=== PATIENT | female | born 1960 | race Caucasian/White ===

== ENCOUNTER 2016-05-26 07:16 | Inpatient (IN) | payer BC ==
[~2016-05-26] VITALS: Ht 165.1 cm; Wt 76.9 kg
[2016-05-26] VITALS (8 sets, daily range): BP systolic 86–121; BP diastolic 58–85; PULSE 77–111; TEMP 36.6–36.7; O2SAT 94–97; Ht 165.1 cm; Wt 76.9 kg
[~2016-05-26 07:16] MED LIST: ALBU1AER9 INH; AMLO-110 PO; ROSU20TA PO
[2016-05-26] MEDS ORDERED: SODIUM CHLORIDE 0.9% 1000ML 1,000 ML IV ONE (07:45)
[2016-05-26] MEDS ORDERED: METOPROLOL TARTRATE 1 MG/ML VIAL IV STA ×3 (07:53→08:29)
--- NOTE | 2016-05-26 08:01 | DIAGNOSTIC IMAGING REPORT ---
SINGLE VIEW CHEST CLINICAL HISTORY: Dyspnea. FINDINGS: An AP, portable, upright chest radiograph is compared to study dated 07/18/2015. Correlation is made with chest CT dated 01/25/2007. The heart is mildly enlarged. The pulmonary vasculature is noncongested. Emphysema and chronic interstitial thickening is unchanged. No airspace consolidation, large pleural effusion, or pneumothorax is seen. The skeletal structures are osteopenic. There are healed right-sided rib fractures. IMPRESSION: Mild cardiac enlargement and emphysema. There is no acute cardiopulmonary abnormality. Electronically signed by: Donovan Ruiz M.D. 05/26/2016 8:00 AM Dictated Date/Time: 05/26/2016 7:58 AM
[2016-05-26 08:05] LABS: BASO % 0.2 %; BASO ABS # 0.02 K/uL (0-0.2); COMPLETE YES; EOS % 0.8 %; HEMATOCRIT 47.2 % (37-47); IG% 0.2 %; LYMPH % 28.4 %; MEAN CELL VOLUME 91.5 fL (80-100); MEAN CORPUSCULAR HEMOGLOBIN 32.2 pg (25-34); MEAN CORPUSCULAR HGB CONC 35.2 g/dl (32-36); MEAN PLATELET VOLUME 9.6 fL (7.4-10.4); MONO % 6.4 %; PLATELET COUNT 565 K/uL (130-400); RED BLOOD COUNT 5.16 M/uL (4.2-5.4); WHITE BLOOD COUNT 13.05 K/uL (4.8-10.8)
[2016-05-26] MEDS ORDERED: ALBU18002 INH (08:11)
--- NOTE | 2016-05-26 08:11 | EMERGENCY ROOM VISIT NOTE ---
History First contact with patient: 07:28 Chief Complaint: SHORTNESS OF BREATH Stated Complaint: SOB, DIZZINESS, LIGHTHEADED Nursing Triage Summary: pt reports on thursday started with sx of dizziness , sob, lightheaded like she was going to pass out. 2 weeks ago had been dx with bronchitis. head feels funny now History of Present Illness The patient is a 55 year old female who presents to the Emergency Room with complaints of dizziness, shortness of breath. Her symptoms started 3 days ago. She had bronchitis 2 weeks ago and was improving but suddenly 3 days ago, she began feeling short of breath. She shortness of breath is primarily with exertion. She denies any coughing or wheezing. She has not had chest pain or chest tightness. She has felt mild palpitations. She gets no nighttime dyspnea. She has no lower extremity edema. She has no syncopal episodes. She does have asthma for which she takes a PRN albuterol but has not tried using this She has had occasional nausea but no vomiting. Otherwise, does not have any diarrhea or constipation She has not had fevers. Her appetite has been poor but she has been trying to stay hydrated. She denies any history of cardiac problems. She does have hypertension and hyperlipidemia. She denies any thyroid problems or history of thyroid problems. Review of Systems A 10 point review of systems was negative unless stated above. Past Medical/Surgical History Medical Problems: (1) New onset a-fib HTN Hypercholesterolemia Asthma Surgical - Femoral stenting - Hysterectomy - Tonsillectomy Family History Mother: Uterine Ca Father : OR at 46 Social History Smoking Status: Current Every Day Smoker Alcohol Use: occasionally Marital Status: Housing Status: lives with significant other Occupation Status: employed Current/Historical Medications Scheduled Amlodipine (Norvasc), 10 MG PO DAILY Losartan Potassium (Cozaar), 50 MG PO DAILY Rosuvastatin Calcium (Crestor), 20 MG PO DAILY Scheduled PRN Albuterol Sulfate (Proair Respiclick), 1 PUFF INH Q4 PRN for Shortness of Breath Ipratropium-Albuterol (Duoneb), 1 TREATMENT INH Q4H PRN for Shortness of Breath Allergies Coded Allergies: Lisinopril (Unverified Allergy, Severe, SOB, SEVERE COUGHING FITS, 05/26/16 ) Physical Exam Vital Signs Date Time Temp Pulse Resp B/P Pulse Ox O2 Delivery O2 Flow Rate FiO2 05/26/16 10:48 84/68 05/26/16 10:46 109 22 95 05/26/16 10:44 95/72 05/26/16 10:41 105 14 96 05/26/16 10:40 123 18 100/67 96 Room Air 05/26/16 10:39 100/67 05/26/16 10:36 118 19 96 05/26/16 10:33 116/78 05/26/16 10:31 106 19 96 05/26/16 10:28 108/79 05/26/16 10:26 108 24 96 05/26/16 10:23 89/75 05/26/16 10:21 97 21 95 05/26/16 10:18 95/67 05/26/16 10:18 36.7 97 17 103/79 94 Room Air 05/26/16 10:16 116 17 96 05/26/16 10:14 103/79 05/26/16 10:11 113 20 93 05/26/16 10:08 103/67 05/26/16 10:06 94 22 95 05/26/16 10:04 94/66 05/26/16 10:01 104 28 93 05/26/16 09:58 105 18 97/77 96 Room Air 05/26/16 09:58 104/68 05/26/16 09:56 96 24 96 05/26/16 09:53 97/77 05/26/16 09:51 111 23 96 05/26/16 09:48 96/73 05/26/16 09:46 89 20 96 05/26/16 09:43 91/68 05/26/16 09:41 106 17 93 05/26/16 09:40 97 18 85/72 94 Room Air 05/26/16 09:38 85/72 05/26/16 09:36 87 18 96 05/26/16 09:34 89/63 05/26/16 09:31 91 23 97 05/26/16 09:28 91/72 05/26/16 09:26 109 13 95 05/26/16 09:23 101/69 05/26/16 09:22 135 20 91/47 97 Room Air 05/26/16 09:21 127 14 97 05/26/16 09:18 91/74 05/26/16 09:16 131 16 97 05/26/16 09:14 94/67 05/26/16 09:11 125 18 96 05/26/16 09:09 106/69 05/26/16 09:06 125 17 98 05/26/16 09:04 87/59 05/26/16 09:01 121 17 97 05/26/16 08:59 93/70 05/26/16 08:56 126 15 99 05/26/16 08:54 97/54 05/26/16 08:51 103 14 100 05/26/16 08:48 119/94 05/26/16 08:46 130 18 96 05/26/16 08:45 127 106/95 05/26/16 08:43 106/95 05/26/16 08:41 135 23 05/26/16 08:41 135 111/85 05/26/16 08:38 111/85 05/26/16 08:36 132 17 96 05/26/16 08:34 130 18 88/54 98 Room Air 05/26/16 08:32 88/54 05/26/16 08:31 123 25 81 05/26/16 08:29 100/81 05/26/16 08:28 145 100/81 05/26/16 08:26 136 23 95 05/26/16 08:24 100/81 05/26/16 08:21 118 29 99 05/26/16 08:19 105/64 05/26/16 08:16 119 20 88 05/26/16 08:13 116/81 05/26/16 08:11 141 20 96/80 98 Room Air 05/26/16 08:11 129 18 05/26/16 08:10 96/80 05/26/16 08:06 139 14 93 05/26/16 08:05 93/72 05/26/16 08:05 154 20 93/72 98 Room Air 05/26/16 08:03 156 20 102/76 98 05/26/16 08:01 153 19 05/26/16 08:00 150 20 108/90 99 Room Air 05/26/16 07:58 147 110/80 05/26/16 07:56 146 20 99 05/26/16 07:55 153 20 110/80 98 Room Air 05/26/16 07:51 130 24 84 05/26/16 07:46 154 05/26/16 07:46 146 14 98 05/26/16 07:41 139 26 97 05/26/16 07:24 36.6 87 18 116/80 97 Room Air Pain Rating (0-10): 0 Physical Exam Constitutional: Vital signs as above were reviewed. Eyes: Pupils equal, round, and reactive to light. Extraocular muscles are intact. No proptosis. No photophobia. ENT: Mucous membranes are moist. Oropharynx is clear. No sinus tenderness. TMs are clear bilaterally. Cardiovascular: Irregularly irregular and tacchycardic, rate 160. Pulses are palpable and symmetric in all 4 extremities. No pedal edema appreciated. No JVD Respiratory: Lungs clear to auscultation bilaterally. No wheezes, rales, or rhonchi appreciated. No accessory muscle use. No retractions. No increased work of breathing. GI: Abdomen soft, nontender, nondistended. Normal active bowel sounds. No abdominal hernias appreciated. No rebound. No guarding. : No CVA tenderness appreciated. Musculoskeletal: No midline cervical or vertebral tenderness. No gross deformities. No bony tenderness. No calf swelling or tenderness. Integumentary: Warm, dry, no rashes appreciated. Neurological: Patient awake, alert, and oriented x 3. Cranial nerves two through 12 grossly intact. Motor 5 out of 5 strength bilateral upper and lower extremities. Lymph: No cervical lymphadenopathy appreciated. Medical Decision & Procedures ER Provider Diagnostic Interpretation: SINGLE VIEW CHEST CLINICAL HISTORY: Dyspnea. FINDINGS: An AP, portable, upright chest radiograph is compared to study dated 07/18/2015. Correlation is made with chest CT dated 01/25/2007. The heart is mildly enlarged. The pulmonary vasculature is noncongested. Emphysema and chronic interstitial thickening is unchanged. No airspace consolidation, large pleural effusion, or pneumothorax is seen. The skeletal structures are osteopenic. There are healed right-sided rib fractures. IMPRESSION: Mild cardiac enlargement and emphysema. There is no acute cardiopulmonary abnormality. Electronically signed by: Donovan Ruiz M.D. 05/26/2016 8:00 AM Dictated Date/Time: 05/26/2016 7:58 AM Laboratory Results 05/26/16 07:35 Red Blood Count 5.16, Mean Corpuscular Volume 91.5, Mean Corpuscular Hemoglobin 32.2, Mean Corpuscular Hemoglobin Concent 35.2, Mean Platelet Volume 9.6, Neutrophils (%) (Auto) 64.0, Lymphocytes (%) (Auto) 28.4, Monocytes (%) (Auto) 6.4, Eosinophils (%) (Auto) 0.8, Basophils (%) (Auto) 0.2, Neutrophils # (Auto) 8.36, Lymphocytes # (Auto) 3.70, Monocytes # (Auto) 0.84, Eosinophils # (Auto) 0.10, Basophils # (Auto) 0.02 05/26/16 07:35 Test 05/26/16 07:35 White Blood Count 13.05 K/uL (4.8-10.8) Red Blood Count 5.16 M/uL (4.2-5.4) Hemoglobin 16.6 g/dL (12.0-16.0) Hematocrit 47.2 % (37-47) Mean Corpuscular Volume 91.5 fL (80-100) Mean Corpuscular Hemoglobin 32.2 pg (25-34) Mean Corpuscular Hemoglobin Concent 35.2 g/dl (32-36) Platelet Count 565 K/uL (130-400) Mean Platelet Volume 9.6 fL (7.4-10.4) Neutrophils (%) (Auto) 64.0 % Lymphocytes (%) (Auto) 28.4 % Monocytes (%) (Auto) 6.4 % Eosinophils (%) (Auto) 0.8 % Basophils (%) (Auto) 0.2 % Neutrophils # (Auto) 8.36 K/uL (1.4-6.5) Lymphocytes # (Auto) 3.70 K/uL (1.2-3.4) Monocytes # (Auto) 0.84 K/uL (0.11-0.59) Eosinophils # (Auto) 0.10 K/uL (0-0.5) Basophils # (Auto) 0.02 K/uL (0-0.2) RDW Standard Deviation 49.4 fL (36.4-46.3) RDW Coefficient of Variation 14.6 % (11.5-14.5) Immature Granulocyte % (Auto) 0.2 % Immature Granulocyte # (Auto) 0.03 K/uL (0.00-0.02) Prothrombin Time 10.7 SECONDS (9.0-12.0) Prothromb Time International Ratio 1.0 (0.9-1.1) Activated Partial Thromboplast Time 25.3 SECONDS (21.0-31.0) Partial Thromboplastin Ratio 1.0 Anion Gap 10.0 mmol/L (3-11) Est Creatinine Clear Calc Drug Dose 63.4 ml/min Estimated GFR () 72.4 Estimated GFR (Non- 62.5 BUN/Creatinine Ratio 20.0 (10-20) Calcium Level 9.2 mg/dl (8.5-10.1) Phosphorus Level 3.4 mg/dl (2.5-4.9) Magnesium Level 2.4 mg/dl (1.8-2.4) Total Bilirubin 0.7 mg/dl (0.2-1) Direct Bilirubin 0.1 mg/dl (0-0.2) Aspartate Amino Transf (AST/SGOT) 10 U/L (15-37) Alanine Aminotransferase (ALT/SGPT) 24 U/L (12-78) Alkaline Phosphatase 58 U/L (45-117) Total Creatine Kinase 45 U/L (26-192) Creatine Kinase MB 0.7 ng/ml (0.5-3.6) Creatine Kinase MB Ratio 1.6 (0-3.0) Total Protein 7.5 gm/dl (6.4-8.2) Albumin 4.2 gm/dl (3.4-5.0) Thyroid Stimulating Hormone (TSH) 1.930 uIu/ml (0.300-4.500) Medications Administered Medications (Trade) Dose Ordered Sig/Jhon Route Start Time Stop Time Status Last Admin Dose Admin Sodium Chloride (Nss 1000ml) 1,000 ml @ 999 mls/hr Q1H1M ONCE IV 05/26/16 07:45 05/26/16 08:45 DC 05/26/16 07:45 999 MLS/HR Metoprolol Tartrate (Lopressor Iv) 5 mg NOW STAT IV 05/26/16 07:53 05/26/16 07:55 DC 05/26/16 07:58 5 MG Metoprolol Tartrate (Lopressor Iv) 2.5 mg NOW STAT IV 05/26/16 08:24 05/26/16 08:25 DC 05/26/16 08:28 2.5 MG Metoprolol Tartrate 2.5 mg 2.5 mg NOW STAT IV 05/26/16 08:29 05/26/16 08:32 DC 05/26/16 08:45 2.5 MG Sodium Chloride (Nss 1000ml) 1,000 ml @ 150 mls/hr Q6H40M IV 05/26/16 09:15 05/26/16 13:16 DC 05/26/16 09:16 150 MLS/HR Diltiazem HCl (Cardizem Inj) 10 mg NOW STAT IV 05/26/16 09:10 05/26/16 09:12 DC 05/26/16 09:20 10 MG ECG Comparison ECG Date: no prior available Change: Atrial fibrillation, ventricular rate 157 No ectopy or pauses No acute ST or T wave changes ED Course 07:30 - Evaluated 07:45 - Precepted case with Dr. Esqueda Reviewed EKG showing Afib with RVR at 157; 5 mg Metoprolol Tartrate IV ordered with 250 ml NSS bolus 08:00 - Reassessed 15 minutes after first dose of Metoprolol 08:25 - 2.5 mg Metoprolol Tartrate IV with 500 ml NSS 08:50 - Patient tolerated; additional 2.5 mg Metoprolol given Labs reviewed; mild WBC elevation at 13; electrolytes grossly normal; TSH normal; CXR negative 09:10 - 10 mg IV Diltiazem given 09:45 - Reassessed patient; shortness of breath improved BP stable at 91/58; HR between 90-110 Decision to admit patient to medicine 10:00 - Discussed case with Dr. Sai Anderson, who agrees to admit patient for further evaluation and management. Medical Decision A thorough history was obtained, physical examination performed and the EMR was reviewed. The case was reviewed multiple times over with Dr. Tenisha Esqueda during the patient's ED visit. Patient presents with shortness of breath. Differential diagnosis includes Bronchitis, COPD Exacerbation, Pneumonia, CAD, CHF, Arrhythmia. Patient was tachycardic in the 150s-160s on arrival. Fortunately, she remained hemodynamically unstable. We first tried 5 mg of Metoprolol with minimal effect . After a total of 10 mg, her heart rate remained 130-140. We gave bolus of Cardizem 10 mg which had an excellent effect at bringing HR between 90- 110. We had IV fluids in tandem to help maintain blood pressure. Chest x-ray was fortunately normal and cardiac enzymes were normal. She will be admitted to medicine for new onset atrial fibrillation. Her TSH was normal. She remained hemodynamically stable throughout her ED course. She was transferred to the hospitalist service in stable condition. Impression Primary Impression: Atrial fibrillation with rapid ventricular response Additional Impressions: Hypercholesteremia Hypertension Departure Information Dispostion Being Evaluated By Hospitalist Condition GOOD Referrals Narayan Hsu III, CRNP (PCP) Patient Instructions My [facility] Problem Qualifiers
[2016-05-26 08:14] LABS: CALCIUM 9.2 mg/dl (8.5-10.1); POTASSIUM 4.2 mmol/L (3.5-5.1)
[2016-05-26] MEDS ORDERED: IPRASOL4 INH (08:14)
[2016-05-26] MEDS ORDERED: LOSA50TA6 PO (08:16)
[2016-05-26 08:24] LABS: CKMB/CK RATIO 1.6 (0-3.0); THYROID STIMULATING HORMONE 1.93 uIu/ml (0.300-4.500)
[2016-05-26] MEDS ORDERED: DILTIAZEM HCL 5 MG/ML 5 ML VIAL IV STA (09:10)
[2016-05-26] MEDS ORDERED: SODIUM CHLORIDE 0.9% 1000ML 1,000 ML IV SCH (09:15)
[2016-05-26] MEDS ORDERED: ACETAMINOPHEN 325 MG TAB PO PRN (11:00)
[2016-05-26] MEDS ORDERED: ALUMINUM/MAGNESIUM/SIMETH (MAALOX MAX) 30 ML UDC PO PRN (11:00)
[2016-05-26] MEDS ORDERED: MAGNESIUM HYDROXIDE SUSP 30 ML UDC PO PRN (11:00)
[2016-05-26] MEDS ORDERED: ONDANSETRON INJ 2 MG/ML 2 ML VIAL IV PRN (11:00)
[2016-05-26] MEDS ORDERED: NITROGLYCERIN 0.4 MG SL PER TAB CHARGE SL PRN (11:00)
[2016-05-26] MEDS ORDERED: ALBUT/IPRATROP 3MG/0.5MG NEB 3 ML VIAL INH PRN (11:00)
[2016-05-26] MEDS ORDERED: POLYETHYLENE (MIRALAX) 17 GM PACK PO PRN (11:00)
--- NOTE | 2016-05-26 11:07 | History and Physical ---
History & Physical Date & Time of Service: May 26, 2016 at 11:01 Chief Complaint: Sob, Dizziness, Lightheaded Primary Care Physician: Narayan Hsu III, CRNP History of Present Illness Source: patient, family This is a 55 y/o F with a history of CAD s/p 2 stents, COPD, current smoker who presents with dizziness and shortness of breath x 3 days. She reports that she was treated for bronchitis 2 weeks ago with Z pac and Steroids. She had improved to her baseline up till about 3 days ago when she became weak and short of breath. It continued into the weekend until she felt pre-syncopal. She did not pass out. Recently switched to [facility] cardiology. Denies history of OR/ CVA Denies history of Thyroid disease Currently, her shortness of breath has improved. She denies Chest pain, nausea, vomiting, fevers, chills, diarrhea, Extremity weakness/numbness/tingling. Past Medical/Surgical History CAD COPD Family History Cardiac disease Metastatic Ovarian Ca. Social History Smoking Status: Current Every Day Smoker Alcohol Use: occasionally Drug Use: none Marital Status: Housing status: lives with family Occupational Status: employed Immunizations History of Influenza Vaccine: Unknown History of Tetanus Vaccine?: Unknown History of Pneumococcal: Unknown History of Hepatitis B Vaccine: Unknown Multi-Drug Resistant Organisms History of MDRO: No Allergies Coded Allergies: Lisinopril (Unverified Allergy, Severe, SOB, SEVERE COUGHING FITS, 05/26/16 ) Home Medications Scheduled Amlodipine (Norvasc), 10 MG PO DAILY Losartan Potassium (Cozaar), 50 MG PO DAILY Rosuvastatin Calcium (Crestor), 20 MG PO DAILY Scheduled PRN Albuterol Sulfate (Proair Respiclick), 1 PUFF INH Q4 PRN for Shortness of Breath Ipratropium-Albuterol (Duoneb), 1 TREATMENT INH Q4H PRN for Shortness of Breath Review of Systems Constitutional: + fatigue, + weakness, No chills, No fever Eyes: No worsening of vision Respiratory: + dyspnea at rest, + dyspnea on exertion, + shortness of breath, No cough, No sputum, No wheezing Cardiovascular: No chest pain Abdomen: No nausea, No pain, No vomiting Genitourinary - Female: No dysuria, No urinary frequency, No urinary urgency Psychiatric: No depression symptoms Hematologic / Lymphatic: No abnormal bleeding/bruising Physical Exam Vital Signs Date Time Temp Pulse Resp B/P Pulse Ox O2 Delivery O2 Flow Rate FiO2 05/26/16 10:40 123 18 100/67 96 Room Air 05/26/16 10:18 36.7 97 17 103/79 94 Room Air 05/26/16 09:58 105 18 97/77 96 Room Air 05/26/16 09:40 97 18 85/72 94 Room Air 05/26/16 09:22 135 20 91/47 97 Room Air 05/26/16 08:45 127 106/95 05/26/16 08:41 135 111/85 05/26/16 08:34 130 18 88/54 98 Room Air 05/26/16 08:28 145 100/81 05/26/16 08:11 141 20 96/80 98 Room Air 05/26/16 08:05 154 20 93/72 98 Room Air 05/26/16 08:03 156 20 102/76 98 05/26/16 08:00 150 20 108/90 99 Room Air 05/26/16 07:58 147 110/80 05/26/16 07:55 153 20 110/80 98 Room Air 05/26/16 07:46 154 05/26/16 07:24 36.6 87 18 116/80 97 Room Air General Appearance: no apparent distress Eyes: normal inspection, PERRL ENT: hearing grossly normal Neck: supple Respiratory/Chest: lungs clear, normal breath sounds, no respiratory distress, no accessory muscle use Cardiovascular: no edema, no JVD, no murmur, + tachycardia, + irregularly irregular Abdomen/GI: normal bowel sounds, non tender, soft Back: normal inspection, no CVA tenderness, no muscle spasm Extremities/Musculoskelatal: normal inspection, no calf tenderness, normal capillary refill, no pedal edema Neurologic/Psych: no motor/sensory deficits, alert Diagnostics Laboratory Results Results Past 24 Hours Test 05/26/16 07:35 05/26/16 10:45 Range/Units White Blood Count 13.05 4.8-10.8 K/uL Red Blood Count 5.16 4.2-5.4 M/uL Hemoglobin 16.6 12.0-16.0 g/dL Hematocrit 47.2 37-47 % Mean Corpuscular Volume 91.5 80-100 fL Mean Corpuscular Hemoglobin 32.2 25-34 pg Mean Corpuscular Hemoglobin Concent 35.2 32-36 g/dl Platelet Count 565 130-400 K/uL Mean Platelet Volume 9.6 7.4-10.4 fL Neutrophils (%) (Auto) 64.0 % Lymphocytes (%) (Auto) 28.4 % Monocytes (%) (Auto) 6.4 % Eosinophils (%) (Auto) 0.8 % Basophils (%) (Auto) 0.2 % Neutrophils # (Auto) 8.36 1.4-6.5 K/uL Lymphocytes # (Auto) 3.70 1.2-3.4 K/uL Monocytes # (Auto) 0.84 0.11-0.59 K/uL Eosinophils # (Auto) 0.10 0-0.5 K/uL Basophils # (Auto) 0.02 0-0.2 K/uL RDW Standard Deviation 49.4 36.4-46.3 fL RDW Coefficient of Variation 14.6 11.5-14.5 % Immature Granulocyte % (Auto) 0.2 % Immature Granulocyte # (Auto) 0.03 0.00-0.02 K/uL Sodium Level 139 136-145 mmol/L Potassium Level 4.2 3.5-5.1 mmol/L Chloride Level 103 98-107 mmol/L Carbon Dioxide Level 26 21-32 mmol/L Anion Gap 10.0 3-11 mmol/L Blood Urea Nitrogen 20 7-18 mg/dl Creatinine 1.00 0.60-1.20 mg/dl Est Creatinine Clear Calc Drug Dose 63.4 ml/min Estimated GFR () 72.4 Estimated GFR (Non- 62.5 BUN/Creatinine Ratio 20.0 10-20 Random Glucose 114 70-99 mg/dl Calcium Level 9.2 8.5-10.1 mg/dl Total Creatine Kinase 45 26-192 U/L Creatine Kinase MB 0.7 0.5-3.6 ng/ml Creatine Kinase MB Ratio 1.6 0-3.0 Troponin I 0.024 0-0.045 ng/ml Thyroid Stimulating Hormone (TSH) 1.930 0.300-4.500 uIu/ml Impression Assessment and Plan This is a 55 y/o F with a history of CAD s/p stents x 2 who presents with dizziness/shortness of breath and found to be in AFib with rvr. She received a total of 10 mg Metoprolol and 10 mg diltiazem after which she was less symptomatic and her rate had improved. Our plan for her is as follows: New onset Afib: Cardizem Drip and then switch metoprolol PO Echo TSH is normal She does have an elevated White count at 13 which could be a result of her recent steroids Will trend this. No obvious sign of infection at the moment. Cardiology consult- patients requests as she has been following with [facility] Cardio Will need to decide on anticoagulation [id number] - 2, significant vascular disease Trend troponin COPD/Emphysema- at baseline Continue duoneb / Pro air will adjust as necessary Smoking cessation counselling- patient is not interested at this time. Declines need for nicotine patch. CAD s/p stents Continue Rosuvastatin Continue Cozaar HTN: Continue Amlodipine DVT proph: Lovenox Code: Full Advanced Directives Existing Advance Directive: No Existing Living Will: No Existing Power of Research Professional: No VTE Prophylaxis VTE Risk Assessment Done? Y/N: Yes Risk Level: Moderate Given or contraindicated: Enoxaparin (Lovenox)SQ History Resident Physician Supervision Note: I was present with Dr. Fuentes during the history and exam. I discussed the case with the resident and agree with the findings and plan as documented in the note. Any exceptions or clarifications are listed here 55 y/o female h/o CAD, HTN, HLD presents w/ new onset atrial fibrillation which was characterized by fatigue and lightheadedness x 3 days. Accompanied by mild frontal headache (sinus?) and nausea w/ severe sx. These symptoms progressively worsened and resulted in significant impairment of function. First episode of same. No events leading up to a-fib. Significant improvement following rate control w/ labetolol and cardizem IV. Reports no CP/SOB, vomiting, leg swelling. General Appearance: WD/WN, mild distress, obese Respiratory: chest non-tender, lungs clear, normal breath sounds, no respiratory distress Cardiovascular: no edema, no murmur, irregularly irregular Gastrointestinal: normal bowel sounds, non tender, soft, no organomegaly Assessment/Plan 55 y/o female h/o CAD, HTN, HLD presents w/ new onset atrial fibrillation with RVR A-fib w/ RVR - established w/ Dr. Osobrn as outpatient 2/2 CAD w/ stenting - cardizem drip for rate control w/ tight parameters and slow escalation - heparin for AC, to transition later - echocardiogram - repeat EKG in AM - trend troponins COPD - at baseline - Duoneb PRN, smoking cessation encouragement CAD s/p stent - continue cozaar and statin therapy HTN - hold amlodipine, will adjust cardizem and resume if needed DVT PPX - heparin drip Code Status - FULL CODE
[2016-05-26] MEDS ORDERED: DILTIAZEM BOLUS / DRIP IV STA ×2 (11:13→11:41)
[2016-05-26 11:37] LABS: PROTHROMBIN TIME (PATIENT) 10.7 SECONDS (9.0-12.0)
[2016-05-26 11:40] LABS: MAGNESIUM 2.4 mg/dl (1.8-2.4); PHOSPHORUS 3.4 mg/dl (2.5-4.9)
[2016-05-26] MEDS: DILTIAZEM HCL INJ 125 MG in DEXTROSE 5% 100ML IV PRN (11:55)
[2016-05-26] MEDS ORDERED: ALBUTEROL HFA 8 GM INHALER INH PRN (13:30)
[2016-05-26] MEDS ORDERED: INFLUENZA VIRUS QUAD VACCINE 0.5 ML SYR IM. ONE (14:00)
[2016-05-26] MEDS ORDERED: INFLUENZA ADMINISTRATION CHARGE ONE (14:00)
[2016-05-26] MEDS ORDERED: PERFLUTREN LIPID MICROSPHERE (DEFINITY) IV ONE (15:36)
[2016-05-26] MEDS: METOPROLOL TARTRATE 25 MG TAB PO SCH ×2 (15:52→21:07)
[2016-05-26] MEDS: HEPARIN 25,000 UNIT/500ML D5W 500 ML IV PRN (15:52)
[2016-05-26] MEDS ORDERED: ENOXAPARIN 40 MG/0.4 ML SYR SC SCH (16:00)
--- NOTE | 2016-05-26 16:50 | ECHOCARDIOGRAM REPORT ---
*NOTICE TO RECEIVING [employer] This information is strictly Confidential and protected under [place] law. [place] law prohibits you from making any further disclosure of this information unless further disclosure is expressly permitted by the written consent of the person to whom it pertains or is authorized by law. A general authorization for the release of medical or other information is not sufficient for this purpose. Hospital accepts no responsibility if the information is made available to any other person, INCLUDING THE PATIENT. Interpretation Summary * Name: NANI WATSON Study Date: 05/26/2016 02:51 PM BP: 102/73 mmHg * [facility] HR: 117 * : 1960 (M/d/yyyy) Gender: Female Height: 65 in * Age: 55 yrs Ethnicity: [place] Weight: 168 lb * Ordering Physician: Inez Fuentes * Referring Physician: Self, Referred * Performed By: Kirti Burgos RCS * * Reason For Study: A-FIB * BSA: 1.8 m2 * Normal biventricular systolic function. * Normal chamber dimensions. * No significant valvular abnormalities. Procedure Details * A complete two-dimensional transthoracic echocardiogram was performed (2D, M-mode, Doppler and color flow Doppler). * There were technical limitations due to patient'sPoor acoustic windows secondary to severe lung disease. * A contrast injection of Definity was performed to improve assessment of LV function. * Contrast was injected into an intravenous site in the right arm. * One vial of Definity ultrasound contrast was diluted in normal saline to a total volume of 10 ml. A total of '2' ml of solution was administered during imaging. * Lot # [id number] of Definity utilized for procedure. * Expiration date 1DEC17. * The attending nurse who injected the contrast agent was Stephanie Iglesias RN. Left Ventricle * The left ventricle is normal in size. * There is normal left ventricular wall thickness. * Ejection Fraction = 65-70%. * Left ventricular systolic function is normal. * The left ventricular wall motion is normal. Right Ventricle * The right ventricle is normal in size and function. Atria * The left atrial size is normal. * Right atrial size is normal. * No ASD detected; PFO is not assessed. Mitral Valve * The mitral valve is grossly normal. * There is no mitral valve stenosis. * There is no mitral regurgitation noted. Tricuspid Valve * The tricuspid valve is not well visualized, but is grossly normal. * There is no tricuspid stenosis. * There is trace tricuspid regurgitation. * Right ventricular systolic pressure is normal. Aortic Valve * The aortic valve is not well visualized. * The aortic valve is trileaflet. * The aortic valve opens well. * Aortic stenosis is absent. * No aortic regurgitation is present. Pulmonic Valve * The pulmonic valve is not well visualized. * There is no pulmonic valvular stenosis. * There is no significant pulmonary regurgitation. Great Vessels * The aortic root is normal size. Pericardium/Pleural * There is no pericardial effusion. Great Vessels * Normal inferior vena cava diameter and respiratory variation suggests normal central venous pressure. MMode 2D Measurements and Calculations IVSd 0.88 cm IVSs 1.2 cm LVIDd 4.2 cm LVIDs 2.7 cm LVPWd 0.92 cm LVPWs 1.1 cm IVS/LVPW 0.96 FS 35.9 % EDV(Teich) 80.3 ml ESV(Teich) 27.4 ml EF(Teich) 65.8 % EDV(cubed) 76.1 ml ESV(cubed) 20.0 ml EF(cubed) 73.7 % % IVS thick 32.1 % % LVPW thick 24.6 % LV mass(C)d 120.8 grams LV mass(C)dI 65.7 grams/m\S\2 LV mass(C)s 89.9 grams LV mass(C)sI 48.9 grams/m\S\2 CO(Teich) 4.3 l/min CI(Teich) 2.4 l/min/m\S\2 SV(Teich) 52.8 ml SI(Teich) 28.8 ml/m\S\2 CO(cubed) 4.6 l/min CI(cubed) 2.5 l/min/m\S\2 SV(cubed) 56.1 ml SI(cubed) 30.5 ml/m\S\2 Ao root diam 2.7 cm Ao root area 5.7 cm\S\2 ACS 1.9 cm LA dimension 3.7 cm LA/Ao 1.4 LVAd ap4 26.4 cm\S\2 LVLd ap4 7.5 cm EDV(MOD-sp4) 75.0 ml LVAs ap4 11.6 cm\S\2 LVLs ap4 6.4 cm ESV(MOD-sp4) 19.0 ml EF(MOD-sp4) 74.7 % LVAd ap2 20.4 cm\S\2 LVLd ap2 7.0 cm EDV(MOD-sp2) 49.0 ml LVAs ap2 12.6 cm\S\2 LVLs ap2 6.1 cm ESV(MOD-sp2) 22.0 ml EF(MOD-sp2) 55.1 % CO(MOD-sp4) 4.6 l/min CI(MOD-sp4) 2.5 l/min/m\S\2 SV(MOD-sp4) 56.0 ml SI(MOD-sp4) 30.5 ml/m\S\2 CO(MOD-sp2) 2.2 l/min CI(MOD-sp2) 1.2 l/min/m\S\2 SV(MOD-sp2) 27.0 ml SI(MOD-sp2) 14.7 ml/m\S\2 Doppler Measurements and Calculations MV E max jimmy 86.6 cm/sec MV P1/2t max jimmy 97.0 cm/sec MV P1/2t 46.3 msec MVA(P1/2t) 4.8 cm\S\2 MV dec slope 613.3 cm/sec\S\2 MV dec time 0.18 sec Ao V2 max 93.8 cm/sec Ao max PG 3.5 mmHg Ao max PG (full) 2.4 mmHg LV V1 max PG 1.2 mmHg LV V1 max 54.1 cm/sec PA V2 max 66.3 cm/sec PA max PG 1.8 mmHg TR max jimmy 229.6 cm/sec
--- NOTE | 2016-05-26 17:54 | EMERGENCY ROOM VISIT NOTE ---
ED Visit Note First contact with patient: 07:28 Resident Physician Supervision Note: I interviewed and examined the patient. Discussed with Dr. Cardozo and agree with findings and plan as documented in the note. Any exceptions or clarifications are listed here: This patient was evaluated and appeared to be in no distress. She is noted to be markedly tachycardic in a rapid atrial fibrillation. Patient's blood pressure is periodically hypotensive. She has been given fluid boluses and a total of 10 mg of IV metoprolol. This has not controlled the patient's heart rate. She was then given 10 mg of IV Cardizem with significant improvement. Patient's case will be discussed with the hospitalist service for further management. Please refer to Dr. Cardozo's notes for further details. I have personally spent greater than 30 minutes of critical care time in the direct management of this patient. This includes bedside care, interpretation of diagnostic studies, and testing, discussion with consultants, patient, and family members, and other required patient management activities. This 30 minutes is in excess of all separately billable procedures. Diagnosis: Atrial fibrillation with rapid ventricular response Documented By: Tenisha Esqueda
[2016-05-26] MEDS ORDERED: NURSING VERBAL MED ORDER ONE (19:00)
--- NOTE | 2016-05-26 19:29 | CARDIOLOGY CONSULTATION REPORT ---
DATE OF CONSULTATION: 05/26/2016 REASON FOR CONSULTATION: Newly diagnosed AFib with RVR. HISTORY OF PRESENT ILLNESS: Mrs. Polanco is a 55-year-old white female with a history of ongoing tobacco use, PAD status post left common iliac artery stents x 2, asthma/COPD, hypertension, and dyslipidemia who presented acutely to [facility] Emergency Room earlier today complaining of persistent dizziness/lightheadedness as well as exertional dyspnea x3 days. The patient was recently treated for an acute bronchitis which included corticosteroids and a Z-Tigre. After finishing her course of treatment for that, she had almost returned to baseline until Thursday evening when she began to develop recurrent lightheadedness and noted exertional dyspnea. She did not have any syncopal episodes, nor does she get any sensation of palpitations/tachypalpitations. In the Emergency Room, she was noted to be in rapid atrial fibrillation with a ventricular response rate of 150 beats per minute. The patient denies any chest pain, heaviness, tightness or pressure. Denies any neck, jaw, back or arm pain. Has not had any nausea, vomiting, or diaphoresis. No recent orthopnea or PND. No sensation of palpitations and no syncope. In the Emergency Room, the patient was started on IV diltiazem drip in addition to her usual medications. This has resulted in a more well-controlled ventricular response rate but she is borderline hypertensive from time to time. The patient offers no other complaints or concerns. She denies any prior history of stroke or mini stroke. No history of GI bleeding or any bleeding abnormalities historically. PAST MEDICAL HISTORY: 1. Longstanding hypertension. 2. Dyslipidemia, on long-term statin therapy. 3. PAD status post left common iliac artery stents. 4. Minor nonocclusive carotid artery disease. 5. History of asthma/COPD. 6. Nicotine dependence, ongoing tobacco use. 7. She specifically DENIES any history of CAD, NV, CHF, or rheumatic fever. No history of diabetes mellitus or heart failure. SOCIAL HISTORY: The patient is and lives with her . 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 She is a smoker for the past several decades. Drinks alcohol socially. FAMILY HISTORY: Significant for heart disease and ovarian cancer. PHYSICAL EXAMINATION: VITAL SIGNS: Temperature is 36.7 degrees Celsius, pulse is 100-105 and irregularly irregular, respiratory rate is 14 and unlabored, blood pressure is 102/73, SpO2 is 96% on room air. GENERAL: The patient is in no acute distress. HEENT: Head is atraumatic, normocephalic. EOMs intact. Sclerae are anicteric. Face is symmetric. No perioral cyanosis. Mucous membranes moist. NECK: Without thyromegaly, adenopathy or JVD. Carotid upstrokes +2 bilaterally without bruits. CHEST AND LUNGS: Clear to auscultation throughout all lung michel. No wheezes, rales or rhonchi. CARDIOVASCULAR: S1 and S2 are irregularly irregular, tachycardic without obvious murmur, gallop or rub. PMI is nondisplaced. No lifts, heaves, or thrills. No abdominal, aortic or renal bruits. ABDOMEN: Bowel sounds present. No masses, organomegaly, or tenderness. EXTREMITIES: Without clubbing, cyanosis or edema. Intact radial pulses bilaterally. +1 to +2 dorsalis pedis pulses bilaterally. NEUROLOGIC: The patient is awake, alert and oriented. Pleasant and cooperative. Answers questions appropriately. Speech is clear. Normal movement in all 4 extremities. Gait pattern not assessed. LABORATORIES: White blood cell count is 13.05, hemoglobin 16.6 g/dL, hematocrit 47.2%, and platelet count 565,000. Sodium is 139 mmol/L, potassium 4.2 mmol/L, BUN 20 mg/dL, and creatinine 1.00 mg/dL. Random glucose 114 mg/dL. Serum magnesium level is normal at 2.4 mg/dL. Total CK is 45 with a CK-MB of 0.7. Troponin I level is 0.024 ng/mL. TSH is normal at 1.930 uIUs/mL. EKG shows atrial fibrillation with a ventricular response rate of 157 beats per minute with nonspecific ST-T wave abnormality. ASSESSMENT: 1. Newly diagnosed Paroxysmal Atrial Fibrillation with rapid ventricular response. 2. CHADS-VASc score of 4 (based on gender, hypertension, and vascular disease). 3. Peripheral arterial disease, status post left common iliac artery stents. 4. Hypertension. 5. Dyslipidemia. 6. Nicotine dependence with ongoing tobacco use. 7. History of intermittent claudication, resolved. 8. History of nonocclusive carotid artery disease. 9. No history of coronary artery disease or congestive heart failure. 10. No history of stroke or mini stroke. PLAN: 1. I had a long discussion with patient and her family regarding what atrial fibrillation is, the natural history of atrial fibrillation, as well as various management strategies. 2. As she has been in Atrial Fibrillation for the better part of 3 days, we would recommend anticoagulation. She will be converted from subcutaneous Lovenox at DVT prophylaxis doses to heparin drip for the time being. 3. Begin Eliquis 5 mg p.o. b.i.d. upon discharge. 4. Continue Diltiazem drip for the time being. 5. Continue IV Lopressor on an as needed basis. 6. Stop Amlodipine due to borderline hypotension and the fact that she is receiving another calcium channel arpan. 7. Begin oral Lopressor 25 mg t.i.d., and we will most likely convert her to long-acting Toprol-XL upon discharge. 8. She verbalizes understanding of what atrial fibrillation is as well as the risk associated with atrial fibrillation, and how those risks are medicated with the appropriate treatment. 9. Anticipate discharge to home tomorrow barring any major laboratory abnormalities. 10. We will continue to follow while hospitalized and as an outpatient. 11. We will follow up with the patient in approximately 3-1/2 weeks after being fully anticoagulated, and arrange for an elective electrical cardioversion if she is still in atrial fibrillation. CARDIOLOGY ATTENDING ADDENDUM (Dr. Jackson): Patient seen, interviewed, and examined. Agree with above assessment and recommendations by El Acosta PA-C. ALBAN
[2016-05-26] MEDS ORDERED: SODIUM CHLORIDE 0.9% 500ML 500 ML IV ONE (20:00)
[2016-05-27] VITALS (26 sets, daily range): BP systolic 87–119; BP diastolic 54–83; PULSE 70–121; TEMP 36.3–36.9; O2SAT 92–99
[2016-05-27] MEDS ORDERED: NURSING VERBAL MED ORDER ONE (02:00)
[2016-05-27] MEDS: DILTIAZEM HCL INJ 125 MG in DEXTROSE 5% 100ML IV PRN ×2 (02:17→12:44)
--- NOTE | 2016-05-27 05:14 | Progress Note ---
Progress Note Diltiazem was held earlier in the evening because of bp < 90 Patient's HR started to elevate overnight and bp stabilized so diltiazem was restarted at 2 gtt without bolus and bp have been stable
[2016-05-27] MEDS: LOSARTAN POTASSIUM 50 MG TAB PO SCH ×2 (07:30→07:32)
[2016-05-27] MEDS: METOPROLOL TARTRATE 25 MG TAB PO SCH ×2 (07:31→12:45)
[2016-05-27] MEDS: ROSUVASTATIN CALCIUM 20 MG TAB PO SCH (07:31)
[2016-05-27] MEDS: TIOTROPIUM BROMIDE 5 PUFF/90 MCG INH INH SCH (08:52)
[2016-05-27] MEDS ORDERED: AMLODIPINE BESYLATE 5 MG TAB PO SCH (09:00)
[2016-05-27] MEDS ORDERED: METOPROLOL TARTRATE 1 MG/ML VIAL IV PRN ×2 (10:15→16:00)
--- NOTE | 2016-05-27 10:37 | CARDIOLOGY PROGRESS NOTE ---
DATE: 05/27/2016 HISTORY OF PRESENT ILLNESS: Mrs. Polanco is a 55-year-old white female with a history of PAD status post left common iliac artery stents x2, asthma/COPD, hypertension, dyslipidemia, and ongoing tobacco use, who was admitted yesterday with newly diagnosed afib/atrial flutter with RVR. The patient was initially started on diltiazem drip, but developed some hypotension associated with it. We have weaned that down to 2 mg per hour, and she will have this weaned completely off today. This is to make room for increased beta blockade without negatively impacting her blood pressure as much as Diltiazem does. From a symptom standpoint, she is doing quite well. Still has some positional lightheadedness related to hypotension, but is otherwise doing well. She denies any chest pain, heaviness, tightness, or pressure. No neck, jaw, back, or arm pain. No shortness of breath, orthopnea or PND. Really has not had any sensation of palpitations or tachypalpitations either. She denies any syncopal episodes. The patient offers no other complaints. She has not had any signs or symptoms of stroke or mini stroke. She has not had any bleeding complications related to the heparin drip thus far. PHYSICAL EXAMINATION: VITAL SIGNS: Pulse is 94-100 and irregularly irregular, temperature is 36.8 degrees Celsius, respiratory rate is 12 and unlabored, blood pressure is 92/76, SPO2 is 96% on room air. GENERAL: The patient is in no acute distress. HEENT: Head is atraumatic, normocephalic. EOMs intact. Sclerae are anicteric. Facies symmetric. No perioral cyanosis. NECK: Without thyromegaly, adenopathy or JVD. CHEST AND LUNGS: With rare expiratory wheeze, which clears with coughing. No rales or rubs. CARDIOVASCULAR: S1 and S2 are irregularly irregular, with a heart rate in the mid-90s. No murmur, gallop or rub. PMI is nondisplaced. No lifts, heaves, or thrills. No abdominal, aortic or renal bruits. ABDOMEN: Bowel sounds present. EXTREMITIES: Without clubbing, cyanosis or edema. NEUROLOGIC: The patient is awake, alert and oriented. Pleasant and cooperative. Answers questions appropriately. Normal movement in all 4 extremities. Speech is clear. Current telemetry monitoring reveals atrial fibrillation and intermittent brief runs of atrial flutter. Ventricular response rate is much better controlled at current time. LABORATORIES: Troponin I levels are 0.022, 0.024, and 0.029 ng/mL. CK and CK-MB are unremarkable. ASSESSMENT: 1. Newly diagnosed Paroxysmal Atrial Flutter/ Paroxysmal Atrial Fibrillation with rapid ventricular response. 2. Ventricular response rate is improved. 3. Borderline hypotension likely secondary to vasoactive medications and elevated heart rates. 4. No angina pectoris or anginal equivalent symptoms. 5. No signs or symptoms of heart failure. 6. No signs or symptoms of stroke or mini stroke. PLAN: 1. Discontinue Losartan. 2. Amlodipine was discontinued as of yesterday. 3. Wean off of Diltiazem. 4. Continue Lopressor 25 mg p.o. t.i.d. in an effort to control V-rate. 5. Add IV Lopressor 2.5 mg q. 4 hours p.r.n. for heart rate greater than 120. 6. Continue heparin drip until discharge, at which time she will be converted to Eliquis 5 mg b.i.d. 7. Our plan is still control her heart rate and keep her anticoagulated for minimum of the next 3-1/2 weeks, I will see her in the office at that point and arrange for an outpatient elective electrical cardioversion. 8. Will continue to keep a close eye on her blood pressures. 9. She may be able to go home later today or tomorrow depending on her heart rate and blood pressure response to medication changes. 10. We will continue to closely follow. CARDIOLOGY ATTENDING ADDENDUM (Dr. Jackson): Patient seen. Agree with above assessment and recommendations by El Acosta PA-C. ALBAN
[2016-05-27] MEDS: ALBUT/IPRATROP 3MG/0.5MG NEB 3 ML VIAL INH SCH ×3 (11:06→19:51)
[2016-05-27 12:13] LABS: BASO % 0.2 %; BASO ABS # 0.02 K/uL (0-0.2); COMPLETE YES; EOS % 1.3 %; HEMATOCRIT 42.5 % (37-47); IG% 0.2 %; LYMPH % 40.1 %; LYMPH ABS # 4.01 K/uL (1.2-3.4); MEAN CELL VOLUME 92.6 fL (80-100); MEAN CORPUSCULAR HEMOGLOBIN 31.6 pg (25-34); MEAN CORPUSCULAR HGB CONC 34.1 g/dl (32-36); MEAN PLATELET VOLUME 9.6 fL (7.4-10.4); MONO % 5.7 %; NEUT % 52.5 %; PLATELET COUNT 443 K/uL (130-400); RED BLOOD COUNT 4.59 M/uL (4.2-5.4); WHITE BLOOD COUNT 9.99 K/uL (4.8-10.8)
[2016-05-27 12:25] LABS: PARTIAL THROMBOPLASTIN RATIO 1.7
[2016-05-27] MEDS: HEPARIN 25,000 UNIT/500ML D5W 500 ML IV PRN (13:42)
--- NOTE | 2016-05-27 14:28 | CARDIOLOGY PROGRESS NOTE ---
DATE: 05/27/2016 DATE: 05/27/2016. DISCUSSION: Please refer to my progress note earlier today. The patient remains in atrial fibrillation. We attempted to wean her off of diltiazem and her ventricular response rate increased into the 140s. She remains borderline hypotensive as well, although it is not overtly symptomatic. At this point, will recommend the followin. Discontinue IV diltiazem drip. 2. Oral Lopressor 50 mg now and then given on a b.i.d. dosing schedule. 3. Continue Lopressor 5 mg IV q. 4 hours p.r.n. for heart rate greater than 120 beats per minute. 4. If patient continues to have significant tachycardia, or if significant hypotension related to medications or fast heart rate -- would recommend CLINTON tomorrow morning with potential electrical cardioversion following CLINTON. The patient is aware of this plan. I have asked her to remain mostly in bed in case of fluctuating blood pressures with the medication adjustments that are being made. Discussed with Nurse and with rounding Resident Physician. We will continue to follow closely. CARDIOLOGY ATTENDING ADDENDUM (Dr. Jackson): Agree with above assessment and recommendations by KEIRA Tsang
[2016-05-27] MEDS ORDERED: HEPARIN IV BOLUS 3,000 UNIT in SYRINGE 0 ML IV ONE (14:30)
[2016-05-27] MEDS ORDERED: METOPROLOL TARTRATE 50 MG TAB PO ONE (15:00)
--- NOTE | 2016-05-27 17:09 | Family Medicine Progress Note ---
Progress Note Date of Service May 27, 2016. Subjective Pt evaluation today including: conversation w/ patient Pain: none Overnight, she became mildly tachycardic. Cardizem drip was restarted as discussed with the night team. She was symptomatic in the 120's This morning, she is much less symptomatic and relatively rate controlled. Also had issues with low blood pressure, so metorpolol was held. Constitutional: No chills, No fever Eyes: No worsening of vision Respiratory: + shortness of breath, No cough, No dyspnea on exertion, No sputum Cardiovascular: No chest pain Abdomen: No diarrhea, No nausea, No pain, No vomiting Female : No dysuria, No urinary frequency Objective Physical Exam General Appearance: no apparent distress Eyes: PERRL, EOMI ENT: hearing grossly normal Neck: supple, no adenopathy Respiratory/Chest: no respiratory distress, + wheezing Cardiovascular: + tachycardia, + irregularly irregular Abdomen: normal bowel sounds, non tender, soft Extremities: normal range of motion, normal inspection, no pedal edema Neurologic/Psychiatric: no motor/sensory deficits, alert, normal mood/affect Assessment and Plan This is a 55 y/o F with a history of CAD s/p stents x 2 who presented with dizziness/shortness of breath and found to be in AFib with rvr. She was on cardizem drip and metoprolol yesterday, however there was some difficulty in rate control, given low blood pressures and hold parameters. New onset Afib: D/C Cardizem Drip Metoprolol PO and IV PRN If no improvement/stability in rate, will go for CLINTON tomorrow and electrical cardioversion Cannot do amiodarone given >48 hours of symptoms ANY [employer] and resulting chemical cardioversion in the presence of possible thrombus- needs to be anticoagulated for a few weeks prior to starting amiodarone Appreciate Cardio recommendations. Continue Heparin drip and transition to Elaquis on D/C [id number] - 2, significant vascular disease Troponins negative x 3 COPD/Emphysema- Slight worsening today, could be from the metoprolol Continue duoneb / Pro air will adjust as necessary Smoking cessation counselling- patient is not interested at this time. Declines need for nicotine patch. CAD s/p stents Continue Rosuvastatin Continue Cozaar HTN: Continue Amlodipine DVT proph: Heparin Code: Full History Resident Physician Supervision Note: I was present with Dr. Fuentes during the history and exam. I discussed the case with the resident and agree with the findings and plan as documented in the note. Any exceptions or clarifications are listed here. Pt seen and examined at bedside. Intermittent lightheadedness and palpitation overnight coinciding with elevated HR to the 120s+, was placed back on drip overnight, transitioned off this morning. Presently, patient feeling well without lightheadedness, nausea, CP/SOB, TANG, vision/hearing changes. General Appearance: WD/WN, no apparent distress, obese Respiratory: chest non-tender, lungs clear, normal breath sounds, no respiratory distress Cardiovascular: normal peripheral pulses, regular rate, rhythm, no edema, no murmur Gastrointestinal: normal bowel sounds, non tender, soft, no organomegaly Assessment/Plan 55 y/o female h/o CAD, HTN, HLD presents w/ new onset atrial fibrillation with RVR A-fib w/ RVR - established w/ Dr. Osborn as outpatient 2/2 CAD w/ stenting - heparin for AC at present - continue metoprolol for rate control per cards recommendations - for CLINTON and ?cardioversion tomorrow if rate not controlled COPD - at baseline - Duoneb PRN, smoking cessation encouragement CAD s/p stent - continue cozaar and statin therapy HTN - hold amlodipine, will adjust metoprolol and resume if needed DVT PPX - heparin drip Code Status - FULL CODE
[2016-05-27 20:40] LABS: PARTIAL THROMBOPLASTIN RATIO 2.6
[2016-05-27] MEDS: METOPROLOL TARTRATE 50 MG TAB PO SCH (21:28)
[2016-05-28] VITALS (29 sets, daily range): BP systolic 90–140; BP diastolic 55–88; PULSE 57–151; TEMP 36.3–36.8; O2SAT 92–100
[2016-05-28] MEDS: ALBUT/IPRATROP 3MG/0.5MG NEB 3 ML VIAL INH SCH ×7 (00:25→22:42)
[2016-05-28 05:58] LABS: HEMATOCRIT 40.6 % (37-47); MEAN CELL VOLUME 91.4 fL (80-100); MEAN CORPUSCULAR HEMOGLOBIN 31.1 pg (25-34); MEAN PLATELET VOLUME 9.9 fL (7.4-10.4); PLATELET COUNT 408 K/uL (130-400); RED BLOOD COUNT 4.44 M/uL (4.2-5.4); WHITE BLOOD COUNT 9.94 K/uL (4.8-10.8)
[2016-05-28 06:16] LABS: PARTIAL THROMBOPLASTIN RATIO 2.4
[2016-05-28] MEDS: HEPARIN 25,000 UNIT/500ML D5W 500 ML IV PRN (07:02)
[2016-05-28] MEDS: ROSUVASTATIN CALCIUM 20 MG TAB PO SCH (07:39)
[2016-05-28] MEDS: TIOTROPIUM BROMIDE 5 PUFF/90 MCG INH INH SCH (07:39)
[2016-05-28] MEDS: METOPROLOL TARTRATE 50 MG TAB PO SCH ×3 (07:39→23:39)
[2016-05-28 10:02] LABS: CALCIUM 8.8 mg/dl (8.5-10.1); CREATININE 0.69 mg/dl (0.60-1.20); POTASSIUM 4.1 mmol/L (3.5-5.1)
--- NOTE | 2016-05-28 10:17 | CARDIOLOGY PROGRESS NOTE ---
DATE: 05/28/2016 DATE: 05/28/2016. HISTORY OF PRESENT ILLNESS: Mrs. Polanco is a 55-year-old white female who was admitted with newly diagnosed atrial fibrillation/atrial flutter with RVR. Yesterday I stopped her IV diltiazem in an effort to convert her to oral and IV beta blockers. However, we have been limited in what we can do because of her borderline low blood pressure (which is symptomatic). She remains in atrial fibrillation with heart rates in the 120s to 130s, and her blood pressure remains predominantly in the 90s to low 100s systolically. She does note occasional nocturnal palpitations, and still feels some dizziness from time to time (which is likely related to low blood pressure) secondary to her rhythm (and not necessarily rate related). The patient has been on IV heparin since being admitted. At this point, we will proceed with CLINTON/cardioversion later today. The patient offers no complaints. She denies any chest pain, heaviness, tightness, or pressure. No neck, jaw, back, or arm pain. No shortness of breath, orthopnea or PND. She has not had any signs or symptoms of stroke or mini stroke. PHYSICAL EXAMINATION: VITAL SIGNS: Temperature is 36.4 degree Celsius, pulse is 130 and irregularly irregular, respiratory rate is 18 and unlabored, blood pressure is 108/73, SPO2 is 95% on room air. GENERAL: The patient is in no acute distress. HEAD, EYES, EARS, NOSE, AND THROAT: Unremarkable. NECK: Without JVD. CHEST AND LUNGS: Clear to auscultation throughout all lung michel, no wheezes, rales or rhonchi. CARDIOVASCULAR: S1 and S2 are irregularly irregular, tachycardic without obvious murmur, gallop or rub. PMI is nondisplaced. No lifts, heaves, or thrills. No abdominal, aortic or renal bruits. ABDOMINAL EXAMINATION: Bowel sounds present. EXTREMITIES: Without clubbing, cyanosis or edema. NEUROLOGIC EXAMINATION: The patient is awake, alert and oriented. Pleasant and cooperative. Answers questions appropriately. Speech is clear. Normal movement in all 4 extremities. LABORATORY DATA: White blood cell count 9.94, hemoglobin 13.8 g/dL, hematocrit 40.6%, platelet count 408,000. Basic metabolic panel is pending. Her APTT is 62.9 seconds. ASSESSMENT: 1. Afib/atrial flutter with rapid ventricular response. 2. Borderline hypotension, likely secondary to rhythm, not heart rate. 3. CHADS-VASc score of 4. 4. Peripheral arterial disease status post left common iliac artery stents. 5. No angina pectoris or anginal equivalent symptoms. 6. No signs or symptoms of heart failure. 7. No signs or symptoms of stroke or mini stroke. PLAN: 1. Discussed with Dr. Osborn. 2. The patient will be made n.p.o. prior to her upcoming procedure. She did eat breakfast today. 3. Continue oral Lopressor 50 mg b.i.d. 4. Continue IV Lopressor 5 mg p.r.n. for heart rate greater than 120 beats per minute. 5. Continue heparin drip until discharge, at which time she will be converted to Eliquis 5 mg b.i.d. 6. Because of refractory tachycardia and ongoing hypotension, the patient will undergo a CLINTON later today followed by an elective electrical cardioversion if no evidence of atrial thrombus. 7. We will continue to closely follow. 8. She could potentially be discharged to home this evening following her CLINTON cardioversion. 9. The patient agrees with this plan. ALBAN
[2016-05-28] MEDS ORDERED: LIDOCAINE HCL 2% 2 ML VIAL (20MG/ML) ONE (16:39)
[2016-05-28] MEDS ORDERED: PROPOFOL IV EMULSION 10 MG/ML 20 ML VIAL IV ONE (16:39)
--- NOTE | 2016-05-28 17:22 | Anesthesiology Progress Note ---
Anesthesia Post Op Note Date & Time May 28, 2016 at 17:22 Vital Signs Pain Intensity: 0 Vital Signs Past 12 Hours Date Time Temp Pulse Resp B/P Pulse Ox O2 Delivery O2 Flow Rate FiO2 05/28/16 16:55 36.6 67 16 104/71 96 Room Air 05/28/16 16:45 85 16 102/56 95 Room Air 05/28/16 16:40 67 16 98/57 95 Room Air 05/28/16 16:30 86 16 96/55 95 Nasal Cannula 3 05/28/16 16:30 80 16 83/70 98 Room Air 05/28/16 16:24 77 16 95 Nasal Cannula 6 05/28/16 16:20 142 16 110/84 95 Nasal Cannula 6 05/28/16 16:15 116 16 101/65 95 Nasal Cannula 6 05/28/16 16:10 151 16 140/75 100 Nasal Cannula 6 05/28/16 16:05 145 16 133/88 100 Nasal Cannula 6 05/28/16 16:00 145 16 111/77 99 Nasal Cannula 6 05/28/16 15:50 05/28/16 12:43 36.8 130 18 90/63 95 Room Air 05/28/16 12:00 95 Room Air 05/28/16 11:41 36.8 130 18 90/63 96 Room Air 05/28/16 11:24 120 14 96 Room Air 05/28/16 08:00 95 Room Air 05/28/16 07:40 36.4 95 20 108/73 96 Room Air 05/28/16 07:25 90 14 98 Room Air Notes Mental Status: alert / awake / arousable, participated in evaluation Pt Amnestic to Procedure: Yes Nausea / Vomiting: adequately controlled Pain: adequately controlled Airway Patency, RR, SpO2: stable & adequate BP & HR: stable & adequate Hydration State: stable & adequate Anesthetic Complications: no major complications apparent
--- NOTE | 2016-05-28 17:40 | TEE ---
*NOTICE TO RECEIVING [employer] This information is strictly Confidential and protected under [place] law. [place] law prohibits you from making any further disclosure of this information unless further disclosure is expressly permitted by the written consent of the person to whom it pertains or is authorized by law. A general authorization for the release of medical or other information is not sufficient for this purpose. Hospital accepts no responsibility if the information is made available to any other person, INCLUDING THE PATIENT. Interpretation Summary * Name: NANI WATSON Study Date: 05/28/2016 04:39 PM BP: 109/76 mmHg * Patient Location: C.2T\S\S234\S\1 HR: 127 * : 1960 (M/d/yyyy) Gender: Female Height: 65 in * Age: 55 yrs Ethnicity: [place] Weight: 167 lb * Ordering Physician: El Acosta * Referring Physician: Self, Referred * Performed By: Juliette Sousa RDCS * * Reason For Study: AFIB * BSA: 1.8 m2 * History: AFIB * -- Conclusions -- * 1. Normal LV size, wall thickness and function. LVEF 55-60%. * 2. Normal RV size and function. * 3. Trace mitral regurgitation. * 4. Mild tricuspid regurgitation. * 5. No left atrial appendage thrombus. * 6. Borderline atrial septal aneurysm. No evidence of interatrial shunt by color doppler. * 7. Mild atherosclerotic plaque in the aortic arch and descending aorta. * 8. Compared with TTE on 05/26/2016: No significant changes. Procedure Details * The study was performed in Cardiac Catheterization Lab. * Time out was conducted by the physician, nurse, and area intelligence technician with positive identification of patient and procedure. * Informed consent for Transesophageal Echocardiogram was obtained prior to the procedure. * An intravenous line was placed. A topical anesthetic agent was used for oropharangeal anesthesia. A bite block was inserted. * Sedation performed by the anesthesia department. * The patient's vital signs, including blood pressure, heart rate, pulse oximetry and cardiac rhythm were monitored throughout the procedure . * The posterior oropharynx was anesthetized using a topical anesthetic spray. A bite guard was inserted. * A multifrequency, multiplane transesopheageal echocardiographic endoscope was inserted and manipulated in the standard fashion to achieve multiplane views. * The transesophageal probe was passed without difficulty. * The usual views were obtained; basal, mid-esophageal, transgastric and aortic views. * The patient tolerated the procedure well without evidence of orophangeal or esophageal trauma. * A 2D transesophageal echocardiogram with spectral and color flow Doppler was performed. * CLINTON Probe #3 utilized * A 2D transesophageal echocardiogram with Doppler and color flow Doppler was performed. Left Ventricle * The left ventricle is grossly normal size. * There is normal left ventricular wall thickness. * Ejection Fraction = 55-60%. * The left ventricular wall motion is normal. Right Ventricle * The right ventricle is grossly normal size. * The right ventricular systolic function is normal. Atria * No thrombus is detected in the left atrial appendage. * Right atrial size is normal. * Borderline aneursysmal atrial septum. No interatrial shunt by color doppler Mitral Valve * The mitral valve is grossly normal. * There is no mitral valve stenosis. * There is trace mitral regurgitation. Tricuspid Valve * The tricuspid valve anatomy is normal. * There is no tricuspid stenosis. * There is mild tricuspid regurgitation. * Right ventricular systolic pressure is normal. Aortic Valve * The aortic valve opens well. * The aortic valve is trileaflet. * No hemodynamically significant valvular aortic stenosis. * There is no significant aortic regurgitation. Pulmonic Valve * The pulmonic valve is not well seen, but is grossly normal. * There is no pulmonic valvular stenosis. * There is no pulmonic valvular regurgitation. Great Vessels * Mild atherosclerotic plaque(s) in the descending aorta. * Mild atherosclerotic plaque(s) in the aortic arch. Pericardium * There is no pericardial effusion.
--- NOTE | 2016-05-28 17:50 | Family Medicine Progress Note ---
Progress Note Date of Service May 28, 2016. Subjective Pt evaluation today including: conversation w/ patient Voiding: no voiding problems Patient reports having elevated HR intermittently over night and was symptomatic Doign okay now Constitutional: No chills, No fever Eyes: No worsening of vision Respiratory: No cough, No dyspnea on exertion, No shortness of breath, No sputum, No wheezing Cardiovascular: No chest pain Abdomen: No diarrhea, No nausea, No pain, No vomiting Female : No dysuria, No urinary frequency Objective Physical Exam General Appearance: no apparent distress Eyes: PERRL, EOMI Respiratory/Chest: lungs clear, normal breath sounds, no respiratory distress, no accessory muscle use Cardiovascular: + tachycardia, + irregularly irregular Abdomen: normal bowel sounds, non tender, soft Extremities: non-tender, normal inspection, no pedal edema Neurologic/Psychiatric: no motor/sensory deficits, alert, normal mood/affect Assessment and Plan This is a 55 y/o F with a history of CAD s/p stents x 2 who presented with dizziness/shortness of breath and found to be in AFib with rvr. Her rate has been difficult to control despite cardizem drip, PO metoprlol. Plan is for CLINTON and then Cardioversion today. New onset Afib: Metoprolol PO and IV PRN CLINTON today and electrical cardioversion if no thrombus Appreciate Cardio recommendations. Continue Heparin drip and transition to Elaquis on D/C [id number] - 2, significant vascular disease Troponins negative x 3 COPD/Emphysema- at [facility] today Continue duoneb / Pro air will adjust as necessary Smoking cessation counselling- patient is not interested at this time. Declines need for nicotine patch. CAD s/p stents Continue Rosuvastatin Continue Cozaar HTN: Continue Amlodipine DVT proph: Heparin Code: Full History Resident Physician Supervision Note: I was present with Dr. Fuentes during the history and exam. I discussed the case with the resident and agree with the findings and plan as documented in the note. Any exceptions or clarifications are listed here. Pt seen and examined at bedside. Intermittent episodic lightheadedness overnight but presently asymptomatic. Reports no fever, TANG, vision changes, CP/ SOB, diaphoresis. General Appearance: WD/WN, no apparent distress Neck: non-tender, full range of motion, supple Respiratory: chest non-tender, normal breath sounds, no respiratory distress, decreased breath sounds Cardiovascular: normal peripheral pulses, no edema, no murmur, irregularly irregular Assessment/Plan 55 y/o female h/o CAD, HTN, HLD presents w/ new onset atrial fibrillation with RVR A-fib w/ RVR - established w/ Dr. Osborn as outpatient 2/2 CAD w/ stenting - heparin for AC at present, to transition to novel AC - continue metoprolol for rate control per cards recommendations COPD - at baseline - Duoneb PRN, smoking cessation encouragement CAD s/p stent - continue cozaar and statin therapy HTN - hold amlodipine, will adjust metoprolol and resume if needed DVT PPX - heparin drip Code Status - FULL CODE
--- NOTE | 2016-05-29 00:07 | Procedure Note ---
Procedure Note Procedure Date May 28, 2016. Procedure Description Procedure Name: CLINTON with External Cardioversion Procedure time out: side/site verified, patient ID confirmed, correct procedure Consent obtained: written Time of procedure: 16:05 Performed by: attending Indications: therapeutic Contraindications: none Description: Indication: Persistent atrial fibrillation with RVR, difficult to control with AV nato agents. Anesthesia provided by anesthesia service. CLINTON negative for left atrial appendage thrombus. See CLINTON report for full details. Decision made to proceed with external cardioversion. Electrodes placed in Anterior-anterior position. Cardioversion to normal sinus rhythm ahieved with 1 shock at 200 J. Post procedure vital signs stable with no complications. Continue anticoagulation for at least 4 weeks. Complications: none Patient tolerated procedure: well Post-procedure vital signs: reviewed and stable
[2016-05-29 00:15] VITALS: O2SAT 95
[2016-05-29] MEDS: ALBUT/IPRATROP 3MG/0.5MG NEB 3 ML VIAL INH SCH ×2 (01:18→07:14)
[2016-05-29] MEDS: HEPARIN 25,000 UNIT/500ML D5W 500 ML IV PRN (01:23)
[2016-05-29 03:48] VITALS: BP 97/63; PULSE 63; TEMP 36.5; O2SAT 98
[2016-05-29 04:15] VITALS: O2SAT 98
[2016-05-29 06:45] LABS: HEMATOCRIT 36.8 % (37-47); MEAN CELL VOLUME 92.9 fL (80-100); MEAN CORPUSCULAR HEMOGLOBIN 31.1 pg (25-34); MEAN CORPUSCULAR HGB CONC 33.4 g/dl (32-36); MEAN PLATELET VOLUME 9.9 fL (7.4-10.4); PLATELET COUNT 389 K/uL (130-400); RED BLOOD COUNT 3.96 M/uL (4.2-5.4); WHITE BLOOD COUNT 7.83 K/uL (4.8-10.8)
[2016-05-29 07:14] VITALS: PULSE 84; O2SAT 97
[2016-05-29 07:18] LABS: PARTIAL THROMBOPLASTIN RATIO 2.6
[2016-05-29 07:19] LABS: CREATININE 0.71 mg/dl (0.60-1.20)
--- NOTE | 2016-05-29 07:34 | Discharge Instructions ---
Discharge Instructions Admission Reason for Admission: New Onset Of A-Fib Discharge Discharge Diagnosis / Problem: Atrial Fibrillation Discharge Goals Goal(s): Decrease discomfort, Learn about illness, Diagnostic testing, Therapeutic intervention, Screening, Prevent Disease Progression Activity Recommendations Activity Limitations: resume your previous activity Lifting Limitations: gradually increase as tolerated Exercise/Sports Limitations: gradually increase as tolerated May Resume Sexual Activity: when tolerated Shower/Bathe: no limitations Driving or Machine Use: no limitations . Instructions / Follow-Up Instructions / Follow-Up Dear Mrs. Polanco You were admitted to the hospital for an irregular heart rhythm called Atrial Fibrillation. We attempted to manage your heart rate with IV and Oral medications, however we did not achieve a normalized heart rate. Therefore, Cardiology had done an ultrasound of your heart and then electrical shocks ( cardioversion) to restore your rhythm. Please take your Elaquis and Metoprolol as prescribed Please follow up with cardiology in 1-2 weeks and your PCP in 3-5 days. Please also stop taking Amlodipine and Losartan until further follow up with cardiology and your PCP. This is due to your low blood pressure. We encourage you to stop smoking. If you experience any further symptoms, please call your orange peel operator or come to the ER. Thank you for allowing us to participate in your care. Current Hospital Diet Patient's current hospital diet: Regular Diet Discharge Diet Recommended Diet: Regular Diet Fluid Restriction: None Pending Studies Studies pending at discharge: no Work Instructions Return To Work: 1 day Lifting Limitations: none Additional Instructions: Please excuse Mrs. Polanco for missed work from 05/26 to 05/29 for medical reasons. Medical Emergencies . Who to Call and When: Medical Emergencies: If at any time you feel your situation is an emergency, please call 911 immediately. . Non-Emergent Contact Non-Emergency issues call your: Primary Care Provider, [employer] Apprentice . . "Provider Documentation" section prepared by Inez Cameron. VTE Core Measure Inpt VTE Proph given/why not?: Other Anticoagulation
[2016-05-29 07:43] VITALS: BP 96/64; PULSE 54; TEMP 36.7; O2SAT 95
[2016-05-29 08:31] LABS: URINE APPEARANCE CLEAR (CLEAR); URINE BILIRUBIN NEG (NEG); URINE COLOR YELLOW; URINE NITRITE NEG (NEG); UROBILINOGEN NEG (NEG)
[2016-05-29 08:40] LABS: MANUAL MICROSCOPIC REQUIRED? NO; REVIEW REQ? NO
--- NOTE | 2016-05-29 09:06 | CARDIOLOGY PROGRESS NOTE ---
DATE: 05/29/2016 HISTORY OF PRESENT ILLNESS: Mrs. Polanco is a 55-year-old white female who was admitted with new onset atrial fibrillation/atrial flutter with RVR. Because she was not adequately rate controlled on oral medications, and had persistent hypotension (likely secondary to rhythm, not necessarily rate), we arranged for a transesophageal echo followed by electrical cardioversion yesterday. Her CLINTON revealed normal LV size and systolic function, LVEF 55% to 60%, normal RV size and systolic function, trace MR, mild TR, and no evidence of a left atrial appendage thrombus. She was subsequently cardioverted with hands off paddles, after receiving a single shock of 200 joules of synchronized biphasic energy. She had no complications with this. She continues to feel well. Blood pressure remains borderline low at times, but she is tolerating it without symptoms. PHYSICAL EXAMINATION: VITAL SIGNS: Temperature is 36 degrees Fahrenheit, pulse is 72 and regular, respiratory rate is 16 and unlabored, blood pressure is 96/54. SPO2 is 95% on room air. GENERAL: The patient in no acute distress. HEENT: Unremarkable. NECK: Without JVD. Carotid upstrokes +2 bilaterally without bruits. CHEST AND LUNGS: Clear to auscultation throughout all lung michel, no wheezes, rales or rhonchi. CARDIOVASCULAR: S1 and S2 are regular. No murmur, gallop or rub. PMI is nondisplaced. No lifts, heaves, or thrills. ABDOMINAL EXAMINATION: Bowel sounds present. No masses, organomegaly or tenderness. EXTREMITIES: Without clubbing, cyanosis or edema. NEUROLOGIC: The patient is awake, alert and oriented. Pleasant and cooperative. Answers questions appropriately. Speech is clear. Normal movement in all 4 extremities. Gait pattern is not assessed. Current telemetry monitoring reveals normal sinus rhythm. She was in sinus bradycardia to normal sinus rhythm overnight. LABORATORIES: White blood cell count 7.83. Hemoglobin is 12.3 g/dL, hematocrit 36.8%, platelet count 389,000. Sodium is 143 mmol/L, potassium 1.4 mmol/L. BUN is 14, creatinine 0.71 mg/dL. APTT is 66.6 seconds. ASSESSMENT: 1. New onset Atrial Fibrillation/Atrial Flutter with rapid ventricular response. 2. Status post transesophageal echocardiogram and elective electrical cardioversion yesterday. 3. Borderline hypotension, asymptomatic. 4. History of hypertension. 5. Peripheral artery disease. 6. Dyslipidemia. 7. Tobacco use. 8. No angina pectoris or anginal equivalent symptoms. 9. No signs or symptoms of heart failure. 10. No signs or symptoms of stroke or mini stroke. PLAN: 1. The patient has maintained a normal sinus rhythm over the past 12-18 hours following her cardioversion. 2. She will be discharged to home today. 3. Continue Lopressor 25 mg b.i.d. as an outpatient. 4. Begin Eliquis 5 mg b.i.d. for a minimum of 4 weeks. 5. I will plan on following up with this patient in 2 weeks in the office. The office will contact her with an appointment. Thank you for allowing us to participate in this patient's care. CARDIOLOGY ATTENDING ADDENDUM (Dr. Jackson): Agree with above assessment and recommendations by KEIRA Tsang
[2016-05-29] MEDS ORDERED: METO25TA3 PO (09:45)
[2016-05-29] MEDS ORDERED: APIX1TAB3 PO (09:45)
[2016-05-29] MEDS: TIOTROPIUM BROMIDE 5 PUFF/90 MCG INH INH SCH (09:58)
[2016-05-29] MEDS: ROSUVASTATIN CALCIUM 20 MG TAB PO SCH (09:58)
[2016-05-29] MEDS: METOPROLOL TARTRATE 50 MG TAB PO SCH (09:58)
[2016-05-29] MEDS ORDERED: APIXABAN 2.5 MG TAB PO ONE (10:15)
[2016-05-29 11:02] VITALS: BP 96/64; PULSE 54; TEMP 36.7; O2SAT 95
--- NOTE | 2016-05-29 17:13 | Discharge Summary ---
Discharge Summary Admission Date: May 26, 2016 at 10:49 Discharge Date: May 29, 2016 Discharge Disposition: Home Principal Diagnosis: Atrial fibrillation with rvr Immunizations: Have You Had Influenza Vaccine: Unknown History of Tetanus Vaccine?: Unknown History of Pneumococcal: Unknown History of Hepatitis B Vaccine: Unknown Procedures: CLINTON Cardioversion Consultations: Cardiology (Inez Fuentes MD) Medication Reconciliation New Medications: Apixaban (Eliquis) 5 Mg Tab 5 MG PO BID for 30 Days, #60 TAB Metoprolol Succ (Toprol Xl) (Toprol-Xl) 25 Mg Tabcr 25 MG PO BID, #30 TAB Continued Medications: Albuterol Sulfate (Proair Respiclick) 108 Mcg/Act Aer 1 PUFF INH Q4 PRN for Shortness of Breath Ipratropium-Albuterol (Duoneb) 3 Ml Nebu 1 TREATMENT INH Q4H PRN for Shortness of Breath, INHA Rosuvastatin Calcium (Crestor) 20 Mg Tab 20 MG PO DAILY, TAB Discontinued Medications: Amlodipine (Norvasc) 5 Mg Tab 10 MG PO DAILY, TAB Losartan Potassium (Cozaar) 50 Mg Tab 50 MG PO DAILY, TAB Discharge Exam This is a 55 y/o F with a history of CAD s/p stents x 2 who presented with dizziness/shortness of breath and found to be in AFib with rvr. She was started on Heparin drip for anticoagulation. She was attempted to be rate controlled with Cardizem drip and Metoprolol PO, however, she would intermittently become symptomatic and tachycardic. In addition, she was becoming hypotensive as her rate control meds were being titrated. She eventually underwent a CLINTON and cardioversion after which rastafarian of normal sinus rhythm was achieved. She was transitioned to Metoprolol 25 BID and Elaquis. Her home dose of Cozaar and amlodipine were stopped at discharge due to hypotension. This will need to be discussed with PCP and/or cardiology at follow up. During her admission, she did develop mild COPD exacerbation that was treated adequately with Duonebs. She was otherwise stable for discharge. Appropriate Follow ups were arranged. Review of Systems: Constitutional: No chills, No fever Respiratory: No dyspnea on exertion, No shortness of breath, No sputum Cardiovascular: No chest pain, No orthopnea Abdomen: No nausea, No pain, No vomiting Genitourinary - Female: No dysuria, No urinary frequency Neurologic: No numbness/tingling, No paralysis Physical Exam: General Appearance: no apparent distress Eyes: PERRL, EOMI ENT: hearing grossly normal Respiratory/Chest: chest non-tender, lungs clear, normal breath sounds Cardiovascular: regular rate, rhythm, no edema Abdomen / GI: normal bowel sounds, non tender, soft Extremities: no calf tenderness, no pedal edema Neurologic/Psychiatric: alert, normal mood/affect, oriented x 3 (Inez Fuentes MD) Hospital Course Total Time Spent: Less than 30 minutes This includes examination of the patient, discharge planning, medication reconciliation, and communication with other providers. (Inez Fuentes MD) Total Time Spent: Less than 30 minutes (Brain Barkley MD) Discharge Instructions Please refer to the electronic Patient Visit Report (Discharge Instructions) for additional information. (Inez Fuentes MD) Follow-Up PCP Cardiology (Inez Fuentes MD) History Resident Physician Supervision Note: I was present with Dr. Fuentes during the history and exam. I discussed the case with the resident and agree with the findings and plan as documented in the note. Any exceptions or clarifications are listed here. Pt seen and examined at bedside. Lightheadedness and fatigue resolved. Reports no TANG, CP/SOB, palpitations, n/t/w. (Brain Barkley MD) General Appearance: WD/WN, no apparent distress Respiratory: chest non-tender, lungs clear, normal breath sounds, no respiratory distress Cardiovascular: normal peripheral pulses, regular rate, rhythm, no edema, no murmur Gastrointestinal: normal bowel sounds, non tender, soft, no organomegaly (Brain Barkley MD) Assessment/Plan 55 y/o female h/o CAD, HTN, HLD presents w/ new onset atrial fibrillation with RVR A-fib w/ RVR s/p cardioversion - eliquis for AC, metoprolol. Follow up with Dr. Osborn COPD - at baseline - albuterol PRN, smoking cessation encouraged CAD s/p stent - continue cozaar and statin therapy HTN - hold amlodipine, f/u with PCP for re-assessment of HTN in light of medication changes (Brain Barkley MD)
== END 2016-05-29 11:39 | disposition home or self-care (01) | DRG 309 ==
LOC: ENRESERVTM → ENRESERVDT → C.EDB 07:18 → C.MSICU 10:49 → C.2T 18:15
PROVIDERS: ADMIT Family Medicine; ATTEND Family Medicine
PROC: 5A2204Z Restoration of Cardiac Rhythm, Single (ICD-10-PCS; principal; 2016-05-28 15:47)
DX: I48.91 Unspecified atrial fibrillation (principal); J44.0 Chronic obstructive pulmonary disease with (acute) lower respiratory infection; J44.1 Chronic obstructive pulmonary disease with (acute) exacerbation; I48.92 Unspecified atrial flutter; I25.10 Atherosclerotic heart disease of native coronary artery without angina pectoris; I10 Essential (primary) hypertension; E78.5 Hyperlipidemia, unspecified; F17.210 Nicotine dependence, cigarettes, uncomplicated; I73.9 Peripheral vascular disease, unspecified; E78.00 Pure hypercholesterolemia, unspecified; Z23 Encounter for immunization; Z95.820 Peripheral vascular angioplasty status with implants and grafts; Y92.239 Unspecified place in hospital as the place of occurrence of the external cause; Z79.899 Other long term (current) drug therapy

== ENCOUNTER → 2016-12-13 | Outpatient (CLI) | payer BC ==
[~2016-12-13] MED LIST changes: +ALBU18002 INH; -ALBU1AER9 INH; -AMLO-110 PO; +IPRASOL4 INH
[2016-12-13 11:16] LABS: ALT/SGPT 20 U/L (12-78); BLOOD UREA NITROGEN 11 mg/dl (7-18); BUN/CREATININE RATIO 16.9 (10-20); CALCIUM 9.2 mg/dl (8.5-10.1); CARBON DIOXIDE 30 mmol/L (21-32); CHLORIDE 105 mmol/L (98-107); CHOLESTEROL 137 mg/dl (0-200); CREATININE 0.64 mg/dl (0.60-1.20); GLUCOSE 84 mg/dl (70-99); POTASSIUM 4.5 mmol/L (3.5-5.1); SODIUM 139 mmol/L (136-145); TRIGLYCERIDES 39 mg/dl (0-150); VERY LOW DENSITY LIPOPROT CALC 8 mg/dl
[2016-12-13 11:19] LABS: ALB/GLOB RATIO 1.2 (0.9-2); ALKALINE PHOSPHATASE 53 U/L (45-117); AST/SGOT 12 U/L (15-37); HDL CHOLESTEROL 68 mg/dl; LDL CHOLESTEROL CALCULATED 61 mg/dl
== END | disposition home or self-care (01) ==
LOC: C.LAB 09:52
PROVIDERS: ATTEND Nurse Practitioner Family
DX: E78.5 Hyperlipidemia, unspecified (principal); I10 Essential (primary) hypertension; I48.91 Unspecified atrial fibrillation; E55.9 Vitamin D deficiency, unspecified

== ENCOUNTER → 2017-01-15 | Outpatient (CLI) | payer BC ==
--- NOTE | 2017-01-15 15:28 | DIAGNOSTIC IMAGING REPORT ---
RIGHT HIP 2 VIEWS CLINICAL HISTORY: Right hip pain. FINDINGS: AP and frog-leg views of the right hip are correlated with pelvic radiograph dated 10/05/2011. The skeletal structures are osteopenic. No fracture is seen. Mild arthritic change and joint space narrowing seen in the right hip. Spurring is seen along the superior acetabulum and the superior femoral head. Small enthesophytes arise from the greater trochanter of the right femur. Sclerotic change is noted in the right sacroiliac joint and pubic symphysis. The overlying soft tissues are within normal limits. A pelvic phlebolith is observed. IMPRESSION: Osteopenia and arthritic change as above. This is modestly progressed from 2011. Electronically signed by: Donovan Ruiz M.D. 01/15/2017 3:27 PM Dictated Date/Time: 01/15/2017 3:25 PM
== END | disposition home or self-care (01) ==
LOC: C.RAD1850 15:11
PROVIDERS: ATTEND Nurse Practitioner Family
DX: M85.88 Other specified disorders of bone density and structure, other site (principal); M16.11 Unilateral primary osteoarthritis, right hip; M25.551 Pain in right hip

== ENCOUNTER → 2017-04-22 | Outpatient (CLI) | payer BC ==
[~2017-04-22] MED LIST changes: +IPRA-64 INH; -IPRASOL4 INH
--- NOTE | 2017-04-22 10:23 | DIAGNOSTIC IMAGING REPORT ---
CHEST 2 VIEWS ROUTINE HISTORY: J45.901 Asthma [id number] Fever and [id number] COMPARISON: Chest 05/26/2016. FINDINGS: The lungs remain mildly hyperexpanded. Old, healed right-sided rib fractures. Lungs are clear. The heart is normal in size. No pleural effusions. No pneumothorax. IMPRESSION: No significant change compared to the prior study. No acute process. Electronically signed by: Edward Cardona M.D. 04/22/2017 10:22 AM Dictated Date/Time: 04/22/2017 10:21 AM
== END | disposition home or self-care (01) ==
LOC: C.RAD1850 10:09
PROVIDERS: ATTEND Nurse Practitioner Family
DX: J45.901 Unspecified asthma with (acute) exacerbation (principal); R50.9 Fever, unspecified

== ENCOUNTER → 2017-07-21 | Outpatient (CLI) | payer BC ==
[~2017-07-21] MED LIST changes: -IPRA-64 INH; +IPRASOL4 INH
[2017-07-21 12:23] LABS: BASO % 0.2 %; BASO ABS # 0.02 K/uL (0-0.2); EOS % 1.6 %; EOS ABS # 0.14 K/uL (0-0.5); HEMATOCRIT 47.4 % (37-47); IG# 0.03 K/uL (0.00-0.02); LYMPH % 28.4 %; LYMPH ABS # 2.56 K/uL (1.2-3.4); MEAN CELL VOLUME 96.7 fL (80-100); MEAN CORPUSCULAR HEMOGLOBIN 32.7 pg (25-34); MEAN CORPUSCULAR HGB CONC 33.8 g/dl (32-36); MEAN PLATELET VOLUME 9.8 fL (7.4-10.4); MONO % 6.9 %; MONO ABS # 0.62 K/uL (0.11-0.59); NEUT % 62.6 %; NEUT ABS # 5.65 K/uL (1.4-6.5); PLATELET COUNT 422 K/uL (130-400); RED CELL DISTRIBUTION WIDTH SD 52.9 fL (36.4-46.3); WHITE BLOOD COUNT 9.02 K/uL (4.8-10.8)
[2017-07-21 12:36] LABS: ALBUMIN 4.1 gm/dl (3.4-5.0); ALT/SGPT 33 U/L (12-78); BLOOD UREA NITROGEN 16 mg/dl (7-18); CALCIUM 9.3 mg/dl (8.5-10.1); CARBON DIOXIDE 29 mmol/L (21-32); CHOLESTEROL 163 mg/dl (0-200); CREATININE 0.71 mg/dl (0.60-1.20); GLUCOSE 97 mg/dl (70-99); POTASSIUM 4.5 mmol/L (3.5-5.1); SODIUM 136 mmol/L (136-145)
[2017-07-21 12:39] LABS: ALKALINE PHOSPHATASE 50 U/L (45-117); AST/SGOT 16 U/L (15-37); LDL CHOLESTEROL CALCULATED 72 mg/dl; TOTAL PROTEIN 7.6 gm/dl (6.4-8.2)
[2017-07-21 14:41] LABS: CREATININE RANDOM URINE 34.5 mg/dl
== END | disposition home or self-care (01) ==
LOC: C.LAB1850 09:39
PROVIDERS: ATTEND Nurse Practitioner Family
DX: J45.909 Unspecified asthma, uncomplicated (principal); E78.5 Hyperlipidemia, unspecified; I10 Essential (primary) hypertension; E55.9 Vitamin D deficiency, unspecified; I70.8 Atherosclerosis of other arteries; I48.91 Unspecified atrial fibrillation; Z23 Encounter for immunization

== ENCOUNTER → 2017-07-21 | Outpatient (CLI) | payer BC ==
--- NOTE | 2017-07-21 10:34 | DIAGNOSTIC IMAGING REPORT ---
L HIP UNILATERAL 2 VIEWS CLINICAL HISTORY: Left hip pain. COMPARISON: Post radiograph October 05, 2011. FINDINGS: Alignment of the left hip is anatomic. There is no acute fracture or suspicious lesion. There is no evidence for avascular necrosis. Left joint space is preserved. Note is made of several calcifications along the left inferior pubic ramus which measure up to 1.7 cm. These are new since exam of October 05, 2011. IMPRESSION: 1. No acute fracture or dislocation of the left hip. 2. Preserved left hip joint space. 3. A few calcific densities adjacent to the left inferior pubic ramus which are chronic and may be related to previous muscular insertional/origin injury. Electronically signed by: Eliseo Beavers M.D. 07/21/2017 10:33 AM Dictated Date/Time: 07/21/2017 10:31 AM
== END | disposition home or self-care (01) ==
LOC: C.RAD1850 09:55
PROVIDERS: ATTEND Nurse Practitioner Family
DX: M25.552 Pain in left hip (principal); M89.8X8 Other specified disorders of bone, other site

== ENCOUNTER → 2017-08-28 | Outpatient (CLI) | payer BC ==
[2017-08-28 16:29] LABS: BASO % 0.1 %; BASO ABS # 0.01 K/uL (0-0.2); EOS % 1.1 %; EOS ABS # 0.11 K/uL (0-0.5); HEMATOCRIT 43.2 % (37-47); HEMOGLOBIN 14.6 g/dL (12.0-16.0); IG# 0.02 K/uL (0.00-0.02); LYMPH % 26.4 %; LYMPH ABS # 2.57 K/uL (1.2-3.4); MEAN CELL VOLUME 94.3 fL (80-100); MEAN CORPUSCULAR HEMOGLOBIN 31.9 pg (25-34); MEAN CORPUSCULAR HGB CONC 33.8 g/dl (32-36); MEAN PLATELET VOLUME 9.2 fL (7.4-10.4); MONO % 11.9 %; MONO ABS # 1.16 K/uL (0.11-0.59); NEUT % 60.3 %; NEUT ABS # 5.85 K/uL (1.4-6.5); PLATELET COUNT 427 K/uL (130-400); RED CELL DISTRIBUTION WIDTH CV 14.7 % (11.5-14.5); RED CELL DISTRIBUTION WIDTH SD 50.6 fL (36.4-46.3); WHITE BLOOD COUNT 9.72 K/uL (4.8-10.8)
[2017-08-28 16:52] LABS: URIC ACID 3.6 mg/dl (2.6-7.2)
== END | disposition home or self-care (01) ==
LOC: C.LAB1850 15:19
PROVIDERS: ATTEND Nurse Practitioner Family
DX: M70.22 Olecranon bursitis, left elbow (principal)

== ENCOUNTER → 2017-08-31 | Outpatient (CLI) | payer BC | END | disposition home or self-care (01) | LOC: C.PATHSPEC 10:25 | PROVIDERS: ATTEND Urology | DX: R31.29 Other microscopic hematuria (principal); N39.46 Mixed incontinence; R35.0 Frequency of micturition ==

== ENCOUNTER → 2017-09-10 | Outpatient (CLI) | payer BC ==
[~2017-09-10] MED LIST changes: +OPTIRAY 320 IV PRN
--- NOTE | 2017-09-10 16:26 | DIAGNOSTIC IMAGING REPORT ---
ABDOMEN AND PELVIS CT WITH AND WITHOUT IV CONTRAST, UROGRAM PROTOCOL CT DOSE: 1942.87 mGycm HISTORY: HEMATURIA C=0.71 07/21/17 TECHNIQUE: Multiaxial CT images of the abdomen and pelvis were performed both before and after the use of intravenous contrast to evaluate the urinary system. Maximal intensity projection images were performed at the workstation by the radiologist. A dose lowering technique was utilized adhering to the principles of ALARA. COMPARISON STUDY: None. FINDINGS: No renal or ureteral calculi. No hydronephrosis. No suspicious filling defects seen within the opacified bilateral renal collecting systems, ureters, or bladder. Of note, a short segment of the mid right ureter is not opacified but is normal in caliber. Emphysema seen at the lung bases. A 3 mm nodule within the right lower lobe on image 7. No suspicious lytic or blastic osseous lesions. There are 2 hypodense lesions within the liver with the largest measuring 9 mm. These are technically too small to characterize. Mild thickening of the bilateral adrenal glands with an 11 mm left adrenal gland nodule. This is consistent with a benign adenoma. The gallbladder, pancreas, and spleen are unremarkable. There are 2 hypodense lesion within the left kidney consistent with peripelvic cysts. The largest measures 1.3 cm. The left common iliac artery stent is patent. The uterus is surgically absent. Colonic diverticulosis. Moderate stool within the colon. No bowel wall thickening or obstruction. IMPRESSION: 1. No renal or ureteral stones. No hydronephrosis. 2. No suspicious filling defects seen within the opacified bilateral renal collecting systems, ureters, or bladder.. 3. Additional findings as described above. Electronically signed by: Edward Cardona M.D. 09/10/2017 4:25 PM Dictated Date/Time: 09/10/2017 4:07 PM
== END | disposition home or self-care (01) ==
LOC: C.CTS 15:33
PROVIDERS: ATTEND Urology
DX: R31.29 Other microscopic hematuria (principal); N39.46 Mixed incontinence; R35.0 Frequency of micturition

== ENCOUNTER 2022-10-24 14:37 | Inpatient (IN) ==
--- NOTE | 2022-10-24 14:52 | ED Triage Note ---
Date of Service October 24, 2022 History of Present Illness This patient was briefly evaluated while in triage. An abbreviated physical exam was performed. This patient is a 62-year-old Female who presents to the ED for evaluation of shortness of breath. Symptoms started 4 days ago. She started coughing up some mucus and feeling short of breath. Symptoms have progressively worsened since then. She started a prednisone prescription when symptoms started. She has been using nebulizer treatments without relief. Physical Exam VITALS: Vitals are noted on the nurse's note and reviewed by myself. GENERAL: This is a 62-year-old female, appears to be short of breath, speaking in short sentences. SKIN: The skin was without rashes. HEART: Tachycardic. Regular rhythm without murmurs gallops or rubs. LUNGS: Diffuse expiratory wheezes throughout. NEURO: Patient was alert and oriented to person place and time. Initial orders for labs and / or imaging were placed and patient was placed in the waiting area until a bed is available. Please see further documentation for the full ED course.
--- NOTE | 2022-10-24 15:19 | XRay Report ---
XR chest 1V portable CLINICAL HISTORY: Dyspnea TECHNIQUE: Single frontal radiograph of the chest was obtained. Comparison: None available at the time of this dictation. FINDINGS: No lines and tubes are seen. Calcified aortic knob is seen. The lungs are clear. No evidence of pleur al effusion or pneumothorax. HEALED right rib fractures noted. IMPRESSION: No acute abnormalities and in particular no radiographic evidence of pneumonia. ACT 112: Negative or not required by law. Electronically signed by: Terell Amor M.D. 10/24/2022 3:17 PM
[2022-10-24] MEDS ORDERED: XOPENEX/ATROVENT 1.25mg/0.5MG NEB COMBO NEB STA (15:23)
[2022-10-24] MEDS ORDERED: dilTIAZem HCl 5 MG/ML 5 ML VIAL IV STA (15:42)
[2022-10-24] MEDS ORDERED: STAT IV Infusion **Titration per Protocol STA ×2 (15:42→19:22)
[2022-10-24] MEDS ORDERED: LEVALBUTEROL 1.25 MG/3 ML NEB INH STA (15:42)
[2022-10-24] MEDS ORDERED: dilTIAZem HCL 125 MG in DEXTROSE 5% 100 ML IV SCH (15:45)
[2022-10-24 15:46] LABS: Basophils # (auto) 0.01 K/uL (0-0.2); Basophils % (auto) 0.1 %; Eosinophils # (auto) 0.03 K/uL (0-0.50); Eosinophils % (auto) 0.2 %; Hematocrit (blood only) 43.1 % (37.0-47.0); Hemoglobin 14.6 g/dl (12.0-16.0); Immature Granulocytes # (auto) 0.06 K/uL (0.01-0.20); Immature Granulocytes % (auto) 0.4 %; Lymphocytes # (auto) 2.51 K/uL (1.2-3.4); Lymphocytes % (auto) 15.7 %; Mean Corpuscular Hemoglobin 31.3 pg (25.0-34.0); Mean Corpuscular Hgb Conc 33.9 g/dL (32.0-36.0); Mean Corpuscular Volume 92.5 fL (80.0-100.0); Mean Platelet Volume 10.1 fL (9.4-12.4); Monocytes # (auto) 1.81 K/uL (0.11-0.59); Monocytes % (auto) 11.3 %; Neutrophils # (auto) 11.61 K/uL (1.40-6.50); Neutrophils % (auto) 72.3 %; Nucleated RBC # (auto) 0.02 K/uL (0-0.12); Nucleated RBC % (auto) 0.1 %; Platelet Count 443 K/uL (130-400); RDW Standard Deviation 54.4 fL (36.4-46.3); Red Blood Count 4.66 M/uL (4.20-5.40); White Blood Count 16.03 K/ul (4.8-10.8)
[2022-10-24 15:58] LABS: Alanine Aminotransferase 53 U/L (7-52); Albumin Globulin Ratio 1.4 (0.9-2); Alkaline Phosphatase 55 U/L (34-104); Anion Gap 8 (3-11); Aspartate Aminotransferase 24 U/L (13-39); BUN Creatinine Ratio 20.8 (10-20); Bilirubin,Total 0.4 mg/dl (0.2-1.0); Blood Urea Nitrogen 15 mg/dl (6-23); Carbon Dioxide 25 mmol/L (21-32); Chloride 101 mmol/L (98-107); Est GFR (African American) 102.6 ml/min; Est GFR (Non-African American) 88.5 ml/min; Globulin 2.8 gm/dl (2.5-4.0); Glucose 110 mg/dl (70-99(Fasting)); Potassium 4.5 mmol/L (3.5-5.1); Sodium 134 mmol/L (136-145); Total Protein 6.8 gm/dl (6.0-8.3)
[2022-10-24 16:03] LABS: Troponin I High Sensitivity 4.9 pg/ml (0-14)
[2022-10-24] MEDS: SODIUM CHLORIDE 0.9% 1000ML 1,000 ML IV SCH (16:26)
[2022-10-24] MEDS: IPRATROPIUM BROMIDE NEB SOLN 0.02% 2.5 ML VIAL INH STA ×2 (16:26→22:38)
[2022-10-24] MEDS ORDERED: ONDANSETRON INJ 2 MG/ML 2 ML VIAL IV STA (17:19)
[2022-10-24] MEDS ORDERED: LEVALBUTEROL 1.25 MG/3 ML NEB NEB STA (17:20)
--- NOTE | 2022-10-24 17:27 | Emergency Department Note ---
Impression & Plan Dyspnea, Acute exacerbation of chronic obstructive pulmonary disease (COPD), Atrial fibrillation with rapid ventricular response ED Provider Note ED Provider Note NAME: NANI WATSON AGE:62 SEX: Female : 1960 ARRIVES VIA: Private vehicle INFORMANT: Patient ED PROVIDER(s): Vy Melton DO CHIEF COMPLAINT: Shortness of breath HPI: THis is a 62 yo female who presents with increased shortness of breath. 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 She denies fever/chills. States increased cough, no hemoptysis. No chest pain, palpitations, nausea, dizziness, or leg swelling. She denies missing any doses of her ant icoagulation. No other recent illness. She doesn't use home oxygen. She states she has had a.fib in the past but has had no symptoms similar to prior episodes. PAST MEDICAL HISTORY:See Below PAST SURGICAL HISTORY:See Below FAMILY HISTORY:See Below SOCIAL HISTORY:See Below HOME MEDICATIONS:See Below ALLERGIES:See Below VITALS:See Below PHYSICAL EXAMINATION: GENERAL: alert, unwell appearing, well nourished, no distress, non-toxic EYE EXAM: normal conjunctiva, PERRL and EOM's grossly intact OROPHARYNX: no exudate, no erythema, lips, buccal mucosa, and tongue normal and mucous membranes are moist NECK: supple, no nuchal rigidity, no adenopathy, non-tender LUNGS: Clear to auscultation. Normal chest wall mechanics, no w/r/r HEART: no murmurs, S1 normal and S2 normal, A-fib on telemetry ABDOMEN: abdomen soft, non-tender, normo-active bowel sounds, no masses, no rebound or guarding. BACK: Back is symmetrical on inspection and there is no deformity, no midline tenderness, no CVA tenderness. SKIN: no rashes, petechiae, orbruising UPPER EXTREMITIES: upper extremities are grossly normal. FROM, nml pulses b/l. LOWER EXTREMITIES: No pitting edema. FROM, nml pulses b/l. NEURO EXAM: Normal sensorium, cranial nerves II-XII grossly intact, normal speech, no facial droop,nogross weakness of arms, no gross weakness of legs. Gross sensation intact. No ataxia. Vital Signs: reviewed and remarkable Differential Diagnosis: Differential diagnoses includes but is not limited to pneumonia, bronchitis, COPD/Asthma exacerbation, pneumothorax, pulmonary embolism, congestive heart failure, acute coronary syndrome MEDICAL DECISION MAKING: This is a 62 yo female who presents with increased trouble breathing. VS stable and pt noted to be in rapid a.fib. Patient with hx of PAF and already anticoagulated. Patient has been on doxy and prednisone this week per pulmonary recs for COPD exacerbation without improvement. Labs drawn and sent, IV established, EKG and CXR performed and interpreted at bedside, and patient placed on telemetry. Patient given xopenex neb tx here with some improvement of breathing and wheezing. She was given cardizem bolus and drip to begin rate control. She was started on IVF additionally. We discussed all results at bedside and case discussed with hospitalist for additional evaluation and tx. It is unclear if breathing didn't improve this week due to a.fib with RVR which patient had no other symptoms of vs her COPD exacerbation triggered the a.fib. Patient not overtly hypoxic. HR slightly improved on cardizem drip. Consultation(s): 1814: Discussed with Dr. Morales. ER Treatment Provided: See below Diagnostics Interpreted By Me: -ECG: a.fib at 158, nml axis, prolonged QT, nonspecific ST/T wave changes -Cardiac Monitoring: An order was placed for continuous cardiac monitoring. The monitor shows a rate of 152 with a.fib rhythm. -Laboratory studies: As stated above and show below. -Imaging studies: X-ray Chest: A single view study of the chest was reviewed and was negative for cardiomegaly, focal infiltrate, effusion, pulmonary edema, or wide mediastinum. Triage Nursing Note Reviewed Prior/Outside Records Reviewed - prior cardiology visit reviewed Procedures: [] Critical Care: Critical care of 49 min performed to assess and manage high likelihood of life-threatening dysrhythmia, involving labs and imaging performed with assessment to evaluate dysrhythmia diagnosis with frequent reassessment. This time includes bedside time, treatment discussions with patient/fa nani/consultants, documentation time and excludes procedure time. Past Med/Surg History Medical History Asthma STABLE Benign essential hypertension Chronic obstructive pulmonary disease STABLE Healthcare maintenance Hyperlipidemia Nicotine dependence PAD (peripheral artery disease) S/P LEFT COMMON ILIAC ARTERY STENTS X 2 Paroxysmal atrial fibrillation Pneumothorax on right Rib fractures Surgical History History of bladder surgery History of hysterectomy SHY History of knee surgery History of surgery S/P LEFT COMMON ILIAC ARTERY STENTS X 2 History of surgery anterior vesicourethropexy History of surgery on arm LEFT ARM ULNAR SURGERY History of tonsillectomy and adenoidectomy History of wisdom tooth extraction Status post unilateral salpingo-oophorectomy Family History Mother Diabetes Ovarian cancer Uterine cancer Father Myocardial infarction Heart disease Denies family history of Colon cancer Prostate cancer Breast cancer Social History Smoking Status: Current every day smoker Tobacco Type: Cigarettes packs per day: 0.5; Cigarettes Per Day: 1/2 PPD X 40 YEARS; Second Hand Exposure: No; Do You Dip or Chew Tobacco: No; Hx Alcohol Use: No Hx Substance Use: No Preferred Language: Croatian Communication Ability: Effective Visual Impairment: No Limitations Hearing Ability: Normal Tube Fitter Required: No Beliefs That Will Affect Care: None marital status: Current Living Situation: Spouse current occupational status: employed and retired Feels Safe at Home: Yes Safety Concerns: Feels Safe At This Time Childhood Exposure to Second-Hand Smoke: Yes Diet: regular Diet Comment: no special diet Dental Care, Regularly: Yes Physical Activity Frequency: 3-4 Times per Week Physical Activity Frequency Comment: walking Seatbelt Use: always Sunscreen Use: Yes Do you think of yourself as: straight/heterosexual Assistive Devices: Glasses Allergies Allergies Allergy/AdvReac Type Severity Reaction Status Date / Time lisinopril Allergy Severe SOB, Verified 10/24/22 18:16 SEVERE COUGHING FITS Home Meds Home Medications Medication Instructions Recorded Confirmed cholecalciferol (vitamin D3) 125 5,000 unit PO DAILY 10/11/20 10/24/22 mcg (5,000 unit) capsule amlodipine 5 mg tablet 5 mg PO QAM 10/24/22 10/24/22 apixaban 5 mg tablet (Eliquis) 5 mg PO BID 10/24/22 10/24/22 calcium carbonate 600 mg calcium 600 mg PO BID 06/30/23 06/30/23 (1,500 mg) tablet (Calcium) montelukast 10 mg tablet 10 mg PO QAM 10/24/22 10/24/22 Previous Rx's Medication Instructions Recorded zoledronic acid 5 mg/100 mL in 1 ea IV YEARLY #100 mL 09/10/22 mannitol 5 %-water intravenous piggybck (Reclast) albuterol sulfate 90 mcg/actuation 1 - 2 puff inhalation .COMPLEX PRN 09/15/22 aerosol inhaler (Ventolin HFA) shortness of breath or wheezing #8.5 grams budesonide-formoterol HFA 160 2 puff inhalation BID #10.2 grams 09/15/22 mcg-4.5 mcg/actuation aerosol inhaler (Symbicort) tiotropium bromide 18 mcg capsule 1 cap inhalation DAILY #90 09/15/22 with inhalation device (Spiriva inhalations with HandiHaler) atorvastatin 40 mg tablet 40 mg PO DAILY #90 tabs 09/16/22 metoprolol succinate 100 mg 100 mg PO DAILY #90 tabs 09/16/22 tablet,extended release 24 hr Results & Data (ED) Vital Signs Vital Signs - 24 hr 10/24/22 14:49 10/24/22 15:18 10/24/22 15:25 Temperature 36.8 C Temperature Source Temporal Artery Scan Pulse Rate 155 H 161 H Pulse Rate from SpO2 Sensor Respiratory Rate 23 Respiratory Effort / Characteristics Non-Labored Respiratory Depth Normal Respiratory Pattern Blood Pressure 125/78 Blood Pressure Mean 93 Pulse Oximetry 91 Oxygen Delivery Method Room Air Nasal Cannula Oxygen Flow Rate 3 Sepsis Recent Fever Within 48 Hours No Sepsis New/Unexplained Change in Mental Status No Sepsis Action Taken by Nursing No Action Required 10/24/22 15:27 10/24/22 15:17 10/24/22 15:20 Temperature Temperature Source Pulse Rate 154 H 167 H Pulse Rate from SpO2 Sensor 158 H 170 H Respiratory Rate 38 H 24 Respiratory Effort / Characteristics Non-Labored Respiratory Depth Normal Respiratory Pattern Regular Blood Pressure 107/86 Blood Pressure Mean 93 Pulse Oximetry 96 81 L Oxygen Delivery Method Nasal Cannula Oxygen Flow Rate Sepsis Recent Fever Within 48 Hours Sepsis New/Unexplained Change in Mental Status Sepsis Action Taken by Nursing 10/24/22 15:31 10/24/22 15:40 10/24/22 15:40 Temperature Temperature Source Pulse Rate 145 H 147 H Pulse Rate from SpO2 Sensor 152 H 150 H Respiratory Rate 26 H 20 Respiratory Effort / Characteristics Respiratory Depth Respiratory Pattern Blood Pressure 123/88 105/76 Blood Pressure Mean 99 84 Pulse Oximetry 93 97 Oxygen Delivery Method Oxygen Flow Rate Sepsis Recent Fever Within 48 Hours Sepsis New/Unexplained Change in Mental Status Sepsis Action Taken by Nursing 10/24/22 15:50 10/24/22 16:00 10/24/22 16:11 Temperature Temperature Source Pulse Rate 159 H 147 H 146 H Pulse Rate from SpO2 Sensor 144 H 143 H 146 H Respiratory Rate 17 20 27 H Respiratory Effort / Characteristics Respiratory Depth Respiratory Pattern Blood Pressure 121/94 133/101 H 146/91 H Blood Pressure Mean 103 111 109 Pulse Oximetry 96 96 94 Oxygen Delivery Method Oxygen Flow Rate Sepsis Recent Fever Within 48 Hours Sepsis New/Unexplained Change in Mental Status Sepsis Action Taken by Nursing 10/24/22 16:30 10/24/22 16:32 10/24/22 16:32 Temperature Temperature Source Pulse Rate 152 H 151 H Pulse Rate from SpO2 Sensor 148 H 150 H Respiratory Rate 22 20 Respiratory Effort / Characteristics Respiratory Depth Respiratory Pattern Blood Pressure 133/102 H 124/97 Blood Pressure Mean 112 102 Pulse Oximetry 98 99 Oxygen Delivery Method Oxygen Flow Rate Sepsis Recent Fever Within 48 Hours Sepsis New/Unexplained Change in Mental Status Sepsis Action Taken by Nursing 10/24/22 16:40 10/24/22 16:50 10/24/22 16:52 Temperature Temperature Source Pulse Rate 162 H 152 H Pulse Rate from SpO2 Sensor 144 H 153 H Respiratory Rate 18 20 Respiratory Effort / Characteristics Respiratory Depth Respiratory Pattern Blood Pressure 124/98 Blood Pressure Mean 102 Pulse Oximetry 100 95 Oxygen Delivery Method Oxygen Flow Rate Sepsis Recent Fever Within 48 Hours Sepsis New/Unexplained Change in Mental Status Sepsis Action Taken by Nursing 10/24/22 16:52 10/24/22 17:00 10/24/22 17:01 Temperature Temperature Source Pulse Rate 145 H 153 H Pulse Rate from SpO2 Sensor 145 H 156 H Respiratory Rate 21 20 Respiratory Effort / Characteristics Respiratory Depth Respiratory Pattern Blood Pressure 99/76 L Blood Pressure Mean 79 Pulse Oximetry 98 92 Oxygen Delivery Method Oxygen Flow Rate Sepsis Recent Fever Within 48 Hours Sepsis New/Unexplained Change in Mental Status Sepsis Action Taken by Nursing 10/24/22 17:01 10/24/22 17:10 10/24/22 17:10 Temperature Temperature Source Pulse Rate 150 H 153 H Pulse Rate from SpO2 Sensor 154 H 156 H Respiratory Rate 19 16 Respiratory Effort / Characteristics Respiratory Depth Respiratory Pattern Blood Pressure 128/91 Blood Pressure Mean 104 Pulse Oximetry 89 L 95 Oxygen Delivery Method Oxygen Flow Rate Sepsis Recent Fever Within 48 Hours Sepsis New/Unexplained Change in Mental Status Sepsis Action Taken by Nursing 10/24/22 17:20 10/24/22 17:20 10/24/22 17:30 Temperature Temperature Source Pulse Rate 154 H Pulse Rate from SpO2 Sensor 157 H Respiratory Rate 26 H Respiratory Effort / Characteristics Respiratory Depth Respiratory Pattern Blood Pressure 118/91 138/115 H Blood Pressure Mean 93 122 Pulse Oximetry 94 Oxygen Delivery Method Oxygen Flow Rate Sepsis Recent Fever Within 48 Hours Sepsis New/Unexplained Change in Mental Status Sepsis Action Taken by Nursing 10/24/22 17:30 10/24/22 17:40 10/24/22 17:41 Temperature Temperature Source Pulse Rate 155 H 156 H Pulse Rate from SpO2 Sensor 152 H 129 H Respiratory Rate 29 H 32 H Respiratory Effort / Characteristics Respiratory Depth Respiratory Pattern Blood Pressure 105/70 Blood Pressure Mean 75 Pulse Oximetry 94 92 Oxygen Delivery Method Oxygen Flow Rate Sepsis Recent Fever Within 48 Hours Sepsis New/Unexplained Change in Mental Status Sepsis Action Taken by Nursing 10/24/22 17:41 10/24/22 17:50 10/24/22 17:50 Temperature Temperature Source Pulse Rate 146 H 145 H Pulse Rate from SpO2 Sensor 145 H 165 H Respiratory Rate 21 34 H Respiratory Effort / Characteristics Respiratory Depth Respiratory Pattern Blood Pressure 116/84 Blood Pressure Mean 87 Pulse Oximetry 91 88 L Oxygen Delivery Method Oxygen Flow Rate Sepsis Recent Fever Within 48 Hours Sepsis New/Unexplained Change in Mental Status Sepsis Action Taken by Nursing 10/24/22 18:00 10/24/22 18:00 10/24/22 18:10 Temperature Temperature Source Pulse Rate 147 H Pulse Rate from SpO2 Sensor 152 H Respiratory Rate 23 Respiratory Effort / Characteristics Respiratory Depth Respiratory Pattern Blood Pressure 113/95 99/82 L Blood Pressure Mean 102 87 Pulse Oximetry 92 Oxygen Delivery Method Oxygen Flow Rate Sepsis Recent Fever Within 48 Hours Sepsis New/Unexplained Change in Mental Status Sepsis Action Taken by Nursing 10/24/22 18:10 10/24/22 18:20 10/24/22 18:23 Temperature Temperature Source Pulse Rate 153 H 158 H 149 H Pulse Rate from SpO2 Sensor 164 H 153 H 151 H Respiratory Rate 29 H 27 H 17 Respiratory Effort / Characteristics Respiratory Depth Respiratory Pattern Blood Pressure 76/52 L Blood Pressure Mean 60 Pulse Oximetry 94 89 L 95 Oxygen Delivery Method Oxygen Flow Rate Sepsis Recent Fever Within 48 Hours Sepsis New/Unexplained Change in Mental Status Sepsis Action Taken by Nursing 10/24/22 18:37 10/24/22 18:42 10/24/22 18:44 Temperature Temperature Source Pulse Rate 155 H 145 H Pulse Rate from SpO2 Sensor 145 H 154 H Respiratory Rate 26 H 30 H Respiratory Effort / Characteristics Respiratory Depth Respiratory Pattern Blood Pressure 105/85 63/25 L 113/88 Blood Pressure Mean 88 37 96 Pulse Oximetry 93 83 L Oxygen Delivery Method Oxygen Flow Rate Sepsis Recent Fever Within 48 Hours Sepsis New/Unexplained Change in Mental Status Sepsis Action Taken by Nursing 10/24/22 19:18 10/24/22 18:44 10/24/22 18:50 Temperature Temperature Source Pulse Rate 163 H 149 H Pulse Rate from SpO2 Sensor 149 H Respiratory Rate 32 H Respiratory Effort / Characteristics Respiratory Depth Respiratory Pattern Blood Pressure 113/88 119/83 Blood Pressure Mean 95 95 Pulse Oximetry 96 Oxygen Delivery Method Nasal Cannula Oxygen Flow Rate 2 Sepsis Recent Fever Within 48 Hours Sepsis New/Unexplained Change in Mental Status Sepsis Action Taken by Nursing 10/24/22 19:01 10/24/22 19:10 10/24/22 19:20 Temperature Temperature Source Pulse Rate 154 H 156 H 152 H Pulse Rate from SpO2 Sensor 157 H 149 H Respiratory Rate 21 18 27 H Respiratory Effort / Characteristics Respiratory Depth Respiratory Pattern Blood Pressure 108/78 105/79 118/95 Blood Pressure Mean 85 87 102 Pulse Oximetry 95 94 91 Oxygen Delivery Method Nasal Cannula Nasal Cannula Nasal Cannula Oxygen Flow Rate 2 2 2 Sepsis Recent Fever Within 48 Hours Sepsis New/Unexplained Change in Mental Status Sepsis Action Taken by Nursing Laboratory Data 10/24/22 15:18 10/24/22 15:18 Lab Results 10/24/22 10/24/22 10/24/22 Range/Units 15:18 15:18 17:10 WBC 16.03 H (4.8-10.8) K/ul RBC 4.66 (4.20-5.40) M/uL Hgb 14.6 (12.0-16.0) g/dl Hct 43.1 (37.0-47.0) % MCV 92.5 (80.0-100.0) fL MCH 31.3 (25.0-34.0) pg MCHC 33.9 (32.0-36.0) g/dL RDW Std Deviation 54.4 H (36.4-46.3) fL RDW Coeff of Timbo 16.0 H (11.5-14.5) % Plt Count 443 H (130-400) K/uL MPV 10.1 (9.4-12.4) fL Immature Gran % (Auto) 0.4 % Neut % (Auto) 72.3 % Lymph % (Auto) 15.7 % Gregg % (Auto) 11.3 % Eos % (Auto) 0.2 % Baso % (Auto) 0.1 % Neut # (Auto) 11.61 H (1.40-6.50) K/uL Lymph # (Auto) 2.51 (1.2-3.4) K/uL Gregg # (Auto) 1.81 H (0.11-0.59) K/uL Eos # (Auto) 0.03 (0-0.50) K/uL Baso # (Auto) 0.01 (0-0.2) K/uL Immature Gran # (Auto) 0.06 (0.01-0.20) K/uL Absolute Nucleated RBC 0.02 (0-0.12) K/uL Nucleated RBC % (auto) 0.1 % Sodium 134 L (136-145) mmol/L Potassium 4.5 (3.5-5.1) mmol/L Chloride 101 (98-107) mmol/L Carbon Dioxide 25 (21-32) mmol/L Anion Gap 8 (3-11) BUN 15 (6-23) mg/dl Creatinine 0.72 (0.6-1.2) mg/dl Est Cr Clr Drug Dosing Not Reportable Est GFR ( Amer) 102.6 ml/min Est GFR (Non-Af Amer) 88.5 ml/min BUN/Creatinine Ratio 20.8 H (10-20) Glucose 110 H (70-99(Fasting)) mg/dl Calcium 9.0 (8.6-10.3) mg/dl Magnesium 2.0 (1.7-2.4) mg/dl Total Bilirubin 0.4 (0.2-1.0) mg/dl AST 24 (13-39) U/L ALT 53 H (7-52) U/L Alkaline Phosphatase 55 (34-104) U/L Troponin I High Sens 4.9 (0-14) pg/ml Total Protein 6.8 (6.0-8.3) gm/dl Albumin 4.0 (3.4-5.0) gm/dl Globulin 2.8 (2.5-4.0) gm/dl Albumin/Globulin Ratio 1.4 (0.9-2) TSH (0.300-4.500) uIu/ml Free T4 (0.61-1.60) ng/dl Adenovirus (PCR) Not Detected (NotDetected) B. pertussis DNA (PCR) Not Detected (NotDetected) B.parapertussis DNA PCR Not Detected (NotDetected) C. pneumoniae DNA (PCR) Not Detected (NotDetected) Coronavirus OC43 (PCR) Not Detected (NotDetected) Coronavirus HKU1 (PCR) Not Detected (NotDetected) Coronavirus 229E (PCR) Not Detected (NotDetected) SARS-CoV-2 (PCR) Not Detected (NotDetected) Coronavirus NL63 (PCR) Not Detected (NotDetected) Human Metapneumovir PCR Not Detected (NotDetected) Influenza Type A (PCR) Not Detected (NotDetected) Influenza Type B (PCR) Not Detected (NotDetected) M. pneumoniae (PCR) Not Detected (NotDetected) Parainfluenza 1 (PCR) Not Detected (NotDetected) Parainfluenza 2 (PCR) Not Detected (NotDetected) Parainfluenza 3 (PCR) Not Detected (NotDetected) Parainfluenza 4 (PCR) Not Detected (NotDetected) RSV (PCR) Not Detected (NotDetected) Entero/Rhino (PCR) Not Detected (NotDetected) 10/24/22 Range/Units 18:25 WBC (4.8-10.8) K/ul RBC (4.20-5.40) M/uL Hgb (12.0-16.0) g/dl Hct (37.0-47.0) % MCV (80.0-100.0) fL MCH (25.0-34.0) pg MCHC (32.0-36.0) g/dL RDW Std Deviation (36.4-46.3) fL RDW Coeff of Timbo (11.5-14.5) % Plt Count (130-400) K/uL MPV (9.4-12.4) fL Immature Gran % (Auto) % Neut % (Auto) % Lymph % (Auto) % Gregg % (Auto) % Eos % (Auto) % Baso % (Auto) % Neut # (Auto) (1.40-6.50) K/uL Lymph # (Auto) (1.2-3.4) K/uL Gregg # (Auto) (0.11-0.59) K/uL Eos # (Auto) (0-0.50) K/uL Baso # (Auto) (0-0.2) K/uL Immature Gran # (Auto) (0.01-0.20) K/uL Absolute Nucleated RBC (0-0.12) K/uL Nucleated RBC % (auto) % Sodium (136-145) mmol/L Potassium (3.5-5.1) mmol/L Chloride (98-107) mmol/L Carbon Dioxide (21-32) mmol/L Anion Gap (3-11) BUN (6-23) mg/dl Creatinine (0.6-1.2) mg/dl Est Cr Clr Drug Dosing Est GFR ( Amer) ml/min Est GFR (Non-Af Amer) ml/min BUN/Creatinine Ratio (10-20) Glucose (70-99(Fasting)) mg/dl Calcium (8.6-10.3) mg/dl Magnesium (1.7-2.4) mg/dl Total Bilirubin (0.2-1.0) mg/dl AST (13-39) U/L ALT (7-52) U/L Alkaline Phosphatase (34-104) U/L Troponin I High Sens (0-14) pg/ml Total Protein (6.0-8.3) gm/dl Albumin (3.4-5.0) gm/dl Globulin (2.5-4.0) gm/dl Albumin/Globulin Ratio (0.9-2) TSH 5.015 H (0.300-4.500) uIu/ml Free T4 1.13 (0.61-1.60) ng/dl Adenovirus (PCR) (NotDetected) B. pertussis DNA (PCR) (NotDetected) B.parapertussis DNA PCR (NotDetected) C. pneumoniae DNA (PCR) (NotDetected) Coronavirus OC43 (PCR) (NotDetected) Coronavirus HKU1 (PCR) (NotDetected) Coronavirus 229E (PCR) (NotDetected) SARS-CoV-2 (PCR) (NotDetected) Coronavirus NL63 (PCR) (NotDetected) Human Metapneumovir PCR (NotDetected) Influenza Type A (PCR) (NotDetected) Influenza Type B (PCR) (NotDetected) M. pneumoniae (PCR) (NotDetected) Parainfluenza 1 (PCR) (NotDetected) Parainfluenza 2 (PCR) (NotDetected) Parainfluenza 3 (PCR) (NotDetected) Parainfluenza 4 (PCR) (NotDetected) RSV (PCR) (NotDetected) Entero/Rhino (PCR) (NotDetected) Administered Medications Apixaban (Apixaban 5 Mg Tablet) 5 mg PO BID KANE Stop: 11/23/22 21:12 Last Admin: 10/24/22 22:13 Dose: 5 mg Documented By: CHOLO Budesonide (Budesonide 0.5 Mg/2 Ml Vial (Pulmicort)) 0.5 mg NEB BIDR KANE Stop: 11/23/22 21:12 Last Admin: 10/24/22 22:37 Dose: Not Given Documented By: HMR Sodium Chloride (Nss 1000ml) 1,000 mls @ 125 mls/hr IV .Q8H KANE Stop: 11/23/22 15:44 Last Admin: 10/24/22 16:26 Dose: 125 mls/hr Documented By: ANN MARIE Amiodarone HCl/Dextrose (Nexterone / D5w) 360 mg in 200 mls @ 33.333 mls/hr IV ONE ONE Stop: 10/25/22 01:31 Last Admin: 10/24/22 19:57 Dose: 1 mg/min, 33.3 mls/hr Documented By: ANN MARIE Co-signed By: JCARLOS Ipratropium [place] (Ipratropium [place] Neb Soln 0.02% 2.5 Ml Vial) 0.5 mg INH QID KANE Stop: 11/23/22 21:59 Last Admin: 10/24/22 22:37 Dose: Not Given Documented By: HMR Levalbuterol HCl (Levalbuterol Hcl 0.63 Mg/3 Ml Neb) 0.63 mg NEB QID KANE Stop: 11/23/22 21:59 Last Admin: 10/24/22 22:37 Dose: Not Given Documented By: HMR Discontinued Medications Diltiazem HCl (Diltiazem Hcl 5 Mg/Ml 5 Ml Vial) 10 mg IV NOW STA Stop: 10/24/22 15:43 Last Admin: 10/24/22 15:52 Dose: 10 mg Documented By: ANN MARIE Co-signed By: TUNDE Formoterol Fumarate (Formoterol 20 Mcg/2 Ml Vial) 20 mcg NEB BID [facility] Stop: 11/23/22 21:12 Last Admin: 10/24/22 22:39 Dose: Not Given Documented By: HMR Diltiazem HCl 125 mg/ Dextrose 125 mls @ 5 mls/hr IV .Q24H [facility]; Protocol Stop: 11/23/22 15:44 Last Titration: 10/24/22 17:20 Dose: 10 mg/hr, 10 mls/hr Documented By: ANN MARIE Co-signed By: TUNDE Admin: 10/24/22 15:59 Dose: 5 mg/hr, 5 mls/hr Documented By: ANN MARIE Co-signed By: EMILE Amiodarone HCl/Dextrose (Nexterone / D5w) 150 mg in 100 mls @ 600 mls/hr IV NOW STA Stop: 10/24/22 19:31 Last Admin: 10/24/22 19:43 Dose: 600 mls/hr Documented By: ANN MARIE Co-signed By: STEVE Doxycycline Hyclate 100 mg/ (Dextrose) 110 mls @ 50 mls/hr IV NOW STA Stop: 10/24/22 21:35 Last Infusion: 10/24/22 22:14 Dose: 0 mls/hr Documented By: [facility] Admin: 10/24/22 20:02 Dose: 50 mls/hr Documented By: ANN MARIE Ipratropium [place] (Ipratropium [place] Neb Soln 0.02% 2.5 Ml Vial) 0.5 mg INH NOW STA Stop: 10/24/22 15:43 Last Admin: 10/24/22 22:38 Dose: Not Given Documented By: Admin: 10/24/22 16:26 Dose: 0.5 mg Documented By: ANN MARIE Levalbuterol HCl (Levalbuterol 1.25 Mg/3 Ml Neb) 1.25 mg INH NOW STA Stop: 10/24/22 15:43 Last Admin: 10/24/22 16:26 Dose: 1.25 mg Documented By: ANN MARIE Levalbuterol HCl (Levalbuterol 1.25 Mg/3 Ml Neb) 1.25 mg NEB NOW STA; Protocol Stop: 10/24/22 17:21 Last Admin: 10/24/22 18:15 Dose: 1.25 mg Documented By: ANN MARIE Methylprednisolone (Methylprednisolone 125 Mg/2 Ml Vial) 125 mg IV NOW STA Stop: 10/24/22 19:26 Last Admin: 10/24/22 19:42 Dose: 125 mg Documented By: ANN MARIE Miscellaneous (Xopenex/Atrovent 1.25mg/0.5mg Neb Combo) 1 each NEB NOW STA; Protocol Stop: 10/24/22 15:24 Last Admin: 10/24/22 16:53 Dose: Not Given Documented By: TUNDE Caraballo (Stat Iv Infusion Titration Per Protocol) 1 each N/A NOW STA Stop: 10/24/22 15:43 Last Admin: 10/24/22 18:10 Dose: 1 each Documented By: ANN MARIE Ondansetron HCl (Ondansetron Inj 2 Mg/Ml 2 Ml Vial) 4 mg IV NOW STA Stop: 10/24/22 17:20 Last Admin: 10/24/22 17:22 Dose: 4 mg Documented By: ANN MARIE Imaging Data Radiologist's Impression: Chest X-Ray 10/24/22 14:53 XR chest 1V portable CLINICAL HISTORY: Dyspnea TECHNIQUE: Single frontal radiograph of the chest was obtained. Comparison: None available at the time of this dictation. FINDINGS: No lines and tubes are seen. Calcified aortic knob is seen. The lungs are clear. No evidence of pleural effusion or pneumothorax. HEALED right rib fractures noted. IMPRESSION: No acute abnormalities and in particular no radiographic evidence of pneumonia. ACT 112: Negative or not required by law. Electronically signed by: Terell Amor M.D. 10/24/2022 3:17 PM Discharge Plan Visit Data Chief Complaint: Shortness of Breath/Dyspnea Stated Complaint: TROUBLE BREATHING ED Provider: Vy Melton Discharge Problem: Dyspnea, Acute exacerbation of chronic obstructive pulmonary disease (COPD), Atrial fibrillation with rapid ventricular response Patient Disposition: Admitted As Inpatient Discharge Instructions Interventions: ED Discharge Assessment Last Done: 10/24/22 20:19
[2022-10-24 18:15] LABS: Adenovirus PCR Not Detected (NotDetected); Bordetella parapertussis PCR Not Detected (NotDetected); Bordetella pertussis PCR Not Detected (NotDetected); Chlamydia pneumoniae PCR Not Detected (NotDetected); Coronavirus 229E PCR Not Detected (NotDetected); Coronavirus CoV-2 (COVID19)PCR Not Detected (NotDetected); Coronavirus HKU1 PCR Not Detected (NotDetected); Coronavirus NL63 PCR Not Detected (NotDetected); Coronavirus OC43PCR Not Detected (NotDetected); Human Metapneumovirus PCR Not Detected (NotDetected); Influenza A PCR Not Detected (NotDetected); Influenza B PCR Not Detected (NotDetected); Mycoplasma pneumoniae PCR Not Detected (NotDetected); Parainfluenza Virus 1 PCR Not Detected (NotDetected); Parainfluenza Virus 2 PCR Not Detected (NotDetected); Parainfluenza Virus 3 PCR Not Detected (NotDetected); Parainfluenza Virus 4 PCR Not Detected (NotDetected); Respiratory Syncytial VirusPCR Not Detected (NotDetected); Rhinovirus/Enterovirus PCR Not Detected (NotDetected)
--- NOTE | 2022-10-24 19:16 | History & Physical Report ---
Date of Service October 24, 2022 Assessment & Plan (1) Acute respiratory failure with hypoxia: Plan: -Admit to the PCU on tele on pulse oximetry -Currently stable on 2L NC -At this time the patient's AHRF appears to be due to COPD exacerbation -No focal consolidation on CXR, but she has been having increased cough, sputum production,change in sputum color and O2 demand -Respiratory status improved after initial treatment in the ED -S/P multiple rounds of xoponex/ipratropium in the ED -Will give a dose of IV doxy now for atypical coverage with her QTc of 499, then continue with q12h dosing -Will give 125 mg IV solu-medrol now then continue with 60 mg IV daily until she is stable -Will obtain sputum culture and gram stain -Continue scheduled Xoponex/atrovent, will switch formoterol and budesonide to nebulized form -PRN O2 to keep SpO2 between 88-92%, incentive spirometry, flutter therapy -Home Eiquis for DVT PPX -AM CBC, CMP, Mag, PT/INR (2) Atrial fibrillation with rapid ventricular response: Plan: -Found to in afib RVR with HR in the 160's on arrival -Patient has a hx of Paroxysmal afib but is not consistently in an abnormal rhythm -Did take her am dose of PO metoprolol this am -Unsure if her COPD exacerbation and hypoxia caused her to go back into afib or not at this point -Already anticoagulated on Eliquis, confirmed no recently missed doses -Continue home metoprolol for now -Patient was started on a diltiazem drip in the ED approximately 2 hours prior to admission, still with HR in the 140-150's and intermittent moments of hypotension -Will stop the diltiazem drip and start an amiodarone drip with bolus -Will obtain AM TTE and consult cardiology for further assistance -If needed, may have to try Dig, but would speak with Cardiology first (3) Acute exacerbation of chronic obstructive pulmonary disease (COPD): Plan: -See acute hypoxic respiratory failure (4) Hypertension, essential: Plan: -Stable -Will hold amlodipine for now to avoid hypotension while trying to control/convert her Afib RVR (5) Dyslipidemia: Plan: -continue statin Plan The patient was discussed with Dr. Morales at the time of the admission History of Present Illness Chief Complaint: SOB Primary Care Provider: Narayan Hsu, COLTON, KIRA Kelsey is a 62 year old female with a PMH significant for COPD, paroxysmal afib on eliquis, CAD, PAD, and HTN who presented to the [facility] ED on 10/24 with increased cough, sputum production, and SOB. In the ED the patient was found to have a HR of 160 and was hypoxic in the mid 80's on RA. Labs were significant for a leukocytosis of 16 with left shift of 11, platelet count of 443, sodium of 134, ALT of 53, and negative full respiratory biofire. Chest xray was read as 'No acute abnormalities and in particular no radiographic evidence of pneumonia.". ECG shows Afib-RVR with HR in 150's. Prior to admission the patient was given 10 mg IV diltiazem, multiple levalbuterol and ipratropium. The patient's HR was still in the 130-140's, she was started on a diltiazem drip. Prior to admission the patient was started on NSS at 125 mL/hr for a total of 1L. At the time of the exam the patient was sitting in bed in no acute distress, currently stable on 2L NC with HR in the 130's while on 10 mg/hr on the diltiazem drip. She states that she started to develop an increased cough with increased sputum production and change in sputum color from clear to yellow and increased SOB. She denies having fever, chills, chest pain, heart palpitations, abd pain, nausea vomiting, diarrhea, dysuria, hematuria, LE swelling, and recent trauma. She currently feels improved compared to arrival but still not back to baseline. She denies missing recent doses of Eliquis. She is a full code and would want her to make medical decisions for her if she could not make them herself. Please refer to Dr. Morales's attestation for any changes to the treatment plan Allergies Allergy/AdvReac Type Severity Reaction Status Date / Time lisinopril Allergy Severe SOB, Verified 10/24/22 18:16 SEVERE COUGHING FITS Home Medications Medication Instructions Recorded Confirmed Type cholecalciferol (vitamin D3) 125 5,000 unit PO DAILY 10/11/20 10/24/22 History mcg (5,000 unit) capsule zoledronic acid 5 mg/100 mL in 1 ea IV YEARLY #100 mL 09/10/22 10/24/22 Rx mannitol 5 %-water intravenous piggybck (Reclast) albuterol sulfate 90 mcg/actuation 1 - 2 puff inhalation .COMPLEX PRN 09/15/22 10/24/22 Rx aerosol inhaler (Ventolin HFA) shortness of breath or wheezing #8.5 grams budesonide-formoterol HFA 160 2 puff inhalation BID #10.2 grams 09/15/22 Rx mcg-4.5 mcg/actuation aerosol inhaler (Symbicort) tiotropium bromide 18 mcg capsule 1 cap inhalation DAILY #90 09/15/22 10/24/22 Rx with inhalation device (Spiriva inhalations with HandiHaler) atorvastatin 40 mg tablet 40 mg PO DAILY #90 tabs 09/16/22 10/24/22 Rx metoprolol succinate 100 mg 100 mg PO DAILY #90 tabs 09/16/22 10/24/22 Rx tablet,extended release 24 hr amlodipine 5 mg tablet 5 mg PO QAM 10/24/22 10/24/22 History apixaban 5 mg tablet (Eliquis) 5 mg PO BID 10/24/22 10/24/22 History calcium carbonate 600 mg calcium 600 mg PO BID 10/24/22 10/24/22 History (1,500 mg) tablet (Calcium) montelukast 10 mg tablet 10 mg PO QAM 10/24/22 10/24/22 History Past Med/Surg History Medical History Asthma STABLE Benign essential hypertension Chronic obstructive pulmonary disease STABLE Healthcare maintenance Hyperlipidemia Nicotine dependence PAD (peripheral artery disease) S/P LEFT COMMON ILIAC ARTERY STENTS X 2 Paroxysmal atrial fibrillation Pneumothorax on right Rib fractures Surgical History History of bladder surgery History of hysterectomy SHY History of knee surgery History of surgery S/P LEFT COMMON ILIAC ARTERY STENTS X 2 History of surgery anterior vesicourethropexy History of surgery on arm LEFT ARM ULNAR SURGERY History of tonsillectomy and adenoidectomy History of wisdom tooth extraction Status post unilateral salpingo-oophorectomy Family History Mother Diabetes Ovarian cancer Uterine cancer Father Myocardial infarction Heart disease Denies family history of Colon cancer Prostate cancer Breast cancer Social History Smoking Status: Current every day smoker Tobacco Type: Cigarettes packs per day: 0.5; Cigarettes Per Day: 1/2 PPD X 40 YEARS; Second Hand Exposure: No; Do You Dip or Chew Tobacco: No; Hx Alcohol Use: No Hx Substance Use: No Preferred Language: Armenian Communication Ability: Effective Visual Impairment: No Limitations Hearing Ability: Normal Jigsaw Operator Required: No Beliefs That Will Affect Care: None marital status: Current Living Situation: Spouse current occupational status: employed and retired Feels Safe at Home: Yes Safety Concerns: Feels Safe At This Time Childhood Exposure to Second-Hand Smoke: Yes Diet: regular Diet Comment: no special diet Dental Care, Regularly: Yes Physical Activity Frequency: 3-4 Times per Week Physical Activity Frequency Comment: walking Seatbelt Use: always Sunscreen Use: Yes Do you think of yourself as: straight/heterosexual Assistive Devices: Glasses Physical Exam Physical Exam: Physical Exam: General: In no acute distress, stated age, chronically ill appearing but non- toxic HEENT: Normocephalic, atraumatic, no scleral icterus, NC in place, pupils around round, symmetrical, and reactive to light, moist mucus membranes, trachea midline, no thyromegaly Chest/Pulm: No respiratory distress, symmetrical chest expansion, expiratory wheezing noted throughout Cardiac: Tachycardic rate, irregular rhythm, no murmurs noted Abdomen: Negative for ascites and bruising, normoactive bowel sounds, soft, non-tender to palpation throughout Musculoskeletal: Symmetrical and without signs of acute trauma, upper and lower extremities with full ROM, no atrophy, spasticity, or flaccidity Extremities: Radial, dorsalis pedis, and posterior tibial pulses are intact and symmetrical, no edema noted in the BL LE's Skin: Warm, dry, no rashes , lesions, or scars noted Neuro: Alert and oriented to person, place, month, year, and president, no focal defects, CN II-XII tested and intact,no tremors noted Psych: No acute distress, calm and cooperative during the exam Results & Data Results & Data Vital Signs (Past 12 Hours) Vital Signs Temp Pulse Resp BP Pulse Ox O2 Del Method O2 Flow Rate 10/24/22 18:44 145 H 30 H 113/88 83 L 10/24/22 18:42 155 H 26 H 63/25 L 93 10/24/22 18:37 105/85 10/24/22 18:23 149 H 17 76/52 L 95 10/24/22 18:20 158 H 27 H 89 L 10/24/22 18:10 153 H 29 H 94 10/24/22 18:10 99/82 L 10/24/22 18:00 147 H 23 92 10/24/22 18:00 113/95 10/24/22 17:50 145 H 34 H 88 L 10/24/22 17:50 116/84 10/24/22 17:41 146 H 21 91 10/24/22 17:41 105/70 10/24/22 17:40 156 H 32 H 92 10/24/22 17:30 155 H 29 H 94 10/24/22 17:30 138/115 H 10/24/22 17:20 154 H 26 H 94 10/24/22 17:20 118/91 10/24/22 17:10 153 H 16 95 10/24/22 17:10 128/91 10/24/22 17:01 150 H 19 89 L 10/24/22 17:01 99/76 L 10/24/22 17:00 153 H 20 92 10/24/22 16:52 145 H 21 98 10/24/22 16:52 124/98 10/24/22 16:50 152 H 20 95 10/24/22 16:40 162 H 18 100 10/24/22 16:32 151 H 20 99 10/24/22 16:32 124/97 10/24/22 16:30 152 H 22 133/102 H 98 10/24/22 16:11 146 H 27 H 146/91 H 94 10/24/22 16:00 147 H 20 133/101 H 96 10/24/22 15:50 159 H 17 121/94 96 10/24/22 15:40 105/76 10/24/22 15:40 147 H 20 97 10/24/22 15:31 145 H 26 H 123/88 93 10/24/22 15:20 167 H 24 81 L 10/24/22 15:17 154 H 38 H 107/86 96 10/24/22 15:27 Nasal Cannula 10/24/22 15:25 Nasal Cannula 3 10/24/22 15:18 161 H 10/24/22 14:49 36.8 C 155 H 23 125/78 91 Room Air Laboratory Results Abnormal lab results 10/24/22 10/24/22 Range/Units 15:18 15:18 WBC 16.03 H (4.8-10.8) K/ul RDW Std Deviation 54.4 H (36.4-46.3) fL RDW Coeff of Timbo 16.0 H (11.5-14.5) % Plt Count 443 H (130-400) K/uL Neut # (Auto) 11.61 H (1.40-6.50) K/uL Dolores # (Auto) 1.81 H (0.11-0.59) K/uL Sodium 134 L (136-145) mmol/L BUN/Creatinine Ratio 20.8 H (10-20) Glucose 110 H (70-99(Fasting)) mg/dl ALT 53 H (7-52) U/L Diagnostic Findings Chest X-Ray 10/24/22 14:53 XR chest 1V portable CLINICAL HISTORY: Dyspnea TECHNIQUE: Single frontal radiograph of the chest was obtained. Comparison: None available at the time of this dictation. FINDINGS: No lines and tubes are seen. Calcified aortic knob is seen. The lungs are clear. No evidence of pleural effusion or pneumothorax. HEALED right rib fractures noted. IMPRESSION: No acute abnormalities and in particular no radiographic evidence of pneumonia. ACT 112: Negative or not required by law. Electronically signed by: Terell Amor M.D. 10/24/2022 3:17 PM ECG Additional Comments: Atrial fibrillation with rapid ventricular response Low voltage QRS Nonspecific ST and T wave abnormality Abnormal ECG When compared with ECG of 21-JUN-2018 14:47, Atrial fibrillation has replaced Sinus rhythm Vent. rate has increased BY 101 BPM Nonspecific T wave abnormality now evident in Inferior leads Nonspecific T wave abnormality now evident in Anterolateral leads Code Status & VTE Plan Code Status Full code VTE Prophylaxis Plan VTE Prophylaxis will be ordered: Yes Supervising Physician Co-Signing Physician Notes I personally saw and examined the patient. I verified all galicia points and agree with Serafin Peno, PA-C with the following exceptions and/or additions: 62 year old female presents to the ER with shortness of breath and elevated heart rate. Found to be in a. fib with RVR in the ER O/E A&Ox3, no respiratory distress, expiatory wheezing throughout, irregular rhythm, increased rate, no murmur, Abdo SNT, no pedal edema A/P Atrial fibrillation with RVR - no significant change in rate and hypotension with diltiazem IV drip. Previously required cardioversion with atrial fibrillation and she appears to spend most of her time in NSR. Will therefore switch to amiodarone IV and if she does not convert overnight will consult cardiology as may need cardioversion. She is asymptomatic and not in heart failure with rates in 120s therefore would not introduce digoxin unless rates more sustained above 140 overnight. COPD exacerbation - Solu-medrol, levalbuterol/ipratropium, budesonide NEB. PG Care Time/CCT Total # of Minutes Spent Total Time Spent with Patient: Total time spent is greater than 50% in coordination of care (as documented) at patient's floor/unit and/or counseling patient: Coding [place] [address] INT INP/OBS CARE 3/75MIN Patient Type Established Medical Decision Making High Complexity Diagnoses Acute respiratory failure with hypoxia J96.01 Atrial fibrillation with rapid ventricular response I48.91 Acute exacerbation of chronic obstructive pulmonary disease (COPD) J44.1 Hypertension, essential I10 Dyslipidemia E78.5
[2022-10-24] MEDS ORDERED: AMIODARONE IV BOLUS & DRIP IV STA (19:22)
[2022-10-24] MEDS ORDERED: AMIODARONE / D5W 150 MG/100 ML BAG IV STA (19:22)
[2022-10-24] MEDS ORDERED: 0.2 MICRON FILTER SET 1 EACH IV STA (19:22)
[2022-10-24] MEDS ORDERED: DOXYCYCLINE HYCLATE 100 MG in DEXTROSE 5% 100 ML IV STA (19:24)
[2022-10-24] MEDS ORDERED: methylPREDNISolone 125 MG/2 ML VIAL IV STA (19:25)
[2022-10-24] MEDS ORDERED: AMIODARONE / D5W 360 MG/200 ML BAG IV ONE (19:32)
[2022-10-24 19:46] LABS: Thyroid Stimulating Hormone 5.015 uIu/ml (0.300-4.500)
[2022-10-24 20:19] LABS: T4 Free Thyroxine 1.13 ng/dl (0.61-1.60)
[2022-10-24] MEDS ORDERED: FORMOTEROL 20 MCG/2 ML VIAL NEB SCH (21:13)
[2022-10-24] MEDS ORDERED: LEVALBUTEROL HCL 0.63 MG/3 ML NEB NEB SCH (21:13)
[2022-10-24] MEDS ORDERED: IPRATROPIUM BROMIDE NEB SOLN 0.02% 2.5 ML VIAL INH SCH (21:13)
[2022-10-24] MEDS ORDERED: ACETAMINOPHEN 325 MG TAB PO PRN (21:13)
[2022-10-24] MEDS: APIXABAN 5 MG TABLET PO SCH (22:13)
[2022-10-24] MEDS: LEVALBUTEROL HCL 0.63 MG/3 ML NEB NEB SCH (22:37)
[2022-10-24] MEDS: BUDESONIDE 0.5 MG/2 ML VIAL (PULMICORT) NEB SCH (22:37)
[2022-10-24] MEDS: IPRATROPIUM BROMIDE NEB SOLN 0.02% 2.5 ML VIAL INH SCH (22:37)
[2022-10-25] MEDS: IPRATROPIUM BROMIDE NEB SOLN 0.02% 2.5 ML VIAL INH SCH ×5 (00:40→19:52)
[2022-10-25] MEDS: LEVALBUTEROL HCL 0.63 MG/3 ML NEB NEB SCH ×5 (00:41→19:52)
[2022-10-25] MEDS ORDERED: ALBUTEROL 0.083% NEBU SOLN 3 ML VIAL NEB PRN (00:56)
[2022-10-25] MEDS ORDERED: XOPENEX/ATROVENT 0.63mg/0.5MG NEB COMBO NEB SCH (01:00)
[2022-10-25] MEDS: AMIODARONE / D5W 360 MG/200 ML BAG IV SCH ×3 (01:51→21:45)
[2022-10-25] MEDS: BUDESONIDE 0.5 MG/2 ML VIAL (PULMICORT) NEB SCH ×3 (02:55→19:52)
[2022-10-25] MEDS: SODIUM CHLORIDE 0.9% 1000ML 1,000 ML IV SCH ×3 (03:17→19:40)
[2022-10-25 06:17] LABS: Hematocrit (blood only) 40.4 % (37.0-47.0); Hemoglobin 13.4 g/dl (12.0-16.0); Mean Corpuscular Hemoglobin 31.5 pg (25.0-34.0); Mean Corpuscular Hgb Conc 33.2 g/dL (32.0-36.0); Mean Corpuscular Volume 95.1 fL (80.0-100.0); Mean Platelet Volume 9.8 fL (9.4-12.4); Platelet Count 421 K/uL (130-400); RDW Coefficient of Variation 15.7 % (11.5-14.5); RDW Standard Deviation 54.4 fL (36.4-46.3); Red Blood Count 4.25 M/uL (4.20-5.40); White Blood Count 13.24 K/ul (4.8-10.8)
[2022-10-25 06:35] LABS: Albumin Globulin Ratio 1.5 (0.9-2); Albumin Level 3.8 gm/dl (3.4-5.0); Bilirubin,Total 0.2 mg/dl (0.2-1.0); Calcium 8.1 mg/dl (8.6-10.3); Est GFR (African American) 99.2 ml/min; Est GFR (Non-African American) 85.6 ml/min; Globulin 2.6 gm/dl (2.5-4.0); Magnesium 1.9 mg/dl (1.7-2.4); Potassium 4.6 mmol/L (3.5-5.1); Total Protein 6.4 gm/dl (6.0-8.3)
[2022-10-25 06:37] LABS: Basophils # (auto) 0.02 K/uL (0-0.2); Basophils % (auto) 0.2 %; Immature Granulocytes # (auto) 0.07 K/uL (0.01-0.20); Immature Granulocytes % (auto) 0.5 %; Lymphocytes % (auto) 5.3 %; Monocytes # (auto) 0.34 K/uL (0.11-0.59); Monocytes % (auto) 2.6 %; Neutrophils # (auto) 12.11 K/uL (1.40-6.50); Neutrophils % (auto) 91.4 %; Toxic Vacuolation 1+
[2022-10-25 06:57] LABS: INR 1.1 (0.9-1.1)
--- NOTE | 2022-10-25 07:30 | Hospitalist Progress Note ---
"Date of Service October 25, 2022 Assessment & Plan (1) Acute respiratory failure with hypoxia: (2) Acute exacerbation of chronic obstructive pulmonary disease (COPD): (3) Dyspnea: (4) Atrial fibrillation with rapid ventricular response: Plan Ena Polanco is a 62 year-old female with past medical history of COPD, paroxysmal a. fib on Eliquis, CAD, PAD, and HTN who presented to the ED after experiencing worsening shortness of breath over several days. Acute Respiratory Failure with Hypoxia | COPD Exacerbation Ena has COPD which is typically well managed, but symptoms/SON have been worsening since Thursday. Gradually increasing dyspnea on exertion at home. Patient received breathing treatments and IV steroid while in ED, some improvement of respiratory status but does not require supplemental oxygen at home. -AHRF appears to be due to COPD exacerbation -No focal consolidation on CXR, but she has been having increased cough, sputum production,change in sputum color and O2 demand -Continue Solu-Medrol 60 mg IV daily until improvement in respiratory status -Sputum culture/gram stain collected, +gram negative coccobacilli -Start Ceftriaxone, continue Doxycycline -Continue nebulized formoterol, budesonide -PRN O2 to keep SpO2 between 88-92%, incentive spirometry, flutter therapy. Currently on 3L NC. Atrial fibrillation with rapid ventricular response Patient has history of paroxysmal a. fib, did require cardioversion several years prior. Takes Eliquis, metoprolol at home without any missed doses. Found to in a. fib RVR with HR in the 160's on arrival. Was started on diltiazem drip in ED, later discontinued and started on Amiodarone. -Continue Amiodarone drip for now. HR remains at 120s. -Cardiology consulted, appreciate recommendations. -TTE (10/25): EF 45%, global hypokinesis, mild MR and mild/mod. TR, mild concentric LVH -Normal K. Outpatient follow up on TSH of 5. Less likely a contributor. Hypoxia from copd exac likely. -consider outpatient sleep study Hypertension -Stable -Will hold amlodipine for now to avoid hypotension while trying to control/convert her Afib RVR Dyslipidemia -Continue statin Diet: Heart Healthy VTE Prophylaxis: Eliquis Code Status: Full Code Dispo: PCU/Telemetry Admission and Anticipated Discharge Date Admission Date: October 24, 2022 Supervising Physician Co-Signing Physician Notes Resident Physician Supervision Note: I independently interviewed and examined the patient and verified the galicia history and physical, reviewed labs and image studies and agree with resident findings and care plan. Subjective Patient seen and examined at bedside this morning. No acute events overnight. Patient continues to have some shortness of breath and ongoing productive cough, but feels her symptoms are slightly improved today compared to yesterday. Notes that the symptoms began on Thursday with shortness of breath and progressively worsened throughout the week. Denies fever, body aches/chills, chest pain, abdominal pain. She recalls that about 6 years ago she also had an episode of worsening shortness of breath and was found to be in A. Fib RVR and required cardioversion. Review of Systems Review of Systems: As per above Physical Exam Constitutional: + obese, cooperative and comfortable Eyes: no conjunctival abnormality ENMT: External ears and nose normal. Moist mucous membranes. Respiratory: + cough; does not use accessory muscles Auscultation: + wheezes No increased work of breathing. Nasal cannula in place. Cardiovascular: Irregular rhythm, tachycardic. Skin: no rashes, warm and dry Psychiatric: A+Ox3, euthymic affect Results & Data Results & Data Vital Signs (Past 12 Hours) Vital Signs Temp Pulse Pulse Pulse Resp BP BP 10/25/22 02:55 116 H 22 10/25/22 02:32 36.6 C 128 H 22 10/24/22 23:26 36.8 C 115 H 20 10/24/22 23:00 130 H 10/24/22 20:30 131 H 10/24/22 20:30 10/24/22 20:30 36.5 C 126 H 18 117/81 10/24/22 20:30 36.5 C 133 H 129 H 18 117/81 10/24/22 20:11 116/87 10/24/22 20:00 128 H 23 131/91 10/24/22 19:50 134 H 21 121/92 10/24/22 19:40 157 H 31 H 140/120 H 10/24/22 19:30 133 H 32 H 93/72 L BP Pulse Ox O2 Del Method O2 Flow Rate 10/25/22 02:55 92 Nasal Cannula 3 10/25/22 02:32 115/80 93 Nasal Cannula 3.5 10/24/22 23:26 92/62 L 91 Nasal Cannula 3 10/24/22 23:00 10/24/22 20:30 10/24/22 20:30 Nasal Cannula 3 10/24/22 20:30 93 Nasal Cannula 3 10/24/22 20:30 93 Room Air 10/24/22 20:11 10/24/22 20:00 92 Nasal Cannula 2 10/24/22 19:50 92 Nasal Cannula 2 10/24/22 19:40 95 Nasal Cannula 2 10/24/22 19:30 94 Nasal Cannula 2 Diagnostic Findings Chest X-Ray 10/24/22 14:53 XR chest 1V portable CLINICAL HISTORY: Dyspnea TECHNIQUE: Single frontal radiograph of the chest was obtained. Comparison: None available at the time of this dictation. FINDINGS: No lines and tubes are seen. Calcified aortic knob is seen. The lungs are clear. No evidence of pleural effusion or pneumothorax. HEALED right rib fractures noted. IMPRESSION: No acute abnormalities and in particular no radiographic evidence of pneumonia. ACT 112: Negative or not required by law. Electronically signed by: Terell Amor M.D. 10/24/2022 3:17 PM Resident Activity Tracking Resident Involvement: Resident Care Provided Care Provided: Adult [facility]"
[2022-10-25] MEDS: DOXYCYCLINE HYCLATE 100 MG CAP PO SCH ×2 (08:54→19:36)
[2022-10-25] MEDS: APIXABAN 5 MG TABLET PO SCH ×2 (08:54→19:36)
[2022-10-25] MEDS: ATORVASTATIN 40 MG TAB PO SCH (08:54)
[2022-10-25] MEDS: methylPREDNISolone 60 MG in SYRINGE 0 ML IV SCH (08:55)
[2022-10-25] MEDS: METOPROLOL SUCC 50MG EXT REL TAB PO SCH (08:55)
[2022-10-25] MEDS: MONTELUKAST SODIUM 10 MG TABLET PO SCH (08:55)
[2022-10-25] MEDS: UMECLIDINIUM BROMIDE 62.5MCG/BLISTER 7 PUFFS/INHALER INH SCH (08:59)
[2022-10-25] MEDS ORDERED: methylPREDNISolone 125 MG/2 ML VIAL IV SCH (09:00)
--- NOTE | 2022-10-25 12:10 | XCELERA ---
[id number] \\[id number]
[2022-10-25] MEDS: NICOTINE 14 MG/24 HR PATCH TD SCH (12:28)
[2022-10-25] MEDS: cefTRIAXone SODIUM 2,000 MG in DEXTROSE 5% 50 ML IV SCH (14:06)
--- NOTE | 2022-10-25 16:14 | Cardiology Consultation ---
Date of Consultation October 25, 2022 Assessment & Plan (1) Atrial fibrillation with rapid ventricular response: (2) Cardiomyopathy: (3) Acute respiratory failure with hypoxia: (4) Coronary artery calcification seen on CAT scan: (5) Nicotine dependence: (6) Hypertension, essential: (7) Dyslipidemia: (8) PAD (peripheral artery disease): Plan ASSESSMENT/PLAN: 1. Paroxysmal atrial fibrillation: Currently persistent A-fib with RVR. Recommend DC cardioversion if she remains in A-fib. Risks and benefits were discussed with her in detail. N.p.o. after midnight on 10/26/22 anticipating cardioversion on 10/27/2022. On amiodarone as initiated by hospitalist service. Was hypotensive on diltiazem drip. Heart rate improved but still tachycardic. Risks and benefit of amiodarone discussed with her. Would consider electrophysiology outpatient follow-up to help determine best long-term antiarrhythmic in the setting of probable CAD given significant atherosclerosis and coronary artery calcifications noted on CT. Continue anticoagulation for stroke risk reduction. She states that she has not missed any doses of Eliquis for at least 4 weeks. While on amiodarone, monitor transaminase levels, TSH, and pulmonary status. 2. Cardiomyopathy: Mildly reduced LV systolic function based on today's echo, however A-fib with RVR likely contributing. Recommend repeating echo once heart rate improved, which can be done as an outpatient. Continue metoprolol succinate. No MADISON inhibitor given reported allergy with shortness of breath. Without more details, would likely avoid ARB as well. 3. Acute respiratory failure with hypoxia: She is being treated for COPD exacerbation as per hospital service. She feels much improved already. 4. Tobacco abuse: Recommended cessation. 5. Hypertension: Blood pressure normal. Continue current plan. 6. Dyslipidemia: Excellent lipids. Goal LDL <70 given peripheral arterial disease and concern for CAD. Continue high intensity statin therapy. 7. Coronary artery calcifications: Treat as a presumed CAD given known peripheral arterial disease. Continue beta-arpan and high intensity statin therapy. Avoid smoking. Risk factor modification. 8. Peripheral arterial disease: Reports bilateral lower extremity stents. Tiny lows with vascular (Dr. Styles). 9. Disposition: Cardiology will continue to follow. Plan of care communicated with primary hospitalist, Dr. Concepcion. Highly complex medical issues. Thank you for allowing me to participate in the care of your patient. Please call for any other questions or concerns. Sincerely, Chau Brown M.D. History of Present Illness Reason for Consultation: Af RVR Requesting Physician: Serafin Parker Attending Physician: Jeanine Concepcion MD History of Present Illness Mrs. Polanco is a very pleasant 62-year-old female with a history significant for paroxysmal atrial fibrillation s/p DC CV asthma/COPD, peripheral arterial disease s/p bilateral lower extremity stents, hypertension, and dyslipidemia. She follows with Mr. El Acosta in the outpatient cardiology setting. She recalls being diagnosed with atrial fibrillation in the past and was quite symptomatic. She underwent cardioversion many years ago. She does not recall any significant recurrence until this hospitalization. Over the past several weeks, she has had palpitations described as a fluttering sensation. She was seen in the cardiology office and metoprolol was increased from 50 mg, to 75 mg, and then finally to 100 mg daily. She noted some improvement with this, but no resolution. On 10/20/2022, she noted tightness in her chest, even at rest. She also produced yellow mucus. She thought she was having an exacerbation of her lung disease. Unfortunately, shortness of breath progressively worsened throughout the course of the week. She also noted orthopnea. She had transient swelling of her left leg but it had since resolved. There was no pain in the leg and she states that she has not missed any doses of her anticoagulation therapy. When she presented to [facility] on 10/24/2022, ECG demonstrated A-fib with RVR and a heart rate of 158 bpm. She was given diltiazem intravenously but developed hypotension. Hospitalist service then placed her on amiodarone drip. She was felt to have COPD exacerbation by the hospitalist service and was started on steroids and antibiotics. Overall, she feels much improved but not yet back to baseline. She does not use supplemental oxygen at home. She denies chest pain, palpitations, syncope, near syncope, melena, hematochezia, or hematuria. She has chronic claudication symptoms and follows with Dr. Styles for vascular care. She has an upcoming appointment and recently had imaging done. Review of systems: As above. Review of systems otherwise negative/unremarkable. Social history: She has smoked up to a pack per day for many years. Currently she smokes 0.5 pack/day. She is trying to quit. Occasional beer. Lives at home with her . 3 adult children. Social history: No known premature CAD. Allergies Allergy/AdvReac Type Severity Reaction Status Date / Time lisinopril Allergy Severe SOB, Verified 10/24/22 18:16 SEVERE COUGHING FITS Home Medications Medication Instructions Recorded Confirmed Type cholecalciferol (vitamin D3) 125 5,000 unit PO DAILY 10/11/20 10/24/22 History mcg (5,000 unit) capsule zoledronic acid 5 mg/100 mL in 1 ea IV YEARLY #100 mL 09/10/22 10/24/22 Rx mannitol 5 %-water intravenous piggybck (Reclast) albuterol sulfate 90 mcg/actuation 1 - 2 puff inhalation .COMPLEX PRN 09/15/22 10/24/22 Rx aerosol inhaler (Ventolin HFA) shortness of breath or wheezing #8.5 grams budesonide-formoterol HFA 160 2 puff inhalation BID #10.2 grams 09/15/22 10/24/22 Rx mcg-4.5 mcg/actuation aerosol inhaler (Symbicort) tiotropium bromide 18 mcg capsule 1 cap inhalation DAILY #90 09/15/22 10/24/22 Rx with inhalation device (Spiriva inhalations with HandiHaler) atorvastatin 40 mg tablet 40 mg PO DAILY #90 tabs 09/16/22 10/24/22 Rx metoprolol succinate 100 mg 100 mg PO DAILY #90 tabs 09/16/22 10/24/22 Rx tablet,extended release 24 hr amlodipine 5 mg tablet 5 mg PO QAM 10/24/22 10/24/22 History apixaban 5 mg tablet (Eliquis) 5 mg PO BID 10/24/22 10/24/22 History calcium carbonate 600 mg calcium 600 mg PO BID 10/24/22 10/24/22 History (1,500 mg) tablet (Calcium) montelukast 10 mg tablet 10 mg PO QAM 10/24/22 10/24/22 History Patient History Medical History (Updated 10/25/22 @ 16:21 by Nimesh Brown MD) Asthma STABLE Benign essential hypertension Chronic obstructive pulmonary disease STABLE Healthcare maintenance Hyperlipidemia Nicotine dependence PAD (peripheral artery disease) S/P LEFT COMMON ILIAC ARTERY STENTS X 2 Paroxysmal atrial fibrillation Pneumothorax on right Rib fractures Surgical History History of bladder surgery History of hysterectomy SHY History of knee surgery History of surgery S/P LEFT COMMON ILIAC ARTERY STENTS X 2 History of surgery anterior vesicourethropexy History of surgery on arm LEFT ARM ULNAR SURGERY History of tonsillectomy and adenoidectomy History of wisdom tooth extraction Status post unilateral salpingo-oophorectomy Family History Mother Diabetes Ovarian cancer Uterine cancer Father Myocardial infarction Heart disease Denies family history of Colon cancer Prostate cancer Breast cancer Social History Smoking Status: Current every day smoker Tobacco Type: Cigarettes packs per day: 0.5; Cigarettes Per Day: 1/2 PPD X 40 YEARS; Second Hand Exposure: No; Do You Dip or Chew Tobacco: No; Hx Alcohol Use: No Hx Substance Use: No Preferred Language: Syrian Communication Ability: Effective Visual Impairment: No Limitations Hearing Ability: Normal Counseling Case Manager Required: No Beliefs That Will Affect Care: None marital status: Current Living Situation: Spouse current occupational status: employed and retired Feels Safe at Home: Yes Safety Concerns: Feels Safe At This Time Childhood Exposure to Second-Hand Smoke: Yes Diet: regular Diet Comment: no special diet Dental Care, Regularly: Yes Physical Activity Frequency: 3-4 Times per Week Physical Activity Frequency Comment: walking Seatbelt Use: always Sunscreen Use: Yes Do you think of yourself as: straight/heterosexual Assistive Devices: Glasses Physical Exam Physical Exam: Gen.: No acute distress. Alert and oriented. HEENT: Anicteric sclera. Neck: No JVD. No bruits. Normal carotid upstrokes bilaterally. Cardiac: No ventricular heave. Irregularly irregular. Tachycardic. Normal S1- S2. No murmurs, rubs, or gallops. Pulmonary: Decreased breath sounds bilaterally, but otherwise clear to auscultation bilaterally without wheezes, rales, or rhonchi. Abdomen: Soft, nontender, nondistended, with normoactive bowel sounds. No bruits noted. Extremities: 2+ radial pulses bilaterally. Trace bilateral lower extremity edema. No cyanosis. Psychiatric: Affect appears appropriate. Results & Data Vital Signs (Past 12 Hours) Vital Signs Temp Pulse Pulse Resp BP Pulse Ox O2 Del Method 10/25/22 15:27 124 H 10/25/22 15:03 130 H 20 94 Nasal Cannula 10/25/22 11:34 36.4 C L 134 H 24 102/73 95 Nasal Cannula 10/25/22 11:14 125 H 20 95 Nasal Cannula 10/25/22 08:15 Nasal Cannula 10/25/22 08:00 135 H 10/25/22 08:31 36.4 C L 138 H 24 106/74 91 Nasal Cannula 10/25/22 07:24 120 H 24 92 Nasal Cannula O2 Flow Rate 10/25/22 15:27 10/25/22 15:03 3 10/25/22 11:34 10/25/22 11:14 3 10/25/22 08:15 3 10/25/22 08:00 10/25/22 08:31 3 10/25/22 07:24 3.5 Intake & Output 10/23/22 10/24/22 10/25/22 10/26/22 06:59 06:59 06:59 06:59 Intake Total 1316.75 / 1316.75 1735.768 / 1735.768 Balance 1316.75 / 1316.75 1735.768 / 1735.768 Weight 206 lb 12.697 oz Laboratory Results Laboratory Results - last 24 hr 10/24/22 10/24/22 10/24/22 15:18 17:10 18:25 WBC RBC Hgb Hct MCV MCH MCHC RDW Std Deviation RDW Coeff of Timbo Plt Count MPV Immature Gran % (Auto) Neut % (Auto) Lymph % (Auto) [place] % (Auto) Eos % (Auto) Baso % (Auto) Neut # (Auto) Lymph # (Auto) [place] # (Auto) Eos # (Auto) Baso # (Auto) Immature Gran # (Auto) Toxic Vacuolation PT INR Sodium Potassium Chloride Carbon Dioxide Anion Gap BUN Creatinine Est Cr Clr Drug Dosing Est GFR ( Amer) Est GFR (Non-Af Amer) BUN/Creatinine Ratio Glucose Calcium Magnesium 2.0 Total Bilirubin AST ALT Alkaline Phosphatase Total Protein Albumin Globulin Albumin/Globulin Ratio TSH 5.015 H Free T4 1.13 Adenovirus (PCR) Not Detected B. pertussis DNA (PCR) Not Detected B.parapertussis DNA PCR Not Detected C. pneumoniae DNA (PCR) Not Detected Coronavirus OC43 (PCR) Not Detected Coronavirus HKU1 (PCR) Not Detected Coronavirus 229E (PCR) Not Detected SARS-CoV-2 (PCR) Not Detected Coronavirus NL63 (PCR) Not Detected Human Metapneumovir PCR Not Detected Influenza Type A (PCR) Not Detected Influenza Type B (PCR) Not Detected M. pneumoniae (PCR) Not Detected Parainfluenza 1 (PCR) Not Detected Parainfluenza 2 (PCR) Not Detected Parainfluenza 3 (PCR) Not Detected Parainfluenza 4 (PCR) Not Detected RSV (PCR) Not Detected Entero/Rhino (PCR) Not Detected 10/25/22 10/25/22 10/25/22 05:53 05:53 05:53 WBC 13.24 H RBC 4.25 Hgb 13.4 Hct 40.4 MCV 95.1 MCH 31.5 MCHC 33.2 RDW Std Deviation 54.4 H RDW Coeff of Timbo 15.7 H Plt Count 421 H MPV 9.8 Immature Gran % (Auto) 0.5 Neut % (Auto) 91.4 Lymph % (Auto) 5.3 [place] % (Auto) 2.6 Eos % (Auto) 0.0 Baso % (Auto) 0.2 Neut # (Auto) 12.11 H Lymph # (Auto) 0.70 L [place] # (Auto) 0.34 Eos # (Auto) 0.00 Baso # (Auto) 0.02 Immature Gran # (Auto) 0.07 Toxic Vacuolation 1+ PT 12.0 INR 1.1 Sodium 135 L Potassium 4.6 Chloride 105 Carbon Dioxide 23 Anion Gap 7 BUN 17 Creatinine 0.74 Est Cr Clr Drug Dosing 87.0 Est GFR ( Amer) 99.2 Est GFR (Non-Af Amer) 85.6 BUN/Creatinine Ratio 23.0 H Glucose 163 H Calcium 8.1 L Magnesium 1.9 Total Bilirubin 0.2 AST 18 ALT 47 Alkaline Phosphatase 51 Total Protein 6.4 Albumin 3.8 Globulin 2.6 Albumin/Globulin Ratio 1.5 TSH Free T4 Adenovirus (PCR) B. pertussis DNA (PCR) B.parapertussis DNA PCR C. pneumoniae DNA (PCR) Coronavirus OC43 (PCR) Coronavirus HKU1 (PCR) Coronavirus 229E (PCR) SARS-CoV-2 (PCR) Coronavirus NL63 (PCR) Human Metapneumovir PCR Influenza Type A (PCR) Influenza Type B (PCR) M. pneumoniae (PCR) Parainfluenza 1 (PCR) Parainfluenza 2 (PCR) Parainfluenza 3 (PCR) Parainfluenza 4 (PCR) RSV (PCR) Entero/Rhino (PCR) Diagnostic Findings CT lung report from 09/18/2022 reviewed: Moderate atherosclerotic calcifications in the aorta and coronary arteries per radiology. Numerous pulmonary nodules stable. Stable emphysema and bronchiectasis. Chest x-ray 10/24/2022: No acute abnormalities per radiology. Echo 10/25/2022: A-fib with RVR. Estimated EF 45%. Mild MR. Mild to moderate TR. Top normal RVSP. Labs reviewed from 10/25/2022 and notable for stable renal function, normal potassium, slight hyponatremia, leukocytosis (new), normal hemoglobin. Labs from 09/15/2022 demonstrated excellent LDL and HDL. Telemetry personally reviewed: A-fib with RVR. ECG personally reviewed as noted above in HPI. History and physical report reviewed. Medications Administered Current Inpatient Medications Acetaminophen (Acetaminophen 325 Mg Tab) 650 mg PO Q4H PRN PRN Reason: Pain(1-4) Or Fever Stop: 11/23/22 21:12 Albuterol (Albuterol 0.083% Nebu Soln 3 Ml Vial) 2.5 mg NEB Q2H PRN; Protocol PRN Reason: wheeze Stop: 11/24/22 00:55 Last Admin: 10/25/22 02:54 Dose: 2.5 mg Apixaban (Apixaban 5 Mg Tablet) 5 mg PO BID KANE Stop: 11/23/22 21:12 Last Admin: 10/25/22 08:54 Dose: 5 mg Atorvastatin Calcium (Atorvastatin 40 Mg Tab) 40 mg PO DAILY KANE Stop: 11/24/22 08:59 Last Admin: 10/25/22 08:54 Dose: 40 mg Budesonide (Budesonide 0.5 Mg/2 Ml Vial (Pulmicort)) 0.5 mg NEB BIDR KANE Stop: 11/23/22 21:12 Last Admin: 10/25/22 07:23 Dose: 0.5 mg Doxycycline Hyclate (Doxycycline Hyclate 100 Mg Cap) 100 mg PO Q12H [facility] Stop: 11/01/22 06:59 Last Admin: 10/25/22 08:54 Dose: 100 mg Guaifenesin (Guaifenesin 600 Mg Tabcr) 600 mg PO Q12 [facility] Stop: 11/24/22 20:59 Sodium Chloride (Nss 1000ml) 1,000 mls @ 125 mls/hr IV .Q8H [facility] Stop: 11/23/22 15:44 Last Admin: 10/25/22 11:12 Dose: 125 mls/hr Amiodarone HCl/Dextrose (Nexterone / D5w) 360 mg in 200 mls @ 16.667 mls/hr IV .Q12H [facility] Stop: 11/24/22 01:29 Last Admin: 10/25/22 12:24 Dose: 0.5 mg/min, 16.7 mls/hr Methylprednisolone 60 mg/ (Syringe) 0.96 mls @ 1.5 mls/min IV Q24H [facility] Stop: 11/24/22 08:59 Last Admin: 10/25/22 08:55 Dose: 1.5 mls/min Ceftriaxone Sodium 2,000 mg/ (Dextrose) 70 mls @ 100 mls/hr IV Q24H [facility]; Protocol Stop: 11/01/22 12:59 Last Infusion: 10/25/22 14:54 Dose: Infused Ipratropium [place] (Ipratropium [place] Neb Soln 0.02% 2.5 Ml Vial) 0.5 mg INH QIDR [facility] Stop: 11/24/22 06:59 Last Admin: 10/25/22 15:02 Dose: 0.5 mg Levalbuterol HCl (Levalbuterol Hcl 0.63 Mg/3 Ml Neb) 0.63 mg NEB QIDR [facility] Stop: 11/24/22 06:59 Last Admin: 10/25/22 15:02 Dose: 0.63 mg Metoprolol Succinate (Metoprolol Succ 50mg Ext Rel Tab) 100 mg PO DAILY [facility] Stop: 11/24/22 08:59 Last Admin: 10/25/22 08:55 Dose: 100 mg Miscellaneous (Remove Nicoderm Patch) 1 each N/A DAILY@59 KANE Stop: 11/25/22 08:58 Montelukast Sodium (Montelukast Sodium 10 Mg Tablet) 10 mg PO QAM KANE Stop: 11/24/22 08:59 Last Admin: 10/25/22 08:55 Dose: 10 mg Nicotine (Nicotine 14 Mg/24 Hr Patch) 14 mg TD QAM KANE Stop: 11/24/22 11:59 Last Admin: 10/25/22 12:28 Dose: 14 mg Umeclidinium [place] (Umeclidinium [place] 62.5mcg/Blister 7 Puffs/Inhaler) 1 puffs INH DAILY KANE Stop: 11/24/22 08:59 Last Admin: 10/25/22 08:59 Dose: 1 puffs PG Care Time/CCT Total # of Minutes Spent Total Time Spent with Patient: Total time spent is greater than 50% in coordination of care (as documented) at patient's floor/unit and/or counseling patient: Coding Level of Care Code 35178 INT INP/OBS CARE 3/75MIN Diagnoses Atrial fibrillation with rapid ventricular response I48.91 Cardiomyopathy I42.9 Acute respiratory failure with hypoxia J96.01 Coronary artery calcification seen on CAT scan I25.10 Nicotine dependence F17.200 Hypertension, essential I10 Dyslipidemia E78.5 PAD (peripheral artery disease) I73.9
[2022-10-25] MEDS: guaiFENesin 600 MG TABCR PO SCH (19:36)
--- NOTE | 2022-10-25 21:32 | Electrocardiogram Report ---
Test Reason : Blood Pressure : / mmHG Vent. Rate : 158 BPM Atrial Rate : 000 BPM P-R Int : 000 ms QRS Dur : 072 ms QT Int : 308 ms P-R-T Axes : 000 066 004 degrees QTc Int : 499 ms Atrial fibrillation with rapid ventricular response Low voltage QRS Nonspecific ST and T wave abnormality Abnormal ECG When compared with ECG of 21-JUN-2018 14:47, Atrial fibrillation has replaced Sinus rhythm Vent. rate has increased BY 101 BPM Nonspecific T wave abnormality now evident in Inferior leads Nonspecific T wave abnormality now evident in Anterolateral leads Confirmed by Nimesh Brown ([id number]) on 10/25/2022 9:31:51 PM Referred By: Confirmed By:Nimesh Brown
[2022-10-26] MEDS: BENZONATATE 100 MG CAPSULE PO PRN ×2 (03:26→22:09)
[2022-10-26] MEDS: SODIUM CHLORIDE 0.9% 1000ML 1,000 ML IV SCH (03:27)
[2022-10-26 06:14] LABS: Basophils # (auto) 0.01 K/uL (0-0.2); Basophils % (auto) 0.1 %; Hematocrit (blood only) 40.2 % (37.0-47.0); Immature Granulocytes # (auto) 0.08 K/uL (0.01-0.20); Immature Granulocytes % (auto) 0.6 %; Mean Corpuscular Hemoglobin 31.4 pg (25.0-34.0); Mean Corpuscular Hgb Conc 32.3 g/dL (32.0-36.0); Mean Corpuscular Volume 97.1 fL (80.0-100.0); Mean Platelet Volume 9.8 fL (9.4-12.4); Monocytes # (auto) 1.56 K/uL (0.11-0.59); Neutrophils # (auto) 9.68 K/uL (1.40-6.50); Neutrophils % (auto) 74.3 %; Platelet Count 377 K/uL (130-400); RDW Coefficient of Variation 15.9 % (11.5-14.5); RDW Standard Deviation 57.3 fL (36.4-46.3); Red Blood Count 4.14 M/uL (4.20-5.40); White Blood Count 13.03 K/ul (4.8-10.8)
[2022-10-26 06:31] LABS: Albumin Globulin Ratio 1.5 (0.9-2); Albumin Level 3.6 gm/dl (3.4-5.0); BUN Creatinine Ratio 29.6 (10-20); Bilirubin,Total 0.2 mg/dl (0.2-1.0); Calcium 7.8 mg/dl (8.6-10.3); Creatinine Clr Calc Pharmacy 92.9 ml/min; Est GFR (African American) 104.3 ml/min; Globulin 2.4 gm/dl (2.5-4.0); Magnesium 2.1 mg/dl (1.7-2.4); Potassium 4.8 mmol/L (3.5-5.1)
[2022-10-26 06:37] LABS: INR 1.1 (0.9-1.1); Prothrombin Time 12.1 Seconds (9.0-12.0)
[2022-10-26] MEDS: BUDESONIDE 0.5 MG/2 ML VIAL (PULMICORT) NEB SCH ×2 (06:52→19:42)
[2022-10-26] MEDS: IPRATROPIUM BROMIDE NEB SOLN 0.02% 2.5 ML VIAL INH SCH ×4 (06:53→19:43)
[2022-10-26] MEDS: LEVALBUTEROL HCL 0.63 MG/3 ML NEB NEB SCH ×4 (06:53→19:42)
--- NOTE | 2022-10-26 08:28 | Hospitalist Progress Note ---
"Date of Service October 26, 2022 Assessment & Plan (1) Acute respiratory failure with hypoxia: (2) Acute exacerbation of chronic obstructive pulmonary disease (COPD): (3) Dyspnea: (4) Atrial fibrillation with rapid ventricular response: Plan Ena Polanco is a 62 year-old female with past medical history of COPD, paroxysmal a. fib on Eliquis, CAD, PAD, and HTN who presented to the ED after experiencing worsening shortness of breath over several days. Acute Respiratory Failure with Hypoxia | COPD Exacerbation Ena has COPD which is typically well managed, but symptoms/SON have been worsening since Thursday. Gradually increasing dyspnea on exertion at home. Patient received breathing treatments and IV steroid while in ED, some improvement of respiratory status but still needing supplemental oxygen. None at home. -AHRF appears to be due to COPD exacerbation and ?RVR -Continue Solu-Medrol 60 mg IV daily - anticipate switch to oral in am -Sputum culture/gram stain collected, +gram negative coccobacilli -Continue Ceftriaxone, Doxycycline -Continue nebulized formoterol, budesonide -PRN O2 to keep SpO2 between 88-92%, incentive spirometry, flutter therapy. Currently on 1.5L NC. Atrial fibrillation with rapid ventricular response Patient has history of paroxysmal a. fib, did require cardioversion several years prior. Takes Eliquis, metoprolol at home without any missed doses. Found to in a. fib RVR with HR in the 160's on arrival. Was started on diltiazem drip in ED, later discontinued and started on Amiodarone. Echo EF 45%, global hypokinesis, mild concentric LVH -Converted to sinus rhythm overnight, HR 60s-80s -Cardiology recommendations. -Switch Amiodarone to PO today, plan for Amiodarone 400mg PO BID x7 days then 200mg PO BID -Edematous today, IV fluids d/c today. Ordered 1x IV Lasix 20mg -Consider outpatient sleep study Hypertension -Stable, normotensive since admission -Holding home Amlodipine Dyslipidemia -Continue statin Tobacco Use -Currently smokes 1/2 ppd -Nicotine replacement patch ordered -Encouraged smoking cessation Diet: Heart Healthy VTE Prophylaxis: Eliquis Code Status: Full Code Dispo: PCU/Telemetry Admission and Anticipated Discharge Date Admission Date: October 24, 2022 Supervising Physician Co-Signing Physician Notes Resident Physician Supervision Note: I independently interviewed and examined the patient and verified the galicia history and physical, reviewed labs and image studies and agree with resident findings and care plan. Subjective Patient seen and examined at bedside. She states she is feeling a bit better this morning, some improvement with her breathing. Converted to sinus rhythm overnight while on Amiodarone drip. Eating and drinking without issue. Denies chest pain or abdominal pain. Continues to have productive cough, oxygen requirement is decreased to 1.5 L NC today. Review of Systems Review of Systems: As per above Physical Exam Constitutional: + obese, cooperative and comfortable Eyes: no conjunctival abnormality ENMT: External ears and nose normal. Moist mucous membranes. Respiratory: + cough; does not use accessory muscles Auscultation: + crackles and + wheezes Cardiovascular: Rate/Rhythm: regular rate and regular rhythm Heart Sounds: no murmur +1 bilateral lower extremity nonpitting edema, bilaterally Skin: no rashes, warm and dry Psychiatric: A+Ox3, euthymic affect Results & Data Results & Data Vital Signs (Past 12 Hours) Vital Signs Temp Pulse Pulse Resp BP BP Pulse Ox 10/26/22 07:26 36.4 C L 59 L 18 103/69 94 10/26/22 07:00 80 10/26/22 06:53 83 20 93 10/26/22 04:00 36.9 C 65 18 105/68 95 10/25/22 23:00 135 H 10/26/22 00:00 36.7 C 135 H 20 111/79 94 O2 Del Method O2 Flow Rate 10/26/22 07:26 Nasal Cannula 10/26/22 07:00 10/26/22 06:53 Nasal Cannula 3 10/26/22 04:00 Nasal Cannula 3 10/25/22 23:00 10/26/22 00:00 Nasal Cannula 3 Resident Activity Tracking Resident Involvement: Resident Care Provided Care Provided: Adult Hospital Medicine"
[2022-10-26] MEDS: methylPREDNISolone 60 MG in SYRINGE 0 ML IV SCH (08:34)
[2022-10-26] MEDS: ATORVASTATIN 40 MG TAB PO SCH (08:34)
[2022-10-26] MEDS: DOXYCYCLINE HYCLATE 100 MG CAP PO SCH ×2 (08:34→19:57)
[2022-10-26] MEDS: APIXABAN 5 MG TABLET PO SCH ×2 (08:34→19:58)
[2022-10-26] MEDS: METOPROLOL SUCC 50MG EXT REL TAB PO SCH (08:34)
[2022-10-26] MEDS: guaiFENesin 600 MG TABCR PO SCH ×2 (08:34→19:58)
[2022-10-26] MEDS: UMECLIDINIUM BROMIDE 62.5MCG/BLISTER 7 PUFFS/INHALER INH SCH (08:35)
[2022-10-26] MEDS: MONTELUKAST SODIUM 10 MG TABLET PO SCH (08:35)
[2022-10-26] MEDS: NICOTINE 14 MG/24 HR PATCH TD SCH (08:35)
--- NOTE | 2022-10-26 10:48 | Cardiology Progress Note ---
Date of Service October 26, 2022 Assessment & Plan (1) Atrial fibrillation with rapid ventricular response: (2) Cardiomyopathy: (3) Acute respiratory failure with hypoxia: (4) Coronary artery calcification seen on CAT scan: (5) Nicotine dependence: (6) Hypertension, essential: (7) Dyslipidemia: (8) PAD (peripheral artery disease): Plan ASSESSMENT/PLAN: 1. Paroxysmal atrial fibrillation: Converted to sinus rhythm on 10/26/2022 on amiodarone drip. Discontinue amiodarone drip and start oral amiodarone. Plan for amiodarone for the next month or so. Recommend evaluation in the outpatient setting with Mr. Acosta and EP to help determine length of amiodarone and possible other options, given her young age. Continue anticoagulation for stroke risk reduction. COPD exacerbation may have helped trigger her A-fib episode. While on amiodarone, monitor transaminase levels, TSH, and pulmonary status. 2. Cardiomyopathy: Mildly reduced LV systolic function based on today's echo, however A-fib with RVR likely contributing. Recommend repeating echo once heart rate improved, which can be done as an outpatient. Continue metoprolol succinate. No MADISON inhibitor given reported allergy with shortness of breath. Without more details, would likely avoid ARB as well. 3. Acute respiratory failure with hypoxia: She is being treated for COPD exacerbation as per hospital service. She feels much improved already. She appears more edematous today and fluid balance is notable for almost 4 L of input yesterday. Output is incomplete. Give Lasix 20 mg IV x1. 4. Tobacco abuse: Smoke cessation. 5. Hypertension: Blood pressure normal. Continue current plan. 6. Dyslipidemia: Excellent lipids. Goal LDL <70 given peripheral arterial disease and concern for CAD. Continue high intensity statin therapy. 7. Coronary artery calcifications: Treat as a presumed CAD given known peripheral arterial disease. Continue beta-arpan and high intensity statin therapy. Avoid smoking. Risk factor modification. 8. Peripheral arterial disease: Reports bilateral lower extremity stents. Follows with vascular (Dr. Styles). 9. Disposition: Please call with any other questions or concerns. When stable from discharge from the hospital standpoint, recommend close follow-up in the outpatient cardiology office with Mr. Acosta, and electrophysiology. Plan of care communicated with hospitalist service, Dr. Ansari. Admission and Anticipated Discharge Date Admission Date: October 24, 2022 Subjective She converted to sinus rhythm at 2:01 AM on 10/26/22 while on amiodarone drip. She did not notice any significant change in how she felt as she was awake shortly thereafter. In general however she continues to feel better from a breathing standpoint. Her oxygen supplementation is being weaned. Her breathing is near back to baseline, although she is still requiring supplemental oxygen. She has noted worsening lower extremity edema. She denies chest pain, syncope. She is hoping to go home in the next day or so. She was alone in her hospital room. Physical Exam Physical Exam: Gen.: No acute distress. Alert and oriented. HEENT: Anicteric sclera. Neck: No JVD. Cardiac: No ventricular heave. Regular. Normal S1-S2. No murmurs, rubs, or gallops. Pulmonary: Decreased breath sounds bilaterally. Bilateral expiratory wheezing. Abdomen: Soft, nontender, nondistended, with normoactive bowel sounds. No bruits noted. Extremities: 2+ radial pulses bilaterally. Trace to 1+ bilateral lower extremity edema. No cyanosis. Psychiatric: Affect appears appropriate. Results & Data Vital Signs (Past 12 Hours) Vital Signs Temp Pulse Pulse Resp BP BP Pulse Ox 10/26/22 10:30 10/26/22 08:41 77 93 10/26/22 07:26 36.4 C L 59 L 18 103/69 94 10/26/22 07:00 80 10/26/22 06:53 83 20 93 10/26/22 04:00 36.9 C 65 18 105/68 95 10/25/22 23:00 135 H 10/26/22 00:00 36.7 C 135 H 20 111/79 94 O2 Del Method O2 Flow Rate 10/26/22 10:30 Nasal Cannula 1.5 10/26/22 08:41 Nasal Cannula 1.5 10/26/22 07:26 Nasal Cannula 10/26/22 07:00 10/26/22 06:53 Nasal Cannula 3 10/26/22 04:00 Nasal Cannula 3 10/25/22 23:00 10/26/22 00:00 Nasal Cannula 3 Intake & Output 10/24/22 10/25/22 10/26/22 10/27/22 06:59 06:59 06:59 06:59 Intake Total 1316.75 / 1316.75 3864.830 / 3864.830 Output Total 550 / 550 Balance 1316.75 / 1316.75 3864.830 / 3864.830 -550 / -550 Weight 206 lb 12.697 oz 216 lb 7.903 oz Laboratory Results Laboratory Results - last 24 hr 10/26/22 10/26/22 10/26/22 05:43 05:43 05:43 WBC 13.03 H RBC 4.14 L Hgb 13.0 Hct 40.2 MCV 97.1 MCH 31.4 MCHC 32.3 RDW Std Deviation 57.3 H RDW Coeff of Timbo 15.9 H Plt Count 377 MPV 9.8 Immature Gran % (Auto) 0.6 Neut % (Auto) 74.3 Lymph % (Auto) 13.0 Cooke % (Auto) 12.0 Eos % (Auto) 0.0 Baso % (Auto) 0.1 Neut # (Auto) 9.68 H Lymph # (Auto) 1.70 Cooke # (Auto) 1.56 H Eos # (Auto) 0.00 Baso # (Auto) 0.01 Immature Gran # (Auto) 0.08 PT 12.1 H INR 1.1 Sodium 136 Potassium 4.8 Chloride 106 Carbon Dioxide 27 Anion Gap 3 BUN 21 Creatinine 0.71 Est Cr Clr Drug Dosing 92.9 Est GFR ( Amer) 104.3 Est GFR (Non-Af Amer) 90.0 BUN/Creatinine Ratio 29.6 H Glucose 112 H Calcium 7.8 L Magnesium 2.1 Total Bilirubin 0.2 Direct Bilirubin 0.0 AST 14 ALT 39 Alkaline Phosphatase 44 Total Protein 6.0 Albumin 3.6 Globulin 2.4 L Albumin/Globulin Ratio 1.5 Diagnostic Findings Telemetry personally reviewed: Sinus rhythm. A-fib converted to sinus at 2:01 AM on 10/26/2022. ECG personally reviewed from 10/26/2022: Sinus rhythm 64 bpm. Labs reviewed from 10/26/2022: Normal hemoglobin, stable renal function, normal potassium. Medications Administered Current Inpatient Medications Acetaminophen (Acetaminophen 325 Mg Tab) 650 mg PO Q4H PRN PRN Reason: Pain(1-4) Or Fever Stop: 11/23/22 21:12 Albuterol (Albuterol 0.083% Nebu Soln 3 Ml Vial) 2.5 mg NEB Q2H PRN; Protocol PRN Reason: wheeze Stop: 11/24/22 00:55 Last Admin: 10/25/22 02:54 Dose: 2.5 mg Apixaban (Apixaban 5 Mg Tablet) 5 mg PO BID KANE Stop: 11/23/22 21:12 Last Admin: 10/26/22 08:34 Dose: 5 mg Atorvastatin Calcium (Atorvastatin 40 Mg Tab) 40 mg PO DAILY KANE Stop: 11/24/22 08:59 Last Admin: 10/26/22 08:34 Dose: 40 mg Benzonatate (Benzonatate 100 Mg Capsule) 100 mg PO TID PRN PRN Reason: Cough Stop: 11/25/22 03:03 Last Admin: 10/26/22 03:26 Dose: 100 mg Budesonide (Budesonide 0.5 Mg/2 Ml Vial (Pulmicort)) 0.5 mg NEB BIDR [facility] Stop: 11/23/22 21:12 Last Admin: 10/26/22 06:52 Dose: 0.5 mg Doxycycline Hyclate (Doxycycline Hyclate 100 Mg Cap) 100 mg PO Q12H [facility] Stop: 11/01/22 06:59 Last Admin: 10/26/22 08:34 Dose: 100 mg Guaifenesin (Guaifenesin 600 Mg Tabcr) 600 mg PO Q12 [facility] Stop: 11/24/22 20:59 Last Admin: 10/26/22 08:34 Dose: 600 mg Amiodarone HCl/Dextrose (Nexterone / D5w) 360 mg in 200 mls @ 16.667 mls/hr IV .Q12H [facility] Stop: 11/24/22 01:29 Last Admin: 10/25/22 21:45 Dose: 0.5 mg/min, 16.7 mls/hr Methylprednisolone 60 mg/ (Syringe) 0.96 mls @ 1.5 mls/min IV Q24H [facility] Stop: 11/24/22 08:59 Last Admin: 10/26/22 08:34 Dose: 1.5 mls/min Ceftriaxone Sodium 2,000 mg/ (Dextrose) 70 mls @ 100 mls/hr IV Q24H [facility]; Protocol Stop: 11/01/22 12:59 Last Infusion: 10/25/22 14:54 Dose: Infused Ipratropium Bath (Ipratropium Bath Neb Soln 0.02% 2.5 Ml Vial) 0.5 mg INH QIDR [facility] Stop: 11/24/22 06:59 Last Admin: 10/26/22 10:55 Dose: 0.5 mg Levalbuterol HCl (Levalbuterol Hcl 0.63 Mg/3 Ml Neb) 0.63 mg NEB QIDR [facility] Stop: 11/24/22 06:59 Last Admin: 10/26/22 10:55 Dose: 0.63 mg Metoprolol Succinate (Metoprolol Succ 50mg Ext Rel Tab) 100 mg PO DAILY [facility] Stop: 11/24/22 08:59 Last Admin: 10/26/22 08:34 Dose: 100 mg Miscellaneous (Remove Nicoderm Patch) 1 each N/A DAILY@0859 [facility] Stop: 11/25/22 08:58 Last Admin: 10/26/22 08:35 Dose: 1 each Montelukast Sodium (Montelukast Sodium 10 Mg Tablet) 10 mg PO QAM [facility] Stop: 11/24/22 08:59 Last Admin: 10/26/22 08:35 Dose: 10 mg Nicotine (Nicotine 14 Mg/24 Hr Patch) 14 mg TD QAM [facility] Stop: 11/24/22 11:59 Last Admin: 10/26/22 08:35 Dose: 14 mg Umeclidinium Bath (Umeclidinium Bath 62.5mcg/Blister 7 Puffs/Inhaler) 1 puffs INH DAILY [facility] Stop: 11/24/22 08:59 Last Admin: 10/26/22 08:35 Dose: 1 puffs PG Care Time/CCT Total # of Minutes Spent Total Time Spent with Patient: Total time spent is greater than 50% in coordination of care (as documented) at patient's floor/unit and/or counseling patient: Coding Level of Care Code 42892 SUB INP/OBS CARE 3/50MIN Diagnoses Atrial fibrillation with rapid ventricular response I48.91 Cardiomyopathy I42.9 Acute respiratory failure with hypoxia J96.01 Coronary artery calcification seen on CAT scan I25.10 Nicotine dependence F17.200 Hypertension, essential I10 Dyslipidemia E78.5 PAD (peripheral artery disease) I73.9
[2022-10-26] MEDS ORDERED: FUROSEMIDE INJ 20 MG/2 ML VIAL IV ONE (11:03)
[2022-10-26] MEDS: AMIODARONE 200 MG TAB PO SCH ×2 (11:28→17:21)
[2022-10-26] MEDS: cefTRIAXone SODIUM 2,000 MG in DEXTROSE 5% 50 ML IV SCH (14:37)
[2022-10-26] MEDS ORDERED: DEXTROMETHORPHAN POLYMR COMPLX 60 MG/10 ML UDP PO PRN (22:41)
[2022-10-26] MEDS ORDERED: LEVALBUTEROL HCL 0.63 MG/3 ML NEB NEB PRN (22:53)
[2022-10-27 05:25] LABS: Basophils # (auto) 0.01 K/uL (0-0.2); Basophils % (auto) 0.1 %; Eosinophils # (auto) 0.01 K/uL (0-0.50); Eosinophils % (auto) 0.1 %; Hematocrit (blood only) 37.5 % (37.0-47.0); Hemoglobin 12.3 g/dl (12.0-16.0); Immature Granulocytes # (auto) 0.07 K/uL (0.01-0.20); Immature Granulocytes % (auto) 0.6 %; Lymphocytes # (auto) 1.76 K/uL (1.2-3.4); Mean Corpuscular Hemoglobin 31.2 pg (25.0-34.0); Mean Corpuscular Hgb Conc 32.8 g/dL (32.0-36.0); Mean Corpuscular Volume 95.2 fL (80.0-100.0); Mean Platelet Volume 9.9 fL (9.4-12.4); Monocytes # (auto) 1.27 K/uL (0.11-0.59); Monocytes % (auto) 10.9 %; Neutrophils # (auto) 8.58 K/uL (1.40-6.50); Neutrophils % (auto) 73.3 %; Platelet Count 386 K/uL (130-400); RDW Coefficient of Variation 15.9 % (11.5-14.5); RDW Standard Deviation 55.8 fL (36.4-46.3); Red Blood Count 3.94 M/uL (4.20-5.40)
[2022-10-27 05:36] LABS: Albumin Globulin Ratio 1.4 (0.9-2); Albumin Level 3.5 gm/dl (3.4-5.0); BUN Creatinine Ratio 31.8 (10-20); Bilirubin Direct 0.1 mg/dl (0-0.2); Bilirubin,Total 0.3 mg/dl (0.2-1.0); Calcium 8.2 mg/dl (8.6-10.3); Creatinine Clr Calc Pharmacy 99.5 ml/min; Est GFR (African American) 108.2 ml/min; Est GFR (Non-African American) 93.4 ml/min; Globulin 2.5 gm/dl (2.5-4.0); Magnesium 2.2 mg/dl (1.7-2.4); Potassium 4.1 mmol/L (3.5-5.1)
[2022-10-27 05:46] LABS: INR 1.1 (0.9-1.1); Prothrombin Time 12.3 Seconds (9.0-12.0)
[2022-10-27] MEDS: IPRATROPIUM BROMIDE NEB SOLN 0.02% 2.5 ML VIAL INH SCH ×3 (07:10→15:05)
[2022-10-27] MEDS: BUDESONIDE 0.5 MG/2 ML VIAL (PULMICORT) NEB SCH (07:10)
[2022-10-27] MEDS: LEVALBUTEROL HCL 0.63 MG/3 ML NEB NEB SCH ×3 (07:10→15:06)
[2022-10-27] MEDS: SODIUM CHLORIDE 0.9% 1000ML 1,000 ML IV SCH (07:41)
[2022-10-27] MEDS: APIXABAN 5 MG TABLET PO SCH (08:41)
[2022-10-27] MEDS: ATORVASTATIN 40 MG TAB PO SCH (08:41)
[2022-10-27] MEDS: AMIODARONE 200 MG TAB PO SCH (08:41)
[2022-10-27] MEDS: MONTELUKAST SODIUM 10 MG TABLET PO SCH (08:41)
[2022-10-27] MEDS: guaiFENesin 600 MG TABCR PO SCH (08:41)
[2022-10-27] MEDS: METOPROLOL SUCC 50MG EXT REL TAB PO SCH (08:41)
[2022-10-27] MEDS: UMECLIDINIUM BROMIDE 62.5MCG/BLISTER 7 PUFFS/INHALER INH SCH (08:41)
[2022-10-27] MEDS: DOXYCYCLINE HYCLATE 100 MG CAP PO SCH (08:41)
[2022-10-27] MEDS: methylPREDNISolone 60 MG in SYRINGE 0 ML IV SCH (08:42)
[2022-10-27] MEDS: NICOTINE 14 MG/24 HR PATCH TD SCH (08:42)
[2022-10-27] MEDS: cefTRIAXone SODIUM 2,000 MG in DEXTROSE 5% 50 ML IV SCH (13:51)
[2022-10-27] MEDS: BENZONATATE 100 MG CAPSULE PO PRN (14:26)
--- NOTE | 2022-10-27 15:39 | Discharge Summary ---
Date of Service October 27, 2022 Admission HPI Per Admitting Provider Kelsey is a 62 year old female with a PMH significant for COPD, paroxysmal afib on eliquis, CAD, PAD, and HTN who presented to the [facility] ED on 10/24 with increased cough, sputum production, and SOB. In the ED the patient was found to have a HR of 160 and was hypoxic in the mid 80's on RA. Labs were significant for a leukocytosis of 16 with left shift of 11, platelet count of 443, sodium of 134, ALT of 53, and negative full respiratory biofire. Chest xray was read as 'No acute abnormalities and in particular no radiographic evidence of pneumonia.". ECG shows Afib-RVR with HR in 150's. Prior to admission the patient was given 10 mg IV diltiazem, multiple levalbuterol and ipratropium. The patient's HR was still in the 130-140's, she was started on a diltiazem drip. Prior to admission the patient was started on NSS at 125 mL/hr for a total of 1L. At the time of the exam the patient was sitting in bed in no acute distress, currently stable on 2L NC with HR in the 130's while on 10 mg/hr on the diltiazem drip. She states that she started to develop an increased cough with increased sputum production and change in sputum color from clear to yellow and increased SOB. She denies having fever, chills, chest pain, heart palpitations, abd pain, nausea vomiting, diarrhea, dysuria, hematuria, LE swelling, and recent trauma. She currently feels improved compared to arrival but still not back to baseline. She denies missing recent doses of Eliquis. She is a full code and would want her to make medical decisions for her if she could not make them herself. Please refer to Dr. Morales's attestation for any changes to the treatment plan Admission Exam Per Admitting Provider General:In no acute distress, stated age, chronically ill appearing but non- toxic HEENT:Normocephalic, atraumatic, no scleral icterus, NC in place, pupils around round, symmetrical, and reactive to light, moist mucus membranes, trachea midline, no thyromegaly Chest/Pulm:No respiratory distress, symmetrical chest expansion, expiratory wheezing noted throughout Cardiac:Tachycardic rate, irregular rhythm, no murmurs noted Abdomen:Negative for ascites and bruising, normoactive bowel sounds, soft, non-tender to palpation throughout Musculoskeletal:Symmetrical and without signs of acute trauma, upper and lower extremities with full ROM, no atrophy, spasticity, or flaccidity Extremities:Radial, dorsalis pedis, and posterior tibial pulses are intact and symmetrical, no edema noted in the BL LE's Skin:Warm, dry, no rashes , lesions, or scars noted Neuro:Alert and oriented to person, place, month, year, and president, no focal defects, CN II-XII tested and intact,no tremors noted Psych:No acute distress, calm and cooperative during the exam Principal Diagnosis COPD exacerbation, afib w/ RVR Discharge Exam Constitutional: well appearing, no acute distress HEENT: normocephalic, no conjunctival injection CV: regular rhythm, regular rate, no murmur, no LE edema Respiratory: Clear to auscultation bilaterally. No rhonchi, wheezes, or crackles. No increased work of breathing. Decreased bibasilar breath sounds. MSK: no gross deformities noted Skin: warm, dry, no rashes Neuro: alert, oriented, no FND noted Discharge Data Allergies Allergy/AdvReac Type Severity Reaction Status Date / Time lisinopril Allergy Severe SOB, Verified 10/24/22 18:16 SEVERE COUGHING FITS Consultations 10/24/22 18:15 ED Decision to Admit Stat 10/24/22 19:51 Consult Cardiology Routine Hospital Course (1) Acute respiratory failure with hypoxia: (2) Acute exacerbation of chronic obstructive pulmonary disease (COPD): (3) Dyspnea: (4) Atrial fibrillation with rapid ventricular response: Plan Pt is a 62 year-old female with past medical history of COPD, paroxysmal a. fib on Eliquis, CAD, PAD, and HTN who presented to the ED after experiencing worsening shortness of breath over several days. Acute Respiratory Failure with Hypoxia, COPD Exacerbation -No focal consolidation on CXR, but she had increased cough, sputum production and change in sputum color and O2 demand- sputum cx grew H.flu - s/p 3 doses of IV solumedrol 60 mg; discharge home with two more days of prednisone 60 mg daily- no taper necessary due to pt's rapid clinical improvement - due to positive sputum culture, continue cefdinir upon discharge x7 days - continue doxy x7 days upon discharge for anti-inflammatory effect - continue home inhalers (spiriva, symbicort, and albuterol PRN) - pt discharged with oxygen (2L) to be used with ambulation; recommend outpatient f/u to determine when to d/c oxygen Atrial fibrillation with rapid ventricular response - hx of prior cardioversion - TTE (10/25): EF 45%, global hypokinesis, mild MR and mild/mod. TR, mild concentric LVH - cardiology consulted; started on diltiazem which was subsequently switched to amiodarone 400 mg BID x14 days then switch to 200 mg BID - continue eliquis 5 mg BID, metoprolol 100 mg daily - recommend outpatient follow up on TSH of 5 Hypertension - stable, normotensive since admission - continue home amlodipine upon discharge Dyslipidemia - continue statin Tobacco Use - currently smokes 1/2 ppd - nicotine replacement patch ordered - encouraged smoking cessation Diet: Heart Healthy VTE Prophylaxis: Eliquis Code Status: Full Code Dispo: home Total Time Total Time Spent Total Time Spent (In Minutes): per attending attestation Discharge Plan Discharge Items Patient Disposition: Home - Self-Care Reason For Visit: SOB, COPD EXACERBATION, AIB RVR Discharge Diagnosis: Afib w/ RVR, COPD exacerbation Activity: Resume your previous activity Non-emergency contact: Primary Care Provider Call non-emergency contact if: you have any medication questions and your symptoms worsen Follow-up/Referrals: Narayan Hsu III, CRNP [Primary Care Provider] - Diet: Heart Healthy Addtl Attending Provider Instructions: You were admitted to the hospital for atrial fibrillation with an increased heart rate in addition to a COPD exacerbation. Your atrial fibrillation was treated with new medications to control the rhythm of your heart. Your COPD was treated with steroids, antibiotics, and inhalers. Upon discharge, you did not need oxygen while resting; however, you required 2L while ambulating. You should continue to use this oxygen and keep track of your oxygen levels with a pulse ox (to wear on your finger). Your oxygen levels should remain above 88. A discharge summary will be sent to your primary care physician to ensure continuity of care. Please bring this discharge summary with you to your next office appointment so that your provider can review it at that time. Medications: Your medication list has been reviewed and reconciled upon discharge to ensure accuracy and continuity of care. An updated list of all your medications is included with your hospital discharge paperwork. Please review this list closely and make note of any changes to your medications. - You should continue your home inhalers (spiriva once per day, symbicort twice per day, and albuterol as needed). More albuterol nebulizer medication has been prescribed for you if you need it. - You were treated with steroids while hospitalized. You should continue with the 60 mg (3 tabs) prednisone daily for the next 2 days. This will be a total of 5 days. - Doxycycline should be taken twice per day for the next 7 days. This helps to decrease the inflammation in your lungs. - Cefdinir should be taken twice per day for 7 days. This is to treat the bacteria in your sputum causing your pneumonia. - A new medication was started for your heart. This is called amiodarone. You should take 400 mg twice per day for the next 13 days and then switch to 200 mg twice per day. Follow up appointments: - Make a follow up appointment with your PCP within the next week. It is very important that you follow up with them shortly after discharge from the hospital. - Keep all of your follow up appointments as already scheduled. If you cannot make an appointment, notify your provider. CONTACT YOUR PRIMARY CARE PROVIDER if you experience any of the following: - Difficulty following your treatment plan - Difficulty taking any of your medications CALL 911 OR GO TO THE EMERGENCY DEPARTMENT if you experience any of the following: - Sudden, severe abdominal pain or nausea/vomiting - Severe chest pain or chest pain that radiates to your jaw or arm - Sudden, severe shortness of breath or difficulty breathing Pending Studies at Discharge: No Stand-Alone Forms: My [facility], Work/School Release, Smoking Cessation Medications and DC Order Prescriptions: New doxycycline hyclate 100 mg Capsule 100 mg PO Q12H 7 Days Qty: 14 0RF albuterol sulfate 1.25 mg/3 mL solution for nebulization 1.25 mg inhalation Q8H PRN (Reason: bronchospasm) Qty: 90 0RF prednisone 20 mg tablet 60 mg PO DAILY 5 Days Qty: 15 0RF cefdinir 300 mg capsule 300 mg PO BID 7 Days Qty: 14 0RF amiodarone 200 mg tablet 200 mg PO BID Qty: 60 0RF amiodarone 400 mg tablet 400 mg PO BID 13 Days Qty: 26 0RF Rx Instructions: Use this dose for 13 days and then switch to the 200 mg dose Continued zoledronic [id number] [Reclast] 5 mg/100 mL piggyback 1 ea IV YEARLY Qty: 100 0RF Rx Instructions: HAD FEBRUARY 2022. cholecalciferol (vitamin D3) 125 mcg (5,000 unit) capsule 5,000 unit PO DAILY metoprolol succinate 100 mg tablet extended release 24 hr 100 mg PO DAILY Qty: 90 3RF atorvastatin 40 mg tablet 40 mg PO DAILY Qty: 90 3RF albuterol sulfate [Ventolin HFA] 90 mcg/actuation HFA aerosol inhaler 1 - 2 puff INH .COMPLEX PRN (Reason: shortness of breath or wheezing) Qty: 8.5 11RF Rx Instructions: 1 - 2 puffs inhalation Q4-6H PRN; Symbicort 160-4.5 mcg/actuation HFA aerosol inhaler 2 puff INH BID Qty: 10.2 11RF Spiriva with HandiHaler 18 mcg capsule, w/inhalation device 1 cap inhalation DAILY Qty: 90 3RF Rx Instructions: puncture 1 cap using device; one dose = 2 inhalations calcium carbonate [Calcium 600] 600 mg calcium (1,500 mg) Tablet 600 mg PO BID amlodipine 5 mg tablet 5 mg PO QAM montelukast 10 mg tablet 10 mg PO QAM Rx Instructions: take 1 tablet by mouth once daily Eliquis 5 mg tablet 5 mg PO BID Rx Instructions: take 1 tablet by mouth twice a day Discharge Orders: Discharge Order (Routine); Ordered 10/27/22 Ordered By: Alee Rayo Admission Data Admit Date/Time: 10/24/22 19:22 Attending Provider: Martin Ramos Admit Provider: Enrico Morales Primary Care Provider: Narayan Hsu III Other Providers: Nimesh Brown ; Enirco Morales Other Interventions: Discharge Summary Assessment (RN) Last Done: 10/27/22 15:48 Supervising Physician Co-Signing Physician Notes I personally examined the patient and verified all galicia points of history and exam, discussed case, and agree with decision making with Dr Rayo feeling better wants to go home. discussed smoke cessation - she will consider. vitals noted nad heent nc at mmm breathing unlabored no accessory muscles good effort skin no rashes no pallor or icterus neuro no focal deficits COPD exacerbation, clinically pneumonia (H Flu on Cx, suspect she had viral bronchitis then H Flu overgrowth, CXR likely false negative) - safe/stable for home. Finish course of antibiotics to cover H. influenzae, finish doxycycline for pulmonary anti-inflammatory effect, course of steroids. safe/stable for home - otherwise as above Resident Activity Tracking Resident Involvement: Resident Care Provided Care Provided: Adult Hospital Medicine
--- NOTE | 2022-10-27 18:28 | Billing Data ---
Date of Service October 27, 2022 Coding Level of Care Code 66603 IN/OBS DISCH 30 MIN/LESS
--- NOTE | 2022-10-28 07:01 | Electrocardiogram Report ---
Test Reason : Blood Pressure : / mmHG Vent. Rate : 064 BPM Atrial Rate : 064 BPM P-R Int : 134 ms QRS Dur : 084 ms QT Int : 442 ms P-R-T Axes : 070 071 062 degrees QTc Int : 455 ms Normal sinus rhythm Low voltage QRS Borderline ECG When compared with ECG of 24-OCT-2022 15:10, Sinus rhythm has replaced Atrial fibrillation Vent. rate has decreased BY 94 BPM Nonspecific T wave abnormality no longer evident in Inferior leads Nonspecific T wave abnormality no longer evident in Anterolateral leads Confirmed by Nimesh Brown ([id number]) on 10/28/2022 7:00:52 AM Referred By: REFERRED SELF Confirmed By:Nimesh rBown
[2022-11-02] MEDS ORDERED: AMIODARONE 200 MG TAB PO SCH (08:00)
== END 2022-10-27 16:46 | disposition home or self-care (01) | DRG 190 ==
LOC: ED 14:37 → SUATTDRO 19:22 → 4W 19:22

== ENCOUNTER 2022-10-28 21:08 | Inpatient (IN) ==
[2022-10-28] MEDS ORDERED: SODIUM CHLORIDE 0.9% 500 ML IV STA (21:23)
[2022-10-28] MEDS ORDERED: ACETAMINOPHEN 1,000 MG/100 ML VIAL IV STA (21:29)
[2022-10-28] MEDS ORDERED: ONDANSETRON INJ 2 MG/ML 2 ML VIAL IV STA (21:29)
[2022-10-28] MEDS ORDERED: MoRPHine SULFATE 4 MG/ML 1 ML CARP\\VIAL IV STA (21:29)
--- NOTE | 2022-10-28 21:33 | Emergency Department Note ---
Impression & Plan Diffuse abdominal pain, Colitis, Leukocytosis, SOB (shortness of breath), Elevated troponin ED Provider Note NAME: NANI WATSON AGE: 62 SEX: F : 1960 ARRIVES VIA: Walk-In INFORMANT: [Patient] ED PROVIDER(S): [Donovan Ragland MD] CHIEF COMPLAINT: Abdominal pain HISTORY OF PRESENT ILLNESS: The patient is a 62-year-old female with A-fib and COPD. She just left the hospital yesterday after a bout of A-fib with RVR as well as COPD. She is now on a blood thinning agent and a rate controlling agent. The patient states that her last bowel movement was 5 days ago. Last evening, she began to have some abdominal cramping bilaterally in the lower abdomen. It worsened today. No nausea. The patient states that she tried an enema at home without relief, she tried mag citrate without relief. She states that she has no history of previous pain like this. There has been no fever. She does not have any urinary complaints. She does feel her abdomen is distended. Of note, the patient was discharged on 2 L of oxygen at all times. PMHx/PSHx: See Below SOCIAL HISTORY: See Below. PHYSICAL EXAM: GENERAL: Patient is in mild distress from pain. Hyperventilating. HEENT: No acute trauma, normocephalic atraumatic, mucous membranes moist, no nasal congestion. NECK: No stridor, no adenopathy, no meningismus, trachea is midline. LUNGS: Clear to auscultation bilaterally, no wheeze, no rhonchi, breath sounds equal. Increased respiratory rate, appears to be hyperventilating. HEART: No murmurs, regular rate, normal rhythm ABDOMEN: Soft, diffusely moderately tender, there is some abdominal distention noted. No true peritonitis. EXTREMITIES: No cyanosis, mild bilateral pedal edema, full range of motion of all the joints without pain or difficulty, no signs for acute trauma. NEUROLOGIC: Oriented x 3, no acute motor or sensory deficits, no focal weakness. SKIN: No rash, no jaundice, no diaphoresis. DIFFERENTIAL DIAGNOSIS: Bowel obstruction, constipation, diverticulitis, appendicitis, rupture, intra- abdominal bleeding, UTI, among others. EMERGENCY DEPARTMENT COURSE/PROCEDURES: Prior/Outside records reviewed: Recent discharge summary. ECG per my interpretation: Indication was abdominal pain. The ECG shows a normal sinus rhythm with a rate of 65. There is no ST elevation, no PVCs. The QTc is 459. Continuous Cardiac Monitoring per my interpretation: An order was placed for continuous cardiac monitoring. The monitor shows a rate of 67 with normal sinus rhythm. Critical Care Note: I have personally spent 43 minutes of critical care time in the direct management of this patient. This includes bedside care, interpretation of diagnostic studies, and testing, discussion with consultants, patient, and family members, and other required patient management activities. This 43 minutes is in excess of all separately billable procedures. MEDICAL DECISION MAKING: There is a significant leukocytosis at 19,000, this could be consistent with infection and/or her pain. There was a normal hemoglobin. Platelet count slightly elevated. Renal panel testing showed a mildly low sodium. No renal failure. No concerning liver enzyme elevation. Lipase was slightly elevated although, not quite high enough to diagnose pancreatitis. ECG showed a normal sinus rhythm, no acute ischemia. Cardiac enzyme testing x1 was slightly elevated. This cardiac elevation could be secondary to cardiac injury or po tentially just mismatch from her shortness of breath and hypoxia. COVID test returned negative. Chest film per my review showed some chronic change, I did not see CHF, pneumonia or pneumothorax. Abdominal and pelvis CT shows colitis. There were air-fluid levels in the colon. There wa no acute s urgical process reported by CT imaging. No bowel perforation. Patient was given IV Tylenol, IV Toradol, IV morphine, IV Zofran and IV saline. She received a DuoNeb. Patient presents with abdominal pain. She has been more short of breath because of the pain. She has required increased oxygen supplementation to keep her saturation adequate. The patient requires a hospital stay. The cause for the colitis is unclear. If she is able to provide a stool sample, the stool can be sent for analys is/testing. I spoke with the patient and case management, the on-call hospitalist was consulted. The patient does feel improved since being medicated here in the ED. DISPOSITION: Patient's presentation and findings warrant a hospital stay. Past Med/Surg History Medical History Asthma STABLE Benign essential hypertension Chronic obstructive pulmonary disease STABLE Healthcare maintenance Hyperlipidemia Nicotine dependence PAD (peripheral artery disease) S/P LEFT COMMON ILIAC ARTERY STENTS X 2 Paroxysmal atrial fibrillation Pneumothorax on right Rib fractures Surgical History History of bladder surgery History of hysterectomy SHY History of knee surgery History of surgery S/P LEFT COMMON ILIAC ARTERY STENTS X 2 History of surgery anterior vesicourethropexy History of surgery on arm LEFT ARM ULNAR SURGERY History of tonsillectomy and adenoidectomy History of wisdom tooth extraction Status post unilateral salpingo-oophorectomy Family History Mother Diabetes Ovarian cancer Uterine cancer Father Myocardial infarction Heart disease Denies family history of Colon cancer Prostate cancer Breast cancer Social History Smoking Status: Current every day smoker Tobacco Type: Cigarettes packs per day: 0.5; Cigarettes Per Day: 1/2 PPD X 40 YEARS; Second Hand Exposure: No; Do You Dip or Chew Tobacco: No; Hx Alcohol Use: No Hx Substance Use: No Preferred Language: Hungarian Communication Ability: Effective Visual Impairment: No Limitations Hearing Ability: Normal Rn Teacher Required: No Beliefs That Will Affect Care: None marital status: Current Living Situation: Spouse current occupational status: employed and retired Feels Safe at Home: Yes Childhood Exposure to Second-Hand Smoke: Yes Diet: regular Diet Comment: no special diet Dental Care, Regularly: Yes Physical Activity Frequency: 3-4 Times per Week Physical Activity Frequency Comment: walking Seatbelt Use: always Sunscreen Use: Yes Do you think of yourself as: straight/heterosexual Assistive Devices: None Allergies Allergies Allergy/AdvReac Type Severity Reaction Status Date / Time lisinopril Allergy Severe SOB, Verified 10/28/22 21:36 SEVERE COUGHING FITS Home Meds Home Medications Medication Instructions Recorded Confirmed cholecalciferol (vitamin D3) 125 5,000 unit PO DAILY 10/11/20 10/28/22 mcg (5,000 unit) capsule amlodipine 5 mg tablet 5 mg PO QAM 10/24/22 10/28/22 apixaban 5 mg tablet (Eliquis) 5 mg PO BID 10/24/22 10/28/22 calcium carbonate 600 mg calcium 600 mg PO BID 10/24/22 10/28/22 (1,500 mg) tablet (Calcium) montelukast 10 mg tablet 10 mg PO QAM 10/24/22 10/28/22 Previous Rx's Medication Instructions Recorded zoledronic acid 5 mg/100 mL in 1 ea IV YEARLY #100 mL 09/10/22 mannitol 5 %-water intravenous piggybck (Reclast) albuterol sulfate 90 mcg/actuation 1 - 2 puff inhalation .COMPLEX PRN 09/15/22 aerosol inhaler (Ventolin HFA) shortness of breath or wheezing #8.5 grams budesonide-formoterol HFA 160 2 puff inhalation BID #10.2 grams 09/15/22 mcg-4.5 mcg/actuation aerosol inhaler (Symbicort) tiotropium bromide 18 mcg capsule 1 cap inhalation DAILY #90 09/15/22 with inhalation device (Spiriva inhalations with HandiHaler) atorvastatin 40 mg tablet 40 mg PO DAILY #90 tabs 09/16/22 metoprolol succinate 100 mg 100 mg PO DAILY #90 tabs 09/16/22 tablet,extended release 24 hr albuterol sulfate 1.25 mg/3 mL 1.25 mg (3 mL) inhalation Q8H PRN 10/27/22 solution for nebulization bronchospasm #90 mL amiodarone 200 mg tablet 200 mg PO BID #60 tabs 10/27/22 amiodarone 400 mg tablet 400 mg PO BID 13 days #26 tabs 10/27/22 cefdinir 300 mg capsule 300 mg PO BID 7 days #14 caps 10/27/22 doxycycline hyclate 100 mg capsule 100 mg PO Q12H 7 days #14 caps 10/27/22 prednisone 20 mg tablet 60 mg PO DAILY 5 days #15 tabs 10/27/22 Results & Data (ED) Vital Signs Vital Signs - 24 hr 10/28/22 21:08 10/28/22 21:23 10/28/22 21:30 Temperature 36.5 C Temperature Source Temporal Artery Scan Pulse Rate 67 59 L Pulse Rate from SpO2 Sensor Pulse Rhythm Regular Respiratory Rate 18 Respiratory Effort / Characteristics Non-Labored Spontaneous Respiratory Depth Normal Blood Pressure 168/89 H Blood Pressure Mean 115 Blood Pressure Position Sitting Pulse Oximetry 92 84 L 87 L Oxygen Delivery Method Room Air Room Air Nasal Cannula Oxygen Flow Rate 2 Sepsis Recent Fever Within 48 Hours No Sepsis New/Unexplained Change in Mental Status No Sepsis Action Taken by Nursing No Action Required 10/28/22 21:47 10/28/22 22:00 10/28/22 21:56 Temperature Temperature Source Pulse Rate 62 63 Pulse Rate from SpO2 Sensor Pulse Rhythm Respiratory Rate 24 Respiratory Effort / Characteristics Respiratory Depth Blood Pressure 162/89 H Blood Pressure Mean 113 Blood Pressure Position Pulse Oximetry 93 92 Oxygen Delivery Method Nasal Cannula Nasal Cannula Oxygen Flow Rate 3 3 Sepsis Recent Fever Within 48 Hours Sepsis New/Unexplained Change in Mental Status Sepsis Action Taken by Nursing 10/28/22 22:20 10/28/22 23:30 10/29/22 00:00 Temperature Temperature Source Pulse Rate 57 L 56 L 60 Pulse Rate from SpO2 Sensor 58 L Pulse Rhythm Respiratory Rate 26 H 19 20 Respiratory Effort / Characteristics Respiratory Depth Blood Pressure 138/83 153/91 H Blood Pressure Mean 101 111 Blood Pressure Position Pulse Oximetry 92 91 89 L Oxygen Delivery Method Nasal Cannula Nasal Cannula Oxygen Flow Rate 3 3 Sepsis Recent Fever Within 48 Hours Sepsis New/Unexplained Change in Mental Status Sepsis Action Taken by Nursing 10/29/22 00:20 Temperature Temperature Source Pulse Rate 62 Pulse Rate from SpO2 Sensor 62 Pulse Rhythm Respiratory Rate 27 H Respiratory Effort / Characteristics Respiratory Depth Blood Pressure Blood Pressure Mean Blood Pressure Position Pulse Oximetry 89 L Oxygen Delivery Method Oxygen Flow Rate Sepsis Recent Fever Within 48 Hours Sepsis New/Unexplained Change in Mental Status Sepsis Action Taken by [facility] Medications Current Medication List: was personally reviewed by me Laboratory Data Attestation: I reviewed the patient's lab results. 10/28/22 21:45 10/28/22 23:44 Lab Results 10/28/22 10/28/22 10/28/22 Range/Units 21:45 21:45 22:05 WBC 19.61 H (4.8-10.8) K/ul RBC 5.07 (4.20-5.40) M/uL Hgb 15.8 D (12.0-16.0) g/dl Hct 46.7 (37.0-47.0) % MCV 92.1 (80.0-100.0) fL MCH 31.2 (25.0-34.0) pg MCHC 33.8 (32.0-36.0) g/dL RDW Std Deviation 51.4 H (36.4-46.3) fL RDW Coeff of Timbo 15.3 H (11.5-14.5) % Plt Count 516 H (130-400) K/uL MPV 9.7 (9.4-12.4) fL Immature Gran % (Auto) 0.7 % Neut % (Auto) 72.4 % Lymph % (Auto) 14.0 % Creek % (Auto) 12.4 % Eos % (Auto) 0.3 % Baso % (Auto) 0.2 % Neut # (Auto) 14.21 H (1.40-6.50) K/uL Lymph # (Auto) 2.75 (1.2-3.4) K/uL Creek # (Auto) 2.43 H (0.11-0.59) K/uL Eos # (Auto) 0.06 (0-0.50) K/uL Baso # (Auto) 0.03 (0-0.2) K/uL Immature Gran # (Auto) 0.13 (0.01-0.20) K/uL Sodium 133 L (136-145) mmol/L Potassium TNP Chloride 94 L (98-107) mmol/L Carbon Dioxide 33 H (21-32) mmol/L Anion Gap 6 (3-11) BUN 16 (6-23) mg/dl Creatinine 0.70 (0.6-1.2) mg/dl Est Cr Clr Drug Dosing Not Reportable Est GFR ( Amer) 106.1 ml/min Est GFR (Non-Af Amer) 91.6 ml/min BUN/Creatinine Ratio 22.9 H (10-20) Glucose 87 (70-99(Fasting)) mg/dl Calcium 9.3 (8.6-10.3) mg/dl Total Bilirubin 0.7 (0.2-1.0) mg/dl AST TNP ALT 44 (7-52) U/L Alkaline Phosphatase 47 (34-104) U/L Troponin I High Sens 18.3 H (0-14) pg/ml Total Protein 6.9 (6.0-8.3) gm/dl Albumin 4.0 (3.4-5.0) gm/dl Globulin 2.9 (2.5-4.0) gm/dl Albumin/Globulin Ratio 1.4 (0.9-2) Lipase 133 H (11-82) U/L SARS-CoV-2, RNA, NAAT NEGATIVE (NEGATIVE) 10/28/22 Range/Units 23:44 WBC (4.8-10.8) K/ul RBC (4.20-5.40) M/uL Hgb (12.0-16.0) g/dl Hct (37.0-47.0) % MCV (80.0-100.0) fL MCH (25.0-34.0) pg MCHC (32.0-36.0) g/dL RDW Std Deviation (36.4-46.3) fL RDW Coeff of Timbo (11.5-14.5) % Plt Count (130-400) K/uL MPV (9.4-12.4) fL Immature Gran % (Auto) % Neut % (Auto) % Lymph % (Auto) % Creek % (Auto) % Eos % (Auto) % Baso % (Auto) % Neut # (Auto) (1.40-6.50) K/uL Lymph # (Auto) (1.2-3.4) K/uL Creek # (Auto) (0.11-0.59) K/uL Eos # (Auto) (0-0.50) K/uL Baso # (Auto) (0-0.2) K/uL Immature Gran # (Auto) (0.01-0.20) K/uL Sodium (136-145) mmol/L Potassium 4.0 Chloride (98-107) mmol/L Carbon Dioxide (21-32) mmol/L Anion Gap (3-11) BUN (6-23) mg/dl Creatinine (0.6-1.2) mg/dl Est Cr Clr Drug Dosing Est GFR ( Amer) ml/min Est GFR (Non-Af Amer) ml/min BUN/Creatinine Ratio (10-20) Glucose (70-99(Fasting)) mg/dl Calcium (8.6-10.3) mg/dl Total Bilirubin (0.2-1.0) mg/dl AST 20 ALT (7-52) U/L Alkaline Phosphatase (34-104) U/L Troponin I High Sens (0-14) pg/ml Total Protein (6.0-8.3) gm/dl Albumin (3.4-5.0) gm/dl Globulin (2.5-4.0) gm/dl Albumin/Globulin Ratio (0.9-2) Lipase (11-82) U/L SARS-CoV-2, RNA, NAAT (NEGATIVE) Administered Medications Discontinued Medications Albuterol (Albut/Ipratrop 3mg/0.5mg Neb 3 Ml Vial) 3 ml NEB NOW STA; Protocol Stop: 10/29/22 00:19 Last Admin: 10/29/22 00:27 Dose: 3 ml Documented By: JAVIER Sodium Chloride (Nss) 500 mls @ 999 mls/hr IV .Q31M STA Stop: 10/28/22 21:53 Last Infusion: 10/28/22 23:30 Dose: 0 mls/hr Documented By: Admin: 10/28/22 22:02 Dose: 999 mls/hr Documented By: JAVIER Acetaminophen (Ofirmev) 1,000 mg in 100 mls @ 400 mls/hr IV NOW STA Stop: 10/28/22 21:43 Last Infusion: 10/28/22 22:23 Dose: 0 mls/hr Documented By: Admin: 10/28/22 21:55 Dose: 400 mls/hr Documented By: JAVIER Ioversol (Optiray 320 100ml) 100 ml IV ONCE ONE Stop: 10/28/22 23:22 Last Admin: 10/28/22 23:21 Dose: 93 ml Documented By: ROMMEL Ketorolac Tromethamine (Ketorolac Tromethamine 15 Mg/Ml Vial) 10 mg IV NOW ONE Stop: 10/29/22 00:20 Last Admin: 10/29/22 00:27 Dose: 10 mg Documented By: JAVIER Morphine Sulfate (Morphine Sulfate 4 Mg/Ml 1 Ml Carp\Vial) 4 mg IV NOW STA Stop: 10/28/22 21:30 Last Admin: 10/28/22 21:54 Dose: 4 mg Documented By: JAVIER Ondansetron HCl (Ondansetron Inj 2 Mg/Ml 2 Ml Vial) 4 mg IV NOW STA Stop: 10/28/22 21:30 Last Admin: 10/28/22 21:54 Dose: 4 mg Documented By: JAVIER Imaging Data My Impression: Chest x-ray: Per my review there is some chronic change. The film looks similar to previous. I see no CHF, pneumothorax or pneumonia. Radiologist's Impression: Abdomen/Pelvis CT 10/28/22 21:23 Exam(s): CT ABDOMEN + PELVIS With Contrast IV Amt: 93 ML OPTIRAY 320 EXAM: CT Abdomen and Pelvis With Intravenous Contrast CLINICAL HISTORY: Reason for exam: diffuse abd pain. TECHNIQUE: Axial computed tomography images of the abdomen and pelvis with intravenous contrast. CTDI is 27.9 mGy and DLP is 1263.75 mGy-cm. Automated exposure control was utilized for the study. A dose lowering technique was utilized adhering to the principles of ALARA. CONTRAST: Patient received 93 ML OPTIRAY 320 of IV contrast COMPARISON: 09/10/2017 FINDINGS: Lung bases: Unremarkable. No mass. No consolidation. ABDOMEN: Liver: There are at least 2 simple cysts in the liver measuring up to 0.9 cm. Gallbladder and bile ducts: Unremarkable. No calcified stones. No ductal dilation. Pancreas: Unremarkable. No mass. No ductal dilation. Spleen: Unremarkable. No splenomegaly. Adrenals: 1.7 cm left adrenal nodule stable from prior exam consistent with a benign finding. Kidneys and ureters: Unremarkable. No solid mass. No hydronephrosis. Stomach and bowel: Moderately distended colon with air-fluid levels. Additionally, there is inflammation surrounding the splenic flexure and descending colon most concerning for a colitis. PELVIS: Appendix: Appendix is not identified but there are no secondary signs of acute appendicitis. Bladder: Unremarkable. No mass. Reproductive: Unremarkable as visualized. ABDOMEN and PELVIS: Intraperitoneal space: Unremarkable. No free air. No significant fluid collection. Bones/joints: No acute fracture. No dislocation. Soft tissues: Unremarkable. Vasculature: 6.0 cm slightly hyperdense/hyper vascular mass within the inferior right lobe of the liver. The mass may have been present on prior CT of 2018 where it measured 2.5 cm. Further evaluation is warranted. No abdominal aortic aneurysm. Lymph nodes: Unremarkable. No enlarged lymph nodes. IMPRESSION: 1. Moderately distended colon with air-fluid levels. Additionally, there is inflammation surrounding the splenic flexure and descending colon most concerning for a colitis. 2. 6.0 cm slightly hyperdense/hyper vascular mass within the inferior right lobe of the liver. The mass may have been present on prior CT of 2018 where it measured 2.5 cm. Further evaluation is warranted. Electronically signed by: Donato Lockett M.D. 10/29/22 00:08 AM Discharge Plan Visit Data Chief Complaint: Abdominal Pain Stated Complaint: ABDOMINAL PAIN ED Provider: Feese,Donovan J Discharge Problem: Diffuse abdominal pain, Colitis, Leukocytosis, SOB (shortness of breath), Elevated troponin Patient Disposition: Admitted As Inpatient Condition: Fair Forms Stand Alone Forms: My [facility] Prescriptions Prescriptions: No Action zoledronic lmid-bahhilyr-kbeyv [Reclast] 5 mg/100 mL piggyback 1 ea IV YEARLY Qty: 100 0RF Rx Instructions: HAD FEBRUARY 2022. cholecalciferol (vitamin D3) 125 mcg (5,000 unit) capsule 5,000 unit PO DAILY metoprolol succinate 100 mg tablet extended release 24 hr 100 mg PO DAILY Qty: 90 3RF atorvastatin 40 mg tablet 40 mg PO DAILY Qty: 90 3RF albuterol sulfate [Ventolin HFA] 90 mcg/actuation HFA aerosol inhaler 1 - 2 puff INH .COMPLEX PRN (Reason: shortness of breath or wheezing) Qty: 8.5 11RF Rx Instructions: 1 - 2 puffs inhalation Q4-6H PRN; Symbicort 160-4.5 mcg/actuation HFA aerosol inhaler 2 puff INH BID Qty: 10.2 11RF Spiriva with HandiHaler 18 mcg capsule, w/inhalation device 1 cap inhalation DAILY Qty: 90 3RF Rx Instructions: puncture 1 cap using device; one dose = 2 inhalations calcium carbonate [Calcium 600] 600 mg calcium (1,500 mg) Tablet 600 mg PO BID amlodipine 5 mg tablet 5 mg PO QAM montelukast 10 mg tablet 10 mg PO QAM Rx Instructions: take 1 tablet by mouth once daily Eliquis 5 mg tablet 5 mg PO BID Rx Instructions: take 1 tablet by mouth twice a day doxycycline hyclate 100 mg Capsule 100 mg PO Q12H 7 Days Qty: 14 0RF Rx Instructions: STARTED 10/27/22 FOR 7 DAYS. albuterol sulfate 1.25 mg/3 mL solution for nebulization 1.25 mg inhalation Q8H PRN (Reason: bronchospasm) Qty: 90 0RF prednisone 20 mg tablet 60 mg PO DAILY 5 Days Qty: 15 0RF Rx Instructions: STARTED 10/27/22 FOR 5 DAYS. cefdinir 300 mg capsule 300 mg PO BID 7 Days Qty: 14 0RF Rx Instructions: STARTED 10/27/22 FOR 7 DAYS. amiodarone 200 mg tablet 200 mg PO BID Qty: 60 0RF Rx Instructions: WILL START AFTER 13 DAYS OF 400 MG BID, 10/27/22. amiodarone 400 mg tablet 400 mg PO BID 13 Days Qty: 26 0RF Rx Instructions: STARTED 10/27/22---Use this dose for 13 days and then switch to the 200 mg dose Referrals Referrals: Narayan Hsu III, CRNP [Primary Care Provider] -
[2022-10-28 22:24] LABS: Basophils # (auto) 0.03 K/uL (0-0.2); Basophils % (auto) 0.2 %; Eosinophils # (auto) 0.06 K/uL (0-0.50); Eosinophils % (auto) 0.3 %; Hematocrit (blood only) 46.7 % (37.0-47.0); Hemoglobin 15.8 g/dl (12.0-16.0); Immature Granulocytes # (auto) 0.13 K/uL (0.01-0.20); Immature Granulocytes % (auto) 0.7 %; Lymphocytes # (auto) 2.75 K/uL (1.2-3.4); Mean Corpuscular Hemoglobin 31.2 pg (25.0-34.0); Mean Corpuscular Hgb Conc 33.8 g/dL (32.0-36.0); Mean Corpuscular Volume 92.1 fL (80.0-100.0); Mean Platelet Volume 9.7 fL (9.4-12.4); Monocytes # (auto) 2.43 K/uL (0.11-0.59); Monocytes % (auto) 12.4 %; Neutrophils # (auto) 14.21 K/uL (1.40-6.50); Neutrophils % (auto) 72.4 %; Platelet Count 516 K/uL (130-400); RDW Coefficient of Variation 15.3 % (11.5-14.5); RDW Standard Deviation 51.4 fL (36.4-46.3); Red Blood Count 5.07 M/uL (4.20-5.40); White Blood Count 19.61 K/ul (4.8-10.8)
[2022-10-28 22:32] LABS: Alanine Aminotransferase 44 U/L (7-52); Albumin Globulin Ratio 1.4 (0.9-2); Alkaline Phosphatase 47 U/L (34-104); Anion Gap 6 (3-11); BUN Creatinine Ratio 22.9 (10-20); Bilirubin,Total 0.7 mg/dl (0.2-1.0); Blood Urea Nitrogen 16 mg/dl (6-23); Calcium 9.3 mg/dl (8.6-10.3); Carbon Dioxide 33 mmol/L (21-32); Chloride 94 mmol/L (98-107); Est GFR (African American) 106.1 ml/min; Est GFR (Non-African American) 91.6 ml/min; Globulin 2.9 gm/dl (2.5-4.0); Glucose 87 mg/dl (70-99(Fasting)); Lipase 133 U/L (11-82); Sodium 133 mmol/L (136-145); Total Protein 6.9 gm/dl (6.0-8.3)
[2022-10-28 22:36] LABS: Troponin I High Sensitivity 18.3 pg/ml (0-14)
[2022-10-28] MEDS ORDERED: OPTIRAY 320 100ml IV ONE (23:21)
--- NOTE | 2022-10-29 00:09 | CT Scan Report ---
Exam(s): CT ABDOMEN + PELVIS With Contrast IV Amt: 93 ML OPTIRAY 320 EXAM: CT Abdomen and Pelvis With Intravenous Contrast CLINICAL HISTORY: Reason for exam: diffuse abd pain. TECHNIQUE: Axial computed tomography images of the abdomen and pelvis with intravenous contrast. CTDI is 27.9 mGy and DLP is 1263.75 mGy-cm. Automated exposure control was utilized for the study. A dose lowering technique was utilized adhering to the principles of ALARA. CONTRAST: Patient received 93 ML OPTIRAY 320 of IV contrast COMPARISON: 09/10/2017 FINDINGS: Lung bases: Unremarkable. No mass. No consolidation. ABDOMEN: Liver: There are at least 2 simple cysts in the liver measuring up to 0.9 cm. Gallbladder and bile ducts: Unremarkable. No calcified stones. No ductal dilation. Pancreas: Unremarkable. No mass. No ductal dilation. Spleen: Unremarkable. No splenomegaly. Adrenals: 1.7 cm left adrenal nodule stable from prior exam consistent with a benign finding. Kidneys and ureters: Unremarkable. No solid mass. No hydronephrosis. Stomach and bowel: Moderately distended colon with air-fluid levels. Additionally, there is inflammation surrounding the splenic flexure and descending colon most concerning for a colitis. PELVIS: Appendix: Appendix is not identified but there are no secondary signs of acute appendicitis. Bladder: Unremarkable. No mass. Reproductive: Unremarkable as visualized. ABDOMEN and PELVIS: Intraperitoneal space: Unremarkable. No free air. No significant fluid collection. Bones/joints: No acute fracture. No dislocation. Soft tissues: Unremarkable. Vasculature: 6.0 cm slightly hyperdense/hyper vascular mass within the inferior right lobe of the liver. The mass may have been present on prior CT of 2018 where it measured 2.5 cm. Further evaluation is warranted. No abdominal aortic aneurysm. Lymph nodes: Unremarkable. No enlarged lymph nodes. IMPRESSION: 1. Moderately distended colon with air-fluid levels. Additionally, there is inflammation surrounding the splenic flexure and descending colon most concerning for a colitis. 2. 6.0 cm slightly hyperdense/hyper vascular mass within the inferior right lobe of the liver. The mass may have been present on prior CT of 2018 where it measured 2.5 cm. Further evaluation is warranted. Electronically signed by: Donato Lockett M.D. 10/29/22 00:08 AM
[2022-10-29] MEDS ORDERED: ALBUT/IPRATROP 3MG/0.5MG NEB 3 ML VIAL NEB STA (00:18)
[2022-10-29] MEDS ORDERED: KETOROLAC TROMETHAMINE 15 MG/ML VIAL IV ONE (00:19)
[2022-10-29] MEDS ORDERED: ACETAMINOPHEN 325 MG TAB PO PRN (00:59)
--- NOTE | 2022-10-29 01:08 | History & Physical Report ---
Date of Service October 29, 2022 Assessment & Plan (1) Colitis: Plan: Kelsey is a 62 year old female with a PMH significant for COPD, paroxysmal afib on eliquis, CAD, PAD, and HTNrecently hospitalized from 10/24-10/27 here for new onset abdominal pain. Colitis -WBC 19.61, lipase 133 -In ED received NSS 500cc bolus -CT A/P: Moderately distended colon with air-fluid levels. Additionally, there is inflammation surrounding the splenic flexure and descending colon most concerning for a colitis. -continuing patient's doxycycline 100mg BID IV -started zosyn -NPO -am CBC, CMP Liver Mass -CT A/P: 6.0 cm slightly hyperdense/hyper vascular mass within the inferior right lobe of the liver. The mass may have been present on prior CT of 2017 where it measured 2.5 cm. Further evaluation is warranted. -LFTs wnl Thrombocythemia -platelet count 516 Elevated Troponin -18.3 -recheck pending COPD Exacerbation -recent cause of admission 10/24-10/27 -hold cefdinir, started zosyn to cover possible abdominal infection - continued doxycycline 100mg BID IV - continue home inhalers (spiriva, symbicort, and albuterol PRN) - pt recently discharged with oxygen (2L) to be used with ambulation Atrial fibrillation with rapid ventricular response - hx of prior cardioversion - TTE (10/25): EF 45%, global hypokinesis, mild MR and mild/mod. TR, mild concentric LVH - recently started on amiodarone 400 mg BID plan for x14 days then switch to 200 mg BID - continue eliquis 5 mg BID, metoprolol 100 mg daily Hypertension - continue home amlodipine Dyslipidemia - continue statin Tobacco Use - currently smokes 1/2 ppd - nicotine replacement patch ordered (2) Chronic obstructive pulmonary disease: (3) Hypertension, essential: (4) Atrial fibrillation with rapid ventricular response: (5) PAD (peripheral artery disease): History of Present Illness Chief Complaint: Abd Pain Primary Care Provider: Narayan Hsu, III, KIRA Kelsey is a 62 year old female with a PMH significant for COPD, paroxysmal afib on eliquis, CAD, PAD, and HTNrecently hospitalized from 10/24-10/27 here for new onset abdominal pain. Patient was recently hospitalized for COPD exacerbation and afib with RVR. She was sent home on cefdinir and doxycycline, 2L oxygen for chronic usage, started on amiodarone 400mg BID to be decreased to 200mg BID in 13 days. Patient states since she went home she developed abd pain in the evening, thought she was constipated took stool softeners didn't work. The next day her abdominal pain persisted got worse, she states she couldn't eat any food but did take her medications. Patient states her abd pain is across her entire abd, denies any fever nausea vomiting worsening SOB chest pain. She has chronic swelling in her feet worse today. Allergies Allergy/AdvReac Type Severity Reaction Status Date / Time lisinopril Allergy Severe SOB, Verified 10/28/22 21:36 SEVERE COUGHING FITS Home Medications Medication Instructions Recorded Confirmed Type cholecalciferol (vitamin D3) 125 5,000 unit PO DAILY 10/11/20 10/28/22 History mcg (5,000 unit) capsule zoledronic acid 5 mg/100 mL in 1 ea IV YEARLY #100 mL 09/10/22 10/28/22 Rx mannitol 5 %-water intravenous piggybck (Reclast) albuterol sulfate 90 mcg/actuation 1 - 2 puff inhalation .COMPLEX PRN 09/15/22 10/28/22 Rx aerosol inhaler (Ventolin HFA) shortness of breath or wheezing #8.5 grams budesonide-formoterol HFA 160 2 puff inhalation BID #10.2 grams 09/15/22 10/28/22 Rx mcg-4.5 mcg/actuation aerosol inhaler (Symbicort) tiotropium bromide 18 mcg capsule 1 cap inhalation DAILY #90 09/15/22 10/28/22 Rx with inhalation device (Spiriva inhalations with HandiHaler) atorvastatin 40 mg tablet 40 mg PO DAILY #90 tabs 09/16/22 10/28/22 Rx metoprolol succinate 100 mg 100 mg PO DAILY #90 tabs 09/16/22 10/28/22 Rx tablet,extended release 24 hr amlodipine 5 mg tablet 5 mg PO QAM 10/24/22 10/28/22 History apixaban 5 mg tablet (Eliquis) 5 mg PO BID 10/24/22 10/28/22 History calcium carbonate 600 mg calcium 600 mg PO BID 10/24/22 10/28/22 History (1,500 mg) tablet (Calcium) montelukast 10 mg tablet 10 mg PO QAM 10/24/22 10/28/22 History albuterol sulfate 1.25 mg/3 mL 1.25 mg (3 mL) inhalation Q8H PRN 10/27/22 Rx solution for nebulization bronchospasm #90 mL amiodarone 200 mg tablet 200 mg PO BID #60 tabs 10/27/22 10/28/22 Rx amiodarone 400 mg tablet 400 mg PO BID 13 days #26 tabs 10/27/22 10/28/22 Rx cefdinir 300 mg capsule 300 mg PO BID 7 days #14 caps 10/27/22 10/28/22 Rx doxycycline hyclate 100 mg capsule 100 mg PO Q12H 7 days #14 caps 10/27/22 10/28/22 Rx prednisone 20 mg tablet 60 mg PO DAILY 5 days #15 tabs 10/27/22 10/28/22 Rx Past Med/Surg History Medical History Asthma STABLE Benign essential hypertension Chronic obstructive pulmonary disease STABLE Healthcare maintenance Hyperlipidemia Nicotine dependence PAD (peripheral artery disease) S/P LEFT COMMON ILIAC ARTERY STENTS X 2 Paroxysmal atrial fibrillation Pneumothorax on right Rib fractures Surgical History History of bladder surgery History of hysterectomy SHY History of knee surgery History of surgery S/P LEFT COMMON ILIAC ARTERY STENTS X 2 History of surgery anterior vesicourethropexy History of surgery on arm LEFT ARM ULNAR SURGERY History of tonsillectomy and adenoidectomy History of wisdom tooth extraction Status post unilateral salpingo-oophorectomy Family History Mother Diabetes Ovarian cancer Uterine cancer Father Myocardial infarction Heart disease Denies family history of Colon cancer Prostate cancer Breast cancer Social History Smoking Status: Current every day smoker Tobacco Type: Cigarettes packs per day: 0.5; Cigarettes Per Day: 1/2 PPD X 40 YEARS; Second Hand Exposure: No; Do You Dip or Chew Tobacco: No; Tobacco Cessation Education Requested by Patient: No Hx Alcohol Use: No Hx Substance Use: No Preferred Language: Armenian Communication Ability: Effective Visual Impairment: No Limitations Hearing Ability: Normal Camera Repairman Required: No Beliefs That Will Affect Care: None marital status: Current Living Situation: Spouse current occupational status: employed and retired Feels Safe at Home: Yes Childhood Exposure to Second-Hand Smoke: Yes Diet: regular Diet Comment: no special diet Dental Care, Regularly: Yes Physical Activity Frequency: 3-4 Times per Week Physical Activity Frequency Comment: walking Seatbelt Use: always Sunscreen Use: Yes Do you think of yourself as: straight/heterosexual Assistive Devices: Glasses and Oxygen - Continuous Physical Exam Constitutional: well developed, well nourished and cooperative Eyes: PERRL, conjunctivae normal, anicteric sclerae ENMT: external ear and nose normal, oropharynx normal Neck: trachea midline, no thyromegaly Respiratory: Auscultation: + wheezes Cardiovascular: Rate/Rhythm: regular rate and regular rhythm Extremities: + edema (+2) Gastrointestinal (Abdomen): Inspection/Auscultation: abdomen normal to inspection Percussion/Palpation: + abdomen tender and abdomen soft Skin: no rashes, warm and dry Results & Data Results & Data Vital Signs (Past 12 Hours) Vital Signs Temp Pulse Resp BP Pulse Ox O2 Del Method O2 Flow Rate 10/29/22 00:20 62 27 H 89 L 10/29/22 00:00 60 20 153/91 H 89 L Nasal Cannula 3 10/28/22 23:30 56 L 19 138/83 91 Nasal Cannula 3 10/28/22 22:20 57 L 26 H 92 10/28/22 21:56 63 10/28/22 22:00 62 24 162/89 H 92 Nasal Cannula 3 10/28/22 21:47 93 Nasal Cannula 3 10/28/22 21:30 87 L Nasal Cannula 2 10/28/22 21:23 59 L 84 L Room Air 10/28/22 21:08 36.5 C 67 18 168/89 H 92 Room Air Supervising Physician Co-Signing Physician Notes attending addendum: I have physically seen this patient, have supervised the medical residents activities, and agree with the H&P unless as otherwise noted. Assessment and Plan: Colitis/SBO- NPO Status post 500 cc normal saline in ED Continue NSS plus KCl 20 mEq at 80 mils per hour Zosyn 4.5 g IV every 8 hours follow serial CBC with differential, chemistry profile and magnesium levels liver lesion right lobe 6 cm- CT reports as hyperdense and hypervascular, with increase in size from 2.5 cm in 2018 will need MRI/MRCP for further assessment COPD exacerbation- Continue doxycycline 100 mg IV twice daily to completion Continue Spiriva, Symbicort and albuterol as needed holding cefdinir and lieu of Zosyn IV as above Atrial fibrillation with RVR/hypertension Continue Eliquis 5 mg p.o. twice daily, metoprolol succinate 100 mg daily and amiodarone scheduled dosing as noted hold amlodipine first if blood pressure becomes low or borderline tobacco use disorder- Cessation counseling Resident Activity Tracking Resident Involvement: Resident Care Provided Care Provided: Adult Hospital Medicine (2) Chronic obstructive pulmonary disease COPD type: emphysema Emphysema type: unspecified Qualified Code(s): J43.9 - Emphysema, unspecified
[2022-10-29] MEDS ORDERED: ACETAMINOPHEN 1,000 MG/100 ML VIAL IV PRN (01:19)
[2022-10-29] MEDS ORDERED: ALBUTEROL 0.083% NEBU SOLN 3 ML VIAL NEB PRN (03:20)
[2022-10-29] MEDS ORDERED: POLYETHYLENE (MIRALAX) 17 GM PACK PO PRN (03:20)
[2022-10-29 03:27] LABS: Troponin I High Sensitivity 17.5 pg/ml (0-14)
[2022-10-29] MEDS ORDERED: MoRPHine SULFATE 2 MG/ML CARP IV STA (03:34)
[2022-10-29 04:04] LABS: Appearance Urine Clear (Clear); Bacteria Urine Automated Negative (Negative); Bilirubin Urine Negative (Negative); Blood Urine Negative (Negative); Color Urine Dark Yellow; Glucose Urine UA Negative (Negative); Ketones Urine Trace (Negative); Leukocyte Esterase Urine Trace (Negative); Nitrite Urine Negative (Negative); Protein Urine Negative (Negative); RBC Urine Automated 0-4 /hpf (0-4); Specific Gravity Urine > 1.045 (1.000-1.030); Urobilinogen Urine Negative (Negative)
[2022-10-29] MEDS ORDERED: PIPERACILLIN/TAZOBACTAM 4.5 GM (over 30 mins) IV ONE (04:30)
[2022-10-29] MEDS: ONDANSETRON INJ 2 MG/ML 2 ML VIAL IV PRN ×2 (05:27→10:06)
[2022-10-29] MEDS ORDERED: DOXYCYCLINE HYCLATE 100 MG in DEXTROSE 5% 100 ML IV SCH (06:00)
[2022-10-29] MEDS: FLUTICASONE/VILANTEROL 200/25MCG 14 PUFFS/INHALER INH SCH (07:25)
[2022-10-29] MEDS: UMECLIDINIUM BROMIDE 62.5MCG/BLISTER 7 PUFFS/INHALER INH SCH (07:25)
[2022-10-29] MEDS: METOPROLOL SUCC 50MG EXT REL TAB PO SCH (07:26)
[2022-10-29] MEDS: ATORVASTATIN 40 MG TAB PO SCH (07:26)
[2022-10-29] MEDS: APIXABAN 5 MG TABLET PO SCH ×2 (07:26→20:17)
[2022-10-29] MEDS: NICOTINE 7 MG/24 HR TDSY TD SCH (07:26)
[2022-10-29] MEDS: MONTELUKAST SODIUM 10 MG TABLET PO SCH (07:26)
[2022-10-29] MEDS: amLODIPine BESYLATE 5 MG TAB PO SCH (07:26)
[2022-10-29] MEDS: AMIODARONE 200 MG TAB PO SCH ×2 (07:32→16:55)
--- NOTE | 2022-10-29 07:52 | XRay Report ---
XR chest 1V portable CLINICAL HISTORY: sob TECHNIQUE: Single frontal radiograph of the chest was obtained. Comparison: None available at the time of this dictation. FINDINGS: No lines and tubes are seen. Cardiomegaly is noted. The lungs are clear. No evidence of pleural effus ion or pneumothorax. IMPRESSION: No acute chest disease. ACT 112: Negative or not required by law. Electronically signed by: Terell Amor M.D. 10/29/2022 7:50 AM
[2022-10-29 08:04] LABS: Basophils # (auto) 0.02 K/uL (0-0.2); Basophils % (auto) 0.1 %; Eosinophils # (auto) 0.09 K/uL (0-0.50); Eosinophils % (auto) 0.5 %; Hemoglobin 14.9 g/dl (12.0-16.0); Immature Granulocytes % (auto) 0.6 %; Lymphocytes # (auto) 1.63 K/uL (1.2-3.4); Lymphocytes % (auto) 9.6 %; Mean Corpuscular Hemoglobin 31.2 pg (25.0-34.0); Mean Corpuscular Hgb Conc 33.9 g/dL (32.0-36.0); Mean Corpuscular Volume 92.1 fL (80.0-100.0); Mean Platelet Volume 9.5 fL (9.4-12.4); Monocytes # (auto) 2.44 K/uL (0.11-0.59); Monocytes % (auto) 14.3 %; Neutrophils # (auto) 12.76 K/uL (1.40-6.50); Neutrophils % (auto) 74.9 %; Platelet Count 471 K/uL (130-400); RDW Coefficient of Variation 15.2 % (11.5-14.5); RDW Standard Deviation 52.1 fL (36.4-46.3); Red Blood Count 4.78 M/uL (4.20-5.40); White Blood Count 17.04 K/ul (4.8-10.8)
[2022-10-29 08:22] LABS: Albumin Globulin Ratio 1.5 (0.9-2); Albumin Level 3.7 gm/dl (3.4-5.0); BUN Creatinine Ratio 24.2 (10-20); Bilirubin,Total 0.7 mg/dl (0.2-1.0); Calcium 8.3 mg/dl (8.6-10.3); Creatinine Clr Calc Pharmacy 98.5 ml/min; Est GFR (African American) 108.2 ml/min; Est GFR (Non-African American) 93.4 ml/min; Globulin 2.4 gm/dl (2.5-4.0); Magnesium 3.2 mg/dl (1.7-2.4); Potassium 4.3 mmol/L (3.5-5.1); Total Protein 6.1 gm/dl (6.0-8.3)
[2022-10-29] MEDS ORDERED: AMIODARONE 200 MG TAB PO SCH (09:00)
[2022-10-29] MEDS ORDERED: predniSONE 20 MG TAB PO SCH (09:00)
[2022-10-29] MEDS ORDERED: PIPERACILLIN/TAZOBACTAM 4.5 GM in DEXTROSE 5% 100 ML IV SCH (10:00)
[2022-10-29] MEDS: POLYETHYLENE (MIRALAX) 17 GM PACK PO SCH ×2 (10:06→20:16)
--- NOTE | 2022-10-29 12:06 | Hospitalist Progress Note ---
Date of Service October 29, 2022 Assessment & Plan (1) Colitis: Plan: Pt is a 62 year old female with a PMH significant for COPD, paroxysmal afib on eliquis, CAD, PAD, and HTNrecently hospitalized from 10/24-10/27 d/t afib w/ RVR and COPD exacerbation now presenting for new onset abdominal pain. Abdominal pain - CTAP showed moderately distended colon with inflammation of the splenic flexure and descending colon - leukocytosis present with left shift upon admission - pt originally started on zosyn; subsequently d/c - suspect related to constipation; given miralax 34 g BID Incidental liver mass - CTAP showed 6.0 cm slightly hyperdense/hyper vascular mass within the inferior right lobe of the liver. The mass may have been present on prior CT of 2018 where it measured 2.5 cm - will plan for outpatient liver MRI - LFTs wnl COPD with recent exacerbation - recent cause of admission 10/24-10/27 - started zosyn to cover possible abdominal infection - continued doxycycline 100mg BID for anti-inflammatory effect, cefdinir 300 mg BID - continue home inhalers (spiriva, symbicort, and albuterol PRN) - pt recently discharged with oxygen (2L) to be used with ambulation Atrial fibrillation with rapid ventricular response - hx of prior cardioversion - TTE (10/25): EF 45%, global hypokinesis, mild MR and mild/mod. TR, mild concentric LVH - recently started on amiodarone 400 mg BID plan for x14 days (10/27 start) then switch to 200 mg BID - continue eliquis 5 mg BID, metoprolol 100 mg daily Thrombocythemia - platelet count 516 upon admission - downtrending on repeat Elevated troponin - peaked at 18 with subsequent downtrend Hypertension - continue home amlodipine Dyslipidemia - continue statin Tobacco Use - currently smokes 1/2 ppd - nicotine replacement patch ordered Code: full Diet: NPO DVT ppx: eliquis 5 mg BID Dispo: med/surg with tele (2) Chronic obstructive pulmonary disease: (3) Hypertension, essential: (4) Atrial fibrillation with rapid ventricular response: (5) PAD (peripheral artery disease): Admission and Anticipated Discharge Date Admission Date: October 29, 2022 Supervising Physician Co-Signing Physician Notes I personally examined the patient and verified all galicia points of history and exam, discussed case, and agree with decision making with Dr Rayo abdominal pain. No bowel movements. Vitals noted, in general she sitting on the edge of the bed leaning forward mild distress, breathing unlabored no accessory muscle use good effort. Skin shows no rashes no pallor or icterus. Neuro without focal deficits. Abdominal painalmost certainly constipationclinical picture fits far more with that than with any kind of a colitisespecially because she was already on antibiotics that would do a reasonable job covering enteric yang. I really suspect her white count is steroid mediated not infectionresume cefdinir instead of Zosyn given that this was for her haemophilus pneumonia from last admission. Tried an enema at home, on review of CT scan, it does appear that the largest amount of solid feces is probably a bit too far out for an enema to effectively get at unless it was large volumehopefully can move things with [id number] g twice daily with an additional dose now recent COPD exacerbation/clinical suspicion of pneumoniashe notes that her breathing still feels okay, this seems to be resolving, she notes really the only reason she came back was because of the abdominal pain. Subjective Pt states she had excruciating generalized abdominal pain that started yesterday. She has had no changes in her bowel movements (no diarrhea); however, she does note that she hasn't had a bowel movement for at least a week. She has felt nauseous but hasn't thrown up. No fevers, but she did feel chilly this AM. Review of Systems Review of Systems: As per HPI Physical Exam Physical Exam: Constitutional: well appearing, no acute distress HEENT: normocephalic, no conjunctival injection CV: RRR, no murmur, 1+ bilateral pitting LE edema Respiratory: Expiratory wheezing noted throughout. No rhonchi or crackles. No increased work of breathing GI: soft, nondistended, minimally tender mostly on the left side of her abdomen, hypoactive bowel sounds MSK: no gross deformities noted Skin: warm, dry, no rashes Neuro: alert, oriented, no FND noted Psych: mood and affect congruent Results & Data Results & Data Vital Signs (Past 12 Hours) Vital Signs Temp Pulse Pulse Resp BP BP Pulse Ox 10/29/22 11:36 36.4 C L 59 L 20 143/77 H 89 L 07/05/23 08:00 10/29/22 07:11 36.4 C L 57 L 20 145/73 H 87 L 10/29/22 03:26 56 L 10/29/22 03:15 10/29/22 03:15 36.3 C L 62 20 151/84 H 91 10/29/22 02:30 10/29/22 01:30 55 L 18 153/92 H 92 10/29/22 01:00 60 18 134/82 93 10/29/22 00:30 70 20 155/82 H 90 10/29/22 00:20 62 27 H 89 L O2 Del Method O2 Flow Rate 10/29/22 11:36 Nasal Cannula 4 10/29/22 08:00 Nasal Cannula 3 10/29/22 07:11 Nasal Cannula 2 10/29/22 03:26 10/29/22 03:15 Nasal Cannula 3 10/29/22 03:15 Nasal Cannula 3 10/29/22 02:30 Nasal Cannula 3 10/29/22 01:30 Nasal Cannula 3 10/29/22 01:00 Nasal Cannula 3 10/29/22 00:30 Nasal Cannula 3 10/29/22 00:20 Resident Activity Tracking Resident Involvement: Resident Care Provided Care Provided: Adult Hospital Medicine (2) Chronic obstructive pulmonary disease COPD type: emphysema Emphysema type: unspecified Qualified Code(s): J43.9 - Emphysema, unspecified
[2022-10-29] MEDS ORDERED: POLYETHYLENE (MIRALAX) 17 GM PACK PO ONE (18:12)
--- NOTE | 2022-10-29 18:21 | Billing Data ---
Date of Service October 29, 2022 Coding Level of Care Code 08112 SUB INP/OBS CARE
[2022-10-29] MEDS ORDERED: KETOROLAC TROMETHAMINE 15 MG/ML VIAL IV PRN (19:32)
[2022-10-29] MEDS: CEFDINIR 300 MG CAP PO SCH (20:16)
[2022-10-29] MEDS: DOXYCYCLINE HYCLATE 100 MG CAP PO SCH (21:26)
--- NOTE | 2022-10-30 03:21 | Billing Data ---
Date of Service October 30, 2022 Coding Level of Care Code 81000 INT INP/OBS CARE
[2022-10-30 09:03] LABS: Hematocrit (blood only) 42.4 % (37.0-47.0); Hemoglobin 14.6 g/dl (12.0-16.0); Mean Corpuscular Hemoglobin 31.5 pg (25.0-34.0); Mean Corpuscular Hgb Conc 34.4 g/dL (32.0-36.0); Mean Corpuscular Volume 91.6 fL (80.0-100.0); Mean Platelet Volume 9.4 fL (9.4-12.4); Platelet Count 399 K/uL (130-400); RDW Coefficient of Variation 14.7 % (11.5-14.5); RDW Standard Deviation 49.5 fL (36.4-46.3); Red Blood Count 4.63 M/uL (4.20-5.40); White Blood Count 19.35 K/ul (4.8-10.8)
[2022-10-30 09:18] LABS: BUN Creatinine Ratio 32.1 (10-20); Calcium 7.6 mg/dl (8.6-10.3); Creatinine Clr Calc Pharmacy 122.7 ml/min; Est GFR (African American) 116.3 ml/min; Est GFR (Non-African American) 100.3 ml/min; Magnesium 2.7 mg/dl (1.7-2.4); Potassium 4.7 mmol/L (3.5-5.1)
[2022-10-30] MEDS: amLODIPine BESYLATE 5 MG TAB PO SCH (09:19)
[2022-10-30] MEDS: AMIODARONE 200 MG TAB PO SCH ×2 (09:20→17:20)
[2022-10-30] MEDS: METOPROLOL SUCC 50MG EXT REL TAB PO SCH (09:20)
[2022-10-30] MEDS: NICOTINE 7 MG/24 HR TDSY TD SCH (09:20)
[2022-10-30] MEDS: ATORVASTATIN 40 MG TAB PO SCH (09:20)
[2022-10-30] MEDS: MONTELUKAST SODIUM 10 MG TABLET PO SCH (09:21)
[2022-10-30] MEDS: CEFDINIR 300 MG CAP PO SCH ×2 (09:21→20:13)
[2022-10-30] MEDS: DOXYCYCLINE HYCLATE 100 MG CAP PO SCH ×2 (09:22→20:13)
[2022-10-30] MEDS: UMECLIDINIUM BROMIDE 62.5MCG/BLISTER 7 PUFFS/INHALER INH SCH (09:22)
[2022-10-30] MEDS: POLYETHYLENE (MIRALAX) 17 GM PACK PO SCH ×2 (09:23→20:13)
[2022-10-30] MEDS: FLUTICASONE/VILANTEROL 200/25MCG 14 PUFFS/INHALER INH SCH (09:31)
--- NOTE | 2022-10-30 09:43 | Hospitalist Progress Note ---
Date of Service October 30, 2022 Assessment & Plan (1) Colitis: Plan: Pt is a 62 year old female with a PMH significant for COPD, paroxysmal afib on eliquis, CAD, PAD, and HTNrecently hospitalized from 10/24-10/27 d/t afib w/ RVR and COPD exacerbation now presenting for new onset abdominal pain. Abdominal pain - CTAP showed moderately distended colon with inflammation of the splenic flexure and descending colon - leukocytosis present with left shift upon admission - pt originally started on zosyn; subsequently d/c - suspect related to constipation; given miralax 34 g BID which caused her bowels to move - recommend continuation of miralax regimen daily to prevent constipation Incidental liver mass - CTAP showed 6.0 cm slightly hyperdense/hyper vascular mass within the inferior right lobe of the liver. The mass may have been present on prior CT of 2017 where it measured 2.5 cm - recommend outpatient liver MRI - LFTs wnl COPD with recent exacerbation - recent cause of admission 10/24-10/27; s/p systemic steroid course - continued doxycycline 100mg BID for anti-inflammatory effect, cefdinir 300 mg BID (last day 11/03) - continue home inhalers (spiriva, symbicort, and albuterol PRN) - pt recently discharged with oxygen (2L) to be used with ambulation Atrial fibrillation with rapid ventricular response - hx of prior cardioversion - TTE (10/25): EF 45%, global hypokinesis, mild MR and mild/mod. TR, mild concentric LVH - recently started on amiodarone 400 mg BID plan for x14 days (10/27 start) then switch to 200 mg BID - continue eliquis 5 mg BID, metoprolol 100 mg daily Thrombocythemia - platelet count 516 upon admission - downtrending on repeat Elevated troponin - peaked at 18 with subsequent downtrend Hypertension - continue home amlodipine Dyslipidemia - continue statin Tobacco Use - currently smokes 1/2 ppd - nicotine replacement patch ordered Code: full Diet: regular as tolerated DVT ppx: eliquis 5 mg BID Dispo: med/surg with tele (2) Chronic obstructive pulmonary disease: (3) Hypertension, essential: (4) Atrial fibrillation with rapid ventricular response: (5) PAD (peripheral artery disease): Admission and Anticipated Discharge Date Admission Date: October 29, 2022 Supervising Physician Co-Signing Physician Notes I personally examined the patient and verified all galicia points of history and exam, discussed case, and agree with decision making with Dr Rayo (+) BM belly still not totally better, breathing feels fine O2 weaning Vitals noted, in general No distress, breathing unlabored no accessory muscle use, lungs are overall clear but diminished, abdomen soft mildly distended nontender. Abdominal painalmost certainly constipationclinical picture fits far more with that than with any kind of a colitis Bowel movementbelly feeling somewhat better, continue supportive care until she is able to eat and drink well enough to go home. Chronic MiraLAX regimen. recent COPD exacerbation/clinical suspicion of pneumoniashe notes that her breathing still feels okay, this seems to be resolving, she notes really the only reason she came back was because of the abdominal pain. Suspect the new oxygen requirement was really more from atelectasis/immobility from her abdominal pain Subjective Pt doing better this morning. She has multiple bowel movements this AM, mostly liquid with some solid chunks. She did notice blood when she wiped, but no blood in the toilet. Her stomach is still painful but not as bad as yesterday. Her appetite is also not back completely. Review of Systems Review of Systems: As per HPI Physical Exam Physical Exam: Constitutional: well appearing, no acute distress HEENT: normocephalic, no conjunctival injection CV: RRR, no murmur, no LE edema Respiratory: Decreased breath sounds throughout. No rhonchi, wheezes, or crackles. No increased work of breathing GI: soft, nondistended, minimally tender upon palpation, + bowel sounds MSK: no gross deformities noted Skin: warm, dry, no rashes Neuro: alert, oriented, no FND noted Psych: mood and affect congruent Results & Data Results & Data Vital Signs (Past 12 Hours) Vital Signs Temp Pulse Pulse Resp BP BP Pulse Ox 10/30/22 08:00 10/30/22 08:00 53 L 10/30/22 07:49 36.6 C 62 16 125/87 97 10/30/22 02:35 36.8 C 58 L 16 151/84 H 93 10/29/22 22:03 55 L 10/29/22 22:33 36.5 C 52 L 16 133/76 94 O2 Del Method O2 Flow Rate 10/30/22 08:00 Nasal Cannula 3 10/30/22 08:00 10/30/22 07:49 Nasal Cannula 10/30/22 02:35 Nasal Cannula 3 10/29/22 22:03 10/29/22 22:33 Nasal Cannula 4 Resident Activity Tracking Resident Involvement: Resident Care Provided Care Provided: Adult Hospital Medicine (2) Chronic obstructive pulmonary disease COPD type: emphysema Emphysema type: unspecified Qualified Code(s): J43.9 - Emphysema, unspecified
--- NOTE | 2022-10-30 17:58 | Billing Data ---
Date of Service October 30, 2022 Coding Level of Care Code 67547 SUB INP/OBS CARE MIN
[2022-10-30] MEDS ORDERED: SODIUM CHLORIDE 0.65% NA SOLN 45 ML (OCEAN) PRN (19:48)
[2022-10-30] MEDS: APIXABAN 5 MG TABLET PO SCH (20:13)
--- NOTE | 2022-10-31 05:46 | Electrocardiogram Report ---
Test Reason : Blood Pressure : / mmHG Vent. Rate : 065 BPM Atrial Rate : 065 BPM P-R Int : 140 ms QRS Dur : 078 ms QT Int : 442 ms P-R-T Axes : 053 084 072 degrees QTc Int : 459 ms Normal sinus rhythm Normal ECG When compared with ECG of 26-OCT-2022 03:08, No significant change was found Confirmed by Nimesh Brown ([id number]) on 10/31/2022 5:45:34 AM Referred By: REFERRED SELF Confirmed By:Nimesh Brown
[2022-10-31] MEDS: NICOTINE 7 MG/24 HR TDSY TD SCH (07:51)
[2022-10-31] MEDS: ATORVASTATIN 40 MG TAB PO SCH (07:51)
[2022-10-31] MEDS: DOXYCYCLINE HYCLATE 100 MG CAP PO SCH (07:51)
[2022-10-31] MEDS: MONTELUKAST SODIUM 10 MG TABLET PO SCH (07:51)
[2022-10-31] MEDS: APIXABAN 5 MG TABLET PO SCH (07:51)
[2022-10-31] MEDS: AMIODARONE 200 MG TAB PO SCH (07:52)
[2022-10-31] MEDS: CEFDINIR 300 MG CAP PO SCH (07:53)
[2022-10-31] MEDS: UMECLIDINIUM BROMIDE 62.5MCG/BLISTER 7 PUFFS/INHALER INH SCH (07:53)
[2022-10-31] MEDS: FLUTICASONE/VILANTEROL 200/25MCG 14 PUFFS/INHALER INH SCH (07:54)
[2022-10-31] MEDS: METOPROLOL SUCC 50MG EXT REL TAB PO SCH (07:55)
[2022-10-31] MEDS: amLODIPine BESYLATE 5 MG TAB PO SCH (07:55)
[2022-10-31] MEDS: POLYETHYLENE (MIRALAX) 17 GM PACK PO SCH (07:55)
--- NOTE | 2022-10-31 13:39 | Discharge Summary ---
Date of Service October 31, 2022 Admission HPI Per Admitting Provider Kelsey is a 62 year old female with a PMH significant for COPD, paroxysmal afib on eliquis, CAD, PAD, and HTNrecently hospitalized from 10/24-10/27 here for new onset abdominal pain. Patient was recently hospitalized for COPD exacerbation and afib with RVR. She was sent home on cefdinir and doxycycline, 2L oxygen for chronic usage, started on amiodarone 400mg BID to be decreased to 200mg BID in 13 days. Patient states since she went home she developed abd pain in the evening, thought she was constipated took stool softeners didn't work. The next day her abdominal pain persisted got worse, she states she couldn't eat any food but did take her medications. Patient states her abd pain is across her entire abd, denies any fever nausea vomiting worsening SOB chest pain. She has chronic swelling in her feet worse today. Admission Exam Per Admitting Provider Constitutional: well developed, well nourished and cooperative Eyes: PERRL, conjunctivae normal, anicteric sclerae ENMT: external ear and nose normal, oropharynx normal Neck: trachea midline, no thyromegaly Respiratory: Auscultation: + wheezes Cardiovascular: Rate/Rhythm: regular rate and regular rhythm Extremities: + edema (+2) Gastrointestinal (Abdomen): Inspection/Auscultation: abdomen normal to inspection Percussion/Palpation: + abdomen tender and abdomen soft Skin: no rashes, warm and dry Principal Diagnosis constipation Discharge Exam Constitutional: well appearing, no acute distress HEENT: normocephalic, no conjunctival injection CV: regular rhythm, regular rate, no murmur, no LE edema Respiratory: Decreased breath sounds throughout. No rhonchi, wheezes, or crackles. No increased work of breathing GI: soft, nondistended, nontender, positive bowel sounds MSK: no gross deformities noted Skin: warm, dry, no rashes Neuro: alert, oriented, no FND noted Discharge Data Allergies Allergy/AdvReac Type Severity Reaction Status Date / Time lisinopril Allergy Severe SOB, Verified 10/28/22 21:36 SEVERE COUGHING FITS Consultations 10/29/22 00:25 ED Decision to Admit Stat Ordered Studies 10/28/22 21:23 CT abd pelvis IV con only Stat IMPRESSION: 1. Moderately distended colon with air-fluid levels. Additionally, there is inflammation surrounding the splenic flexure and descending colon most concerning for a colitis. 2. 6.0 cm slightly hyperdense/hyper vascular mass within the inferior right lobe of the liver. The mass may have been present on prior CT of 2018 where it measured 2.5 cm. Further evaluation is warranted. Hospital Course (1) Colitis: Pt is a 62 year old female with a PMH significant for COPD, paroxysmal afib on eliquis, CAD, PAD, and HTNrecently hospitalized from 10/24-10/27 d/t afib w/ RVR and COPD exacerbation now presenting for new onset abdominal pain. Abdominal pain - CTAP showed moderately distended colon with inflammation of the splenic flexure and descending colon - leukocytosis present with left shift upon admission - pt originally started on zosyn; subsequently d/c - suspect related to constipation; given miralax 34 g BID which caused her bowels to move - recommend continuation of miralax regimen daily to prevent constipation Incidental liver mass - CTAP showed 6.0 cm slightly hyperdense/hyper vascular mass within the inferior right lobe of the liver. The mass may have been present on prior CT of 2018 where it measured 2.5 cm - LFTs wnl - recommend outpatient liver MRI for further assessment COPD with recent exacerbation - recent cause of admission 10/24-10/27; s/p systemic steroid course - continued doxycycline 100mg BID for anti-inflammatory effect, cefdinir 300 mg BID (last day 11/03) - continue home inhalers (spiriva, symbicort, and albuterol PRN) - pt recently discharged with oxygen (2L) to be used with ambulation; upon repeat 2 step, pt requiring 3 L with ambulation- suspect increased oxygen re quirement is mainly due to atelectasis Atrial fibrillation with rapid ventricular response - hx of prior cardioversion - TTE (10/25): EF 45%, global hypokinesis, mild MR and mild/mod. TR, mild concentric LVH - recently started on amiodarone 400 mg BID plan for x14 days (10/27 start) then switch to 200 mg BID - continue eliquis 5 mg BID, metoprolol 100 mg daily Thrombocythemia - platelet count 516 upon admission - downtrending on repeat Elevated troponin - peaked at 18 with subsequent downtrend Hypertension - continue home amlodipine Dyslipidemia - continue statin Tobacco Use - currently smokes 1/2 ppd - nicotine replacement patch ordered - encouraged cessation Code: full Diet: regular as tolerated DVT ppx: eliquis 5 mg BID Dispo: home (2) Chronic obstructive pulmonary disease: (3) Hypertension, essential: (4) Atrial fibrillation with rapid ventricular response: (5) PAD (peripheral artery disease): Total Time Total Time Spent Total Time Spent (In Minutes): <30 Discharge Plan Discharge Items Patient Disposition: Home - Self-Care Reason For Visit: ABD PAIN Discharge Diagnosis: constipation Condition on Discharge: Fair Activity: Per Instructions section Non-emergency contact: Primary Care Provider Call non-emergency contact if: you have any medication questions, your symptoms worsen and your pain is not controlled Follow-up/Referrals: Narayan Hsu III, CRNP [Primary Care Provider] - 11/10/22 4:00 pm Diet: Regular Addtl Attending Provider Instructions: You were admitted to the hospital for acute abdominal pain. The CT scan of your abdomen showed constipation with some inflammation. You were treated with miralax to help move your bowels. Your pain improved after having some bowel movements. Once your bowels moved, there was blood noted to be in your stool. Due to this, it is recommended that you have a colonoscopy performed to ensure there isn't anything concerning. You should discuss this further with your primary care physician. Incidentally noted on your CT abdomen, there was a vascular lesion noted in your liver. This was noted on a previously noted scan from 2018 but has since grown i n size. It is recommended that you follow up on this lesion with an MRI to differentiate what it is and if it is of concern. A discharge summary will be sent to your primary care physician to ensure continuity of care. Please bring this discharge summary with you to your next office appointment so that your provider can review it at that time. Medications: Your medication list has been reviewed and reconciled upon discharge to ensure accuracy and continuity of care. An updated list of all your medications is included with your hospital discharge paperwork. Please review this list closely and make note of any changes to your medications. - You should use miralax daily (or twice per day) to keep your bowels regular. You can tailor your regimen based off of the prior day's bowel movements. Also, make sure you are drinking an adequate amount of water (~2L per day). - Continue the cefdinir and doxycycline for your previously diagnosed pneumonia and COPD exacerbation. These are twice per day for the next three days (last day 11/03). - Continue the 400 mg amiodarone daily until November 10 for a total course of 14 days. You should start the 200 mg dose November 11. - Your steroid course was completed while hospitalized. - You should continue to keep track of your oxygen levels especially when walking. You should wear 2-3 L while active if you oxygen levels are low. You should wear your oxygen anytime your oxygen level is below 88%. Follow up appointments: - Make a follow up appointment with your PCP within the next week. It is very important that you follow up with them shortly after discharge from the hospital. - Keep all of your follow up appointments as already scheduled. If you cannot make an appointment, notify your provider. CONTACT YOUR PRIMARY CARE PROVIDER if you experience any of the following: - Difficulty following your treatment plan - Difficulty taking any of your medications CALL 911 OR GO TO THE EMERGENCY DEPARTMENT if you experience any of the following: - Sudden, severe abdominal pain or nausea/vomiting - Severe chest pain or chest pain that radiates to your jaw or arm - Sudden, severe shortness of breath or difficulty breathing Pending Studies at Discharge: No Stand-Alone Forms: [facility], Smoking Cessation Medications and DC Order Prescriptions: Continued zoledronic [id number] [Reclast] 5 mg/100 mL piggyback 1 ea IV YEARLY Qty: 100 0RF Rx Instructions: HAD FEBRUARY 2022. cholecalciferol (vitamin D3) 125 mcg (5,000 unit) capsule 5,000 unit PO DAILY metoprolol succinate 100 mg tablet extended release 24 hr 100 mg PO DAILY Qty: 90 3RF atorvastatin 40 mg tablet 40 mg PO DAILY Qty: 90 3RF albuterol sulfate [Ventolin HFA] 90 mcg/actuation HFA aerosol inhaler 1 - 2 puff INH .COMPLEX PRN (Reason: shortness of breath or wheezing) Qty: 8.5 11RF Rx Instructions: 1 - 2 puffs inhalation Q4-6H PRN; Symbicort 160-4.5 mcg/actuation HFA aerosol inhaler 2 puff INH BID Qty: 10.2 11RF Spiriva with HandiHaler 18 mcg capsule, w/inhalation device 1 cap inhalation DAILY Qty: 90 3RF Rx Instructions: puncture 1 cap using device; one dose = 2 inhalations calcium carbonate [Calcium 600] 600 mg calcium (1,500 mg) Tablet 600 mg PO BID amlodipine 5 mg tablet 5 mg PO QAM montelukast 10 mg tablet 10 mg PO QAM Rx Instructions: take 1 tablet by mouth once daily Eliquis 5 mg tablet 5 mg PO BID Rx Instructions: take 1 tablet by mouth twice a day doxycycline hyclate 100 mg Capsule 100 mg PO Q12H 7 Days Qty: 14 0RF Rx Instructions: STARTED 10/27/22 FOR 7 DAYS. albuterol sulfate 1.25 mg/3 mL solution for nebulization 1.25 mg inhalation Q8H PRN (Reason: bronchospasm) Qty: 90 0RF prednisone 20 mg tablet 60 mg PO DAILY 5 Days Qty: 15 0RF Rx Instructions: STARTED 10/27/22 FOR 5 DAYS. cefdinir 300 mg capsule 300 mg PO BID 7 Days Qty: 14 0RF Rx Instructions: STARTED 10/27/22 FOR 7 DAYS. amiodarone 200 mg tablet 200 mg PO BID Qty: 60 0RF Rx Instructions: WILL START AFTER 13 DAYS OF 400 MG BID, 10/27/22. amiodarone 400 mg tablet 400 mg PO BID 13 Days Qty: 26 0RF Rx Instructions: STARTED 10/27/22---Use this dose for 13 days and then switch to the 200 mg dose Discharge Orders: Discharge Order (Routine); Ordered 10/31/22 Ordered By: Alee Rayo Admission Data Admit Date/Time: 10/29/22 00:58 Attending Provider: Martin Ramos Admit Provider: Zhane Plata Primary Care Provider: Narayan Hsu III Other Providers: Jamari Ibanez Other Interventions: Discharge Summary Assessment (RN) Last Done: 10/31/22 13:58 Supervising Physician Co-Signing Physician Notes I personally examined the patient and verified all galicia points of history and exam, discussed case, and agree with decision making with Dr Rayo feeling better wants to go home eating well breathing hasn't felt this good in a year. Vitals noted, in general No distress, breathing unlabored no accessory muscle use, lungs are overall clear but diminished Abdominal painalmost certainly constipationclinical picture fits far more with that than with any kind of a colitis Bowel movementbelly feeling better, safe to go home, instructed on MiraLAX 1-2 capfuls daily given how constipated she was to continue to keep her bowels moving. recent COPD exacerbation/clinical suspicion of pneumoniashe notes that her breathing still feels okay, this seems to be resolving, she notes really the only reason she came back was because of the abdominal pain. Adjusted oxygen requirement up slightly, but I really do not believe there is any new pathology at play other than may be atelectasis from her abdominal painmore that she is probably in a current range of oxygen requirement as she is recovering from her pneumonia/COPD exacerbation in the context of undefined COPD (outpatient follow- up will be necessary) Resident Activity Tracking Resident Involvement: Resident Care Provided Care Provided: Adult Hospital Medicine
--- NOTE | 2022-10-31 18:27 | Billing Data ---
Date of Service October 31, 2022 Coding Level of Care Code 84959 IN/OBS DISCH 30 MIN/LESS
== END 2022-10-31 15:26 | disposition home or self-care (01) | DRG 392 ==
LOC: ED 21:08 → SUATTDRO 10-29 00:58 → 2N 10-29 00:58

== ENCOUNTER 2025-02-07 15:19 | Observation (INO) ==
[2025-02-07] MEDS: ALBUT/IPRATROP 3MG/0.5MG NEB 3 ML VIAL NEB STA ×2 (15:43→17:07)
--- NOTE | 2025-02-07 15:54 | Emergency Department Note ---
Impression & Plan Acute respiratory distress, Acute exacerbation of chronic obstructive pulmonary disease ED Provider Note NAME: NANI WATSON AGE: 64 SEX: F : 1960 ARRIVES VIA: Walk-In INFORMANT: Patient, ED PROVIDER(S): Jonnie Ramos DO CHIEF COMPLAINT: Shortness of breath HPI: The patient is a 64-year-old female who presented to the emergency department for an evaluation of shortness of breath. The patient has a history of COPD. The patient was seen in our facility and admitted recently for similar complaints. She normally wears oxygen at home. She has a history of COPD. The patient states that she also has a history of pulmonary hypertension and atrial fibrillation. She stopped smoking in October of this year. She denies having any hemoptysis. She denies having any fevers. ROS: See above HPI for pertinent positives & negatives. A total of 10 systems reviewed and were otherwise negative. PAST MEDICAL HISTORY: See Below PAST SURGICAL HISTORY: See Below FAMILY HISTORY: See Below SOCIAL HISTORY: See Below HOME MEDICATIONS: See Below ALLERGIES: See Below VITALS: See Below PHYSICAL EXAMINATION: GENERAL: The patient is awake and alert. She is very anxious. EYES: The conjunctivae are clear. The pupils are round and reactive. EARS, NOSE, MOUTH AND THROAT: The nose is without any evidence of any deformity. Mucous membranes are moist. Tongue is midline. NECK: The neck is nontender and supple. RESPIRATORY: Diminished breath sounds are noted throughout. Poor air movement was noted with tachypnea. The patient has conversational dyspnea. CARDIOVASCULAR: Regular rate and rhythm noted there no murmurs rubs or gallops normal S1 normal S2. GASTROINTESTINAL: The abdomen is soft. Abdomen is nontender. MUSCULOSKELETAL/EXTREMITIES: There is no evidence of gross deformity full range of motion is noted in the hips and shoulders. SKIN: There is no obvious evidence of any rash. There are no petechiae, pallor or cyanosis noted. NEUROLOGIC: Patient is awake alert and oriented x3 MEDICAL DECISION MAKING: The patient is a 64-year-old female who presented to the emergency department for difficulty breathing. The patient was in respiratory distress. She was very tachypneic. She had conversational dyspnea. She was treated with bronchodilator therapy and increasing her dose of nasal oxygen. The patient improved with the symptoms. I discussed patient's laboratory and radiographic studies with her. She was also treated with IV steroids. She stopped smoking over the summer. She been doing well with this. She also has other medical issues including atrial fibrillation. The patient has pulmonary hypertension as well. At this time I do not feel the patient would be a good candidate for outpatient management. She continues to become very short of breath with any exertion. Her also brought up the fact that he notices that she has very significant tachycardia with any exertion. For this reason I discussed her condition with the on-call [facility]. They have agreed to evaluate the patient in the emergency department. Triage Nursing notes reviewed. Prior medical records reviewed Vital Signs: reviewed and remarkable for relative hypoxia. Differential diagnosis: Reactive airway disease, pneumonia, pneumothorax, COPD, CHF, infections, cardiac ischemia, pulmonary embolism, musculoskeletal, gastrointestinal, as well as other pathologies. ER treatment provided: See below Diagnostics interpreted by me: ECG: EKG was obtained in the emergency department. My interpretation is sinus rhythm at 85 bpm. There is no PVCs noted. Nonspecific interventricular conduction delay was noted. This was compared to a tracing from January 23, 2025. No changes were noted. Cardiac Monitoring: An order was placed for continuous cardiac monitoring. The monitor shows a rate of 85 bpm with sinus rhythm. Laboratory studies: As stated above and show below. Imaging studies: See below. Radiographic imaging was reviewed by myself Consultation(s): Dr. Barr who is on-call for the [facility] group was notified about the patient. ED COURSE: Procedures: none Critical Care: I have personally spent greater than 45 minutes of critical care time in the direct management of this patient. This includes bedside care, interpretation of diagnostic studies, and testing, discussion with consultants, patient, and family members, and other required patient management activities. This 45 minutes is in excess of all separately billable procedures. Past Med/Surg History Problem List (Updated 02/07/25 @ 17:16 by Jonnie Ramos DO) Acute exacerbation of chronic obstructive pulmonary disease (Acute) Acute respiratory distress (Acute) Acute and chronic respiratory failure ([id number]) Failure of outpatient treatment (Acute) Dyspnea (Acute) Chronic respiratory failure Closed fracture of proximal end of fibula (Acute 12/10/24) from a fall down a step Closed bimalleolar fracture of right ankle (12/10/24) from a fall down a step Closed fracture of proximal end of fibula (Acute 12/10/24) from a fall down a step Abrasion (Acute) Fall (Acute) Fracture dislocation of ankle (Acute) Elevated lipase Closed right trimalleolar fracture Fall Pulmonary hypertension Paroxysmal atrial fibrillation Multiple fractures of ribs associated with chest compression and cardiopulmonary resuscitation Contrast media allergy Cardiac arrest with successful resuscitation Elevated TSH Liver mass Colitis Coronary artery calcification seen on CAT scan Abnormal CT lung screening Nicotine dependence Osteoporosis (Chronic) Hypertension, essential (Chronic) Arterial atherosclerosis (Chronic) Chronic obstructive pulmonary disease (Chronic) Dyslipidemia (Chronic) 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) Hematuria, microscopic (Chronic) Urge and stress incontinence (Chronic) Vitamin D deficiency (Chronic) Medical History On amiodarone therapy Cardiomyopathy PAD (peripheral artery disease) S/P LEFT COMMON ILIAC ARTERY STENTS X 2 Acute respiratory failure with hypoxia Acute exacerbation of chronic obstructive pulmonary disease (COPD) Rib fractures Pneumothorax on right Healthcare maintenance Benign essential hypertension Asthma STABLE Chronic obstructive pulmonary disease STABLE Hyperlipidemia Surgical History History of surgery anterior vesicourethropexy History of knee surgery History of wisdom tooth extraction Status post unilateral salpingo-oophorectomy History of tonsillectomy and adenoidectomy History of bladder surgery History of hysterectomy SHY History of surgery on arm LEFT ARM ULNAR SURGERY History of surgery S/P LEFT COMMON ILIAC ARTERY STENTS X 2 Family History Mother Diabetes Ovarian cancer Uterine cancer Father Myocardial infarction Heart disease Denies family history of Colon cancer Prostate cancer Breast cancer Social History Smoking Status: Former smoker Tobacco Type: E-cigarettes / Vaping Age Started Using Tobacco: 16; packs per day: 0.5; Cigarettes Per Day: 1/2 PPD X 40 YEARS; Second Hand Exposure: No; Do You Dip or Chew Tobacco: No; Hx Alcohol Use: No Hx Substance Use: No Preferred Language: Panamanian Communication Ability: Effective Visual Impairment: No Limitations Hearing Ability: Normal Gauge Inspector Required: No Beliefs That Will Affect Care: None marital status: Current Living Situation: Family Current Living Situation Comment: house with spouse current occupational status: employed and retired Feels Safe at Home: Yes Childhood Exposure to Second-Hand Smoke: Yes Diet: regular Diet Comment: no special diet Dental Care, Regularly: Yes Physical Activity Frequency: 3-4 Times per Week Physical Activity Frequency Comment: walking Seatbelt Use: always Sunscreen Use: Yes Do you think of yourself as: straight/heterosexual Assistive Devices: Walker and Wheelchair Allergies Allergies Allergy/AdvReac Type Severity Reaction Status Date / Time Iodinated Contrast Media Allergy Severe Cardiac Verified 02/02/25 13:15 arrest lisinopril Allergy Severe SOB, Verified 02/02/25 13:15 SEVERE COUGHING FITS Home Meds Home Medications Medication Instructions Recorded Confirmed cholecalciferol (vitamin D3) 125 5,000 unit PO DAILY 10/11/20 02/02/25 mcg (5,000 unit) capsule digoxin 125 mcg (0.125 mg) tablet 125 mcg PO DAILY 12/10/24 02/02/25 flecainide 100 mg tablet 100 mg PO Q12 12/10/24 02/02/25 Previous Rx's Medication Instructions Recorded zoledronic acid 5 mg/100 mL in 1 ea IV YEARLY #100 mL 09/10/22 mannitol 5 %-water intravenous piggybck (Reclast) montelukast 10 mg tablet 10 mg PO QAM #90 tabs 06/13/24 tiotropium bromide 18 mcg capsule 1 cap inhalation DAILY #90 08/03/24 with inhalation device (Spiriva inhalations with HandiHaler) famotidine 20 mg tablet 20 mg PO BID #180 tabs 09/13/24 levothyroxine 50 mcg tablet 50 mcg PO DAILY #90 tabs 09/13/24 apixaban 5 mg tablet (Eliquis) 5 mg PO BID #180 tabs 10/05/24 atorvastatin 40 mg tablet 40 mg PO DAILY #90 tabs 10/05/24 budesonide-formoterol HFA 160 2 puff inhalation BID #30.6 grams 11/30/24 mcg-4.5 mcg/actuation aerosol inhaler (Symbicort) acetaminophen 500 mg tablet 1,000 mg (2 x 500 mg) PO Q8H #14 12/12/24 (Tylenol Extra Strength) tabs furosemide 20 mg tablet 20 mg PO QAM 30 days #30 tabs 01/26/25 guaifenesin 600 mg tablet, 1,200 mg (2 x 600 mg) PO Q12 #120 01/26/25 extended release 12 hr (Mucinex) tabs pregabalin 25 mg capsule 25 mg PO BID #60 caps 01/26/25 oxycodone 5 mg tablet 5 mg PO Q8H PRN pain #18 tabs 01/30/25 albuterol sulfate 90 mcg/actuation 1 - 2 inh inhalation .Q4-6H PRN 02/02/25 aerosol inhaler sob #25.5 grams diltiazem HCl 60 mg tablet 120 mg (2 x 60 mg) PO QID #240 tabs 02/02/25 ipratropium 0.5 mg-albuterol 3 mg 3 ml inhalation QID PRN wheezing 02/02/25 (2.5 mg base)/3 mL nebulization #90 mL soln prednisone 20 mg tablet See Rx Instructions .Route 02/02/25 .COMPLEX 10 days #15 tabs Results & Data (ED) Vital Signs Vital Signs - 24 hr 02/07/25 15:25 02/07/25 15:39 02/07/25 16:03 Temperature 36.9 C Temperature Source Temporal Artery Scan Pulse Rate 89 85 Respiratory Rate 26 H Respiratory Effort / Characteristics Short of Breath Respiratory Depth Shallow Respiratory Pattern Regular Blood Pressure 153/72 H Blood Pressure Mean 99 Pulse Oximetry 96 Oxygen Delivery Method Nasal Cannula Nasal Cannula Oxygen Flow Rate 4 4 Sepsis Recent Fever Within 48 Hours No Sepsis New/Unexplained Change in Mental Status N/A Sepsis Action Taken by Nursing No Action Required Home Medications Current Medication List: was personally reviewed by me Laboratory Data Attestation: I reviewed the patient's lab results. 02/07/25 15:50 02/07/25 15:50 Lab Results 02/07/25 02/07/25 Range/Units 15:46 15:50 WBC 12.40 H (4.8-10.8) K/ul RBC 4.65 (4.20-5.40) M/uL Hgb 13.8 (12.0-16.0) g/dl Hct 41.0 (37.0-47.0) % MCV 88.2 (80.0-100.0) fL MCH 29.7 (25.0-34.0) pg MCHC 33.7 (32.0-36.0) g/dL RDW Std Deviation 51.3 H (36.4-46.3) fL RDW Coeff of Timbo 15.8 H (11.5-14.5) % Plt Count 594 H (130-400) K/uL MPV 9.0 L (9.4-12.4) fL Immature Gran % (Auto) 0.7 % Neut % (Auto) 88.5 % Lymph % (Auto) 4.1 % [place] % (Auto) 6.2 % Eos % (Auto) 0.2 % Baso % (Auto) 0.3 % Neut # (Auto) 10.96 H (1.40-6.50) K/uL Lymph # (Auto) 0.51 L (1.20-3.40) K/uL [place] # (Auto) 0.77 H (0.11-0.59) K/uL Eos # (Auto) 0.03 (0.00-0.50) K/uL Baso # (Auto) 0.04 (0.00-0.20) K/uL Immature Gran # (Auto) 0.09 (0.01-0.20) K/uL PT 10.6 (9.0-12.0) Seconds INR 1.0 (0.9-1.1) APTT 25 (21-31) Seconds PTT Ratio 0.9 VBG pH 7.42 H (7.36-7.41) VBG pCO2 58 H (38-50) mmHg VBG pO2 55 mmHg VBG HCO3 38 mmol/L VBG O2 Saturation 87.2 % VBG Base Excess 10.8 mEq/L Sodium 135 L (136-145) mmol/L Potassium 4.4 (3.5-5.1) mmol/L Chloride 92 L (98-107) mmol/L Carbon Dioxide 36 H (21-32) mmol/L Anion Gap 7 (3-11) BUN 17 (6-23) mg/dl Creatinine 0.70 (0.6-1.2) mg/dl Est Cr Clr Drug Dosing 80.8 ml/min eGFR 95.32 BUN/Creatinine Ratio 24.3 H (10-20) Glucose 119 H (70-99(Fasting)) mg/dl Calcium 10.3 (8.6-10.3) mg/dl Magnesium 2.0 (1.7-2.4) mg/dl Total Bilirubin 0.4 (0.2-1.0) mg/dl AST 13 (13-39) U/L ALT 16 (7-52) U/L Alkaline Phosphatase 82 (34-104) U/L Troponin I High Sens 8.3 (0-14) pg/ml B-Natriuretic Peptide 28 (0-100) pg/ml Total Protein 7.4 (6.0-8.3) gm/dl Albumin 4.0 (3.4-5.0) gm/dl Globulin 3.4 (2.5-4.0) gm/dl Albumin/Globulin Ratio 1.2 (0.9-2) SARS-CoV-2 (PCR) NEGATIVE (Negative) Influenza Type A (PCR) Negative (Neg) Influenza Type B (PCR) Negative (Neg) RSV (RT-PCR) Negative (Neg) Administered Medications Discontinued Medications Albuterol (Albut/Ipratrop 3mg/0.5mg Neb 3 Ml Vial) 3 ml NEB NOW STA; Protocol Stop: 02/07/25 15:39 Last Admin: 02/07/25 15:43 Dose: 3 ml Documented By: BRAD Albuterol (Albut/Ipratrop 3mg/0.5mg Neb 3 Ml Vial) 3 ml NEB NOW STA; Protocol Stop: 02/07/25 16:59 Last Admin: 02/07/25 17:07 Dose: 3 ml Documented By: BRAD Methylprednisolone (Methylprednisolone 125 Mg/2 Ml Vial) 125 mg IV NOW STA Stop: 02/07/25 15:39 Last Admin: 02/07/25 15:57 Dose: 125 mg Documented By: BRAD Imaging Data Attestation: I personally reviewed and interpreted this imaging study as follows: My Impression: 1 view chest x-ray was obtained in the emergency department. My interpretation is no free air or definite infiltrate, final report below. Radiologist's Impression: Chest X-Ray 02/07/25 15:38 XR chest 1V portable CLINICAL HISTORY: Dyspnea COMPARISON STUDY: 01/23/2025 FINDINGS: Heart size and pulmonary vasculature are normal. Stable hyperexpanded lungs. No consolidation or pleural effusion seen. No pneumothorax. Stable old healed right mid rib fracture. IMPRESSION: No acute findings. ACT 112: Negative or not required by law. Electronically signed by: Geo Bailey M.D. 02/07/2025 4:00 PM Discharge Plan Visit Data Chief Complaint: Respiratory Problems Stated Complaint: CAN'T BREATH ED Provider: Jonnie Ramos Discharge Problem: Acute respiratory distress, Acute exacerbation of chronic obstructive pulmonary disease Patient Disposition: Being Evaluated by Hospitalist Condition: Fair Forms Stand Alone Forms: My [facility] Prescriptions Prescriptions: No Action zoledronic [id number] [Reclast] 5 mg/100 mL piggyback 1 ea IV YEARLY Qty: 100 0RF Patient Comments: 11/12- per pt she goes in February to find out if she gets a dose this year montelukast 10 mg tablet 10 mg PO QAM Qty: 90 3RF Spiriva with HandiHaler 18 mcg capsule, w/inhalation device 1 cap inhalation DAILY Qty: 90 3RF Rx Instructions: puncture 1 cap using device; one dose = 2 inhalations levothyroxine 50 mcg tablet 50 mcg PO DAILY Qty: 90 1RF Symbicort 160-4.5 mcg/actuation HFA aerosol inhaler 2 puff INH BID Qty: 30.6 3RF cholecalciferol (vitamin D3) 125 mcg (5,000 unit) capsule 5,000 unit PO DAILY Eliquis 5 mg tablet 5 mg PO BID Qty: 180 3RF atorvastatin 40 mg tablet 40 mg PO DAILY Qty: 90 3RF famotidine 20 mg tablet 20 mg PO BID Qty: 180 3RF diltiazem HCl 60 mg tablet 120 mg PO QID Qty: 240 0RF albuterol sulfate 90 mcg/actuation HFA aerosol inhaler 1 - 2 inh inhalation .Q4-6H PRN (Reason: sob) Qty: 25.5 2RF Rx Instructions: INHALE 1 TO 2 PUFFS EVERY 4 TO 6 HOURS NEEDED FOR SHORTNESS OF BREATH OR WHEEZING ipratropium-albuterol 0.5 mg-3 mg(2.5 mg base)/3 mL solution for nebulization 3 ml inhalation QID PRN (Reason: wheezing) Qty: 90 0RF prednisone 20 mg tablet See Rx Instructions .ROUTE .COMPLEX 10 Days Qty: 15 0RF Rx Instructions: 40mg (2 tablets) orally for 5 days; then 20mg (1 tablet) orally for 5 days oxycodone 5 mg tablet 5 mg PO Q8H PRN (Reason: pain) Qty: 18 0RF Rx Instructions: ongoing therapy furosemide 20 mg Tablet 20 mg PO QAM 30 Days Qty: 30 0RF pregabalin 25 mg Capsule 25 mg PO BID Qty: 60 0RF guaifenesin [Mucinex] 600 mg Tablet Extended Release 12hr 1,200 mg PO Q12 Qty: 120 0RF flecainide 100 mg tablet 100 mg PO Q12 digoxin 125 mcg (0.125 mg) tablet 125 mcg PO DAILY acetaminophen [Tylenol Extra Strength] 500 mg Tablet 1,000 mg PO Q8H Qty: 14 0RF Referrals Referrals: Narayan Hsu III, CRNP [Primary Care Provider] -
--- NOTE | 2025-02-07 16:01 | XRay Report ---
XR chest 1V portable CLINICAL HISTORY: Dyspnea COMPARISON STUDY: 01/23/2025 FINDINGS: Heart size and pulmonary vasculature are normal. Stable hyperexpanded lungs. No consolidati on or pleural effusion seen. No pneumothorax. Stable old healed right mid rib fracture. IMPRESSION: No acute findings. ACT 112: Negative or not required by law. Electronically signed by: Geo Bailey M.D. 02/07/2025 4:00 PM
[2025-02-07 16:03] LABS: Base Excess VBG 10.8 mEq/L; HCO3 VBG 38 mmol/L; Oxygen Saturation VBG 87.2 %; PCO2 VBG 58 mmHg (38-50); PO2 VBG 55 mmHg; pH VBG 7.42 (7.36-7.41)
[2025-02-07 16:07] LABS: Hematocrit (blood only) 41.0 % (37.0-47.0); Hemoglobin 13.8 g/dl (12.0-16.0); Immature Granulocytes # (auto) 0.09 K/uL (0.01-0.20); Immature Granulocytes % (auto) 0.7 %; Mean Corpuscular Hemoglobin 29.7 pg (25.0-34.0); Mean Corpuscular Volume 88.2 fL (80.0-100.0); Platelet Count 594 K/uL (130-400); RDW Standard Deviation 51.3 fL (36.4-46.3); Red Blood Count 4.65 M/uL (4.20-5.40); White Blood Count 12.40 K/ul (4.8-10.8)
[2025-02-07 16:27] LABS: Alanine Aminotransferase 16.0 U/L (7-52); Albumin Globulin Ratio 1.2 (0.9-2); Albumin Level 4.0 gm/dl (3.4-5.0); Alkaline Phosphatase 82.0 U/L (34-104); Anion Gap 7.0 (3-11); Bilirubin,Total 0.4 mg/dl (0.2-1.0); Blood Urea Nitrogen 17.0 mg/dl (6-23); Calcium 10.3 mg/dl (8.6-10.3); Carbon Dioxide 36.0 mmol/L (21-32); Chloride 92.0 mmol/L (98-107); Creatinine Clr Calc Pharmacy 80.8 ml/min; Globulin 3.4 gm/dl (2.5-4.0); Glucose 119.0 mg/dl (70-99(Fasting)); Magnesium 2.0 mg/dl (1.7-2.4); Potassium 4.4 mmol/L (3.5-5.1); Sodium 135.0 mmol/L (136-145); Total Protein 7.4 gm/dl (6.0-8.3)
[2025-02-07 16:36] LABS: INR 1.0 (0.9-1.1); Partial Thromboplastin Time 25 Seconds (21-31); Prothrombin Time 10.6 Seconds (9.0-12.0)
[2025-02-07 16:41] LABS: Influenza A virus by PCR Negative (Neg); Influenza B virus by PCR Negative (Neg); SARS CoV2 RNA(COVID-19) Ceph NEGATIVE (Negative)
[2025-02-07] MEDS: MAGNESIUM SULFATE / D5W 1 GM/100 ML BAG IV STA (17:22)
--- NOTE | 2025-02-07 17:48 | History & Physical Report ---
Date of Service February 07, 2025 Assessment & Plan (1) Acute exacerbation of chronic obstructive pulmonary disease: (2) Chest tightness: (3) Acute on chronic respiratory failure with hypoxia and hypercapnia: (4) Benign essential hypertension: (5) Hyperlipidemia: (6) Liver mass: (7) Paroxysmal atrial fibrillation: (8) Pulmonary hypertension: (9) Coronary artery calcification seen on CAT scan: Plan Pleasant 64yo female with chronic hypoxic/hypercapnic respiratory failure on home O2, 1-2 L at rest, 3-5 L with activity; COPD; right ankle fracture s/p ORIF 12/11/24, PAF on Eliquis, pulmonary HTN, liver mass, HTN, hyperlipidemia, and cardiac arrest 08/2024 at [facility] in [place] after receiving IV CT contrast. She was hospitalized for 7 days. Required intubation/[facility] hospital ventilation/ICU stay. Had multiple rib fractures from CPR. Patient reports that ever since her cardiac arrest her breathing has never been the same. She has had increasing amounts of dyspnea on exertion & chest tightness for several months. Now she is at a point where walking only 5-10 feet causes dyspnea on exertion and severe chest tightness. At home, she has checked her O2 sats when she has the symptoms and sometimes she is hypoxic to the upper 70s even with supplemental O2 in place. Her chest tightness is in the upper chest and to the left as well. The tightness will last 15-20 minutes then finally resolve. She never has symptoms at rest. Does not have nocturnal symptoms. She does feel sweaty when she is short of breath and having chest tightness. #acute on chronic hypoxic/hypercapnic respiratory failure, ongoing COPD exacerbation, abnormal chest CT - -patient has felt poorly from a pulmonary standpoint dating back to her cardiac arrest in August 2024 -she has had progressive dyspnea on exertion with minimal exertion, frequent chest tightness with activity, and was just hospitalized in early January for similar symptoms -she completed an amoxicillin & prednisone course ~01/31/25 -she has considerable wheezing on examination along with faint, fine, dry rales in the bases -despite the above she has NO cough or infectious symptoms -CXR without infiltrates; COVID/flu/RSV negative -was given a large dose of IV solumedrol in the ER - 125mg x 1 - along with bronchodilators and did feel better following albuterol & IV magnesium -patient was willing to complete a non-contrast chest CT and this has several findings including multiple pulmonary nodules, bronchiolitis, ground-glass opacities, T8 vertebral body lesion, etc -plan - -will ask pulmonary to see in consult tomorrow in light of ongoing, refractory pulmonary symptoms and the findings on CT chest -does patient have an atypical infection given the groundglass opacities? -atypical bacterial infection? -PCP? -viral process? -inflammatory lung disease? -other? -check sed rate/crp in am -patient has leukocytosis, but this could be due to recent steroid use; however, given ground glass opacities, would be reasonable to treat with abx - consider levaquin, but would need to follow QTc due to flecainide use -cont IV steroids - solumedrol 30mg BID -duonebs qid scheduled -flutter valve, etc. -cont home inhalers -cont NC O2 - keep sats 90-92% #chest tightness - -this is one of her largest complaints -occurs with activity, and has been progressive -she mentioned that the pain she had during a stress test in the past is similar to the tightness/pain she experiences now -tightness could easily be from bronchoconstriction from severe COPD; cannot rule out pulmonary HTN contributing; cannot rule out undiagnosed CAD -multiple CAD risk factors - known PAD, long-standing tobacco use, hyperlipidemia, etc. -recent echo with normal EF and normal LV wall motion -will ask Dr Osborn from [facility] to see in consult #severe dyspnea on exertion - -COPD exacerbation, ?infectious process of lungs, pulmonary HTN all could be contributing -cannot rule out ischemic heart disease -although she has PAF, since arrival today she has had no a.fib and has had dyspnea in the ER; thus, don't suspect PAF is contributing to her symptoms -I also believe she has severe deconditioning in setting of multiple hospitalizations this year including one on the ventilator in 08/2024 -would benefit from outpatient pulmonary rehab and/or inpatient rehab -doubt PE as she has been on Eliquis chronically for long time and is compliant #pulmonary HTN - -severe on echo at [facility] 08/2024 -recent echo here - PA pressures 45-50 -would benefit from right heart cath -may be contributing to dyspnea #pulmonary nodules - -history of such, and these are getting larger on current chest CT -pulmonary consult #abnormal lucency T8 vertebral body on CT scan - -consider dedicated MRI of the thoracic spine but uncertain she could tolerate going into the MRI machine #h/o cardiac arrest in the setting of IV CT contrast 08/2024 - -spent 1 week in [facility] in [place] -multiple rib & sternal fractures from CPR -she and her state she did not have heart catheterization, etc during that hospitalization #paroxysmal a.fib - -follows with [facility] and was referred to [facility]/EP for consideration of ablation procedure -cont flecainide BID -cont digoxin; dig level wnl -cont diltiazem QID -cont Eliquis BID #hypothyroidism - -TSH 09/2024 wnl -cont synthroid #recent right ankle fracture s/p ORIF - -has made full recovery -surgery was in November -weight-bearing as tolerated -has been on Eliquis chronically and I don't believe she has VTE/PEs in the setting of that fracture / surgery #liver mass - -this has been followed with careful surveillance by [facility] #HTN - -cont home meds #hyperlipidemia - -cont statin #DVT proph - -Eliquis 5mg BID #recent nose bleeding - -humidify the O2 -saline spray frequently -bactroban ointment BID to both nostrils pt's updated throughout the admission process History of Present Illness Chief Complaint: chest tightness, dyspnea on exertion Primary Care Provider: Narayan Hsu, III, GEOGRAPHIC INFORMATION SYSTEMS ENGINEER Pleasant 64yo female with chronic hypoxic/hypercapnic respiratory failure on home O2, 1-2 L at rest, 3-5 L with activity; COPD; right ankle fracture s/p ORIF 12/11/24, PAF on Eliquis, pulmonary HTN, liver mass, HTN, hyperlipidemia, and cardiac arrest 08/2024 at [facility] in [place] after receiving IV CT contrast. She was hospitalized for 7 days. Required i ntubation/white hospital ventilation/ICU stay. Had multiple rib fractures from CPR. Patient reports that ever since her cardiac arrest her breathing has never been the same. She has had increasing amounts of dyspnea on exertion & chest tightness for several months. Now she is at a point where walking only 5-10 feet causes dyspnea on exertion and severe chest tightness. At home, she has checked her O2 sats when she has the symptoms and sometimes she is hypoxic to the upper 70s even with supplemental O2 in place. Her chest tightness is in the upper chest and to the left as well. The tightness will last 15-20 minutes then finally resolve. She never has symptoms at rest. Does not have nocturnal symptoms. She does feel sweaty when she is short of breath and having chest tightness. Denies ANY cough or URI symptoms. She was hospitalized at [facility] from 01/23 to 01/26 for COPD exacerbation. Received IV steroids then transitioned to po prednisone and d/c to home. She completed 5 days each of low-dose prednisone & amoxicillin on 01/31/25. She states she felt ok for about 2-3 days, then her dyspnea on exertion started to worsen once again. Since her hospitalization she has been taking daily lasix and lost weight with such, now down to 156 pounds on her home scale. She stopped the lasix this past Thursday. She quit smoking this summer after smoking for 50 years. Reports she is compliant with all medicines including her Eliquis. Following her right ankle surgery in November she was non-weightbearing for about 2 months. She is finally back to weight-bearing. At no point in the last several months has she had inpatient rehab, but she has been going to [facility] for outpatient PT. Allergies Allergy/AdvReac Type Severity Reaction Status Date / Time Iodinated Contrast Media Allergy Severe Cardiac Verified 02/07/25 17:44 arrest lisinopril Allergy Severe SOB, Verified 02/07/25 17:44 SEVERE COUGHING FITS Home Medications Medication Instructions Recorded Confirmed Type cholecalciferol (vitamin D3) 125 5,000 unit PO DAILY 10/11/20 02/07/25 History mcg (5,000 unit) capsule zoledronic acid 5 mg/100 mL in 1 ea IV YEARLY #100 mL 09/10/22 02/07/25 Rx mannitol 5 %-water intravenous piggybck (Reclast) montelukast 10 mg tablet 10 mg PO QAM #90 tabs 06/13/24 02/07/25 Rx tiotropium bromide 18 mcg capsule 1 cap inhalation DAILY #90 08/03/24 02/07/25 Rx with inhalation device (Spiriva inhalations with HandiHaler) famotidine 20 mg tablet 20 mg PO BID #180 tabs 09/13/24 02/07/25 Rx levothyroxine 50 mcg tablet 50 mcg PO DAILY #90 tabs 09/13/24 02/07/25 Rx apixaban 5 mg tablet (Eliquis) 5 mg PO BID #180 tabs 10/05/24 02/07/25 Rx atorvastatin 40 mg tablet 40 mg PO DAILY #90 tabs 10/05/24 02/07/25 Rx budesonide-formoterol HFA 160 2 puff inhalation BID #30.6 grams 11/30/24 02/07/25 Rx mcg-4.5 mcg/actuation aerosol inhaler (Symbicort) digoxin 125 mcg (0.125 mg) tablet 125 mcg PO DAILY 12/10/24 02/07/25 History flecainide 100 mg tablet 100 mg PO Q12 12/10/24 02/07/25 History furosemide 20 mg tablet 20 mg PO QAM 30 days #30 tabs 01/26/25 02/07/25 Rx guaifenesin 600 mg tablet, 1,200 mg (2 x 600 mg) PO Q12 #120 01/26/25 02/07/25 Rx extended release 12 hr (Mucinex) tabs pregabalin 25 mg capsule 25 mg PO BID #60 caps 01/26/25 02/07/25 Rx oxycodone 5 mg tablet 5 mg PO Q8H PRN pain #18 tabs 01/30/25 02/07/25 Rx albuterol sulfate 90 mcg/actuation 1 - 2 inh inhalation .Q4-6H PRN 02/02/25 02/07/25 Rx aerosol inhaler sob #25.5 grams diltiazem HCl 60 mg tablet 120 mg (2 x 60 mg) PO QID #240 tabs 02/02/25 02/07/25 Rx ipratropium 0.5 mg-albuterol 3 mg 3 ml inhalation QID PRN wheezing 02/02/25 02/07/25 Rx (2.5 mg base)/3 mL nebulization #90 mL soln prednisone 20 mg tablet See Rx Instructions .Route 02/02/25 02/07/25 Rx .COMPLEX 10 days #15 tabs acetaminophen 500 mg tablet 1,000 mg PO Q8H PRN Pain 02/07/25 02/07/25 History (Tylenol Extra Strength) Past Med/Surg History Problem List (Updated 02/07/25 @ 20:29 by Enrico Root MD) Acute on chronic respiratory failure with hypoxia and hypercapnia Chest tightness Acute exacerbation of chronic obstructive pulmonary disease (Acute) Acute respiratory distress (Acute) Acute and chronic respiratory failure ([id number]) Failure of outpatient treatment (Acute) Dyspnea (Acute) Closed fracture of proximal end of fibula (Acute 12/10/24) from a fall down a step Closed bimalleolar fracture of right ankle (12/10/24) from a fall down a step Closed fracture of proximal end of fibula (Acute 12/10/24) from a fall down a step Abrasion (Acute) Fall (Acute) Fracture dislocation of ankle (Acute) Elevated lipase Closed right trimalleolar fracture Fall Contrast media allergy Elevated TSH Colitis Abnormal CT lung screening Osteoporosis (Chronic) Hypertension, essential (Chronic) Arterial atherosclerosis (Chronic) Chronic obstructive pulmonary disease (Chronic) Dyslipidemia (Chronic) 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) Hematuria, microscopic (Chronic) Urge and stress incontinence (Chronic) Vitamin D deficiency (Chronic) Medical History (Updated 02/07/25 @ 20:29 by Enrico Root MD) Nicotine dependence quit summer 2024 Coronary artery calcification seen on CAT scan Paroxysmal atrial fibrillation Pulmonary hypertension Chronic respiratory failure on home oxygen Cardiac arrest with successful resuscitation 08/2024 Liver mass Multiple fractures of ribs associated with chest compression and cardiopulmonary resuscitation 08/2024 Cardiomyopathy PAD (peripheral artery disease) S/P LEFT COMMON ILIAC ARTERY STENTS X 2 Rib fractures Pneumothorax on right Benign essential hypertension Asthma Chronic obstructive pulmonary disease Hyperlipidemia Surgical History (Updated 02/07/25 @ 20:21 by Enrico Root MD) Status post ORIF of fracture of ankle 11/2024 - right History of surgery anterior vesicourethropexy History of knee surgery History of wisdom tooth extraction Status post unilateral salpingo-oophorectomy History of tonsillectomy and adenoidectomy History of bladder surgery History of hysterectomy SHY History of surgery on arm LEFT ARM ULNAR SURGERY History of surgery S/P LEFT COMMON ILIAC ARTERY STENTS X 2 Family History (Updated 02/07/25 @ 20:22 by Enrico Root MD) Mother Diabetes Ovarian cancer Uterine cancer Father Myocardial infarction Heart disease Brother Heart disease 2 brothers Pacemaker Denies family history of Colon cancer Prostate cancer Breast cancer Social History (Updated 02/07/25 @ 20:23 by Enrico Root MD) Smoking Status: Never smoker Tobacco Type: E-cigarettes / Vaping Age Started Using Tobacco: 16; packs per day: 0.5; Cigarettes Per Day: 1/2 PPD X 40 YEARS; Second Hand Exposure: No; Do You Dip or Chew Tobacco: No; Tobacco Cessation Education Requested by Patient: No Hx Alcohol Use: No Hx Substance Use: No Preferred Language: Grenadian Communication Ability: Effective Visual Impairment: No Limitations Hearing Ability: Normal Visual Display Associate Required: No Beliefs That Will Affect Care: None marital status: Current Living Situation: Family Current Living Situation Comment: house with spouse current occupational status: employed and retired 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 [employer] How many Children do You have: 3 Other Information That Helps Us Care for You: No Feels Safe at Home: Yes Safety Concerns: Feels Safe At This Time Childhood Exposure to Second-Hand Smoke: Yes Diet: regular Diet Comment: no special diet Dental Care, Regularly: Yes Physical Activity Frequency: 3-4 Times per Week Physical Activity Frequency Comment: walking Seatbelt Use: always Sunscreen Use: Yes Do you think of yourself as: straight/heterosexual Assistive Devices: None Review of Systems Review of Systems: gen - had been eating well up until this past Thursday; no weight change; no fevers eyes - no ocular changes HENT - no dysphagia, no sore throat, R ear discomfort, no L ear discomfort CV - chest tightness, recurrent - with activity on daily basis; no edema - just stopped lasix this past Thursday pulm - no cough, no congestion; wheezing/dyspnea/RODAS GI - no abd pain or N/V/diarrhea - no dysuria musculo - mild right ankle pain since her surgery endo - no diabetes skin - no rashes psych - anxious Physical Exam Physical Exam: gen - pleasant, NAD, anxious & tearful at times eyes - PERRL HENT - TMs clear b/l, nose with dried blood, mouth with MMM, no lesions or thrush neck - no JVD, no lymph nodes, no obvious goiter heart - RRR, s1 s2, no murmur lungs - mild fine rales bases, mild-moderate wheezes b/l, no increased work of breathing at rest; airation fair abd - soft NT ND BS+, no HSM ext - no edema, pulses b/l feet 1-2+ skin - no rash neuro - strength 5/5 x 4 exts; DTRs 2+ b/l upper & lower exts psych - a/o x 3, but anxious and at one point tearful musculo - right ankle brace in place Results & Data Results & Data Vital Signs (Past 12 Hours) Vital Signs Temp Pulse Resp BP Pulse Ox O2 Del Method O2 Flow Rate 02/07/25 16:03 85 02/07/25 15:39 Nasal Cannula 4 02/07/25 15:25 36.9 C 89 26 H 153/72 H 96 Nasal Cannula 4 Laboratory Results Laboratory Results - last 24 hr 02/07/25 02/07/25 15:46 15:50 WBC 12.40 H RBC 4.65 Hgb 13.8 Hct 41.0 MCV 88.2 MCH 29.7 MCHC 33.7 RDW Std Deviation 51.3 H RDW Coeff of Timbo 15.8 H Plt Count 594 H MPV 9.0 L Immature Gran % (Auto) 0.7 Neut % (Auto) 88.5 Lymph % (Auto) 4.1 [place] % (Auto) 6.2 Eos % (Auto) 0.2 Baso % (Auto) 0.3 Neut # (Auto) 10.96 H Lymph # (Auto) 0.51 L [place] # (Auto) 0.77 H Eos # (Auto) 0.03 Baso # (Auto) 0.04 Immature Gran # (Auto) 0.09 PT 10.6 INR 1.0 APTT 25 PTT Ratio 0.9 VBG pH 7.42 H VBG pCO2 58 H VBG pO2 55 VBG HCO3 38 VBG O2 Saturation 87.2 VBG Base Excess 10.8 Sodium 135 L Potassium 4.4 Chloride 92 L Carbon Dioxide 36 H Anion Gap 7 BUN 17 Creatinine 0.70 Est Cr Clr Drug Dosing 80.8 eGFR 95.32 BUN/Creatinine Ratio 24.3 H Glucose 119 H Calcium 10.3 Magnesium 2.0 Total Bilirubin 0.4 AST 13 ALT 16 Alkaline Phosphatase 82 Troponin I High Sens 8.3 B-Natriuretic Peptide 28 Total Protein 7.4 Albumin 4.0 Globulin 3.4 Albumin/Globulin Ratio 1.2 Digoxin 0.8 SARS-CoV-2 (PCR) NEGATIVE Influenza Type A (PCR) Negative Influenza Type B (PCR) Negative RSV (RT-PCR) Negative Diagnostic Findings Chest X-Ray 02/07/25 15:38 XR chest 1V portable CLINICAL HISTORY: Dyspnea COMPARISON STUDY: 01/23/2025 FINDINGS: Heart size and pulmonary vasculature are normal. Stable hyperexpanded lungs. No consolidation or pleural effusion seen. No pneumothorax. Stable old healed right mid rib fracture. IMPRESSION: No acute findings. ACT 112: Negative or not required by law. Electronically signed by: Geo Bailey M.D. 02/07/2025 4:[address] 02/07/25 18:44 CT CHEST WITHOUT CONTRAST: HISTORY: Shortness of breath TECHNIQUE: CT of the chest was obtained without intravenous contrast. Coronal and sagittal reformats were created. COMPARISON: CT thorax September 18, 2022 FINDINGS: LOWER NECK: Normal thyroid. LYMPH NODES: A few small nonenlarged lymph nodes in the mediastinum. No lymphadenopathy by size criteria. CARDIOVASCULAR: Cardiac size is normal. Coronary artery and valvular calcifications are noted. No aortic aneurysm. LUNGS: The trachea and central bronchi are widely patent. There are scattered ground glass pulmonary densities, for example in the right middle lobe (series 2, image 42). Interval enlargement of multiple pulmonary nodular densities. For example, the left upper lobe pulmonary nodule now measures 1.3 cm in size, previously 7 mm (series 2, image 16). Left lower lobe nodule measuring 8 mm was previously 4 mm (series 2, image 35) Emphysema. Peribronchial cuffing. PLEURA: There are no pleural effusions. There is no pneumothorax. UPPER ABDOMEN: No acute findings. There is a 3 cm soft tissue lesion just deep to the skin over the right anterior abdominal wall (series 2, image 63). Nodular thickening of the adrenal glands. OSSEOUS STRUCTURES: There is a lucent lesion of the T8 vertebral body which appears to be new from previous examination. Also there is sclerosis with deformity in the lower sternal body, possibly posttraumatic. Multiple rib deformities with callus. IMPRESSION: Scattered ground glass densities of the lungs as above may represent mild pneumonia superimposed on background of emphysema. Bronchiolitis As discussed, there are multiple pulmonary nodules which have demonstrated interval growth in size since August 2022 CT examination. Malignancy is a consideration. Recommend further evaluation with PET/CT and oncological workup There is a poorly catheterized 3 cm soft tissue density lesion in the right anterior abdominal wall just deep to the skin. Recommend correlation with direct inspection Lucent lesion at T8 vertebral body appears to be new ACT 112: Positive. There are findings on this exam that require communication between the performing entity and the patient following Patient Test Result Information Act ([place] ACT 112) guidelines Electronically signed by Frantz Phan 02-07-2025 7:56 PM ECG Additional Comments: EKG - my reading - NSR, no ST changes, tracing with considerable artifact, large P wave suggestive of atrial enlargement Code Status & VTE Plan Code Status full code PG Care Time/CCT Total # of Minutes Spent Total Time Spent with Patient: Total time spent is greater than 50% in coordination of care (as documented) at patient's floor/unit and/or counseling patient: Coding Level of Care Code 06766 INT INP/OBS CARE 3/75MIN Diagnoses Acute exacerbation of chronic obstructive pulmonary disease J44.1 Chest tightness R07.89 Acute on chronic respiratory failure with hypoxia and hypercapnia J96.21; J96.22 Benign essential hypertension I10 Hyperlipidemia E78.5 Liver mass R16.0 Paroxysmal atrial fibrillation I48.0 Pulmonary hypertension I27.20 Coronary artery calcification seen on CAT scan I25.10
[2025-02-07] MEDS: APIXABAN 5 MG TABLET PO ONE (19:20)
--- NOTE | 2025-02-07 19:57 | CT Scan Report ---
CT CHEST WITHOUT CONTRAST: HISTORY: Shortness of breath TECHNIQUE: CT of the chest was obtained without intravenous contrast. Coronal and sagittal reformats were created. COMPARISON: CT thorax September 18, 2022 FINDINGS: LOWER NECK: Normal thyroid. LYMPH NODES: A few small nonenlarged lymph nodes in the mediastinum. No lymphadenopathy by size criteria. CARDIOVASCULAR: Cardiac size is normal. Coronary artery and valvular calcifications are noted. No aortic aneurysm. LUNGS: The trachea and central bronchi are widely patent. There are scattered ground glass pulmonary densities, for example in the right middle lobe (series 2, image 42). Interval enlargement of multiple pulmonary nodular densities. For example, the left upper lobe pulmonary nodule now measures 1.3 cm in size, previously 7 mm (series 2, image 16). Left lower lobe nodule measuring 8 mm was previously 4 mm (series 2, image 35) Emphysema. Peribronchial cuffing. PLEURA: There are no pleural effusions. There is no pneumothorax. UPPER ABDOMEN: No acute findings. There is a 3 cm soft tissue lesion just deep to the skin over the right anterior abdominal wall (series 2, image 63). Nodular thickening of the adrenal glands. OSSEOUS STRUCTURES: There is a lucent lesion of the T8 vertebral body which appears to be new from previous examination. Also there is sclerosis with deformity in the lower sternal body, possibly posttraumatic. Multiple rib deformities with callus. IMPRESSION: Scattered ground glass densities of the lungs as above may represent mild pneumonia superimposed on background of emphysema. Bronchiolitis As discussed, there are multiple pulmonary nodules which have demonstrated interval growth in size since August 2022 CT examination. Malignancy is a consideration. Recommend further evaluation with PET/CT and oncological workup There is a poorly catheterized 3 cm soft tissue density lesion in the right anterior abdominal wall just deep to the skin. Recommend correlation with direct inspection Lucent lesion at T8 vertebral body appears to be new ACT 112: Positive. There are findings on this exam that require communication between the performing entity and the patient following Patient Test Result Information Act ([place] ACT 112) guidelines Electronically signed by Frantz Phan 02-07-2025 7:56 PM
[2025-02-07] MEDS ORDERED: ACETAMINOPHEN 325 MG TAB PO PRN (21:32)
[2025-02-07] MEDS ORDERED: ONDANSETRON INJ 2 MG/ML 2 ML VIAL IV PRN (21:32)
[2025-02-07] MEDS: guaiFENesin 600 MG TABCR PO SCH (21:57)
[2025-02-07] MEDS: FLECAINIDE ACETATE 100 MG TABLET PO SCH (21:58)
[2025-02-07] MEDS: PREGABALIN 25 MG CAP PO SCH (22:04)
[2025-02-07] MEDS: MELATONIN 3 MG TAB PO PRN (22:04)
[2025-02-07] MEDS: FAMOTIDINE 20 MG TAB PO SCH (22:04)
[2025-02-08] MEDS: LEVOTHYROXINE SODIUM 50 MCG TABLET PO SCH (05:43)
[2025-02-08 06:25] LABS: Hematocrit (blood only) 36.1 % (37.0-47.0); Hemoglobin 11.9 g/dl (12.0-16.0); Mean Corpuscular Hemoglobin 29.4 pg (25.0-34.0); Mean Corpuscular Volume 89.1 fL (80.0-100.0); Platelet Count 510 K/uL (130-400); RDW Standard Deviation 50.9 fL (36.4-46.3); Red Blood Count 4.05 M/uL (4.20-5.40); White Blood Count 8.04 K/ul (4.8-10.8)
[2025-02-08 06:42] LABS: Anion Gap 4.0 (3-11); Blood Urea Nitrogen 15.0 mg/dl (6-23); Calcium 9.1 mg/dl (8.6-10.3); Carbon Dioxide 37.0 mmol/L (21-32); Chloride 97.0 mmol/L (98-107); Creatinine Clr Calc Pharmacy 129.6 ml/min; Glucose 135.0 mg/dl (70-99(Fasting)); Potassium 4.6 mmol/L (3.5-5.1); Sodium 138.0 mmol/L (136-145)
[2025-02-08] MEDS: ALBUT/IPRATROP 3MG/0.5MG NEB 3 ML VIAL INH SCH (07:21)
--- NOTE | 2025-02-08 08:09 | Cardiology Consultation ---
Date of Consultation February 08, 2025 Assessment & Plan (1) Acute respiratory distress: 2. Paroxysmal AF 3. Pulmonary hypertension 4. Severe COPD - on chronic 02 5. Peripheral arterial diseaseprior iliac stents, followed by Stephani 6. Coronary artery calcifications on CT 7. Chest wall mass Patient has had severe, life limiting, progressive dyspnea and hypoxia for months now with essentially NYHA class III-IV equivalent symptoms despite supplemental O2. Underwent cardiac catheterization which showed no significant CAD, no signs of heart failure and only mild pulmonary hypertension, likely who group 3. Breathing difficulties have persisted despite her remaining in sinus rhythm with no recurrence of her prior paroxysmal A-fib during hospitalization. At this point relatively low suspicion for cardiac cause being a primary putaway driver in her dyspnea/hypoxia. Do not feel she needs additional cardiac testing, medications at this time. Can resume Eliquis 5 mg twice daily Continue current flecainide, digoxin, diltiazem Continue maintenance Lasix 20 mg daily Continue current statin Scheduled to see [facility] again next week. Feel that net clinical benefit from ablation is relatively limited at this time. From a cardiac standpoint will follow from afar. Please contact as new issues arise. History of Present Illness Attending Physician: Enrico Morales MD History of Present Illness Ms. Polanco is a very pleasant 63-year-old woman with a history of PAD post prior iliac artery stents (previously followed by David, now Stephani), severe COPD on 2L, long-term smoker and paroxysmal atrial fibrillation seen today for continued dyspnea. Contacted by Dr. Root due to concern for angina. Patient known to me from outpatient setting, last seen by me 08/2023. Sent for Lexiscan SPECT 09/2023 which was negative for ischemia. During study had significant chest discomfort/tightness which is reminiscent of symptoms she has had recently. She has also been dealing with continued episodes of paroxysmal atrial fibrillation. Has been on multiple antiarrhythmics and was referred to [facility] EP, Dr. Mayo. AF ablation has been considered. Outside hospitalization 08/2024 after had reported anaphylaxis and cardiac arrest after CT scan with contrast. More recently has been dealing with progressive dyspnea, now with significant shortness of breath just walking across her room despite being on increased O2. Dyspnea accompanied by chest tightness. Denies heart failure symptoms. Most recent echocardiogram 12/2024 showed preserved LV function, diastolic dysfunction and pulmonary hypertension with estimated PASP of 50. No significant valvular pathology. Discharged 01/26/2025. States breathing better for few days but has declined again and now worse than before. Was seen by pulmonary during last hospitalization in breathing symptoms thought to be multifactorial in the setting of COPD/diastolic dysfunction/AF. Patient underwent CT scan yesterday showing pulmonary nodules and new right chest wall mass. Also noted to have significant coronary artery calcifications involving left main and into LAD. Underwent cardiac catheterization today which showed essentially normal coronary arteries angiographically. Had normal left and right sided filling pressures. Mild pulmonary hypertension, mean 28 with normal cardiac output. Allergies Allergy/AdvReac Type Severity Reaction Status Date / Time Iodinated Contrast Media Allergy Severe Cardiac Verified 02/08/25 12:35 arrest lisinopril Allergy Severe SOB, Verified 02/08/25 12:35 SEVERE COUGHING FITS Home Medications Medication Instructions Recorded Confirmed Type cholecalciferol (vitamin D3) 125 5,000 unit PO DAILY 10/11/20 02/07/25 History mcg (5,000 unit) capsule zoledronic acid 5 mg/100 mL in 1 ea IV YEARLY #100 mL 09/10/22 02/07/25 Rx mannitol 5 %-water intravenous piggybck (Reclast) montelukast 10 mg tablet 10 mg PO QAM #90 tabs 06/13/24 02/07/25 Rx tiotropium bromide 18 mcg capsule 1 cap inhalation DAILY #90 08/03/24 02/07/25 Rx with inhalation device (Spiriva inhalations with HandiHaler) famotidine 20 mg tablet 20 mg PO BID #180 tabs 09/13/24 02/07/25 Rx levothyroxine 50 mcg tablet 50 mcg PO DAILY #90 tabs 09/13/24 02/07/25 Rx apixaban 5 mg tablet (Eliquis) 5 mg PO BID #180 tabs 10/05/24 02/07/25 Rx atorvastatin 40 mg tablet 40 mg PO DAILY #90 tabs 10/05/24 02/07/25 Rx budesonide-formoterol HFA 160 2 puff inhalation BID #30.6 grams 11/30/24 02/07/25 Rx mcg-4.5 mcg/actuation aerosol inhaler (Symbicort) digoxin 125 mcg (0.125 mg) tablet 125 mcg PO DAILY 12/10/24 02/07/25 History flecainide 100 mg tablet 100 mg PO Q12 12/10/24 02/07/25 History furosemide 20 mg tablet 20 mg PO QAM 30 days #30 tabs 01/26/25 02/07/25 Rx guaifenesin 600 mg tablet, 1,200 mg (2 x 600 mg) PO Q12 #120 01/26/25 02/07/25 Rx extended release 12 hr (Mucinex) tabs pregabalin 25 mg capsule 25 mg PO BID #60 caps 01/26/25 02/07/25 Rx oxycodone 5 mg tablet 5 mg PO Q8H PRN pain #18 tabs 01/30/25 02/07/25 Rx albuterol sulfate 90 mcg/actuation 1 - 2 inh inhalation .Q4-6H PRN 02/02/25 02/07/25 Rx aerosol inhaler sob #25.5 grams diltiazem HCl 60 mg tablet 120 mg (2 x 60 mg) PO QID #240 tabs 02/02/25 02/07/25 Rx ipratropium 0.5 mg-albuterol 3 mg 3 ml inhalation QID PRN wheezing 02/02/25 02/07/25 Rx (2.5 mg base)/3 mL nebulization #90 mL soln prednisone 20 mg tablet See Rx Instructions .Route 02/02/25 02/07/25 Rx .COMPLEX 10 days #15 tabs acetaminophen 500 mg tablet 1,000 mg PO Q8H PRN Pain 02/07/25 02/07/25 History (Tylenol Extra Strength) Patient History Medical History (Updated 02/08/25 @ 08:25 by Allegra Lee MD) Nicotine dependence quit summer 2024 Coronary artery calcification seen on CAT scan Paroxysmal atrial fibrillation Pulmonary hypertension Chronic respiratory failure on home oxygen Cardiac arrest with successful resuscitation 08/2024 Liver mass Multiple fractures of ribs associated with chest compression and cardiopulmonary resuscitation 08/2024 Cardiomyopathy PAD (peripheral artery disease) S/P LEFT COMMON ILIAC ARTERY STENTS X 2 Rib fractures Pneumothorax on right Benign essential hypertension Asthma Chronic obstructive pulmonary disease Hyperlipidemia Surgical History (Updated 02/07/25 @ 20:21 by Enrico Root MD) Status post ORIF of fracture of ankle 11/2024 - right History of surgery anterior vesicourethropexy History of knee surgery History of wisdom tooth extraction Status post unilateral salpingo-oophorectomy History of tonsillectomy and adenoidectomy History of bladder surgery History of hysterectomy SHY History of surgery on arm LEFT ARM ULNAR SURGERY History of surgery S/P LEFT COMMON ILIAC ARTERY STENTS X 2 Family History (Updated 02/07/25 @ 20:22 by Enrico Root MD) Mother Diabetes Ovarian cancer Uterine cancer Father Myocardial infarction Heart disease Brother Heart disease 2 brothers Pacemaker Denies family history of Colon cancer Prostate cancer Breast cancer Social History (Updated 02/07/25 @ 20:23 by Enrico Root MD) Smoking Status: Never smoker Tobacco Type: E-cigarettes / Vaping Age Started Using Tobacco: 16; packs per day: 0.5; Cigarettes Per Day: 1/2 PPD X 40 YEARS; Second Hand Exposure: No; Do You Dip or Chew Tobacco: No; Tobacco Cessation Education Requested by Patient: No Hx Alcohol Use: No Hx Substance Use: No Preferred Language: Maltese Communication Ability: Effective Visual Impairment: No Limitations Hearing Ability: Normal Librarian Special Library Required: No Beliefs That Will Affect Care: None marital status: Current Living Situation: Family Current Living Situation Comment: house with spouse current occupational status: employed and retired 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 [employer] How many Children do You have: 3 Other Information That Helps Us Care for You: No Feels Safe at Home: Yes Safety Concerns: Feels Safe At This Time Childhood Exposure to Second-Hand Smoke: Yes Diet: regular Diet Comment: no special diet Dental Care, Regularly: Yes Physical Activity Frequency: 3-4 Times per Week Physical Activity Frequency Comment: walking Seatbelt Use: always Sunscreen Use: Yes Do you think of yourself as: straight/heterosexual Assistive Devices: Oxygen - Continuous, Walker and Wheelchair Review of Systems Review of Systems: All systems reviewed & are unremarkable except as noted in HPI & below Physical Exam Physical Exam: General: Uncomfortable, mildly dyspneic on O2 at rest HEENT: Sclerae anicteric Lungs: Mostly clear, few scant wheezes Cardiac: Regular, no murmurs Vascular: 2+ radial, no JVD Abdomen: Soft, nontender Extremities: Well perfused, no peripheral edema Neuro: Nonfocal Psych: Alert orient x3, normal affect and mood Results & Data Vital Signs (Past 12 Hours) Vital Signs Temp Pulse Pulse Resp BP BP Pulse Ox 02/08/25 07:43 65 02/08/25 07:40 97.3 F L 70 18 126/69 92 02/08/25 07:22 72 20 92 02/08/25 05:30 92 02/08/25 02:16 97.3 F L 102 H 20 134/79 94 02/07/25 21:32 02/07/25 21:32 97.5 F L 85 18 152/69 H 93 02/07/25 21:30 103 H 02/07/25 21:02 71 22 135/75 96 O2 Del Method O2 Flow Rate 02/08/25 07:43 02/08/25 07:40 Room Air 02/08/25 07:22 Nasal Cannula 3 02/08/25 05:30 Nasal Cannula 2 02/08/25 02:16 Nasal Cannula 3 02/07/25 21:32 Nasal Cannula 3 02/07/25 21:32 Nasal Cannula 3 02/07/25 21:30 02/07/25 21:02 Nasal Cannula 4 PG Care Time/CCT Total # of Minutes Spent Total Time Spent with Patient: Total time spent is greater than 50% in coordination of care (as documented) at patient's floor/unit and/or counseling patient: Coding Level of Care Code 18638 INT INP/OBS CARE 3/75MIN Diagnoses Acute respiratory distress R06.03
[2025-02-08] MEDS: ATORVASTATIN 40 MG TAB PO SCH (08:20)
[2025-02-08] MEDS: MONTELUKAST SODIUM 10 MG TABLET PO SCH (08:21)
[2025-02-08] MEDS: CHOLECALCIFEROL 125 MCG (5,000 UNITS) TAB PO SCH (08:21)
[2025-02-08] MEDS: DIGOXIN 0.125 MG TAB PO SCH (08:21)
[2025-02-08] MEDS: FLUTICASONE/VILANTEROL 200/25MCG 14 PUFFS/INHALER INH SCH (08:22)
[2025-02-08] MEDS: UMECLIDINIUM BROMIDE 62.5MCG/BLISTER 7 PUFFS/INHALER INH SCH (08:22)
[2025-02-08] MEDS: MUPIROCIN 2% OINT 22 GM TUBE EXT SCH (08:23)
--- NOTE | 2025-02-08 08:25 | Pulmonary Consultation ---
Date of Consultation February 08, 2025 Assessment & Plan (1) Acute on chronic respiratory failure with hypoxia and hypercapnia: (2) Multiple pulmonary nodules: (3) Mass of right chest wall: Plan Continue nebulizers. Continue fluticasone inhaler. Continue Solu-Medrol. Continue montelukast. Continue oxygen supplementation. Obtain sputum sample if possible. I will order IgE and allergy testing. Given patient's recent smoking cessation history as well as chronic bronchitis she would likely benefit from azithromycin outpatient. I discussed the patient CT findings including her chest wall mass which she has been aware of for approximately 1 year however she says it has been getting bigger recently. I will asked to have a surgeon evaluate this and consider biopsy or excision. I discussed her increasing size of her pulmonary nodules and that they are suspicious for malignancy. She is agreeable for bronchoscopy. Given the location of the largest nodule that is 1.3 cm I believe that navigational robotic assisted bronchoscopy would be the best option along with EBUS. We will plan to do bronchoscopy on Thursday afternoon. Please continue to hold her Eliquis. Please make her n.p.o. after midnight night. Thank for this consult. I will follow along with you. History of Present Illness Reason for Consultation: Refractory pulmonary symptoms and abnormal CT chest Requesting Physician: Enrico Morales MD Attending Physician: Enrico Morales MD History of Present Illness Patient is a 64 patient is a 64-year-old female with a past medical history significant for chronic hypoxic respiratory failure (1 to 2 L home oxygen at rest, 3 to 5 L with activity), COPD, paroxysmal atrial fibrillation on Eliquis, pulmonary hypertension, liver mass, hyperlipidemia, history of cardiac arrest in 2024 after IV contrast (was hospitalized for 7 days, required ICU admission and mechanical ventilation). The patient presented back to the hospital after recently being admitted to our facility at the end of last month with worsening dyspnea on exertion and chest tightness. She also endorsed home hypoxia with oxygen supplementation in place. The patient was recently evaluated by our pulmonary department, it was thought that her dyspnea was likely multifactorial related to obstructive lung disease, atrial fibrillation with RVR and diastolic dysfunction, deconditioning and pulmonary hypertension. It was recommended the patient follow-up outpatient for possible home NIV and update her PFTs. The patient has been admitted to the hospitalist service and pulmonary has been consulted again for abnormal CT chest and continued pulmonary symptoms. ABG shows a pH of 7.42 with a pCO2 of 58. CT imaging was reviewed by myself, there is a right chest wall lesion measuring 3 cm. Emphysema is present. Some patchy GGO's and pulmonary nodules are appreciated, there is a spiculated lesion appreciated in the left upper lobe as well (measuring 1.3 cm, was previously 7 mm), left lower lobe nodule measuring 8 mm which was previously 4 mm. There was also noted to be a T8 vertebral body lesion which was lucent. The patient was seen and examined this afternoon after she returned from cardiac cath. She is sleepy but awakes to voice. She is still requiring nasal cannula. She says that her breathing has continued to worsen. Is not having any wheezing but has noticed it at home. She denies any childhood history of asthma but she did have asthma that was diagnosed almost 40 years ago. She says that she usually does respond well to steroids. Denies seasonal allergies or nasal congestion. She is compliant with her inhalers which include Symbicort, Spiriva and as needed albuterol. She stopped smoking in October. She has not had any hemoptysis. She denies fevers, chills, night sweats but does have some weight loss of about 10 pounds over the past week but she endorses that she was taking a new diuretic which may have contributed to this. She does endorse a known history of pulmonary nodules and she follows with pulmonary for these. She is has had mammograms in the past, more recently her mammogram got delayed and she has not had one for about a year and a half now. Allergies Allergy/AdvReac Type Severity Reaction Status Date / Time Iodinated Contrast Media Allergy Severe Cardiac Verified 02/08/25 12:35 arrest lisinopril Allergy Severe SOB, Verified 02/08/25 12:35 SEVERE COUGHING FITS Home Medications Medication Instructions Recorded Confirmed Type cholecalciferol (vitamin D3) 125 5,000 unit PO DAILY 10/11/20 02/07/25 History mcg (5,000 unit) capsule zoledronic acid 5 mg/100 mL in 1 ea IV YEARLY #100 mL 09/10/22 02/07/25 Rx mannitol 5 %-water intravenous piggybck (Reclast) montelukast 10 mg tablet 10 mg PO QAM #90 tabs 06/13/24 02/07/25 Rx tiotropium bromide 18 mcg capsule 1 cap inhalation DAILY #90 08/03/24 02/07/25 Rx with inhalation device (Spiriva inhalations with HandiHaler) famotidine 20 mg tablet 20 mg PO BID #180 tabs 09/13/24 02/07/25 Rx levothyroxine 50 mcg tablet 50 mcg PO DAILY #90 tabs 09/13/24 02/07/25 Rx apixaban 5 mg tablet (Eliquis) 5 mg PO BID #180 tabs 10/05/24 02/07/25 Rx atorvastatin 40 mg tablet 40 mg PO DAILY #90 tabs 10/05/24 02/07/25 Rx budesonide-formoterol HFA 160 2 puff inhalation BID #30.6 grams 11/30/24 02/07/25 Rx mcg-4.5 mcg/actuation aerosol inhaler (Symbicort) digoxin 125 mcg (0.125 mg) tablet 125 mcg PO DAILY 12/10/24 02/07/25 History flecainide 100 mg tablet 100 mg PO Q12 12/10/24 02/07/25 History furosemide 20 mg tablet 20 mg PO QAM 30 days #30 tabs 01/26/25 02/07/25 Rx guaifenesin 600 mg tablet, 1,200 mg (2 x 600 mg) PO Q12 #120 01/26/25 02/07/25 Rx extended release 12 hr (Mucinex) tabs pregabalin 25 mg capsule 25 mg PO BID #60 caps 01/26/25 02/07/25 Rx oxycodone 5 mg tablet 5 mg PO Q8H PRN pain #18 tabs 01/30/25 02/07/25 Rx albuterol sulfate 90 mcg/actuation 1 - 2 inh inhalation .Q4-6H PRN 02/02/25 02/07/25 Rx aerosol inhaler sob #25.5 grams diltiazem HCl 60 mg tablet 120 mg (2 x 60 mg) PO QID #240 tabs 02/02/25 02/07/25 Rx ipratropium 0.5 mg-albuterol 3 mg 3 ml inhalation QID PRN wheezing 02/02/25 02/07/25 Rx (2.5 mg base)/3 mL nebulization #90 mL soln prednisone 20 mg tablet See Rx Instructions .Route 02/02/25 02/07/25 Rx .COMPLEX 10 days #15 tabs acetaminophen 500 mg tablet 1,000 mg PO Q8H PRN Pain 02/07/25 02/07/25 History (Tylenol Extra Strength) Patient History Medical History Nicotine dependence quit summer 2024 Coronary artery calcification seen on CAT scan Paroxysmal atrial fibrillation Pulmonary hypertension Chronic respiratory failure on home oxygen Cardiac arrest with successful resuscitation 08/2024 Liver mass Multiple fractures of ribs associated with chest compression and cardiopulmonary resuscitation 08/2024 Cardiomyopathy PAD (peripheral artery disease) S/P LEFT COMMON ILIAC ARTERY STENTS X 2 Rib fractures Pneumothorax on right Benign essential hypertension Asthma Chronic obstructive pulmonary disease Hyperlipidemia Surgical History Status post ORIF of fracture of ankle 11/2024 - right History of surgery anterior vesicourethropexy History of knee surgery History of wisdom tooth extraction Status post unilateral salpingo-oophorectomy History of tonsillectomy and adenoidectomy History of bladder surgery History of hysterectomy SHY History of surgery on arm LEFT ARM ULNAR SURGERY History of surgery S/P LEFT COMMON ILIAC ARTERY STENTS X 2 Family History Mother Diabetes Ovarian cancer Uterine cancer Father Myocardial infarction Heart disease Brother Heart disease 2 brothers Pacemaker Denies family history of Colon cancer Prostate cancer Breast cancer Social History Smoking Status: Never smoker Tobacco Type: E-cigarettes / Vaping Age Started Using Tobacco: 16; packs per day: 0.5; Cigarettes Per Day: 1/2 PPD X 40 YEARS; Second Hand Exposure: No; Do You Dip or Chew Tobacco: No; Tobacco Cessation Education Requested by Patient: No Hx Alcohol Use: No Hx Substance Use: No Preferred Language: Turkish Communication Ability: Effective Visual Impairment: No Limitations Hearing Ability: Normal Cooker Helper Required: No Beliefs That Will Affect Care: None marital status: Current Living Situation: Family Current Living Situation Comment: house with spouse current occupational status: employed and retired 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 [employer] How many Children do You have: 3 Other Information That Helps Us Care for You: No Feels Safe at Home: Yes Safety Concerns: Feels Safe At This Time Childhood Exposure to Second-Hand Smoke: Yes Diet: regular Diet Comment: no special diet Dental Care, Regularly: Yes Physical Activity Frequency: 3-4 Times per Week Physical Activity Frequency Comment: walking Seatbelt Use: always Sunscreen Use: Yes Do you think of yourself as: straight/heterosexual Assistive Devices: Oxygen - Continuous, Walker and Wheelchair Review of Systems Review of Systems: A 12 point review of systems was obtained in detail. Negative except as noted in HPI. Physical Exam Physical Exam: Physical examination: General: Well-appearing, well-nourished and not in acute distress. HEENT: Normocephalic, atraumatic. Extraocular movements intact. Sclera are nonicteric. No JVD appreciated. Skin: Warm and dry. No rashes appreciated. No jaundice appreciated. Cardiovascular: Heart is a regular rate and rhythm, no murmurs appreciated on my exam. No significant lower extremity edema. Lungs: Clear bilaterally, no wheezing appreciated. No crackles. Nontachypneic. Resting comfortably on nasal cannula. -There is a palpable mobile subcutaneous mass appreciated on her right chest wall that is discrete from her breast. Abdomen: Nondistended, nontender to palpation. Musculoskeletal: Normal muscle mass and tone. No gross joint deformity abnormalities. No effusions appreciated. Neurologic: Awake and alert, oriented. CN II through XII are grossly intact. S peech is fluent. Nonfocal exam. Psychiatric: Appropriate cooperative during my exam. Results & Data Results & Data Vital Signs (Past 12 Hours) Vital Signs Temp Pulse Pulse Resp BP BP Pulse Ox 02/08/25 07:43 65 02/08/25 07:40 36.3 C L 70 18 126/69 92 02/08/25 07:22 72 20 92 02/08/25 05:30 92 02/08/25 02:16 36.3 C L 102 H 20 134/79 94 02/07/25 21:32 02/07/25 21:32 36.4 C L 85 18 152/69 H 93 02/07/25 21:30 103 H 02/07/25 21:02 71 22 135/75 96 O2 Del Method O2 Flow Rate 02/08/25 07:43 02/08/25 07:40 Room Air 02/08/25 07:22 Nasal Cannula 3 02/08/25 05:30 Nasal Cannula 2 02/08/25 02:16 Nasal Cannula 3 02/07/25 21:32 Nasal Cannula 3 02/07/25 21:32 Nasal Cannula 3 02/07/25 21:30 02/07/25 21:02 Nasal Cannula 4 Laboratory Results Has had some mild peripheral eosinophilia in the past. Has been on steroids a lot however so this could be masking it. No previous IgE or allergy testing. ESR is mildly elevated at 48. CRP is 2.6. ABG shows some mild hypercapnia with compensated pH. COVID, influenza A/B and RSV are negative. Diagnostic Findings CT imaging was reviewed by myself, there is a right chest wall lesion measuring 3 cm. Emphysema is present. Some patchy GGO's and pulmonary nodules are appreciated, there is a spiculated lesion appreciated in the left upper lobe as well (measuring 1.3 cm, was previously 7 mm), left lower lobe nodule measuring 8 mm which was previously 4 mm. There was also noted to be a T8 vertebral body lesion which was lucent. PG Care Time/CCT Total # of Minutes Spent Total Time Spent with Patient: Total time spent is greater than 50% in coordination of care (as documented) at patient's floor/unit and/or counseling patient: [place] [address] IN/OBS CONSULT LVL 3,45M Patient Type New History Comprehensive Exam Comprehensive Diagnoses Acute on chronic respiratory failure with hypoxia and hypercapnia J96.21; J96.22 Multiple pulmonary nodules R91.8 Mass of right chest wall R22.2
[2025-02-08] MEDS ORDERED: APIXABAN 5 MG TABLET PO SCH (09:00)
--- NOTE | 2025-02-08 12:18 | Pre Anesthesia Assessment ---
Date of Service February 08, 2025 Pre Sedation Assessment Vital Signs Temp Pulse Pulse Resp BP BP Pulse Ox 02/08/25 11:47 83 18 93 02/08/25 11:30 97.3 F L 65 18 120/66 90 02/08/25 08:27 02/08/25 08:21 76 02/08/25 07:43 65 02/08/25 07:40 97.3 F L 70 18 126/69 92 02/08/25 07:22 72 20 92 02/08/25 05:30 92 02/08/25 02:16 97.3 F L 102 H 20 134/79 94 02/07/25 21:32 02/07/25 21:32 97.5 F L 85 18 152/69 H 93 02/07/25 21:30 103 H 02/07/25 21:02 71 22 135/75 96 02/07/25 19:33 78 02/07/25 18:19 94 H 16 146/87 H 95 02/07/25 16:03 85 02/07/25 15:39 02/07/25 15:25 98.4 F 89 26 H 153/72 H 96 O2 Del Method O2 Flow Rate 02/08/25 11:47 Nasal Cannula 3 02/08/25 11:30 Nasal Cannula 2 02/08/25 08:27 Nasal Cannula 2 02/08/25 08:21 02/08/25 07:43 02/08/25 07:40 Nasal Cannula 2 02/08/25 07:22 Nasal Cannula 3 02/08/25 05:30 Nasal Cannula 2 02/08/25 02:16 Nasal Cannula 3 02/07/25 21:32 Nasal Cannula 3 02/07/25 21:32 Nasal Cannula 3 02/07/25 21:30 02/07/25 21:02 Nasal Cannula 4 02/07/25 19:33 02/07/25 18:19 02/07/25 16:03 02/07/25 15:39 Nasal Cannula 4 02/07/25 15:25 Nasal Cannula 4 Cardiovascular + regular rate Respiratory + labored breathing Pre-Sedation Airway Assessment Smoking Status: Never smoker Hx Sleep Apnea: No Hx Difficult Intubation: No Short, Thick Neck: No Thyromental Distance: > or= 3.5 Finger Breadths Oral Cavity: + Dental Abnormalities Mallampati Class: II ASA: ASA3 Procedure Planning Contraindications for Sedation: none Current Medications Reviewed: Yes Notes The planned sedation has been discussed with the patient. Informed Consent was obtained. I have identified the patient, determined the appropriateness of sedation and have assessed the patient immediately prior to the procedure. All medicine(s) and interventions are by my order.
[2025-02-08] MEDS: HEPARIN (PORCINE) 1000 UNIT/ML 10 ML (CATH LAB USE ONLY) ONE (13:28)
[2025-02-08] MEDS: MIDAZOLAM HCL 1 MG/ML 2ML VIAL ONE (13:29)
[2025-02-08] MEDS: IODIXANOL (VISIPAQUE) 320 MG/ML 100ML IV ONE (13:30)
[2025-02-08] MEDS: niCARdipine 2,000 MCG/20 ML SYR ONE (13:30)
[2025-02-08] MEDS: diphenhydrAMINE 50 MG/ML VIAL ONE ×2 (13:31→13:32)
[2025-02-08] MEDS: FAMOTIDINE 20MG/5ML IV PUSH IV ONE (13:31)
[2025-02-08] MEDS: NITROGLYCERIN/D5W 100MCG/ML 20ML SYR ONE (13:31)
[2025-02-08 13:38] LABS: iSTAT Art Bld Gas Base Excess 11.0 mmol/L (-9-1.8)
--- NOTE | 2025-02-08 13:44 | Post Anesthesia Assessment ---
Date of Service February 08, 2025 Post Sedation Assessment Vital Signs Temp Pulse Pulse Resp BP BP Pulse Ox 02/08/25 12:30 76 18 92 02/08/25 11:47 83 18 93 02/08/25 11:30 97.3 F L 65 18 120/66 90 02/08/25 08:27 02/08/25 08:21 76 02/08/25 07:43 65 02/08/25 07:40 97.3 F L 70 18 126/69 92 02/08/25 07:22 72 20 92 02/08/25 05:30 92 02/08/25 02:16 97.3 F L 102 H 20 134/79 94 02/07/25 21:32 02/07/25 21:32 97.5 F L 85 18 152/69 H 93 02/07/25 21:30 103 H 02/07/25 21:02 71 22 135/75 96 02/07/25 19:33 78 02/07/25 18:19 94 H 16 146/87 H 95 02/07/25 16:03 85 02/07/25 15:39 02/07/25 15:25 98.4 F 89 26 H 153/72 H 96 O2 Del Method O2 Flow Rate 02/08/25 12:30 Nasal Cannula 3 02/08/25 11:47 Nasal Cannula 3 02/08/25 11:30 Nasal Cannula 2 02/08/25 08:27 Nasal Cannula 2 02/08/25 08:21 02/08/25 07:43 02/08/25 07:40 Nasal Cannula 2 02/08/25 07:22 Nasal Cannula 3 02/08/25 05:30 Nasal Cannula 2 02/08/25 02:16 Nasal Cannula 3 02/07/25 21:32 Nasal Cannula 3 02/07/25 21:32 Nasal Cannula 3 02/07/25 21:30 02/07/25 21:02 Nasal Cannula 4 02/07/25 19:33 02/07/25 18:19 02/07/25 16:03 02/07/25 15:39 Nasal Cannula 4 02/07/25 15:25 Nasal Cannula 4 Recovery Score Activity: Moves 4 extremities Respiration: Deep Breath/Cough Circulation: +/-20% PreAnes Value Consciousness: Fully Awake Oxygen Saturation: O2 needed for >90% Discharge Sedation Level of Care: Fast Track Phase II
--- NOTE | 2025-02-08 14:35 | Cardiac Catheterization ---
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 Cardiac Status Clinical evaluation leading to the procedure CAD Presenation: Unstable angina Diagnostic Physicians Name: Brain Osborn MD Closure Device Recommendations: Medical Therapy and/or Counseling Cardiac Cath Procedure Full Procedure Date February 08, 2025 Pre-Procedure Diagnosis Pre-Procedure Diagnosis: Cardiothoracic Symptom (Pulmonary hypertension, dyspnea) AUC Score AUC Score: 7 Post-Procedure Diagnosis Post-Procedure Diagnosis: Normal Coronary Arteries and Elevated Intracardiac Pressures Procedure(s) Performed Procedure(s) Performed: Coronary Angiography, Left Heart Cath, Right Heart Cath and Ultrasound Guided Vascular Access Erector Operator Brain Osborn MD Tenant Selector(s) De[place]ler Estimated Blood Loss Estimated Blood Loss: 15 Medication(s) Medication(s): Fentanyl, Lidocaine 1%, Nicardipine, Nitroglycerin and Versed Summary of Findings Indication: Exertional dyspnea/chest tightness, coronary artery calcification, ASCVD risk factors5 Access: 6 Fr slender right radial artery under ultrasound guidance, 6 Fr right CFV under ultrasound guidance Catheters: [place], pigtail, 6 Fr [place] Findings: LM -normal caliber, no significant disease LAD -medium caliber, proximal luminal regularities. Distal vessel without significant disease and extends around apex. Medium D2 without disease. Circumflex -large caliber, proximal vessel without disease. Gives off large OM2 with 20-30% proximal stenosis. Remainder of OM2 without disease. Distal AV groove circumflex without significant disease. RCA -dominant, large caliber, no significant disease. Medium right PLB without disease. RA 6 RV 50/11 PA 49/15 (28) PAWP 10 LV 14 PaSat 68% (MPA), left PA 74% AoSat 92% Juan Manuel CO/CI 6.4/3.5 Thermo CO/CI 7.1/3.9 TPG 14 mmHg PVR 1.97 Wood Unit (thermo) Arterial Closure: TR band, CFV Mynx Summary: 1. Minimal nonobstructive coronary artery disease 2. Normal left and right sided filling pressures. 3. Mild pulmonary hypertension (pre-capillary). 4. Normal cardiac output Recommendations: No signs of heart failure, significant CAD or significant pulmonary hypertension to explain patient's dyspnea/hypoxia. Continued ASCVD risk factor modification. Hemodynamics Rest Ao:: 133/56/85 Final Ao: 141/57/88 LV: 137/13 Recommendations Recommendations: Medical Therapy and/or Counseling Radiation Exposure (mGy) 412 Contrast (mls) 10 Anesthesia Moderate 3451-1424 Procedural Complication(s) None Disposition PCU I attest to the content of the Intraoperative Record and any orders documented therein. Any exceptions are noted below. [facility] Card Cath Procedure Codes Cardiac Catheterization Procedure 1: Cardiovascular Cath Procedures: 52064 Coronaries & LHC (+/-LV) & RHC Therapeutic Services & Ancillary Procedure 1: Cardiovascular Tx and Anc Procedures: 13127 Ultrasonic Guidance Vascular Access Moderate Sedation Procedure 1: Sedation/Anesthesia: 34539 Mod Sedation by the same physician;Init15 Min Child Age 5 & Up Procedure 2: Sedation/Anesthesia: 22244 Mod Sedation by the same physician; Ea [id number] Minutes PG Care Time/CCT Total # of Minutes Spent Total Time Spent with Patient: Total time spent is greater than 50% in coordination of care (as documented) at patient's floor/unit and/or counseling patient:
--- NOTE | 2025-02-08 17:24 | Hospitalist Progress Note ---
Date of Service February 08, 2025 Assessment & Plan (1) Acute exacerbation of chronic obstructive pulmonary disease: (2) Chest tightness: (3) Acute on chronic respiratory failure with hypoxia and hypercapnia: (4) Benign essential hypertension: (5) Hyperlipidemia: (6) Liver mass: (7) Paroxysmal atrial fibrillation: (8) Pulmonary hypertension: (9) Coronary artery calcification seen on CAT scan: Plan Pleasant 64yo female with chronic hypoxic/hypercapnic respiratory failure on home O2, 1-2 L at rest, 3-5 L with activity; COPD; right ankle fracture s/p ORIF 12/11/24, PAF on Eliquis, pulmonary HTN, liver mass, HTN, hyperlipidemia, and cardiac arrest 08/2024 at [facility] in [place] after receiving IV CT contrast. She was hospitalized for 7 days. Required intubation/[facility] stay. Had multiple rib fractures from CPR. Patient reports that ever since her cardiac arrest her breathing has never been the same. She has had increasing amounts of dyspnea on exertion & chest tightness for several months. Now she is at a point where walking only 5-10 feet causes dyspnea on exertion and severe chest tightness. At home, she has checked her O2 sats when she has the symptoms and sometimes she is hypoxic to the upper 70s even with supplemental O2 in place. Her chest tightness is in the upper chest and to the left as well. The tightness will last 15-20 minutes then finally resolve. She never has symptoms at rest. Does not have nocturnal symptoms. She does feel sweaty when she is short of breath and having chest tightness. #acute on chronic hypoxic/hypercapnic respiratory failure, ongoing COPD exacerbation, abnormal chest CT - Appreciate pulmonology review - planning on bronchoscopy this hospitalization given pulmonology nodules concerning for metastatic cancer Continue duonebs and Solu-Medrol #Chest tightness Appreciate cardiology evaluation and cardiac catheterization to rule this out as a cause #Abdominal wall mass Patient reports ongoing for the last year but growing in size, previously diagnosed as a cyst although appears more solid on CT, not amenable to punch biopsy as underneath skin on exam, will have general surgery evaluate for tissue sample #abnormal lucency T8 vertebral body on CT scan - -consider dedicated MRI of the thoracic spine but uncertain she could tolerate going into the MRI machine #pulmonary HTN - -severe on echo at [facility] 08/2024 -recent echo here - PA pressures 45-50 -would benefit from right heart cath -may be contributing to dyspnea #h/o cardiac arrest in the setting of IV CT contrast 08/2024 - -spent 1 week in [facility] in [place] -multiple rib & sternal fractures from CPR -she and her state she did not have heart catheterization, etc during that hospitalization #paroxysmal a.fib - Currently in NSR -follows with [facility] Card[facility] and was referred to [facility]/EP for consideration of ablation procedure -cont flecainide BID -cont digoxin; dig level wnl -cont diltiazem QID -cont Eliquis BID #hypothyroidism - -TSH 09/2024 wnl -cont Synthroid #recent right ankle fracture s/p ORIF - -has made full recovery -surgery was in November -weight-bearing as tolerated -has been on Eliquis chronically and I don't believe she has VTE/PEs in the setting of that fracture / surgery #liver mass - -this has been followed with careful surveillance by [facility] #HTN - -cont home meds #hyperlipidemia - -cont statin #DVT proph - -Eliquis 5mg BID #recent nose bleeding - -humidify the O2 -saline spray frequently -bactroban ointment BID to both nostrils VTE Prophylaxis - holding Eliquis for planned bronchoscopy Disposition - continue on PCU Admission and Anticipated Discharge Date Admission Date: February 07, 2025 Subjective Patient seen after cardiac catheterization and reports feeling significantly improved from the prior day with her breathing. No current chest pain but reports this is only occurs intermittently on exertion Abdominal wall mass has been there for the last year - she reports previously diagnosed as a cyst Discussed care with pulmonology and holding Eliquis for planned bronchoscopy Physical Exam Constitutional: WD/WN, vitals as above ENMT: external ear and nose normal, oropharynx normal Respiratory: normal respiratory effort, lungs clear to auscultation Cardiovascular: RRR, no murmur, no edema Results & Data Results & Data Vital Signs (Past 12 Hours) Vital Signs Temp Pulse Pulse Resp BP Pulse Ox O2 Del Method 02/08/25 17:08 Nasal Cannula 02/08/25 16:27 78 120/68 02/08/25 15:40 36.5 C 74 18 119/72 93 Nasal Cannula 02/08/25 15:26 69 16 96 Nasal Cannula 02/08/25 15:10 36.7 C 88 18 131/65 95 Nasal Cannula 02/08/25 14:40 36.7 C 70 18 131/66 96 Nasal Cannula 02/08/25 14:25 36.8 C 70 18 126/62 95 Nasal Cannula 02/08/25 14:00 72 18 116/55 L 91 Nasal Cannula 02/08/25 13:45 74 18 131/49 L 92 Nasal Cannula 02/08/25 12:30 76 18 92 Nasal Cannula 02/08/25 11:47 83 18 93 Nasal Cannula 02/08/25 11:30 36.3 C L 65 18 120/66 90 Nasal Cannula 02/08/25 08:27 Nasal Cannula 02/08/25 08:21 76 02/08/25 07:43 65 02/08/25 07:40 36.3 C L 70 18 126/69 92 Nasal Cannula 02/08/25 07:22 72 20 92 Nasal Cannula 02/08/25 05:30 92 Nasal Cannula O2 Flow Rate 02/08/25 17:08 2 02/08/25 16:27 02/08/25 15:40 4 02/08/25 15:26 4 02/08/25 15:10 2 02/08/25 14:40 02/08/25 14:25 2 02/08/25 14:00 4 02/08/25 13:45 4 02/08/25 12:30 3 02/08/25 11:47 3 02/08/25 11:30 2 02/08/25 08:27 2 02/08/25 08:21 02/08/25 07:43 02/08/25 07:40 2 02/08/25 07:22 3 02/08/25 05:30 2 PG Care Time/CCT Total # of Minutes Spent Total Time Spent with Patient: Total time spent is greater than 50% in coordination of care (as documented) at patient's floor/unit and/or counseling patient: Coding Level of Care Code 53463 SUB INP/OBS CARE 3/50MIN Diagnoses Acute exacerbation of chronic obstructive pulmonary disease J44.1 Chest tightness R07.89 Acute on chronic respiratory failure with hypoxia and hypercapnia J96.21; J96.22 Benign essential hypertension I10 Hyperlipidemia E78.5 Liver mass R16.0 Paroxysmal atrial fibrillation I48.0 Pulmonary hypertension I27.20 Coronary artery calcification seen on CAT scan I25.10
--- NOTE | 2025-02-08 19:32 | Surgery Consultation ---
Date of Consultation February 08, 2025 Assessment & Plan (1) Abdominal wall mass: The patient is a 64-year-old female who was admitted to the hospital service on 02/07/2025 for acute on chronic hypoxic/hypercapnic respiratory failure and ongoing COPD exacerbation. Due to her severe dyspnea/hypoxia, cardiology was consulted and patient underwent cardiac catheterization which did not show any significant CAD or heart failure and only mild pulmonary hypertension and patient currently does not require any additional cardiac testing. Pulmonology team also on board due to CT findings of increasing size of her pulmonary nodules with suspicion possible malignancy and they are planning for a bronchoscopy on Saturday 02/10 and her Eliquis is currently being held. On CT imaging the patient was also noted to have 3cm soft tissue density lesion in the right anterior abdominal wall and general surgery team was also consulted for evaluation. The patient was seen and evaluated for abdominal wall mass, she states it has been present for almost a years time and believes it appeared shortly after her liver biopsy. The site is not particularly painful however is uncomfortable at times due to her bra rubbing at that area. She denies any drainage or erythema at the site. The area is firm and mobile and nontender on exam. We will order an US to further evaluate the area and depending on results will provide additional surgical recommendations. History of Present Illness Reason for Consultation: right upper abdominal wall mass History of Present Illness The patient is a 64-year-old female who was admitted to the hospital service on 02/07/2025 for acute on chronic hypoxic/hypercapnic respiratory failure and ongoing COPD exacerbation. Patient has a past medical history of COPD on home O2 (1-2L at rest & 3-5L with activity), PAF on Eliquis, pulmonary HTN, known liver mass, HTN, HLD, cardiac arrest in August 2024 at [facility] after receiving IV contrast for CT imaging which did require intubation/ventilation at that time. To note, the patient states that since her cardiac arrest her breathing has never been the same and has had increasing amounts of dyspnea on exertion/chest tightness for the last few months. Patient was admitted to our facility from 01/23/2025 -01/26/2025 for COPD exacerbation and was treated with IV steroids and transition to prednisone at time of discharge. However, over the last few days patient states that her dyspnea on exertion started to worsen and she ultimately came back to the emergency department and was admitted to the hospitalist service. Due to her symptoms, cardiology was consulted and patient did undergo cardiac catheterization which did not show any significant CAD or heart failure and only mild pulmonary hypertension and patient currently does not require any additional cardiac testing. Pulmonology team also on board due to CT findings of increasing size of her pulmonary nodules with suspicion possible malignancy and they are planning for a bronchoscopy on Saturday 02/10 and her Eliquis is currently being held. On CT imaging the patient was also noted to have 3cm soft tissue density lesion in the right anterior abdominal wall and general surgery team was also consulted for evaluation. The patient was seen and evaluated this evening at bedside. She is resting comfortably in bed, vital signs stable, and is nontoxic-appearing. The patient states that she had a liver biopsy done, approximately 1 year ago, and shortly afterwards did notice a small lump at the site. Patient states originally it did not bother her, however her bra does rub in the spot and over the last few months the area has seemed to get bigger in size. She denies any increased redness, pain, or increased drainage at the site. Allergies Allergy/AdvReac Type Severity Reaction Status Date / Time Iodinated Contrast Media Allergy Severe Cardiac Verified 02/08/25 12:35 arrest lisinopril Allergy Severe SOB, Verified 02/08/25 12:35 SEVERE COUGHING FITS Home Medications Medication Instructions Recorded Confirmed Type cholecalciferol (vitamin D3) 125 5,000 unit PO DAILY 10/11/20 02/07/25 History mcg (5,000 unit) capsule zoledronic acid 5 mg/100 mL in 1 ea IV YEARLY #100 mL 09/10/22 02/07/25 Rx mannitol 5 %-water intravenous piggybck (Reclast) montelukast 10 mg tablet 10 mg PO QAM #90 tabs 06/13/24 02/07/25 Rx tiotropium bromide 18 mcg capsule 1 cap inhalation DAILY #90 08/03/24 02/07/25 Rx with inhalation device (Spiriva inhalations with HandiHaler) famotidine 20 mg tablet 20 mg PO BID #180 tabs 09/13/24 02/07/25 Rx levothyroxine 50 mcg tablet 50 mcg PO DAILY #90 tabs 09/13/24 02/07/25 Rx apixaban 5 mg tablet (Eliquis) 5 mg PO BID #180 tabs 10/05/24 02/07/25 Rx atorvastatin 40 mg tablet 40 mg PO DAILY #90 tabs 10/05/24 02/07/25 Rx budesonide-formoterol HFA 160 2 puff inhalation BID #30.6 grams 11/30/24 02/07/25 Rx mcg-4.5 mcg/actuation aerosol inhaler (Symbicort) digoxin 125 mcg (0.125 mg) tablet 125 mcg PO DAILY 12/10/24 02/07/25 History flecainide 100 mg tablet 100 mg PO Q12 12/10/24 02/07/25 History furosemide 20 mg tablet 20 mg PO QAM 30 days #30 tabs 01/26/25 02/07/25 Rx guaifenesin 600 mg tablet, 1,200 mg (2 x 600 mg) PO Q12 #120 01/26/25 02/07/25 Rx extended release 12 hr (Mucinex) tabs pregabalin 25 mg capsule 25 mg PO BID #60 caps 01/26/25 02/07/25 Rx oxycodone 5 mg tablet 5 mg PO Q8H PRN pain #18 tabs 01/30/25 02/07/25 Rx albuterol sulfate 90 mcg/actuation 1 - 2 inh inhalation .Q4-6H PRN 02/02/25 02/07/25 Rx aerosol inhaler sob #25.5 grams diltiazem HCl 60 mg tablet 120 mg (2 x 60 mg) PO QID #240 tabs 02/02/25 02/07/25 Rx ipratropium 0.5 mg-albuterol 3 mg 3 ml inhalation QID PRN wheezing 02/02/25 02/07/25 Rx (2.5 mg base)/3 mL nebulization #90 mL soln prednisone 20 mg tablet See Rx Instructions .Route 02/02/25 02/07/25 Rx .COMPLEX 10 days #15 tabs acetaminophen 500 mg tablet 1,000 mg PO Q8H PRN Pain 02/07/25 02/07/25 History (Tylenol Extra Strength) Patient History Medical History Nicotine dependence quit summer 2024 Coronary artery calcification seen on CAT scan Paroxysmal atrial fibrillation Pulmonary hypertension Chronic respiratory failure on home oxygen Cardiac arrest with successful resuscitation 08/2024 Liver mass Multiple fractures of ribs associated with chest compression and cardiopulmonary resuscitation 08/2024 Cardiomyopathy PAD (peripheral artery disease) S/P LEFT COMMON ILIAC ARTERY STENTS X 2 Rib fractures Pneumothorax on right Benign essential hypertension Asthma Chronic obstructive pulmonary disease Hyperlipidemia Surgical History Status post ORIF of fracture of ankle 11/2024 - right History of surgery anterior vesicourethropexy History of knee surgery History of wisdom tooth extraction Status post unilateral salpingo-oophorectomy History of tonsillectomy and adenoidectomy History of bladder surgery History of hysterectomy SHY History of surgery on arm LEFT ARM ULNAR SURGERY History of surgery S/P LEFT COMMON ILIAC ARTERY STENTS X 2 Family History Mother Diabetes Ovarian cancer Uterine cancer Father Myocardial infarction Heart disease Brother Heart disease 2 brothers Pacemaker Denies family history of Colon cancer Prostate cancer Breast cancer Social History Smoking Status: Never smoker Tobacco Type: E-cigarettes / Vaping Age Started Using Tobacco: 16; packs per day: 0.5; Cigarettes Per Day: 1/2 PPD X 40 YEARS; Second Hand Exposure: No; Do You Dip or Chew Tobacco: No; Hx Alcohol Use: No Hx Substance Use: No Preferred Language: Malaysian Communication Ability: Effective Visual Impairment: No Limitations Hearing Ability: Normal Tamale Maker Required: No Beliefs That Will Affect Care: None marital status: Current Living Situation: Family Current Living Situation Comment: house with spouse current occupational status: employed and retired 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 [employer] [facility] [employer] [facility] How many Children do You have: 3 Feels Safe at Home: Yes Childhood Exposure to Second-Hand Smoke: Yes Diet: regular Diet Comment: no special diet Dental Care, Regularly: Yes Physical Activity Frequency: 3-4 Times per Week Physical Activity Frequency Comment: walking Seatbelt Use: always Sunscreen Use: Yes Do you think of yourself as: straight/heterosexual Assistive Devices: Oxygen - Continuous, Walker and Wheelchair Review of Systems Review of Systems: All systems reviewed & are unremarkable except as noted in HPI & below Physical Exam Constitutional: WD/WN, vitals as above Respiratory: no respiratory distress, no labored breathing and does not use ac cessory muscles Cardiovascular: Rate/Rhythm: regular rate Gastrointestinal (Abdomen): Abdomen soft, nondistended, nontender to palpation. +roughly a 3cm firm but mobile mass in t he RUQ, no fluctuance, no erythema, no active drainage. Results & Data Vital Signs (Past 12 Hours) Vital Signs Temp Pulse Pulse Resp BP Pulse Ox O2 Del Method 02/08/25 18:27 73 18 119/69 95 Nasal Cannula 02/08/25 17:27 79 18 121/60 90 Nasal Cannula 02/08/25 17:08 Nasal Cannula 02/08/25 16:27 78 120/68 02/08/25 15:40 36.5 C 74 18 119/72 93 Nasal Cannula 02/08/25 15:26 69 16 96 Nasal Cannula 02/08/25 15:10 36.7 C 88 18 131/65 95 Nasal Cannula 02/08/25 14:40 36.7 C 70 18 131/66 96 Nasal Cannula 02/08/25 14:25 36.8 C 70 18 126/62 95 Nasal Cannula 02/08/25 14:00 72 18 116/55 L 91 Nasal Cannula 02/08/25 13:45 74 18 131/49 L 92 Nasal Cannula 02/08/25 12:30 76 18 92 Nasal Cannula 02/08/25 11:47 83 18 93 Nasal Cannula 02/08/25 11:30 36.3 C L 65 18 120/66 90 Nasal Cannula 02/08/25 08:27 Nasal Cannula 02/08/25 08:21 76 02/08/25 07:43 65 02/08/25 07:40 36.3 C L 70 18 126/69 92 Nasal Cannula O2 Flow Rate 02/08/25 18:27 3 02/08/25 17:27 3 02/08/25 17:08 2 02/08/25 16:27 02/08/25 15:40 4 02/08/25 15:26 4 02/08/25 15:10 2 02/08/25 14:40 02/08/25 14:25 2 02/08/25 14:00 4 02/08/25 13:45 4 02/08/25 12:30 3 02/08/25 11:47 3 02/08/25 11:30 2 02/08/25 08:27 2 02/08/25 08:21 10/15/25 07:43 02/08/25 07:[address] CHEST WITHOUT CONTRAST: HISTORY: Shortness of breath TECHNIQUE: CT of the chest was obtained without intravenous contrast. Coronal and sagittal reformats were created. COMPARISON: CT thorax September 18, 2022 FINDINGS: LOWER NECK: Normal thyroid. LYMPH NODES: A few small nonenlarged lymph nodes in the mediastinum. No lymphadenopathy by size criteria. CARDIOVASCULAR: Cardiac size is normal. Coronary artery and valvular calcifications are noted. No aortic aneurysm. LUNGS: The trachea and central bronchi are widely patent. There are scattered ground glass pulmonary densities, for example in the right middle lobe (series 2, image 42). Interval enlargement of multiple pulmonary nodular densities. For example, the left upper lobe pulmonary nodule now measures 1.3 cm in size, previously 7 mm (series 2, image 16). Left lower lobe nodule measuring 8 mm was previously 4 mm (series 2, image 35) Emphysema. Peribronchial cuffing. PLEURA: There are no pleural effusions. There is no pneumothorax. UPPER ABDOMEN: No acute findings. There is a 3 cm soft tissue lesion just deep to the skin over the right anterior abdominal wall (series 2, image 63). Nodular thickening of the adrenal glands. OSSEOUS STRUCTURES: There is a lucent lesion of the T8 vertebral body which appears to be new from previous examination. Also there is sclerosis with deformity in the lower sternal body, possibly posttraumatic. Multiple rib deformities with callus. IMPRESSION: Scattered ground glass densities of the lungs as above may represent mild pneumonia superimposed on background of emphysema. Bronchiolitis As discussed, there are multiple pulmonary nodules which have demonstrated interval growth in size since August 2022 CT examination. Malignancy is a consideration. Recommend further evaluation with PET/CT and oncological workup There is a poorly catheterized 3 cm soft tissue density lesion in the right anterior abdominal wall just deep to the skin. Recommend correlation with direct inspection Lucent lesion at T8 vertebral body appears to be new PG Care Time/CCT Total # of Minutes Spent Total Time Spent with Patient: Total time spent is greater than 50% in coordination of care (as documented) at patient's floor/unit and/or counseling patient: [place] [address] INT INP/OBS CARE 1/40MIN Patient Type New Medical Decision Making Straight Forward Diagnoses Abdominal wall mass R22.2
--- NOTE | 2025-02-08 23:02 | Ultrasound Report ---
Exam(s): US SOFT TISSUE EXAM: US Abdomen Limited CLINICAL HISTORY: Reason for exam: Right upper abdominal wall mass, eval for abscess. TECHNIQUE: Real-time ultrasound of the soft tissues of the abdomen with image documentation. COMPARISON: No relevant prior studies available. FINDINGS: Soft tissues: Heterogeneously echogenic solid-appearing mass within the right chest wall with internal flow measuring 2.9 x 2.4 x 3.6 cm. IMPRESSION: Heterogeneously echogenic solid-appearing mass within the right chest wall with internal flow measuring 2.9 x 2.4 x 3.6 cm. Consider tissue sampling. Electronically signed by: Hever Ortega MD 02/08/25 23:01 PM
[2025-02-09 06:27] LABS: Hematocrit (blood only) 34.7 % (37.0-47.0); Hemoglobin 11.8 g/dl (12.0-16.0); Mean Corpuscular Hemoglobin 29.9 pg (25.0-34.0); Mean Corpuscular Volume 87.8 fL (80.0-100.0); Platelet Count 513 K/uL (130-400); RDW Standard Deviation 50.3 fL (36.4-46.3); Red Blood Count 3.95 M/uL (4.20-5.40); White Blood Count 16.77 K/ul (4.8-10.8)
[2025-02-09 06:54] LABS: Alanine Aminotransferase 10.0 U/L (7-52); Albumin Globulin Ratio 1.1 (0.9-2); Albumin Level 3.1 gm/dl (3.4-5.0); Alkaline Phosphatase 59.0 U/L (34-104); Anion Gap 5.0 (3-11); Bilirubin,Total 0.3 mg/dl (0.2-1.0); Blood Urea Nitrogen 21.0 mg/dl (6-23); Calcium 9.0 mg/dl (8.6-10.3); Carbon Dioxide 35.0 mmol/L (21-32); Chloride 97.0 mmol/L (98-107); Creatinine Clr Calc Pharmacy 105.6 ml/min; Globulin 2.7 gm/dl (2.5-4.0); Glucose 128.0 mg/dl (70-99(Fasting)); Potassium 4.3 mmol/L (3.5-5.1); Sodium 137.0 mmol/L (136-145); Total Protein 5.8 gm/dl (6.0-8.3)
[2025-02-09 06:57] LABS: Immature Granulocytes # (auto) 0.17 K/uL (0.01-0.20); Immature Granulocytes % (auto) 1.0 %; Polychromasia 1+
[2025-02-09 07:07] LABS: INR 1.0 (0.9-1.1); Prothrombin Time 10.6 Seconds (9.0-12.0)
[2025-02-09 07:20] LABS: iSTAT Art Bld Gas Base Excess 9.0 mmol/L (-9-1.8)
[2025-02-09 07:20] LABS: iSTAT Art Bld Gas Base Excess 12.0 mmol/L (-9-1.8)
[2025-02-09] MEDS: SODIUM CHLORIDE 0.65% NA SOLN 45 ML (OCEAN) PRN (09:46)
--- NOTE | 2025-02-09 10:47 | Surgery Progress Note ---
Date of Service February 09, 2025 Assessment & Plan (1) Abdominal wall mass: Plan: Her CT and ultrasound images and results personally viewed and interpreted by myself It does not appear to be cystic on ultrasound or CT scan She has multiple comorbidities, but I do think removal in the operating room under local anesthetic and maybe some sedation would be reasonable I can see her as an outpatient to set this up, or if she is still in the hospital early next week and her Eliquis is held, can plan to do this Thursday Surgery will sign off at this time, please call with any questions or concerns Admission and Anticipated Discharge Date Admission Date: February 07, 2025 Subjective Patient seen and examined. Has some pain with this right upper quadrant abdominal wall mass. Denies any drainage or redness. Review of Systems Constitutional: no fever and no chills Respiratory: no cough and no dyspnea Cardiovascular: no chest pain and no dyspnea on exertion Gastrointestinal: no abdominal pain, no nausea and no vomiting Integumentary: + changing lesions; no acne and no lesio ns Neurologic: no gait abnormality and no unsteadiness Hematologic / Lymphatic: no easy bleeding and no easy bruising Physical Exam Constitutional: WD/WN, vitals as above Eyes: PERRL, conjunctivae normal, anicteric sclerae Respiratory: normal respiratory effort, lungs clear to auscultation Cardiovascular: RRR, no murmur, no edema Gastrointestinal (Abdomen): normal bowel sounds, soft, nontender, no hepatosplenomegaly Skin: no rashes, warm and dry 3 to 4 cm firm mobile mass within the ab dominal wall just deep to the skin in the right upper quadrant, no drainage, no erythema, mild tenderness to palpation Psychiatric: A+Ox3, euthymic affect Results & Data Vital Signs (Past 12 Hours) Vital Signs Temp Pulse Pulse Resp BP Pulse Ox O2 Del Method 02/09/25 09:39 79 02/09/25 07:22 36.6 C 63 18 119/69 94 Nasal Cannula 02/09/25 07:17 66 16 95 Nasal Cannula 02/09/25 04:17 91 Nasal Cannula 02/09/25 03:00 36.7 C 63 18 126/77 94 Nasal Cannula 02/09/25 00:00 92 Nasal Cannula 02/08/25 23:00 95 Nasal Cannula O2 Flow Rate 02/09/25 09:39 02/09/25 07:22 2 02/09/25 07:17 2 02/09/25 04:17 2 02/09/25 03:00 2 02/09/25 00:00 2 02/08/25 23:00 2 PG Care Time/CCT Total # of Minutes Spent Total Time Spent with Patient: Total time spent is greater than 50% in coordination of care (as documented) at patient's floor/unit and/or counseling patient: Coding Level of Care Code 59285 SUB INP/OBS CARE 2/35MIN Diagnoses Abdominal wall mass R22.2
--- NOTE | 2025-02-09 12:22 | Pulmonology Progress Note ---
Date of Service February 09, 2025 Assessment & Plan (1) Acute on chronic respiratory failure with hypoxia and hypercapnia: (2) Multiple pulmonary nodules: (3) Mass of right chest wall: Plan Continue nebulizers. Continue fluticasone inhaler. Continue Solu-Medrol. Can transition to prednisone 40 mg oral tomorrow. Continue montelukast. Continue oxygen supplementation. Obtain sputum sample if possible. I will order IgE and allergy testing. Given patient's recent smoking cessation history as well as chronic bronchitis she would likely benefit from azithromycin outpatient. Will initiate this upon discharge. I will order overnight Pulse oximetry study tonight on 2 L of oxygen which is what the patient uses at home. I will get an ABG in the morning. If the patient has significant CO2 retention then she may qualify for home NIV. General surgery has been consulted for her chest wall mass, they are planning to do excision possibly early next week Versus outpatient. I discussed her increasing size of her pulmonary nodules and that they are suspicious for malignancy. She is agreeable for bronchoscopy. Given the location of the largest nodule that is 1.3 cm I believe that navigational robotic assisted bronchoscopy would be the best option along with EBUS. Unfortunately unable to schedule this procedure inpatient due to lack of staffing. If patient remains in the hospital over the weekend then the oncoming pulmonary provider could consider doing a bronchoscopy, otherwise the patient can be scheduled to do an outpatient bronchoscopy. Thank for this consult. I will follow along with you. Admission and Anticipated Discharge Date Admission Date: February 07, 2025 Subjective Patient seen and examined during rounds today. She states that she is feeling a little bit better today. She wants to try to ambulate today and see how she feels. We attempted to schedule her bronchoscopy however due to lack of staff we will have to cancel this procedure for tomorrow. I explained this to the patient and she is in understanding. Patient is coughing up a little bit of phlegm. Improved aeration bilaterally on examination. Review of Systems Review of Systems: A 12 point review of systems was obtained in detail. Negative except as noted in HPI. Physical Exam Physical Exam: Physical examination: General: Well-appearing, well-nourished and not in acute distress. HEENT: Normocephalic, atraumatic. Extraocular movements intact. Sclera are nonicteric. No JVD appreciated. Skin: Warm and dry. No rashes appreciated. No jaundice appreciated. Cardiovascular: Heart is a regular rate and rhythm, no murmurs appreciated on my exam. No significant lower extremity edema. Lungs: Clear bilaterally, no wheezing appreciated. No crackles. Nontachypneic. Resting comfortably on nasal cannula. -There is a palpable mobile subcutaneous mass appreciated on her right chest wall that is discrete from her breast. Abdomen: Nondistended, nontender to palpation. Musculoskeletal: Normal muscle mass and tone. No gross joint deformity abnormalities. No effusions appreciated. Neurologic: Awake and alert, oriented. CN II through XII are grossly intact. Speech is fluent. Nonfocal exam. Psychiatric: Appropriate cooperative during my exam. Results & Data Results & Data Vital Signs (Past 12 Hours) Vital Signs Temp Pulse Pulse Resp BP Pulse Ox O2 Del Method 02/09/25 11:55 36.6 C 74 18 135/62 93 Nasal Cannula 02/09/25 10:57 78 20 92 Nasal Cannula 02/09/25 09:39 79 02/09/25 07:22 36.6 C 63 18 119/69 94 Nasal Cannula 02/09/25 07:17 66 16 95 Nasal Cannula 02/09/25 04:17 91 Nasal Cannula 02/09/25 03:00 36.7 C 63 18 126/77 94 Nasal Cannula O2 Flow Rate 02/09/25 11:55 2 02/09/25 10:57 3 02/09/25 09:39 02/09/25 07:22 2 02/09/25 07:17 2 02/09/25 04:17 2 02/09/25 03:00 2 PG Care Time/CCT Total # of Minutes Spent Total Time Spent with Patient: Total time spent is greater than 50% in coordination of care (as documented) at patient's floor/unit and/or counseling patient: Coding Level of Care Code 42994 SUB INP/OBS CARE 2/35MIN Diagnoses Acute on chronic respiratory failure with hypoxia and hypercapnia J96.21; J96.22 Multiple pulmonary nodules R91.8 Mass of right chest wall R22.2
--- NOTE | 2025-02-09 19:43 | Hospitalist Progress Note ---
Date of Service February 09, 2025 Assessment & Plan (1) Acute exacerbation of chronic obstructive pulmonary disease: (2) Chest tightness: (3) Acute on chronic respiratory failure with hypoxia and hypercapnia: (4) Benign essential hypertension: (5) Hyperlipidemia: (6) Liver mass: (7) Paroxysmal atrial fibrillation: (8) Pulmonary hypertension: (9) Coronary artery calcification seen on CAT scan: Plan Pleasant 64yo female with chronic hypoxic/hypercapnic respiratory failure on home O2, 1-2 L at rest, 3-5 L with activity; COPD; right ankle fracture s/p ORIF 12/11/24, PAF on Eliquis, pulmonary HTN, liver mass, HTN, hyperlipidemia, and cardiac arrest 08/2024 at [facility] in [place] after receiving IV CT contrast. She was hospitalized for 7 days. Required intubation/[facility] ventilation/ICU stay. Had multiple rib fractures from CPR. Patient reports that ever since her cardiac arrest her breathing has never been the same. She has had increasing amounts of dyspnea on exertion & chest tightness for several months. Now she is at a point where walking only 5-10 feet causes dyspnea on exertion and severe chest tightness. At home, she has checked her O2 sats when she has the symptoms and sometimes she is hypoxic to the upper 70s even with supplemental O2 in place. Her chest tightness is in the upper chest and to the left as well. The tightness will last 15-20 minutes then finally resolve. She never has symptoms at rest. Does not have nocturnal symptoms. She does feel sweaty when she is short of breath and having chest tightness. #Acute on chronic hypoxic/hypercapnic respiratory failure, ongoing COPD exacerbation, abnormal chest CT - Appreciate pulmonology review - unfortunately no longer able to get bronchoscopy this admission Continue duonebs and Solu-Medrol Overnight pulse ox and morning ABG ordered by pulm Mostly back to baseline O2 requirement at this time #Chest tightness Appreciate cardiology evaluation and cardiac catheterization to rule this out as a cause #Abdominal wall mass Planning on surgery as outpatient as likely ready for discharge otherwise tomorrow #abnormal lucency T8 vertebral body on CT scan - -consider dedicated MRI of the thoracic spine but uncertain she could tolerate going into the MRI machine. Recommend follow up with oncology for PET/CT #pulmonary HTN - -severe on echo at [facility] 08/2024 -recent echo here - PA pressures 45-50 -would benefit from right heart cath -may be contributing to dyspnea #h/o cardiac arrest in the setting of IV CT contrast 08/2024 - -spent 1 week in [facility] in [place] -multiple rib & sternal fractures from CPR -she and her state she did not have heart catheterization, etc during that hospitalization #paroxysmal a.fib - Currently in NSR -follows with [facility] and was referred to [facility]/EP for consideration of ablation procedure -cont flecainide BID -cont digoxin; dig level wnl -cont diltiazem QID -cont Eliquis BID #hypothyroidism - -TSH 09/2024 wnl -cont Synthroid #recent right ankle fracture s/p ORIF - -has made full recovery -surgery was in November -weight-bearing as tolerated -has been on Eliquis chronically and I don't believe she has VTE/PEs in the sett ing of that fracture / surgery #liver mass - -this has been followed with careful surveillance by [facility] #HTN - -cont home meds #hyperlipidemia - -cont statin #recent nose bleeding - -humidify the O2 -saline spray frequently -bactroban ointment BID to both nostrils VTE Prophylaxis - holding Eliquis until we work out dates for surgical procedure and bronchoscopy Disposition - continue on PCU, possible discharge home tomorrow Admission and Anticipated Discharge Date Admission Date: February 07, 2025 Subjective Ongoing mild improvement. Remained above 90% on her usual 3LPM O2 on ambulation. Unfortunately no longer able to get bronchoscopy tomorrow. Physical Exam Constitutional: WD/WN, vitals as above ENMT: external ear and nose normal, oropharynx normal Respiratory: normal respiratory effort; no respiratory distress Auscultation: + wheezes (mild expiratory wheeze) Cardiovascular: RRR, no murmur, no edema Results & Data Results & Data Vital Signs (Past 12 Hours) Vital Signs Temp Pulse Pulse Resp BP Pulse Ox O2 Del Method 02/09/25 18:20 72 02/09/25 15:19 36.9 C 79 18 132/63 93 Nasal Cannula 02/09/25 14:19 Nasal Cannula 02/09/25 13:57 72 18 94 Nasal Cannula 02/09/25 11:55 36.6 C 74 18 135/62 93 Nasal Cannula 02/09/25 10:57 78 20 92 Nasal Cannula 02/09/25 09:39 79 02/09/25 08:19 63 O2 Flow Rate 02/09/25 18:20 02/09/25 15:19 2 02/09/25 14:19 2 02/09/25 13:57 2 02/09/25 11:55 2 02/09/25 10:57 3 02/09/25 09:39 02/09/25 08:19 PG Care Time/CCT Total # of Minutes Spent Total Time Spent with Patient: Total time spent is greater than 50% in coordination of care (as documented) at patient's floor/unit and/or counseling patient: Coding Level of Care Code 51362 SUB INP/OBS CARE 2/35MIN Diagnoses Acute exacerbation of chronic obstructive pulmonary disease J44.1 Chest tightness R07.89 Acute on chronic respiratory failure with hypoxia and hypercapnia J96.21; J96.22 Benign essential hypertension I10 Hyperlipidemia E78.5 Liver mass R16.0 Paroxysmal atrial fibrillation I48.0 Pulmonary hypertension I27.20 Coronary artery calcification seen on CAT scan I25.10
[2025-02-10 05:50] LABS: HCO3 ABG 36 mmol/L (19-24); Oxygen Saturation ABG 94.3 % (90-95); PCO2 ABG 48 mmHg (35-46); PO2 ABG 61 mmHg (80-95)
[2025-02-10 05:52] LABS: Allen Test Pos (Pos)
--- NOTE | 2025-02-10 13:12 | Hospitalist Progress Note ---
Date of Service February 10, 2025 Assessment & Plan (1) Acute exacerbation of chronic obstructive pulmonary disease: (2) Chest tightness: (3) Acute on chronic respiratory failure with hypoxia and hypercapnia: (4) Benign essential hypertension: (5) Hyperlipidemia: (6) Liver mass: (7) Paroxysmal atrial fibrillation: (8) Pulmonary hypertension: (9) Coronary artery calcification seen on CAT scan: Plan Pleasant 64yo female with chronic hypoxic/hypercapnic respiratory failure on home O2, 1-2 L at rest, 3-5 L with activity; COPD; right ankle fracture s/p ORIF 12/11/24, PAF on Eliquis, pulmonary HTN, liver mass, HTN, hyperlipidemia, and cardiac arrest 08/2024 at [facility] in [place] after receiving IV CT contrast. She was hospitalized for 7 days. [facility]. Had multiple rib fractures from CPR. Patient reports that ever since her cardiac arrest her breathing has never been the same. She has had increasing amounts of dyspnea on exertion & chest tightness for several months. Now she is at a point where walking only 5-10 feet causes dyspnea on exertion and severe chest tightness. At home, she has checked her O2 sats when she has the symptoms and sometimes she is hypoxic to the upper 70s even with supplemental O2 in place. Her chest tightness is in the upper chest and to the left as well. The tightness will last 15-20 minutes then finally resolve. She never has symptoms at rest. Does not have nocturnal symptoms. She does feel sweaty when she is short of breath and having chest tightness. #Acute on chronic hypoxic/hypercapnic respiratory failure, ongoing COPD exacerbation, abnormal chest CT / pseudomonas on sputum culture Appreciate pulmonology review - unfortunately no longer able to get bronchoscopy this admission Continue duonebs and prednisone Does not meet for NIV with morning ABG, overnight pulse ox without increased O2 requirement Mostly back to baseline O2 requirement at this time Will start pseudomonas treatment with cefepime #Chest tightness Appreciate cardiology evaluation and cardiac catheterization to rule this out as a cause #Abdominal wall mass Planning on surgery as inpatient on #abnormal lucency T8 vertebral body on CT scan - -consider dedicated MRI of the thoracic spine but uncertain she could tolerate going into the MRI machine. Recommend follow up with oncology for PET/CT #pulmonary HTN - -severe on echo at [facility] 08/2024 -recent echo here - PA pressures 45-50 -would benefit from right heart cath -may be contributing to dyspnea #h/o cardiac arrest in the setting of IV CT contrast 08/2024 - -spent 1 week in [facility] in [place] -multiple rib & sternal fractures from CPR -she and her state she did not have heart catheterization, etc during that hospitalization #paroxysmal a.fib - Currently in NSR -follows with [facility] Cardiology and was referred to [facility] for consideration of ablation procedure -cont flecainide BID -cont digoxin; dig level wnl -cont diltiazem QID -cont Eliquis BID #hypothyroidism - -TSH 09/2024 wnl -cont Synthroid #recent right ankle fracture s/p ORIF - -has made full recovery -surgery was in November -weight-bearing as tolerated -has been on Eliquis chronically and I don't believe she has VTE/PEs in the setting of that fracture / surgery #liver mass - -this has been followed with careful surveillance by [facility] #HTN - -cont home meds #hyperlipidemia - -cont statin VTE Prophylaxis - holding Eliquis until we work out dates for surgical procedure and bronchoscopy Disposition - stable for downgrade to med/surg Admission and Anticipated Discharge Date Admission Date: February 07, 2025 Subjective No acute concerns or questions. No fever or chills. Breathing not yet back to baseline but significantly improved. Pseudomonas growing in sputum culture. Physical Exam Constitutional: WD/WN, vitals as above ENMT: external ear and nose normal, oropharynx normal Respiratory: normal respiratory effort, lungs clear to auscultation normal respiratory effort; no respiratory distress Auscultation: + wheezes (mild expiratory wheeze) Cardiovascular: RRR, no murmur, no edema Results & Data Results & Data Vital Signs (Past 12 Hours) Vital Signs Temp Pulse Pulse Pulse Resp BP Pulse Ox 02/10/25 11:06 36.8 C 74 18 136/67 92 02/10/25 10:45 73 18 91 02/10/25 09:50 02/10/25 08:02 72 02/10/25 07:44 36.6 C 61 20 124/81 94 02/10/25 07:05 80 16 92 02/10/25 02:49 36.8 C 69 18 132/77 97 02/10/25 01:24 65 Pulse Ox O2 Del Method O2 Del Method O2 Flow Rate O2 Flow Rate 02/10/25 11:06 Nasal Cannula 2 02/10/25 10:45 Nasal Cannula 2 02/10/25 09:50 Nasal Cannula 2 02/10/25 08:02 02/10/25 07:44 Nasal Cannula 2 02/10/25 07:05 Nasal Cannula 2 02/10/25 02:49 Nasal Cannula 2 02/10/25 01:24 98 Nasal Cannula 2 PG Care Time/CCT Total # of Minutes Spent Total Time Spent with Patient: Total time spent is greater than 50% in coordination of care (as documented) at patient's floor/unit and/or counseling patient: Coding Level of Care Code 41183 SUB INP/OBS CARE 2/35MIN Diagnoses Acute exacerbation of chronic obstructive pulmonary disease J44.1 Chest tightness R07.89 Acute on chronic respiratory failure with hypoxia and hypercapnia J96.21; J96.22 Benign essential hypertension I10 Hyperlipidemia E78.5 Liver mass R16.0 Paroxysmal atrial fibrillation I48.0 Pulmonary hypertension I27.20 Coronary artery calcification seen on CAT scan I25.10
[2025-02-10] MEDS: CEFEPIME 2000MG 2,000 MG/20 ML SYR IV SCH (14:06)
[2025-02-10] MEDS: ACETAMINOPHEN 500 MG TAB PO PRN (14:13)
--- NOTE | 2025-02-10 15:40 | Pulmonology Progress Note ---
Date of Service February 10, 2025 Assessment & Plan (1) Acute on chronic respiratory failure with hypoxia and hypercapnia: (2) Multiple pulmonary nodules: (3) Mass of right chest wall: Plan Continue nebulizers. Continue fluticasone inhaler. Patient was on Solu-Medrol, this has been discontinued. Will order prednisone 40 mg daily to complete 3 more days. Continue montelukast. Continue oxygen supplementation. Sputum cultures growing Pseudomonas. Sensitivities are pending. Patient is on cefepime which is appropriate therapy. Given patient's recent smoking cessation history as well as chronic bronchitis she would likely benefit from azithromycin outpatient. Please initiate azithromycin 500 mg 3 times weekly upon discharge. Overnight pulse oximetry shows no desaturations on 2 L. ABG performed in a.m. with a pCO2 of 48, she does not qualify for home NIV at this time. Pulse oximetry study tonight on 2 L of oxygen which is what the patient uses at home. I will get an ABG in the morning. I have ordered IgE level and allergy panel for completion of workup which can be followed in the outpatient setting. General surgery has been consulted for her chest wall mass, they are planning to do excision possibly early next week versus outpatient. I discussed her increasing size of her pulmonary nodules and that they are suspicious for malignancy. Patient would like to pursue bronchoscopy if possible. She would prefer this procedure be performed while she is here in the hospital if possible. We were unable to schedule it this week due to lack of staffing. This procedure can be done inpatient or outpatient, if patient remains in the hospital Thursday I will have my colleague evaluate her for possible bronchoscopy versus outpatient follow-up. If the patient is discharged over the weekend then she needs to be scheduled for follow-up so bronchoscopy can be ordered in the outpatient setting. Thank for this consult. I will follow peripherally over the weekend. We will see back Thursday. Please call with any questions. Admission and Anticipated Discharge Date Admission Date: February 07, 2025 Subjective Patient doing well this morning. He feels like her breathing is much improved. Over went pulse oximetry on 2 L, she did not have any desaturations with this. Her ABG does not show evidence of hypercapnia. Still having some wheezing however air movement is improved. Cultures from sputum are growing Pseudomonas. Family was at bedside, patient and family are both eager to get a diagnosis of her lung nodule as well as have the surgery performed on her chest wall lesion to get a diagnosis from that as well. She would rather not be discharged home prior to these procedures. Review of Systems Review of Systems: A 12 point review of systems was obtained in detail. Negative except as noted in HPI. Physical Exam Physical Exam: Physical examination: General: Well-appearing, well-nourished and not in acute distress. HEENT: Normocephalic, atraumatic. Extraocular movements intact. Sclera are nonicteric. No JVD appreciated. Skin: Warm and dry. No rashes appreciated. No jaundice appreciated. Cardiovascular: Heart is a regular rate and rhythm, no murmurs appreciated on my exam. No significant lower extremity edema. Lungs: Improved air entry,, mild wheezing appreciated. No crackles. Nontachypneic. Resting comfortably on nasal cannula. -There is a palpable mobile subcutaneous mass appreciated on her right chest wall that is discrete from her breast. Abdomen: Nondistended, nontender to palpation. Musculoskeletal: Normal muscle mass and tone. No gross joint deformity abnormalities. No effusions appreciated. Neurologic: Awake and alert, oriented. CN II through XII are grossly intact. Speech is fluent. Nonfocal exam. Psychiatric: Appropriate cooperative during my exam. Results & Data Results & Data Vital Signs (Past 12 Hours) Vital Signs Temp Pulse Pulse Resp BP Pulse Ox O2 Del Method 02/10/25 15:08 36.9 C 73 18 152/71 H 94 Nasal Cannula 02/10/25 14:21 79 16 94 Nasal Cannula 02/10/25 11:06 36.8 C 74 18 136/67 92 Nasal Cannula 02/10/25 10:45 73 18 91 Nasal Cannula 02/10/25 09:50 Nasal Cannula 02/10/25 08:02 72 02/10/25 07:44 36.6 C 61 20 124/81 94 Nasal Cannula 02/10/25 07:05 80 16 92 Nasal Cannula O2 Flow Rate 02/10/25 15:08 2 02/10/25 14:21 2 02/10/25 11:06 2 02/10/25 10:45 2 02/10/25 09:50 2 02/10/25 08:02 02/10/25 07:44 2 02/10/25 07:05 2 PG Care Time/CCT Total # of Minutes Spent Total Time Spent with Patient: Total time spent is greater than 50% in coordination of care (as documented) at patient's floor/unit and/or counseling patient: Coding Level of Care Code 79152 SUB INP/OBS CARE 2/35MIN Diagnoses Acute on chronic respiratory failure with hypoxia and hypercapnia J96.21; J96.22 Multiple pulmonary nodules R91.8 Mass of right chest wall R22.2
[2025-02-10] MEDS: POLYETHYLENE (MIRALAX) 17 GM PACK PO PRN (20:13)
[2025-02-11] MEDS: predniSONE 20 MG TAB PO SCH (08:22)
--- NOTE | 2025-02-11 16:37 | Hospitalist Progress Note ---
Date of Service February 11, 2025 Assessment & Plan (1) Acute exacerbation of chronic obstructive pulmonary disease: (2) Chest tightness: (3) Acute on chronic respiratory failure with hypoxia and hypercapnia: (4) Benign essential hypertension: (5) Hyperlipidemia: (6) Liver mass: (7) Paroxysmal atrial fibrillation: (8) Pulmonary hypertension: (9) Coronary artery calcification seen on CAT scan: Plan Pleasant 64yo female with chronic hypoxic/hypercapnic respiratory failure on home O2, 1-2 L at rest, 3-5 L with activity; COPD; right ankle fracture s/p ORIF 12/11/24, PAF on Eliquis, pulmonary HTN, liver mass, HTN, hyperlipidemia, and cardiac arrest 08/2024 at [facility] in [place] after receiving IV CT contrast. She was hospitalized for 7 days. Required intubation/[facility] ventilation/ICU stay. Had multiple rib fractures from CPR. Patient reports that ever since her cardiac arrest her breathing has never been the same. She has had increasing amounts of dyspnea on exertion & chest tightness for several months. Now she is at a point where walking only 5-10 feet causes dyspnea on exertion and severe chest tightness. At home, she has checked her O2 sats when she has the symptoms and sometimes she is hypoxic to the upper 70s even with supplemental O2 in place. Her chest tightness is in the upper chest and to the left as well. The tightness will last 15-20 minutes then finally resolve. She never has symptoms at rest. Does not have nocturnal symptoms. She does feel sweaty when she is short of breath and having chest tightness. #Acute on chronic hypoxic/hypercapnic respiratory failure, ongoing COPD exacerbation, abnormal chest CT / pseudomonas on sputum culture Appreciate pulmonology review - ?bronchoscopy next week with new prom burn off operator while holding Eliquis for general surgical procedure, will need to discuss on Thursday Continue duonebs and prednisone (tapering dose per cardiology Does not meet for NIV with morning ABG, overnight pulse ox without increased O2 requirement Back to baseline O2 requirement at this time Started pseudomonas treatment with cefepime 02/10, will continue this while admitted but can switchto levaquin on discharge #Chest tightness Appreciate cardiology evaluation and cardiac catheterization ruled coronary artery disease and heart failure out as a cause #Abdominal wall mass Planning on surgery as inpatient on Thursday #abnormal lucency T8 vertebral body on CT scan - -discussed this with patient and she wishes to discuss gadolinium contrast with her PCP and look into it more despite trying to reassure her this is different from iodinated contrast. No maza to perform this though -Recommend follow up with oncology for PET/CT #pulmonary HTN - -severe on echo at [facility] 08/2024 -recent echo here - PA pressures 45-50 -would benefit from right heart cath -may be contributing to dyspnea #h/o cardiac arrest in the setting of IV CT contrast 08/2024 - -spent 1 week in [facility] in [place] -multiple rib & sternal fractures from CPR -she and her state she did not have heart catheterization, etc during that hospitalization #paroxysmal a.fib - Currently in NSR -follows with [facility] Card[facility] and was referred to [facility]/EP for consideration of ablation procedure -cont flecainide BID -cont digoxin; dig level wnl -cont diltiazem QID -cont Eliquis BID #hypothyroidism - -TSH 09/2024 wnl -cont Synthroid #recent right ankle fracture s/p ORIF - -has made full recovery -surgery was in November -weight-bearing as tolerated -has been on Eliquis chronically and I don't believe she has VTE/PEs in the setting of that fracture / surgery #liver mass - -this has been followed with careful surveillance by [facility] #HTN - -cont home meds #hyperlipidemia - -cont statin VTE Prophylaxis - holding Eliquis until we work out dates for surgical procedure and bronchoscopy Disposition - continue on med/surg, awaiting bronchoscopy next week after treating pseudomonas through the weekend and surgery on Thursday Admission and Anticipated Discharge Date Admission Date: February 07, 2025 Subjective Feels she if coughing up sputum better since starting antibiotics yesterday. Less short of breath on exertion. Physical Exam Constitutional: WD/WN, vitals as above ENMT: external ear and nose normal, oropharynx normal Respiratory: normal respiratory effort, lungs clear to auscultation normal respiratory effort; no respiratory distress Auscultation: + wheezes (very mild expiratory wheeze) Cardiovascular: RRR, no murmur, no edema Results & Data Results & Data Vital Signs (Past 12 Hours) Vital Signs Temp Pulse Pulse Resp BP Pulse Ox O2 Del Method 02/11/25 15:23 36.7 C 78 18 139/65 93 Nasal Cannula 02/11/25 15:04 71 16 95 Nasal Cannula 02/11/25 11:09 36.6 C 65 18 117/68 92 Nasal Cannula 02/11/25 11:01 67 18 92 Nasal Cannula 02/11/25 10:35 69 02/11/25 10:00 Nasal Cannula 02/11/25 07:58 56 L 02/11/25 07:37 62 22 93 Nasal Cannula 02/11/25 07:14 36.9 C 56 L 18 151/81 H 97 Nasal Cannula O2 Flow Rate 02/11/25 15:23 2 02/11/25 15:04 2 02/11/25 11:09 2 02/11/25 11:01 2 02/11/25 10:35 02/11/25 10:00 2 02/11/25 07:58 02/11/25 07:37 2 02/11/25 07:14 2 PG Care Time/CCT Total # of Minutes Spent Total Time Spent with Patient: Total time spent is greater than 50% in coordination of care (as documented) at patient's floor/unit and/or counseling patient: Coding Level of Care Code 89223 SUB INP/OBS CARE 2/35MIN Diagnoses Acute exacerbation of chronic obstructive pulmonary disease J44.1 Chest tightness R07.89 Acute on chronic respiratory failure with hypoxia and hypercapnia J96.21; J96.22 Benign essential hypertension I10 Hyperlipidemia E78.5 Liver mass R16.0 Paroxysmal atrial fibrillation I48.0 Pulmonary hypertension I27.20 Coronary artery calcification seen on CAT scan I25.10
--- NOTE | 2025-02-12 17:55 | Hospitalist Progress Note ---
Date of Service February 12, 2025 Assessment & Plan (1) Acute exacerbation of chronic obstructive pulmonary disease: (2) Chest tightness: (3) Acute on chronic respiratory failure with hypoxia and hypercapnia: (4) Benign essential hypertension: (5) Hyperlipidemia: (6) Liver mass: (7) Paroxysmal atrial fibrillation: (8) Pulmonary hypertension: (9) Coronary artery calcification seen on CAT scan: Plan Pleasant 64yo female with chronic hypoxic/hypercapnic respiratory failure on home O2, 1-2 L at rest, 3-5 L with activity; COPD; right ankle fracture s/p ORIF 12/11/24, PAF on Eliquis, pulmonary HTN, liver mass, HTN, hyperlipidemia, and cardiac arrest 08/2024 at [facility] in [place] after receiving IV CT contrast. She was hospitalized for 7 days. Required intubation/[facility] ventilation/ICU stay. Had multiple rib fractures from CPR. Patient reports that ever since her cardiac arrest her breathing has never been the same. She has had increasing amounts of dyspnea on exertion & chest tightness for several months. Now she is at a point where walking only 5-10 feet causes dyspnea on exertion and severe chest tightness. At home, she has checked her O2 sats when she has the symptoms and sometimes she is hypoxic to the upper 70s even with supplemental O2 in place. Her chest tightness is in the upper chest and to the left as well. The tightness will last 15-20 minutes then finally resolve. She never has symptoms at rest. Does not have nocturnal symptoms. She does feel sweaty when she is short of breath and having chest tightness. #Acute on chronic hypoxic/hypercapnic respiratory failure, ongoing COPD exacerbation, abnormal chest CT / pseudomonas on sputum culture Appreciate pulmonology review - ?bronchoscopy next week with new cylinder press feeder while holding Eliquis for general surgical procedure, will need to discuss on Thursday, NPO after midnight Continue duonebs and prednisone (tapering dose per pulmonology) Does not meet for NIV with morning ABG, overnight pulse ox without increased O2 requirement Back to baseline O2 requirement at this time Started pseudomonas treatment with cefepime 02/10, will continue this while admitted but can switch to levaquin on discharge #Abdominal wall mass Planning on surgery as inpatient on Thursday #Chest tightness Appreciate cardiology evaluation and cardiac catheterization ruled coronary artery disease and heart failure out as a cause #abnormal lucency T8 vertebral body on CT scan - -discussed with patient and she wishes to discuss gadolinium contrast with her PCP and look into it more despite trying to reassure her this is different from iodinated contrast. No maza to perform this though. -Recommend follow up with oncology for PET/CT #pulmonary HTN - -severe on echo at [facility] 08/2024 -recent echo here - PA pressures 45-50 -would benefit from right heart cath -may be contributing to dyspnea #h/o cardiac arrest in the setting of IV CT contrast 08/2024 - -spent 1 week in [facility] in [place] -multiple rib & sternal fractures from CPR -she and her state she did not have heart catheterization, etc during that hospitalization #paroxysmal a.fib - Currently in NSR -follows with [facility] Cardiology and was referred to [facility] for consideration of ablation procedure -cont flecainide BID -cont digoxin; dig level wnl -cont diltiazem QID -cont Eliquis BID (currently on hold for bronch/surgery) #hypothyroidism - -TSH 09/2024 wnl -cont Synthroid #recent right ankle fracture s/p ORIF - -has made full recovery -surgery was in November -weight-bearing as tolerated #liver mass - -this has been followed with careful surveillance by [facility] #HTN - -cont home meds #hyperlipidemia - -cont statin VTE Prophylaxis - holding Eliquis until surgery and bronchoscopy Disposition - continue on med/surg, awaiting bronchoscopy next week after treating pseudomonas through the weekend and surgery on Thursday Admission and Anticipated Discharge Date Admission Date: February 07, 2025 Subjective Continued improvement after cefepime started. No acute concerns or questions. Awaiting bronchoscopy decision tomorrow. Physical Exam Constitutional: WD/WN, vitals as above Respiratory: normal respiratory effort; no respiratory distress Results & Data Results & Data Vital Signs (Past 12 Hours) Vital Signs Temp Pulse Pulse Resp BP Pulse Ox O2 Del Method 02/12/25 15:22 37 C 67 20 128/73 92 Nasal Cannula 02/12/25 14:35 73 16 92 Nasal Cannula 02/12/25 10:35 69 16 93 Nasal Cannula 02/12/25 09:15 72 02/12/25 07:42 36.7 C 61 19 130/62 94 Nasal Cannula 02/12/25 07:00 Nasal Cannula 02/12/25 07:00 60 16 95 Nasal Cannula O2 Flow Rate 02/12/25 15:22 2 02/12/25 14:35 2 02/12/25 10:35 2 02/12/25 09:15 02/12/25 07:42 2 02/12/25 07:00 2 02/12/25 07:00 2 PG Care Time/CCT Total # of Minutes Spent Total Time Spent with Patient: Total time spent is greater than 50% in coordination of care (as documented) at patient's floor/unit and/or counseling patient: Coding Level of Care Code 57660 SUB INP/OBS CARE 2/35MIN Diagnoses Acute exacerbation of chronic obstructive pulmonary disease J44.1 Chest tightness R07.89 Acute on chronic respiratory failure with hypoxia and hypercapnia J96.21; J96.22 Benign essential hypertension I10 Hyperlipidemia E78.5 Liver mass R16.0 Paroxysmal atrial fibrillation I48.0 Pulmonary hypertension I27.20 Coronary artery calcification seen on CAT scan I25.10
[2025-02-13 06:17] LABS: Hematocrit (blood only) 38.0 % (37.0-47.0); Hemoglobin 12.4 g/dl (12.0-16.0); Immature Granulocytes # (auto) 0.39 K/uL (0.01-0.20); Immature Granulocytes % (auto) 3.5 %; Mean Corpuscular Hemoglobin 28.9 pg (25.0-34.0); Mean Corpuscular Volume 88.6 fL (80.0-100.0); Platelet Count 434 K/uL (130-400); RDW Standard Deviation 51.8 fL (36.4-46.3); Red Blood Count 4.29 M/uL (4.20-5.40); White Blood Count 11.10 K/ul (4.8-10.8)
--- NOTE | 2025-02-13 06:30 | Electrocardiogram Report ---
Test Reason : Blood Pressure : */* mmHG Vent. Rate : 85 BPM Atrial Rate : 85 BPM P-R Int : 150 ms QRS Dur : 88 ms QT Int : 326 ms P-R-T Axes : 68 77 89 degrees QTcB Int : 387 ms Sinus rhythm with Premature atrial complexes Otherwise normal ECG When compared with ECG of 23-Jan-2025 14:12, Premature atrial complexes are now Present Confirmed by Job Lopez ([id number] on 02/13/2025 6:29:55 AM Referred By: Confirmed By: Job Lopez
[2025-02-13 06:45] LABS: Anion Gap 5.0 (3-11); Blood Urea Nitrogen 21.0 mg/dl (6-23); Calcium 8.9 mg/dl (8.6-10.3); Carbon Dioxide 35.0 mmol/L (21-32); Chloride 97.0 mmol/L (98-107); Creatinine Clr Calc Pharmacy 84.7 ml/min; Glucose 84.0 mg/dl (70-99(Fasting)); Potassium 4.4 mmol/L (3.5-5.1); Sodium 137.0 mmol/L (136-145)
[2025-02-13 06:57] LABS: INR 1.0 (0.9-1.1); Prothrombin Time 10.4 Seconds (9.0-12.0)
--- NOTE | 2025-02-13 07:40 | Pulmonology Progress Note ---
Date of Service February 13, 2025 Assessment & Plan (1) Acute on chronic respiratory failure with hypoxia and hypercapnia: (2) Multiple pulmonary nodules: (3) Mass of right chest wall: (4) COPD with emphysema: (5) Nicotine dependence: Plan Social history:> [id number] smoking history, quit September 2024 No pets at home No history of asthma No history of lung cancer in the family CT chest 02/07/2025 personally reviewed: Left upper lobe 1.3 cm pulmonary nodule, left lower lobe 8 mm pulmonary nodule Centrilobular and paraseptal emphysema appreciated bilaterally No significant mediastinal lymphadenopathy 2D echo 01/24/2025: EF 60-65%, grade 1 diastolic dysfunction, RVSP 40-50 mmHg -- COPD with emphysema with acute exacerbation >50 Pack-year smoking history On Symbicort 160 and Spiriva at home Sputum culture positive for Pseudomonas, pansensitive Absolute eosinophil count 300 on 02/13/2025, as high as 630 on 01/23/2025 IgE 26, hospital negative for everything on 02/09/2025 Will benefit from Biologics as an outpatient -- Multiple pulmonary nodules Largest one being 1.3 cm in the left upper lobe Increasing in size compared to August 2022 The probability of it being malignancy is very high Patient will need bronchoscopy for diagnosis if the abdominal mass is negative --Pulmonary hypertension Combination of type I and type II --A-fib On Eliquis at home --History of liver mass Followed by [facility] Plan: Change Breo to nebulized budesonide and formoterol while in the hospital Add 7% hypertonic saline nebulized. Patient will benefit from Biologics as an outpatient Recommend outpatient PFT and pulmonary follow-up I discussed with the patient that given she is going to have surgery done of the abdominal mass, it is sensible to wait and make sure that the mass is not related to the lung nodule that she has Doing outpatient PET/CT would be the best approach if the abdominal mass is not related to the lung. Patient does have significant allergy to iodinated contrast. We can consider only FDG radioactive tracer rather than contrast during the PET/CT Will discuss it with radiology to get their opinion. All questions inquiries of the patient as well as patient's were answered in depth. Pulmonary will continue to follow I spent more than 50 minutes looking in the chart, images, discussing with outgoing physician, discussing the plan of care with the patient, RN as well as primary team Please note the above document was generated using voice recognition software. It may contain grammatical, syntax or spelling errors.Any formal questions or concerns about the content, text or information contained within the body of this dictation should be directly addressed to the provider for clarification. Admission and Anticipated Discharge Date Admission Date: February 07, 2025 Subjective Patient was seen and examined at bedside. No acute distress, no adverse events overnight Case was discussed with outgoing escalator operator She was saturating 93% on 2 L nasal cannula at rest Overall she says she is doing better Breathing is going back to her baseline Denies any chest pain Does complain of cough and having difficulty bringing up the phlegm. No hemoptysis Patient's was in the room at the time of examination Review of Systems 2 Review of Systems: All systems reviewed & are unremarkable except as noted in Subjective Physical Exam 2 Physical Exam: Constitutional: No acute distress HEENT: EOMI, PERRLA Respiratory system: Decreased air entry bilaterally, minimal expiratory wheeze bilaterally, no rhonchi, mild crackles bilateral lower lobe CVS: S1-S2 positive, no murmurs or gallops Abdomen: Soft, nontender, nondistended, positive bowel sounds x4 Extremities: +2 pulses bilaterally radialis/ dorsalis pedis, no cyanosis, no edema Neuro: Awake alert oriented x3 Psych: Normal mood and affect G/U: No Munoz Skin: no rashes, warm and dry Lymphatic: no cervical or axillary lymphadenopathy Results & Data Results & Data Vital Signs (Past 12 Hours) Vital Signs Temp Pulse Resp BP Pulse Ox O2 Del Method O2 Flow Rate 02/13/25 03:25 36.5 C 58 L 20 125/67 95 Nasal Cannula 2 02/12/25 20:29 36.8 C 70 20 127/69 98 Nasal Cannula 2 02/12/25 20:17 69 20 92 Nasal Cannula 02/12/25 20:00 Nasal Cannula 2 Laboratory Results 02/13/25 05:47 02/13/25 05:47 PG Care Time/CCT Total # of Minutes Spent Total Time Spent with Patient: Total time spent is greater than 50% in coordination of care (as documented) at patient's floor/unit and/or counseling patient: Coding Level of Care Code 01826 SUB INP/OBS CARE 3/50MIN Diagnoses Acute on chronic respiratory failure with hypoxia and hypercapnia J96.21; J96.22 Multiple pulmonary nodules R91.8 Mass of right chest wall R22.2 COPD with emphysema J43.9 Nicotine dependence F17.200
--- NOTE | 2025-02-13 10:14 | Surgery Progress Note ---
Date of Service February 13, 2025 Assessment & Plan (1) Abdominal wall mass: Plan: Pt here w/ respiratory issues, we are consulted for an abdominal wall mass that has been present for quite some time and growing per pt and painful she is npo today for possible bronchoscopy. she does state she feels better respiratory sanchez if stable per medicine we will proceed with removal of right sided abdominal wall mass tomorrow in the OR hold any blood thinners and keep NPO at midnight in anticipation for surgery tomorrow Admission and Anticipated Discharge Date Admission Date: February 07, 2025 Subjective Pt reports no change or issues with right sided abdominal mass since we saw her last week Physical Exam Physical Exam: awake/alert, no distress Respiratory: on supplemental O2 Gastrointestinal (Abdomen): + right sided lump under skin on right s ided abdomen Results & Data Vital Signs (Past 12 Hours) Vital Signs Temp Pulse Pulse Resp BP Pulse Ox O2 Del Method 02/13/25 08:52 76 02/13/25 08:00 Nasal Cannula 02/13/25 07:56 78 18 96 Nasal Cannula 02/13/25 03:25 97.7 F 58 L 20 125/67 95 Nasal Cannula O2 Flow Rate 02/13/25 08:52 02/13/25 08:00 2 02/13/25 07:56 2 02/13/25 03:25 2 PG Care Time/CCT Total # of Minutes Spent Total Time Spent with Patient: Total time spent is greater than 50% in coordination of care (as documented) at patient's floor/unit and/or counseling patient: Coding Level of Care Code 38717 SUB INP/OBS CARE 25MIN Diagnoses Abdominal wall mass R22.2
--- NOTE | 2025-02-13 13:31 | Hospitalist Progress Note ---
Date of Service February 13, 2025 Assessment & Plan (1) Acute exacerbation of chronic obstructive pulmonary disease: (2) Chest tightness: (3) Acute on chronic respiratory failure with hypoxia and hypercapnia: (4) Benign essential hypertension: (5) Hyperlipidemia: (6) Liver mass: (7) Paroxysmal atrial fibrillation: (8) Pulmonary hypertension: (9) Coronary artery calcification seen on CAT scan: Plan Pleasant 64yo female with chronic hypoxic/hypercapnic respiratory failure on home O2, 1-2 L at rest, 3-5 L with activity; COPD; right ankle fracture s/p ORIF 12/11/24, PAF on Eliquis, pulmonary HTN, liver mass, HTN, hyperlipidemia, and cardiac arrest 08/2024 at [facility] in [place] after receiving IV CT contrast. She was hospitalized for 7 days. Required intubation/[facility] ventilation/ICU stay. Had multiple rib fractures from CPR. Patient reports that ever since her cardiac arrest her breathing has never been the same. She has had increasing amounts of dyspnea on exertion & chest tightness for several months. Now she is at a point where walking only 5-10 feet causes dyspnea on exertion and severe chest tightness. At home, she has checked her O2 sats when she has the symptoms and sometimes she is hypoxic to the upper 70s even with supplemental O2 in place. Her chest tightness is in the upper chest and to the left as well. The tightness will last 15-20 minutes then finally resolve. She never has symptoms at rest. Does not have nocturnal symptoms. She does feel sweaty when she is short of breath and having chest tightness. #Acute on chronic hypoxic/hypercapnic respiratory failure, ongoing COPD exacerbation, Abnormal chest CT, pseudomonas bronchitis Appreciate pulmonology review - bronchoscopy deferred pending pathology on surgical mass Continue duonebs and prednisone (tapering dose per pulmonology) Does not meet for NIV with morning ABG, overnight pulse ox without increased O2 requirement Back to baseline O2 requirement at this time Started pseudomonas treatment with cefepime 02/10, will continue this while admitted but can switch to levaquin on discharge #Abdominal wall mass Planning on surgery as inpatient on Thursday (tomorrow), NPO after midnight, do not hold morning medications #Chest tightness Appreciate cardiology evaluation and cardiac catheterization ruled coronary artery disease and heart failure out as a cause #abnormal lucency T8 vertebral body on CT scan - -discussed with patient and she wishes to discuss gadolinium contrast with her PCP and look into it more despite trying to reassure her this is different from iodinated contrast. No maza to perform this though. -Recommend follow up with oncology for PET/CT #pulmonary HTN - -severe on echo at [facility] 08/2024 -recent echo here - PA pressures 45-50 -would benefit from right heart cath -may be contributing to dyspnea #h/o cardiac arrest in the setting of IV CT contrast 08/2024 - -spent 1 week in [facility] in [place] -multiple rib & sternal fractures from CPR -she and her state she did not have heart catheterization, etc during that hospitalization #paroxysmal a.fib - Currently in NSR -follows with [facility] Cardiology and was referred to [facility]/EP for consideration of ablation procedure -cont flecainide BID -cont digoxin; dig level wnl -cont diltiazem QID -cont Eliquis BID (currently on hold for bronch/surgery) #hypothyroidism - -TSH 09/2024 wnl -cont Synthroid #recent right ankle fracture s/p ORIF - -has made full recovery -surgery was in November -weight-bearing as tolerated #liver mass - -this has been followed with careful surveillance by [facility] #HTN - -cont home meds #hyperlipidemia - -cont statin VTE Prophylaxis - holding Eliquis until surgery and bronchoscopy Disposition - continue on med/surg, awaiting surgery tomorrow, possible discharge home following this Admission and Anticipated Discharge Date Admission Date: February 07, 2025 Anticipated date of discharge: 02/14/25 Subjective Continued mild improvement. NPO awaiting pulm decision on bronchoscopy. No acute concerns or questions from the patient. Physical Exam Constitutional: WD/WN, vitals as above ENMT: external ear and nose normal, oropharynx normal Respiratory: normal respiratory effort, lungs clear to auscultation normal respiratory effort; no respiratory distress Auscultation: + wheezes (very mild expiratory wheeze) Cardiovascular: RRR, no murmur, no edema Results & Data Results & Data Vital Signs (Past 12 Hours) Vital Signs Temp Pulse Pulse Resp BP Pulse Ox O2 Del Method 02/13/25 11:34 36.6 C 75 19 132/71 91 Nasal Cannula 02/13/25 10:38 68 18 92 Nasal Cannula 02/13/25 08:52 76 02/13/25 08:00 Nasal Cannula 02/13/25 07:56 78 18 96 Nasal Cannula 02/13/25 03:25 36.5 C 58 L 20 125/67 95 Nasal Cannula O2 Flow Rate 02/13/25 11:34 2 02/13/25 10:38 2 02/13/25 08:52 02/13/25 08:00 2 02/13/25 07:56 2 02/13/25 03:25 2 PG Care Time/CCT Total # of Minutes Spent Total Time Spent with Patient: Total time spent is greater than 50% in coordination of care (as documented) at patient's floor/unit and/or counseling patient: Coding Level of Care Code 26348 SUB INP/OBS CARE 2/35MIN Diagnoses Acute exacerbation of chronic obstructive pulmonary disease J44.1 Chest tightness R07.89 Acute on chronic respiratory failure with hypoxia and hypercapnia J96.21; J96.22 Benign essential hypertension I10 Hyperlipidemia E78.5 Liver mass R16.0 Paroxysmal atrial fibrillation I48.0 Pulmonary hypertension I27.20 Coronary artery calcification seen on CAT scan I25.10
[2025-02-13 14:24] LABS: Cockroach IgE Ab <0.10 kU/L; Cottonwood Class 0; Mouse Urine Protein Class 0; Mouse Urine Protein IgE <0.10 kU/L; Mugwort (W6) IgE <0.10 kU/L; Oak-White Class 0; Oak-White IgE <0.10 kU/L; Sycamore Class 0; Sycamore IgE <0.10 kU/L
[2025-02-13] MEDS: BUDESONIDE 0.25 MG/2 ML VIAL (PULMICORT) NEB SCH (21:10)
[2025-02-13] MEDS: SODIUM CHLOR 7% 4 ML NEB NEB SCH (21:10)
[2025-02-13] MEDS: FORMOTEROL 20 MCG/2 ML VIAL INH SCH (21:11)
--- NOTE | 2025-02-14 08:02 | Pulmonology Progress Note ---
Date of Service February 14, 2025 Assessment & Plan (1) Acute on chronic respiratory failure with hypoxia and hypercapnia: (2) Multiple pulmonary nodules: (3) Mass of right chest wall: (4) COPD with emphysema: (5) Nicotine dependence: Plan Social history:> [id number] smoking history, quit September 2024 No pets at home No history of asthma No history of lung cancer in the family CT chest 02/07/2025 personally reviewed: Left upper lobe 1.3 cm pulmonary nodule, left lower lobe 8 mm pulmonary nodule Centrilobular and paraseptal emphysema appreciated bilaterally No significant mediastinal lymphadenopathy 2D echo 01/24/2025: EF 60-65%, grade 1 diastolic dysfunction, RVSP 40-50 mmHg -- COPD with emphysema with acute exacerbation >50 Pack-year smoking history On Symbicort 160 and Spiriva at home Sputum culture positive for Pseudomonas, pansensitive Absolute eosinophil count 300 on 02/13/2025, as high as 630 on 01/23/2025 IgE 26, hospital negative for everything on 02/09/2025 Will benefit from Biologics as an outpatient -- Multiple pulmonary nodules Largest one being 1.3 cm in the left upper lobe Increasing in size compared to August 2022 The probability of it being malignancy is very high Patient will need bronchoscopy for diagnosis if the abdominal mass is negative --Pulmonary hypertension Combination of type I and type II --A-fib On Eliquis at home --History of liver mass Followed by [facility] Plan: Continue with budesonide and formoterol while in the hospital Continue with 7% hypertonic saline nebulized along with Mucinex and flutter valve Patient will benefit from Biologics as an outpatient given the elevated eosinophil count Recommend outpatient PFT and pulmonary follow-up I discussed with the patient that given she is going to have surgery done of the abdominal mass, it is sensible to wait and make sure that the mass is not related to the lung nodule that she has Doing outpatient PET/CT would be the best approach if the abdominal mass is not related to the lung. Patient does have significant allergy to iodinated contrast. I discussed the case with radiology and they say that radiotracer for PET/CT should be okay and the patient Will discuss it with radiology to get their opinion. All questions inquiries of the patient as well as patient's were answered in depth. Please note the above document was generated using voice recognition software. It may contain grammatical, syntax or spelling errors.Any formal questions or concerns about the content, text or information contained within the body of this dictation should be directly addressed to the provider for clarification. Admission and Anticipated Discharge Date Admission Date: February 07, 2025 Subjective Patient seen and examined at bedside. No acute distress, no adverse events overnight Patient was saturating 93-94% on 2 L nasal cannula Denied any headache, no nausea or vomiting She is n.p.o. for surgery today Overall she says she is feeling better when it comes to her breathing compared to before Review of Systems 2 Review of Systems: All systems reviewed & are unremarkable except as noted in Subjective Physical Exam 2 Physical Exam: Constitutional: No acute distress HEENT: EOMI, PERRLA Respiratory system: Decreased air entry bilaterally, no wheeze, no rhonchi, mild crackles bilateral lower lobe CVS: S1-S2 positive, no murmurs or gallops Abdomen: Soft, nontender, nondistended, positive bowel sounds x4 Extremities: +2 pulses bilaterally radialis/ dorsalis pedis, no cyanosis, no edema Neuro: Awake alert oriented x3 Psych: Normal mood and affect G/U: No Munoz Skin: no rashes, warm and dry Lymphatic: no cervical or axillary lymphadenopathy Results & Data Results & Data Vital Signs (Past 12 Hours) Vital Signs Temp Pulse Resp BP Pulse Ox O2 Del Method O2 Flow Rate 02/14/25 07:08 68 18 96 Nasal Cannula 2 02/13/25 23:12 36.5 C 64 18 114/66 96 Nasal Cannula 2.0 02/13/25 21:12 71 18 93 Nasal Cannula 2 Laboratory Results 02/13/25 05:47 02/13/25 05:47 PG Care Time/CCT Total # of Minutes Spent Total Time Spent with Patient: Total time spent is greater than 50% in coordination of care (as documented) at patient's floor/unit and/or counseling patient: Coding Level of Care Code 90578 SUB INP/OBS CARE 2/35MIN Diagnoses Acute on chronic respiratory failure with hypoxia and hypercapnia J96.21; J96.22 Multiple pulmonary nodules R91.8 Mass of right chest wall R22.2 COPD with emphysema J43.9 Nicotine dependence F17.200
--- NOTE | 2025-02-14 09:30 | Surgery Progress Note ---
Date of Service February 14, 2025 Assessment & Plan (1) Abdominal wall mass: Plan: Proceed with excision of abdominal wall mass today in the OR Consent was obtained, risks discussed including bleeding, infection, need for further surgery Admission and Anticipated Discharge Date Admission Date: February 07, 2025 Subjective Pt seen and examined. No acute events overnight. Eliquis still on hold Review of Systems Constitutional: no fever and no chills Respiratory: no cough and no dyspnea Cardiovascular: no chest pain and no dyspnea on exertion Gastrointestinal: no abdominal pain, no nausea and no vomiting Integumentary: + changing lesions; no acne and no lesio ns Neurologic: no gait abnormality and no unsteadiness Hematologic / Lymphatic: no easy bleeding and no easy bruising Physical Exam Constitutional: WD/WN, vitals as above Eyes: PERRL, conjunctivae normal, anicteric sclerae Respiratory: normal respiratory effort, lungs clear to auscultation Cardiovascular: RRR, no murmur, no edema Gastrointestinal (Abdomen): normal bowel sounds, soft, nontender, no hepatosplenomegaly Skin: no rashes, warm and dry 3 to 4 cm firm mobile mass within the ab dominal wall just deep to the skin in the right upper quadrant, no drainage, no erythema, mild tenderness to palpation Psychiatric: A+Ox3, euthymic affect Results & Data Vital Signs (Past 12 Hours) Vital Signs Temp Pulse Pulse Resp BP Pulse Ox O2 Del Method 02/14/25 08:20 86 02/14/25 08:17 36.8 C 86 22 127/79 93 Nasal Cannula 02/14/25 08:00 Nasal Cannula 02/14/25 07:08 68 18 96 Nasal Cannula 02/13/25 23:12 36.5 C 64 18 114/66 96 Nasal Cannula O2 Flow Rate 02/14/25 08:20 02/14/25 08:17 2 02/14/25 08:00 2 02/14/25 07:08 2 02/13/25 23:12 2.0 PG Care Time/CCT Total # of Minutes Spent Total Time Spent with Patient: Total time spent is greater than 50% in coordination of care (as documented) at patient's floor/unit and/or counseling patient: Coding Level of Care Code 44965 SUB INP/OBS CARE 25MIN Diagnoses Abdominal wall mass R22.2
[2025-02-14] MEDS: LACTATED RINGER'S 1,000 ML IV SCH (09:44)
[2025-02-14] MEDS ORDERED: PROMETHAZINE HCL 6.25 MG in SODIUM CHLORIDE 0.9% 50 ML IV PRN (09:50)
[2025-02-14] MEDS ORDERED: ATROPINE SULFATE 0.1 MG/ML 10ML SYR IV PRN (09:50)
--- NOTE | 2025-02-14 09:50 | Anesthesiology Consultation ---
Date of Service February 14, 2025 Assessment & Plan ASA ASA3 Proposed Anesthesia Anesthesia Type: General Risk / Benefits Reviewed With: PT / POA / Parent / Guardian, Accepts Plan and Informed Consent Obtained History Surgery Operation Date: 02/08/25 12:00 Proposed Procedures p Cath, Right and Left Heart - Brain Osborn MD Operation Date: 02/10/25 14:00 Proposed Procedures p Robotic Navigational Bronchoscopy - Allegra Lee MD s Endobronchial Ultrasound - Allegra Lee MD Operation Date: 02/14/25 10:30 Proposed Procedures p Abdominal Wall Mass Excision - Masoud Dickson DO Height/Weight Height: 5 ft 5 in Weight: 74.5 kg Allergies Allergy/AdvReac Type Severity Reaction Status Date / Time Iodinated Contrast Media Allergy Severe Cardiac Verified 02/08/25 12:35 arrest lisinopril Allergy Severe SOB, Verified 02/08/25 12:35 SEVERE COUGHING FITS Medications Home Medications Medication Instructions Recorded Confirmed Last Taken cholecalciferol (vitamin D3) 125 5,000 unit PO DAILY 10/11/20 02/07/25 02/07/25 mcg (5,000 unit) capsule zoledronic acid 5 mg/100 mL in 1 ea IV YEARLY #100 mL 09/10/22 02/07/25 Unknown mannitol 5 %-water intravenous piggybck (Reclast) montelukast 10 mg tablet 10 mg PO QAM #90 tabs 06/13/24 02/07/25 02/07/25 tiotropium bromide 18 mcg capsule 1 cap inhalation DAILY #90 08/03/24 02/07/25 02/07/25 with inhalation device (Spiriva inhalations with HandiHaler) famotidine 20 mg tablet 20 mg PO BID #180 tabs 09/13/24 02/07/25 02/07/25 05:00 levothyroxine 50 mcg tablet 50 mcg PO DAILY #90 tabs 09/13/24 02/07/25 02/07/25 apixaban 5 mg tablet (Eliquis) 5 mg PO BID #180 tabs 10/05/24 02/07/25 02/07/25 05:00 atorvastatin 40 mg tablet 40 mg PO DAILY #90 tabs 10/05/24 02/07/25 02/07/25 budesonide-formoterol HFA 160 2 puff inhalation BID #30.6 grams 11/30/24 02/07/25 02/07/25 05:00 mcg-4.5 mcg/actuation aerosol inhaler (Symbicort) digoxin 125 mcg (0.125 mg) tablet 125 mcg PO DAILY 12/10/24 02/07/25 02/07/25 flecainide 100 mg tablet 100 mg PO Q12 12/10/24 02/07/25 02/07/25 05:00 furosemide 20 mg tablet 20 mg PO QAM 30 days #30 tabs 01/26/25 02/07/25 02/07/25 guaifenesin 600 mg tablet, 1,200 mg (2 x 600 mg) PO Q12 #120 01/26/25 02/07/25 02/07/25 05:00 extended release 12 hr (Mucinex) tabs pregabalin 25 mg capsule 25 mg PO BID #60 caps 01/26/25 02/07/25 02/07/25 05:00 oxycodone 5 mg tablet 5 mg PO Q8H PRN pain #18 tabs 01/30/25 02/07/25 Unknown albuterol sulfate 90 mcg/actuation 1 - 2 inh inhalation .Q4-6H PRN 02/02/25 02/07/25 Unknown aerosol inhaler sob #25.5 grams diltiazem HCl 60 mg tablet 120 mg (2 x 60 mg) PO QID #240 tabs 02/02/25 02/07/25 02/07/25 12:00 ipratropium 0.5 mg-albuterol 3 mg 3 ml inhalation QID PRN wheezing 02/02/25 02/07/25 Unknown (2.5 mg base)/3 mL nebulization #90 mL soln prednisone 20 mg tablet See Rx Instructions .Route 02/02/25 02/07/25 02/07/25 .COMPLEX 10 days #15 tabs 20 MG acetaminophen 500 mg tablet 1,000 mg PO Q8H PRN Pain 02/07/25 02/07/25 Unknown (Tylenol Extra Strength) Active Medications Generic Name Dose Route Start Last Admin Trade Name Freq PRN Reason Stop Dose Admin Acetaminophen 1,000 mg 02/07/25 21:32 02/13/25 20:27 Acetaminophen 500 Mg Tab PO 03/09/25 21:31 1,000 mg Q8H PRN Administration Pain Albuterol 3 ml 02/08/25 07:00 02/14/25 07:37 Albut/Ipratrop 3mg/0.5mg Neb 3 Ml Vial INH 03/10/25 06:59 3 ml QIDR KANE Administration Protocol Atorvastatin Calcium 40 mg 02/08/25 09:00 02/14/25 08:20 Atorvastatin 40 Mg Tab PO 03/10/25 08:59 40 mg DAILY KANE Administration Budesonide 0.25 mg 02/13/25 19:00 02/14/25 07:02 Budesonide 0.25 Mg/2 Ml Vial (Pulmicort) NEB 03/15/25 18:59 0.25 mg BIDR KANE Administration Digoxin 0.125 mg 02/08/25 09:00 02/14/25 08:20 Digoxin 0.125 Mg Tab PO 03/10/25 08:59 0.125 mg DAILY KANE Administration Diltiazem HCl 120 mg 02/07/25 21:32 02/14/25 08:19 Diltiazem Hcl 60 Mg Tab PO 03/09/25 21:31 120 mg QID KANE Administration Famotidine 20 mg 02/07/25 21:32 02/14/25 08:18 Famotidine 20 Mg Tab PO 03/09/25 21:31 20 mg BID KANE Administration Flecainide Acetate 100 mg 02/07/25 21:32 02/13/25 20:27 Flecainide Acetate 100 Mg Tablet PO 03/09/25 21:31 100 mg Q12 KANE Administration Formoterol Fumarate 20 mcg 02/13/25 19:00 02/14/25 07:02 Formoterol 20 Mcg/2 Ml Vial INH 03/15/25 18:59 20 mcg BIDR KANE Administration Guaifenesin 1,200 mg 02/07/25 21:32 02/14/25 08:18 Guaifenesin 600 Mg Tabcr PO 03/09/25 21:31 Not Given Q12 KANE Cefepime HCl 2,000 mg in 20 mls @ 5 mls/min 02/10/25 13:15 02/14/25 06:20 Maxipime 2000mg IV 02/15/25 13:14 5 mls/min Q8H KANE Administration Protocol Lactated Ringer's 1,000 mls @ 15 mls/hr 02/14/25 09:30 02/14/25 09:44 Lr IV 02/17/25 09:29 15 mls/hr .Q24H KANE Administration Levothyroxine Sodium 50 mcg 02/08/25 06:30 02/14/25 06:21 Levothyroxine Sodium 50 Mcg Tablet PO 03/10/25 06:29 50 mcg DAILYBB KANE Administration Melatonin 3 mg 02/07/25 21:32 02/08/25 20:13 Melatonin 3 Mg Tab PO 03/09/25 21:31 3 mg HS PRN Administration Sleep Montelukast Sodium 10 mg 02/08/25 09:00 02/14/25 08:19 Montelukast Sodium 10 Mg Tablet PO 03/10/25 08:59 10 mg QAM KANE Administration Mupirocin 1 appln 02/08/25 09:00 02/14/25 08:20 Mupirocin 2% Oint 22 Gm Tube EXT 02/15/25 08:59 1 appln BID KANE Administration Polyethylene Glycol 17 gm 02/09/25 08:23 02/13/25 16:28 Polyethylene (Miralax) 17 Gm Pack PO 03/11/25 08:22 17 gm DAILY PRN Administration Constipation Pregabalin 25 mg 02/07/25 21:32 02/14/25 08:18 Pregabalin 25 Mg Cap PO 03/09/25 21:31 25 mg BID KANE Administration Sodium Chloride 2 sprays 02/08/25 04:50 02/09/25 09:46 Sodium Chloride 0.65% Na Soln 45 Ml ([place]) NA 03/10/25 04:49 2 sprays Q1H PRN Administration dry, irritated nose Sodium Chloride 4 ml 02/13/25 19:00 02/14/25 07:02 Sodium Chlor 7% 4 Ml Neb NEB 03/15/25 18:59 4 ml BIDR KANE Administration Umeclidinium [place] 1 puffs 02/08/25 09:00 02/14/25 08:19 Umeclidinium [place] 62.5mcg/Blister 7 Puffs/Inhaler INH 03/10/25 08:59 1 puffs DAILY KANE Administration Vitamin D 125 mcg 02/08/25 09:00 02/14/25 08:19 Cholecalciferol 125 Mcg (5,000 Units) Tab PO 03/10/25 08:59 125 mcg DAILY KANE Administration NPO Date Last Intake of Fluids: 02/13/25 Time Last Intake of Fluids: 21:00 Last Intake of Fluids Comment: sip of water with AM meds per PA-C order Date Last Intake of Solids: 02/13/25 Time Last Intake of Solids: 21:00 Past Medical History Medical History Nicotine dependence quit summer 2024 Coronary artery calcification seen on CAT scan Paroxysmal atrial fibrillation Pulmonary hypertension Chronic respiratory failure on home oxygen Cardiac arrest with successful resuscitation 08/2024 Liver mass Multiple fractures of ribs associated with chest compression and cardiopulmonary resuscitation 08/2024 Cardiomyopathy PAD (peripheral artery disease) S/P LEFT COMMON ILIAC ARTERY STENTS X 2 Rib fractures Pneumothorax on right Benign essential hypertension Asthma Chronic obstructive pulmonary disease Hyperlipidemia Exercise / Class Metabolic Activity II 4-5 Yardwork/Stairs/Walk up hill Past Family History Family History Mother Diabetes Ovarian cancer Uterine cancer Father Myocardial infarction Heart disease Brother Heart disease 2 brothers Pacemaker Denies family history of Colon cancer Prostate cancer Breast cancer Past Surgical History Surgical History Status post ORIF of fracture of ankle 11/2024 - right History of surgery anterior vesicourethropexy History of knee surgery History of wisdom tooth extraction Status post unilateral salpingo-oophorectomy History of tonsillectomy and adenoidectomy History of bladder surgery History of hysterectomy SHY History of surgery on arm LEFT ARM ULNAR SURGERY History of surgery S/P LEFT COMMON ILIAC ARTERY STENTS X 2 Past Anesthesia History No Hx of Anesthesia Complications and No Family Hx of Anesthesia Complications History of PONV No Hx of PONV and No Hx of Motion Sickness Social History Smoking Status: Never smoker tobacco type: cigarettes Smoking cigarettes per day: 1/2 PPD X 40 YEARS Do You Dip or Chew Tobacco: No Hx Alcohol Use: No Alcohol type: beer and wine alcohol intake frequency: holidays/special occasions only Hx Substance Use: No substance use type: does not use Review of Systems denies fever/cough/ colds/ chest pain/ SOB/ YOLETTE denies YOLETTE Physical Exam Vital Signs Last Vital Signs Temp 36.6 C 02/14/25 09:20 Pulse 73 02/14/25 09:20 Resp 22 02/14/25 09:20 BP 117/59 L 02/14/25 09:20 Pulse Ox 94 02/14/25 09:20 O2 Del Method Nasal Cannula 02/14/25 09:20 O2 Flow Rate 2 02/14/25 09:20 ENMT Mouth: no TMJ abnormality and no dentition abnormality Thyromental Distance: > or= 3.5 Finger Breadths Mallampati Class: II Neck neck extension not limited Respiratory normal respiratory effort; no respiratory distress Auscultation: lungs clear to auscultation bilaterally Cardiovascular Rate/Rhythm: regular rate and regular rhythm Neurologic moves all extremities Psychiatric Orientation: alert and oriented x 3 Testing Laboratory Results 02/13/25 05:47 02/13/25 05:47 PT 10.4 Seconds (9.0-12.0) 02/13/25 05:47 INR 1.0 (0.9-1.1) 02/13/25 05:47 APTT 25 Seconds (21-31) 02/07/25 15:50 02/09/25 15:35 Gram Stain - Final Sputum, Expectorated Sputum Culture - Final Pseudomonas aeruginosa
--- NOTE | 2025-02-14 10:32 | Post Operative Brief Note ---
PG Immediate Post Op with CF Date of Surgery February 14, 2025 Pre & Post Diagnosis Operation Date: 02/14/25 10:30 Pre-Op Diagnosis: Abdominal wall mass Post-Op Diagnosis: Abdominal wall mass 5cm x 4.5cm I identified the patient and participated in the time-out.: Yes Procedure Operation Date: 02/14/25 10:30 Actual Procedures p Abdominal Wall Mass Excision 5cm x 4.5cm(Right) - Masoud Dickson DO Surgeon Masoud Dickson DO Event Promoter Candice Nath PA-C Estimated Blood Loss 5 Findings See Below Solid appearing mass measuring 5cm x 4.5cm Specimens Specimen Description: A. Abdominal wall mass, short stitch superior, long stitch lateral Anesthesia Type General Complications none Disposition Disposition: Recovery Room
--- NOTE | 2025-02-14 10:40 | Operative Report ---
PG Post Operative Report Pre & Post Diagnosis Operation Date: 02/14/25 10:30 Pre-Op Diagnosis: Abdominal wall mass Post-Op Diagnosis: Abdominal wall mass 5cm x 4.5cm I identified the patient and participated in the time-out.: Yes Procedure Operation Date: 02/14/25 10:30 Actual Procedures p Abdominal Wall Mass Excision 5cm x 4.5cm(Right) - Masoud Dickson DO Surgeon Masoud Dickson DO Car Sealer Candice Nath PA-C Estimated Blood Loss 5 Findings See Below Solid appearing mass measuring 5cm x 4.5cm Specimens Abdominal wall mass, short stitch superior, long lateral Drains None Anesthesia Type General Complications none Disposition Disposition: Recovery Room Indications 64 yo female with abdominal wall mass, need for tissue diagnosis Description of Procedure The patient was brought to the OR and placed in the supine position. At this time she underwent General LMA anesthesia without issue. She was given appropriate pre-operative antibiotics. Her abdomen was prepped and draped in the usual sterile fashion. A timeout was called. The procedure was verified as Excision of Abdominal Wall Mass. Surgical, anesthesia and nursing teams agreed and the procedure was begun. After injection of 0.25% Marcaine with epinephrine, a transverse elliptical incision was made directly over the palpable lesion using a #15 blade scalpel to include some skin with the specimen. This was carried down to the subcutaneous tissue using electrocautery. The lesion was identified and dissected from surrounding tissue using sharp and blunt dissection. The entire mass was excised and located in the subcutaneous tissue. This measured 5cm x 4.5cm. It was grossly a solid appearing mass. Hemostasis was achieved using electrocautery. Hemostasis was complete. The incision was then closed in layers with 3-0 Vicryl in the deep dermis and the skin using 4-0 Monocryl in a running subcuticular fashion. Steri le dressing was applied. The patient was awakened from anesthesia and taking to PACU having remained stable throughout the entire case. All needle and sponge counts correct x 2. The physician creative assistant was present and scrubbed for the entire procedure. She was essential in positioning, prepping and draping the patient, retraction and exposure, closure of the incision and placement of the dressing. I attest to the content of the Intraoperative Record and any orders documented therein. Any exceptions are noted below.
[2025-02-14] MEDS: BUPIVACAINE/EPINEPHRINE 0.25% 1:200,000 30 ML VIAL ONE (10:46)
[2025-02-14 11:32] VITALS: BP 144/69; TEMP 98.1; O2SAT 93
[2025-02-14 11:40] VITALS: RESP 16
--- NOTE | 2025-02-14 12:02 | Anesthesiology Progress Note ---
Date of Service February 14, 2025 Anesthesia Post Procedure Vital Signs Vital Signs: Temp Pulse Pulse Pulse Resp BP Pulse Ox 02/14/25 11:39 80 16 93 02/14/25 11:31 36.7 C 69 18 144/69 H 93 02/14/25 11:12 36.5 C 64 16 124/60 95 02/14/25 11:00 68 21 118/61 91 02/14/25 10:50 65 19 139/64 94 02/14/25 10:42 36.2 C L 67 25 H 153/67 H 95 02/14/25 09:20 36.6 C 73 22 117/59 L 94 02/14/25 08:20 86 02/14/25 08:17 36.8 C 86 22 127/79 93 02/14/25 08:00 02/14/25 07:08 68 18 96 02/13/25 23:12 36.5 C 64 18 114/66 96 02/13/25 21:12 71 18 93 02/13/25 20:00 02/13/25 19:32 36.6 C 82 18 133/66 92 02/13/25 14:40 84 18 93 O2 Del Method O2 Flow Rate 02/14/25 11:39 Nasal Cannula 2 02/14/25 11:31 Nasal Cannula 2 02/14/25 11:12 Nasal Cannula 2 02/14/25 11:00 Nasal Cannula 2 02/14/25 10:50 Nasal Cannula 2 02/14/25 10:42 Nasal Cannula 2 02/14/25 09:20 Nasal Cannula 2 02/14/25 08:20 02/14/25 08:17 Nasal Cannula 2 02/14/25 08:00 Nasal Cannula 2 02/14/25 07:08 Nasal Cannula 2 02/13/25 23:12 Nasal Cannula 2.0 02/13/25 21:12 Nasal Cannula 2 02/13/25 20:00 Nasal Cannula 2 02/13/25 19:32 Nasal Cannula 2.0 02/13/25 14:40 Nasal Cannula 2 Pain Intensity Right Ankle: Pain Intensity: 3 Right Upper Abdomen: Pain Intensity: 3 Transfer of Care Handoff Completed per policy Notes Mental Status: alert / awake / arousable and participated in evaluation Patient Amnestic to Procedure: Yes Nausea / Vomiting: adequately controlled Pain: adequately controlled Airway Patency, RR, SpO2: stable & adequate BP & HR: stable & adequate Hydration State: stable & adequate Anesthetic Complications: no major complications apparent and Pt Satisfied with anesthetic care
--- NOTE | 2025-02-14 14:37 | Discharge Summary ---
Discharge Summary Date of Service February 14, 2025 Principal Dx & Hospital Course #1 = Principal Diagnosis (1) Acute exacerbation of chronic obstructive pulmonary disease: (2) Chest tightness: (3) Acute on chronic respiratory failure with hypoxia and hypercapnia: (4) Benign essential hypertension: (5) Hyperlipidemia: (6) Liver mass: (7) Paroxysmal atrial fibrillation: (8) Pulmonary hypertension: (9) Coronary artery calcification seen on CAT scan: (10) Abnormal CT of the chest: Sami Polanco is a 64 year old admitted to [facility] from February 07 to 2024 due to shortness of breath and chest tightness. Cardiac catheterization showed minimal nonobstructive coronary artery disease therefore cardiac cause was ruled out. She was diagnosed with COPD exacerbation treated with steroids and nebulizers with significant improvement. She will continue on prednisone taper on discharge. Sputum culture subsequently grew pseudomonas aeruginosa and she was treated with intravenous cefepime as an inpatient and will be discharged on Levaquin for a total antibiotic course of 7 days (3 further days). CT scan was concerning for metastatic lung cancer with possible spread to her chest wall and back. She underwent surgery for this mass on February [address] Dickson with pathology pending on discharge. She will follow up with pulmonology for results of this and to potentially discuss bronchoscopy if not consistent with lung cancer. T8 vertebral body lesion was seen on CT chest and MRI thoracic spine was discussed with the patient but given no significant pain in that area it was deferred during her hospitalization. Recommend she discusses this further with her primary care physician as she was concerned about the contrast due to prior cardiac arrest after iodinated contrast however tried to reassure her this is with intravenous gadolinium contrast and in the future she may benefit from radiation to this area. Please see post operative instructions below - in addition she will resume Eliquis on morning. Notes For Next Care Provider Follow up with pulmonology and surgery for pathology results and ongoing treatm ent Medication Changes From Visit Prednisone taper for COPD exacerbation Levofloxacin for pseudomonas aeruginosa on sputum culture Admission HPI Per Admitting Provider Pleasant 64yo female with chronic hypoxic/hypercapnic respiratory failure on home O2, 1-2 L at rest, 3-5 L with activity; COPD; right ankle fracture s/p ORIF 12/11/24, PAF on Eliquis, pulmonary HTN, liver mass, HTN, hyperlipidemia, and cardiac arrest 08/2024 at [facility] in [place] after receiving IV CT contrast. She was hospitalized for 7 days. Required intubation/[facility] ventilation/ICU stay. Had multiple rib fractures from CPR. Patient reports that ever since her cardiac arrest her breathing has never been the same. She has had increasing amounts of dyspnea on exertion & chest tightness for several months. Now she is at a point where walking only 5-10 feet causes dyspnea on exertion and severe chest tightness. At home, she has checked her O2 sats when she has the symptoms and sometimes she is hypoxic to the upper 70s even with supplemental O2 in place. Her chest tightness is in the upper chest and to the left as well. The tightness will last 15-20 minutes then finally resolve. She never has symptoms at rest. Does not have nocturnal symptoms. She does feel sweaty when she is short of breath and having chest tightness. Denies ANY cough or URI symptoms. She was hospitalized at [facility] from 01/23 to 01/26 for COPD exacerbation. Received IV steroids then transitioned to po prednisone and d/c to home. She completed 5 days each of low-dose prednisone & amoxicillin on 01/31/25. She states she felt ok for about 2-3 days, then her dyspnea on exertion started to worsen once again. Since her hospitalization she has been taking daily lasix and lost weight with such, now down to 156 pounds on her home scale. She stopped the lasix this past Thursday. She quit smoking this summer after smoking for 50 years. Reports she is compliant with all medicines including her Eliquis. Following her right ankle surgery in November she was non-weightbearing for about 2 months. She is finally back to weight-bearing. At no point in the last several months has she had inpatient rehab, but she has been going to [facility] for outpatient PT. Discharge Exam Constitutional WD/WN, vitals as above ENMT external ear and nose normal, oropharynx normal Respiratory normal respiratory effort, lungs clear to auscultation normal respiratory effort; no respiratory distress Auscultation: + wheezes (very mild expiratory wheeze) Cardiovascular RRR, no murmur, no edema Discharge Plan Discharge Items Patient Disposition: Home - Self-Care Reason For Visit: CHEST TIGHTNESS/SEVERE DYSPNEA, ACUTE/CHRONIC RESP Discharge Diagnosis: COPD exacerbation Possible metastatic cancer Condition on Discharge: Fair Activity: Per Instructions section Lifting: Gradually increase as tolerated Exercise/Sports: Gradually increase as tolerated Non-emergency contact: Primary Care Provider Call non-emergency contact if: you have any medication questions Follow-up/Referrals: Narayan Hsu III, CRNP [Primary Care Provider] - 02/21/25 9:20 am Paul Polanco MD, FCCP [Physician] - 02/21/25 1:00 pm (Follow up lung nodules and chest wall pathology) Masoud Dickson DO [Physician] - 02/23/25 10:50 am (Please call to schedule follow up in the office in 2 weeks ) Diet: Regular Addtl Attending Provider Instructions: You were admitted to [facility] from February 07 to 2024 due to shortness of breath and chest tightness. Cardiac catheterization showed minimal nonobstructive coronary artery disease therefore cardiac cause was ruled out. You were diagnosed with COPD exacerbation treated with steroids and nebulizers. Please continue on a tapering dose of steroids on discharge. Your policy value calculator recommended starting montelukast. Sputum culture grew pseudomonas aeruginosa and you were treated with intravenous cefepime as an inpatient and you will be discharged on Levquin for a total antibiotic course of 7 days (3 fu rther days). CT scan was concerning for metastatic lung cancer with possible spread to your chest wall and back. You underwent surgery for this mass on February [address] Dickson with pathology pending on discharge. Please follow up with pulmonology for results of this and to potentially discuss bronchoscopy. Consider MRI thoracic spine with your primary care physician with intravenous gadolinium contrast (this is not the same as iodinated contrast for the CT) as you may benefit from radiation to this area. Please see post operative instructions below - in addition please resume Eliquis on morning. SPECIAL CARE INSTRUCTIONS: * You have skin glue over your incisions called dermabond. you may shower with this on. It will tend to dissolve and fall off within a couple weeks. Do not pick at the skin glue * You may shower 02/15 . NO soaking in pools or baths for 2 weeks * No lifting greater than 10lbs. No strenuous exercise until cleared by surgeon. Light walking is accepted. * No driving while taking narcotic pain medication; wait at least 1 day * No drinking alcohol while taking narcotic pain medication * May use Tylenol over the counter for pain as tolerated. Do not exceed 3grams of Tylenol per 24 hours * Expect some swelling and bruising. * Diet- you may resume your regular diet Call your doctor if: * Temperature above 101 degrees, nausea/vomiting, fever/chills * Pain not relieved by pain medicine ordered * There is increased drainage or redness from any incision * You have any unanswered questions or concerns [phone]. FOLLOW UP VISIT: If not already scheduled, please call the office for a follow-up visit. Office Pending Studies at Discharge: Yes Studies:: surgical pathology Stand-Alone Forms: My [facility] [employer], Smoking Cessation Medications and DC Order Prescriptions: New levofloxacin 750 mg tablet 750 mg PO DAILY 3 Days Qty: 3 0RF prednisone 10 mg tablet See Rx Instructions .ROUTE .COMPLEX Qty: 6 0RF Rx Instructions: 20 mg daily for 2 days then 10mg daily for 2 days, then stop Continued zoledronic mgio-qjzxjtck-csoow [Reclast] 5 mg/100 mL piggyback 1 ea IV YEARLY Qty: 100 0RF Patient Comments: 11/12- per pt she goes in February to find out if she gets a dose this year montelukast 10 mg tablet 10 mg PO QAM Qty: 90 3RF Spiriva with HandiHaler 18 mcg capsule, w/inhalation device 1 cap inhalation DAILY Qty: 90 3RF Rx Instructions: puncture 1 cap using device; one dose = 2 inhalations Symbicort 160-4.5 mcg/actuation HFA aerosol inhaler 2 puff INH BID Qty: 30.6 3RF cholecalciferol (vitamin D3) 125 mcg (5,000 unit) capsule 5,000 unit PO DAILY atorvastatin 40 mg tablet 40 mg PO DAILY Qty: 90 3RF famotidine 20 mg tablet 20 mg PO BID Qty: 180 3RF diltiazem HCl 60 mg tablet 120 mg PO QID Qty: 240 0RF albuterol sulfate 90 mcg/actuation HFA aerosol inhaler 1 - 2 inh inhalation .Q4-6H PRN (Reason: sob) Qty: 25.5 2RF Rx Instructions: INHALE 1 TO 2 PUFFS EVERY 4 TO 6 HOURS NEEDED FOR SHORTNESS OF BREATH OR WHEEZING ipratropium-albuterol 0.5 mg-3 mg(2.5 mg base)/3 mL solution for nebulization 3 ml inhalation QID PRN (Reason: wheezing) Qty: 90 0RF oxycodone 5 mg tablet 5 mg PO Q8H PRN (Reason: pain) Qty: 18 0RF Rx Instructions: ongoing therapy furosemide 20 mg Tablet 20 mg PO QAM 30 Days Qty: 30 0RF pregabalin 25 mg Capsule 25 mg PO BID Qty: 60 0RF guaifenesin [Mucinex] 600 mg Tablet Extended Release 12hr 1,200 mg PO Q12 Qty: 120 0RF acetaminophen [Tylenol Extra Strength] 500 mg tablet 1,000 mg PO Q8H PRN (Reason: Pain) flecainide 100 mg tablet 100 mg PO Q12 digoxin 125 mcg (0.125 mg) tablet 125 mcg PO DAILY Held Eliquis 5 mg tablet 5 mg PO BID Qty: 180 3RF Hold Instructions: Resume on 02/16/25. Discontinued prednisone 20 mg tablet See Rx Instructions .ROUTE .COMPLEX 10 Days Qty: 15 0RF Rx Instructions: STARTED 02/02/25 FOR 10 DAYS DIRECTED. 40mg (2 tablets) orally for 5 days; then 20mg (1 tablet) orally for 5 days No Action levothyroxine 50 mcg tablet 50 mcg PO DAILY Qty: 90 3RF sodium chloride 7 % solution for nebulization 1 inh inhalation BID Qty: 240 3RF Mucinex DM 30-600 mg tablet extended release 12 hr 1 tab PO Q12H PRN (Reason: cough) Qty: 60 3RF Rx Instructions: Take 1 tab twice daily for 5 days and then as needed Discharge Orders: Discharge Order (Routine); Ordered 02/14/25 Ordered By: Enrico Garcia/Other Patient Handouts: Montelukast Oral Tablet, Levofloxacin Oral Tablet Admission Data Admit Date/Time: 02/07/25 19:10 Attending Provider: Enrico Morales Admit Provider: Enrico Root Primary Care Provider: Narayan Hsu III Other Providers: Brain Osborn; Allegra Lee; Masoud Dickson Other Interventions: Discharge Summary Assessment (RN) Last Done: 02/14/25 14:52 Hospital Stay Data Consultations 02/07/25 17:28 ED Decision to Admit Stat 02/07/25 21:32 Consult Cardiology Routine 02/08/25 08:00 Consult Pulmonology Routine 02/08/25 17:23 Consult General Surgery Routine Procedures Performed Operation Date: 02/14/25 10:30 Actual Procedures p Abdominal Wall Mass Excision 5cm x 4.5cm(Right) - Masoud Dickson, DO Diagnostic Imagining Performed 02/07/25 18:44 CT chest diagnostic wo con Routine 02/08/25 12:00 CL Cath Imgs for PACS use only Stat 02/08/25 19:17 US softtissue abdwall/lwr back Routine Pending Results Patient Have Any Pending Studies at Discharge: Yes Discharge Instructions Given to Patient (Per Discharging Provider) You were admitted to [facility] from February 07 to 2024 due to shortness of breath and chest tightness. Cardiac catheterization showed minimal nonobstructive coronary artery disease therefore cardiac cause was ruled out. You were diagnosed with COPD exacerbation treated with steroids and nebulizers. Please continue on a tapering dose of steroids on discharge. Your policy value calculator recommended starting montelukast. Sputum culture grew pseudomonas aeruginosa and you were treated with intravenous cefepime as an inpatient and you will be discharged on Levquin for a total antibiotic course of 7 days (3 [address] scan was concerning for metastatic lung cancer with possible spread to your chest wall and back. You underwent surgery for this mass on February [address] Dickson with pathology pending on discharge. Please follow up with pulmonology for results of this and to potentially discuss bronchoscopy. Consider MRI thoracic spine with your primary care physician with intravenous gadolinium contrast (this is not the same as iodinated contrast for the CT) as you may benefit from radiation to this area. Please see post operative instructions below - in addition please resume Eliquis on morning. SPECIAL CARE INSTRUCTIONS: * You have skin glue over your incisions called dermabond. you may shower with this on. It will tend to dissolve and fall off within a couple weeks. Do not pick at the skin glue * You may shower 02/15 . NO soaking in pools or baths for 2 weeks * No lifting greater than 10lbs. No strenuous exercise until cleared by surgeon. Light walking is accepted. * No driving while taking narcotic pain medication; wait at least 1 day * No drinking alcohol while taking narcotic pain medication * May use Tylenol over the counter for pain as tolerated. Do not exceed 3grams of Tylenol per 24 hours * Expect some swelling and bruising. * Diet- you may resume your regular diet Call your doctor if: * Temperature above 101 degrees, nausea/vomiting, fever/chills * Pain not relieved by pain medicine ordered * There is increased drainage or redness from any incision * You have any unanswered questions or concerns [phone]. FOLLOW UP VISIT: If not already scheduled, please call the office for a follow-up visit. Office Total Time Total Time Spent Total Time Spent (In Minutes): 45 Total Time Includes: Examination of the Patient, Discharge Planning, Medication Reconciliation and Communication With Other Providers Coding Level of Care Code 75275 INP/OBS DISCH >30 MIN Diagnoses Acute exacerbation of chronic obstructive pulmonary disease J44.1 Chest tightness R07.89 Acute on chronic respiratory failure with hypoxia and hypercapnia J96.21; J96.22 Benign essential hypertension I10 Hyperlipidemia E78.5 Liver mass R16.0 Paroxysmal atrial fibrillation I48.0 Pulmonary hypertension I27.20 Coronary artery calcification seen on CAT scan I25.[address] of the chest R93.89
[2025-02-14 14:53] VITALS: PULSE 64
--- NOTE | 2025-02-18 06:34 | Coding Query ---
PATHOLOGY To promote full compliance with coding requirements relating to patient care, physician participation is requested in all cases of tool and production planner uncertainty. Please assist us with the question(s) below: Please review the Pathology report and please document any relevant diagnosis(es) below: Diagnosis(es): High grade neuroendocrine carcinoma Thank you JUSTIN Del Angel [facility]
== END 2025-02-14 15:27 | disposition home or self-care (01) | DRG 826 ==
LOC: SUATTDRO → ED 15:19 → 4W 19:10 → INTOOBSV 19:10 → SUATTDRO 19:10 → 4W 21:02